=== PATIENT | female | born 1980 | race Caucasian/White ===

== ENCOUNTER → 2016-10-20 | Outpatient (CLI) | payer MEDICARE, OTHER ==
--- NOTE | 2016-10-20 16:16 | XCELERA REPORT ---
[address] [address] Lower Extremity Venous Evaluation Name: GUS PELLETIER Age: 36 yrs Gender: Female : 1980 Patient Status: Outpatient Patient Location: Study Date: 10/20/2016 02:31 PM Procedure: A bilateral duplex scan of the lower extremity veins was performed. The evaluation included responses to compression and other maneuvers with patient in the supine and standing positions to assess venous insufficiency. Reason For Study: LEFT FOOT ABSCESS Ordering Physician: SINDHU LIU Performed By: Aaron Velazquez Right Sided Venous Evaluation Deep venous system evaluation shows patent veins with significant reflux identified. 4.6 second reflux in the CFV, no reflux in the Femoral vein. Sapheno Femoral junction: 1.6 second reflux. Greater Saphenous vein, Proximal thigh: reflux: no reflux Greater Saphenous vein, mid thigh: reflux:no reflux Greater Saphenous vein, Distal thigh: reflux: no reflux Greater Saphenous vein, Proximal below knee: reflux: none Greater Saphenous vein, Mid below knee: reflux: none. Greater Saphenous vein, Distal below knee: reflux: no reflux No significant Perforators identified. Left Sided Venous Evaluation Deep venous system evaluatiion shows patent veins with no obstruction or significant reflux identified. Sapheno Femoral junction: no reflux. Femoral vein reflux: no reflux. Greater Saphenous vein, Proximal thigh: reflux: no reflux. Greater Saphenous vein, Distal thigh: reflux: no reflux. Greater Saphenous vein, Proximal below knee: reflux: no reflux. No significant Perforators identified. Interpretation Summary No duplex evidence of DVT or obstruction in the bilateral lower extremities. Limited, reflux on the right. : SINDHU LIU > Jac Mclean
--- NOTE | 2016-10-20 16:18 | XCELERA REPORT ---
[address] [address] Lower Extremity Arterial Evaluation Name: GUS PELLETIER Age: 36 yrs Gender: Female : 1980 Patient Status: Outpatient Patient Location: Study Date: 10/20/2016 02:18 PM Procedure: A color flow and duplex scan of the lower extremity arteries was performed bilaterally with velocity and waveform anaylsis. Reason For Study: LEFT FOOT ABSCESS Ordering Physician: SINDHU LIU Performed By: Aaron Velazquez Measurements and Calculations Right Left CULINARY SPECIALIST PSV 129.6 135.3 cm/sec Prox PFA PSV -81.1 -74.2 cm/sec Dist SFA PSV -99.9 -99.3 cm/sec Dist Pop A PSV 91.1 86.1 cm/sec Dist GIULIANA PSV 99.3 92.4 cm/sec Dist FURNACE COMBINATION ANALYST PSV 92.4 -61.6 cm/sec Ravindra Pedis PSV 91.8 93.0 cm/sec Right Side Arterial Evaluation Normal velocity and triphasic waveforms noted from the Common Femoral artery to the infregeniculate vessels. 0 % stenosis noted. Ankle Brachial index is 1.18. Left Side Arterial Evaluation Normal velocity and triphasic waveforms noted from the Common Femoral artery to the infregeniculate vessels. 0 % stenosis noted. Ankle Brachial index is 1.19. Interpretation Summary No hemodynamically significant lesions in the bilateral lower extremities, on duplex imaging, at rest. : SINDHU LIU > Jac Mclean
== END ==
LOC: SP 13:58
PROVIDERS: ATTEND Surgery
DX: L02.612 Cutaneous abscess of left foot (principal); M08.00 Unspecified juvenile rheumatoid arthritis of unspecified site
CPT/HCPCS: 93925; 93970

== ENCOUNTER 2017-01-07 14:48 | Emergency (ER) | payer OTHER, MEDICAID ==
--- NOTE | 2017-01-07 16:58 | ER Document Report ---
ED General - General Chief Complaint: Rash Stated Complaint: RASH ON ABDOMINAL Time Seen by Provider: 01/07/17 16:53 Mode of Arrival: Ambulatory Information source: Patient Notes: Patient states that she has 2 days of painful rash. She states that it seemed to start primarily in the right flank and now radiates across the lower abdomen to the left side. She denies any new vesicles or lesions with this. There is been no drainage. It has been red and tender. She has had no fevers no vomiting no diarrhea. She states that she did previously take Humira for arthritis but is not longer taking this medication. Symptoms of been constant and moderate. The pain is a burning sensation. It does radiate across the abdomen as above. It is worse when touched and better if left alone. TRAVEL OUTSIDE OF THE [place] IN LAST 30 DAYS: No - Related Data Allergies/Adverse Reactions: amoxicillin trihydrate [From Augmentin] Allergy (Verified 01/07/17 14:51) ITCHING cephalexin monohydrate [From Keflex] Allergy (Verified 01/07/17 14:51) ibuprofen [From Motrin] Allergy (Verified 01/07/17 14:51) Potassium Clavulanate * [From Augmentin] Allergy (Verified 01/07/17 14:51) Home Medications: Current Home Medications Metoprolol Tartrate [Metoprolol Tartrate] 100 mg PO DAILY 01/07/17 [History] Paroxetine HCl [Paroxetine HCl] 20 mg PO DAILY 01/07/17 [History] Prednisone [Prednisone] 8 mg PO DAILY 01/07/17 [History] Past Medical History - General Information source: Patient - Social History Smoking Status: Never Smoker Chew tobacco use (# tins/day): No Frequency of alcohol use: None Drug Abuse: None Family History: Reviewed & Not Pertinent Patient has suicidal ideation: No Patient has homicidal ideation: No Pulmonary Medical History: Reports: Hx Pneumonia - intubated Denies: Hx Tuberculosis Neurological Medical History: Denies: Hx Seizures Renal/ Medical History: Denies: Hx Peritoneal Dialysis Musculoskeltal Medical History: Reports Hx Arthritis - Juvenile rheumatoid arthritis Psychiatric Medical History: Denies: Hx Depression Past Surgical History: Reports: Hx Section - 2, Hx Orthopedic Surgery - joint replacements. Denies: Hx Hysterectomy - Immunizations Hx Diphtheria, Pertussis, Tetanus Vaccination: No Review of Systems - Review of Systems Constitutional: denies: Chills, Fever Cardiovascular: denies: Chest pain, Palpitations Respiratory: denies: Cough, Short of breath Physical Exam - Vital signs Vitals: Temp Pulse Resp BP Pulse Ox 98.5 F 93 18 128/89 H 96 01/07/17 14:51 01/07/17 14:51 01/07/17 14:51 01/07/17 14:51 01/07/17 14:51 Interpretation: Hypertensive - General General appearance: Appears well, Alert In distress: None - HEENT Head: Normocephalic, Atraumatic Eyes: Normal Pupils: PERRL - Respiratory Respiratory status: No respiratory distress Chest status: Nontender Breath sounds: Normal Chest palpation: Normal - Cardiovascular Rhythm: Regular Heart sounds: Normal auscultation Murmur: No - Abdominal Inspection: Normal Distension: No distension Bowel sounds: Normal Tenderness: Nontender Organomegaly: No organomegaly - Back Back: Normal, Nontender - Extremities General upper extremity: Normal inspection, Nontender, Normal color, Normal ROM , Normal temperature General lower extremity: Normal inspection, Nontender, Normal color, Normal ROM , Normal temperature, Normal weight bearing. No: Corinne's sign - Neurological Neuro grossly intact: Yes Cognition: Normal Orientation: AAOx4 [place] Coma Scale Eye Opening: Spontaneous [place] Coma Scale Verbal: Oriented Mei Coma Scale Motor: Obeys Commands [place] Coma Scale Total: 15 Speech: Normal Motor strength normal: LUE, RUE, LLE, RLE Sensory: Normal - Psychological Associated symptoms: Normal affect, Normal mood - Skin Skin Temperature: Warm Skin Moisture: Dry Skin Color: Other - Patient's right flank is erythematous and mildly tender. The erythema does alex. There is no significant induration or fluctuance. This area of erythema and warmth does seem to spread across the pannus to the left side of the abdomen. No vesicles. Course - Re-evaluation Re-evalutation: 01/07/17 16:58 Rash seems consistent with cellulitis or possibly panniculitis. Rash does not seem consistent with zoster has patient has no vesicles and the rash seems to widespread. It also seems to be localized to just the pannus. It also does not seem consistent with allergic reaction. - Vital Signs Vital signs: Temp Pulse Resp BP Pulse Ox 98.5 F 93 18 128/89 H 96 01/07/17 14:51 01/07/17 14:51 01/07/17 14:51 01/07/17 14:51 01/07/17 14:51 Discharge - Discharge Clinical Impression: Cellulitis Qualifiers: Site of cellulitis: trunk Site of cellulitis of trunk: abdominal wall Qualified Code(s): L03.311 - Cellulitis of abdominal wall Condition: Stable Disposition: HOME, SELF-CARE Instructions: Cellulitis ([facility]) Additional Instructions: Please call your primary care physician as soon as possible to arrange follow- up. If you are unable to see your primary care physician please return to the emergency department for follow-up. Your blood pressure is mildly elevated today. Please have this rechecked within 1 week by your doctor. Prescriptions: Doxycycline Hyclate 100 mg PO BID 10 Days #20 capsule Forms: Elevated Blood Pressure
[2017-01-07 17:04] VITALS: BP 127/89
== END 2017-01-07 17:03 | disposition home or self-care (01) ==
LOC: ER 14:48
DX: L03.311 Cellulitis of abdominal wall (principal); Z88.0 Allergy status to penicillin; Z88.1 Allergy status to other antibiotic agents; Z88.6 Allergy status to analgesic agent
CPT/HCPCS: 99282

== ENCOUNTER 2017-01-13 23:14 | Inpatient (IN) | payer MEDICARE, OTHER, MEDICAID ==
[2017-01-14] MEDS ORDERED: METOCLOPRAMIDE HCL ORAL SOLN 10 MG/10 ML UDCUP PO ONE (00:59)
[2017-01-14] MEDS ORDERED: LIDOCAINE 2% VISCOUS SOLN 20 ML UDCUP PO ONE (00:59)
[2017-01-14] MEDS ORDERED: NORMAL SALINE 1000 ML 1,000 ML IV ONE (00:59)
[2017-01-14] MEDS ORDERED: MAG HYDROX/AL HYDROX/SIMETH SUSP 30 ML UDCUP PO ONE (00:59)
[2017-01-14] MEDS ORDERED: ONDANSETRON HCL INJ/PF 4 MG/2 ML SDV IV ONE (00:59)
--- NOTE | 2017-01-14 01:02 | ER Document Report ---
ED General - General TRAVEL OUTSIDE OF THE [place] IN LAST 30 DAYS: No <LEAH ZENDEJAS - Last Filed: 01/14/17 03:45> <LEAH CHRISTOPHER - Last Filed: 01/14/17 06:23> - General Chief Complaint: ryan pain Stated Complaint: CHEST PAIN Time Seen by Provider: 01/14/17 00:30 Notes: Patient is a 36-year-old female with a past medical history of juvenile arthritis, recurrent cellulitis, who presents with epigastric abdominal pain that has been progressively worsening over the last 12-24 hours. She describes it as a severe, constant, stabbing pain in her epigastrium that radiates to her mid back. She notes associated nausea and vomiting. Nothing improves or worsens the pain. She denies any history of similar symptoms in the past. She has no prior abdominal surgeries. She has not seen a primary care doctor regarding today's concerns. She has denies any fever or constitutional symptoms. (LEAH ZENDEJAS) - Related Data Allergies/Adverse Reactions: amoxicillin trihydrate [From Augmentin] Allergy (Verified 01/07/17 14:51) ITCHING cephalexin monohydrate [From Keflex] Allergy (Verified 01/07/17 14:51) ibuprofen [From Motrin] Allergy (Verified 01/07/17 14:51) Potassium Clavulanate * [From Augmentin] Allergy (Verified 01/07/17 14:51) Past Medical History - General Information source: Patient - Social History Smoking Status: Never Smoker Frequency of alcohol use: None Drug Abuse: None Family History: Reviewed & Not Pertinent Pulmonary Medical History: Reports: Hx Pneumonia - intubated Denies: Hx Tuberculosis Neurological Medical History: Denies: Hx Seizures Renal/ Medical History: Denies: Hx Peritoneal Dialysis Musculoskeltal Medical History: Reports Hx Arthritis - Juvenile rheumatoid arthritis Psychiatric Medical History: Denies: Hx Depression Past Surgical History: Reports: Hx Section - 2, Hx Orthopedic Surgery - joint replacements. Denies: Hx Hysterectomy - Immunizations Hx Diphtheria, Pertussis, Tetanus Vaccination: No <LEAH ZENDEJAS - Last Filed: 01/14/17 03:45> Review of Systems <LEAH ZENDEJAS - Last Filed: 01/14/17 03:45> <LEAH CHRISTOPHER - Last Filed: 01/14/17 06:23> - Review of Systems Notes: Constitutional: Negative for fever. HENT: Negative for sore throat. Eyes: Negative for visual changes. Cardiovascular: Negative for chest pain. Respiratory: Negative for shortness of breath. Gastrointestinal: Positive for abdominal pain and vomiting Genitourinary: Negative for dysuria. Musculoskeletal: Negative for back pain. Skin: Negative for rash. Neurological: Negative for headaches, weakness or numbness. 10 point ROS negative except as marked above and in HPI. (LEAH ZENDEJAS) Physical Exam - Vital signs Interpretation: Hypertensive <LEAH ZENDEJAS - Last Filed: 01/14/17 03:45> <LEAH CHRISTOPHER - Last Filed: 01/14/17 06:23> - Vital signs Vitals: Temp Pulse Resp BP Pulse Ox 97.8 F 74 16 156/102 H 100 01/13/17 23:50 01/13/17 23:50 01/13/17 23:50 01/13/17 23:50 01/13/17 23:50 Notes: PHYSICAL EXAMINATION: GENERAL: Appears uncomfortable but in no acute distress HEAD: Atraumatic, normocephalic. EYES: Pupils equal round and reactive to light, extraocular movements intact, sclera anicteric, conjunctiva are normal. ENT: nares patent, oropharynx clear without exudates. Moderately dry mucous membranes. NECK: Normal range of motion, supple without lymphadenopathy LUNGS: Breath sounds clear to auscultation bilaterally and equal. No wheezes rales or rhonchi. HEART: Regular rate and rhythm without murmurs ABDOMEN: Soft, focal tenderness to the epigastrium without rebound or guarding. There is no otherwise localized tenderness. No organomegaly. EXTREMITIES: Normal range of motion, No cyanosis. NEUROLOGICAL: No focal neurological deficits. Moves all extremities spontaneously and on command. PSYCH: Normal mood, normal affect. SKIN: Warm, Dry, normal turgor, crusting lesion around the mouth consistent with impetigo (LEAH ZENDEJAS) Course - Laboratory Result Diagrams: 01/14/17 01:35 01/14/17 01:35 - Diagnostic Test Radiology reviewed: Reports reviewed <LEAH ZENDEJAS - Last Filed: 01/14/17 03:45> - Laboratory Result Diagrams: 01/14/17 01:35 01/14/17 01:35 <LEAH CHRISTOPHER - Last Filed: 01/14/17 06:23> - Re-evaluation Re-evalutation: 01/14/17 00:59 Patient presents with epigastric abdominal pain with associated vomiting. Lipase is found to be markedly elevated suggesting an acute pancreatitis. She has no known history of this. Right upper quadrant ultrasound does show gallstones but no evidence of acute cholecystitis. Laboratories do not suggest an acute choledocholithiasis. I have low clinical suspicion for necrotizing pancreatitis as patient does not have a leukocytosis, no fever or tachycardia. I discussed this case with the hospitalist was requested a CT to further evaluate for any evidence of pancreatic necrosis or a large pancreatic pseudocyst. (LEAH ZENDEJAS) 01/14/17 06:22 CT scan results have returned and there is no evidence of pancreatic necrosis or pseudocyst. I did discuss this with Dr. Veloz who will admit the patient. Dictation of this chart was performed using voice recognition software; therefore, there may be some unintended grammatical errors. (LEAH CHRISTOPHER) - Vital Signs Vital signs: Temp Pulse Resp BP Pulse Ox 97.8 F 74 22 H 155/106 H 100 01/13/17 23:50 01/13/17 23:50 01/14/17 05:15 01/14/17 05:15 01/14/17 03:01 - Laboratory Laboratory results interpreted by me: 01/14/17 01/14/17 01:35 01:35 RBC 3.48 L Hgb 10.6 L Hct 32.1 L RDW 16.1 H Plt Count 99 L Lymphocytes % 11.5 L Monocytes % 13.5 H Chloride 116 H Carbon Dioxide 16 L BUN 37 H Calcium 7.9 L Direct Bilirubin 0.6 H AST 52 H Alkaline Phosphatase 200 H Total Protein 4.7 L Albumin 1.9 L Lipase 11869.0 H - EKG Interpretation by Me Additional EKG results interpreted by me: 01/14/17 01:00 Normal sinus rhythm. Rate 65. No ST elevations or depressions. QTC is 450. ( LEAH ZENDEJAS) Discharge <LEAH ZENDEJAS - Last Filed: 01/14/17 03:45> - Discharge Admitting Provider: Hospitalist Unit Admitted: Telemetry <LEAH CHRISTOPHER - Last Filed: 11/22/17 06:23> - Discharge Clinical Impression: Pancreatitis Qualifiers: Chronicity: acute Pancreatitis type: biliary Acute pancreatitis complication: no infection or necrosis Qualified Code(s): K85.10 - Biliary acute pancreatitis without necrosis or infection Gallstone Qualifiers: Cholecystitis presence: without cholecystitis Biliary obstruction: without biliary obstruction Qualified Code(s): K80.20 - Calculus of gallbladder without cholecystitis without obstruction Condition: Stable Disposition: ADMITTED INPATIENT
[2017-01-14] MEDS: MORPHINE SULFATE 10 MG/ML INJ IV PRN ×4 (01:34→07:43)
--- NOTE | 2017-01-14 01:36 | RADIOLOGY REPORT (SQ) ---
EXAM DESCRIPTION: CHEST SINGLE VIEW COMPLETED DATE/TIME: 01/14/2017 1:10 am REASON FOR STUDY: chest pain COMPARISON: 07/05/2013. EXAM PARAMETERS: NUMBER OF VIEWS: One view. TECHNIQUE: Single frontal radiographic view of the chest acquired. RADIATION DOSE: NA LIMITATIONS: None. FINDINGS: LUNGS AND PLEURA: Small bibasilar opacity-effusion. Moderate lung volume. MEDIASTINUM AND HILAR STRUCTURES: No masses. Contour normal. HEART AND VASCULAR STRUCTURES: Mild enlargement of the cardiac silhouette. BONES: No acute findings. HARDWARE: Hardware replacement of bilateral proximal humeri. OTHER: No other significant finding. IMPRESSION: No significant interval change. TECHNICAL DOCUMENTATION: JOB ID: [id number] [employer]- All Rights Reserved
[2017-01-14 01:51] LABS: ABSOLUTE LYMPHOCYTES (AUTO) 0.5 10^3/uL (0.5-4.7); ABSOLUTE MONOCYTES (AUTO) 0.6 10^3/uL (0.1-1.4); ABSOLUTE NEUT (AUTO) 3.1 10^3/uL (1.7-8.2); BASOPHILS % (AUTO) 0.4 % (0-2); EOSINOPHILS % (AUTO) 0.2 % (0-6); HEMATOCRIT 32.1 % (36.0-47.0); HEMOGLOBIN 10.6 g/dL (12.0-15.5); HGB HCT DIFFERENCE -0.3; LYMPHOCYTES % (AUTO) 11.5 % (13-45); MEAN CORPUSCULAR HEMOGLOBIN 30.3 pg (27.0-33.4); MEAN CORPUSCULAR HGB CONC 32.9 g/dL (32.0-36.0); MEAN CORPUSCULAR VOLUME 92 fl (80-97); MONOCYTES % (AUTO) 13.5 % (3-13); RED BLOOD COUNT 3.48 10^6/uL (3.72-5.28); RED CELL DISTRIBUTION WIDTH 16.1 % (11.5-14.0); SEGMENTED NEUTROPHILS % (AUTO) 74.4 % (42-78); WHITE BLOOD COUNT 4.2 10^3/uL (4.0-10.5)
[2017-01-14 02:02] LABS: ALANINE AMINOTRANSFERASE 31 U/L (9-52); ALBUMIN 1.9 g/dL (3.5-5.0); ALKALINE PHOSPHATASE 200 U/L (38-126); ANION GAP 11 (5-19); ASPARTATE AMINO TRANSFERASE 52 U/L (14-36); BILIRUBIN,DIRECT 0.6 mg/dL (0.0-0.4); BILIRUBIN,TOTAL 0.6 mg/dL (0.2-1.3); BLOOD UREA NITROGEN 37 mg/dL (7-20); CALCIUM 7.9 mg/dL (8.4-10.2); CARBON DIOXIDE 16 mmol/L (22-30); CHLORIDE 116 mmol/L (98-107); CREATININE RESULT 0.92 mg/dL (0.52-1.25); GLUCOSE 95 mg/dL (75-110); POTASSIUM 4.5 mmol/L (3.6-5.0); TOTAL PROTEIN 4.7 g/dL (6.3-8.2)
--- NOTE | 2017-01-14 02:44 | RADIOLOGY REPORT (SQ) ---
EXAM DESCRIPTION: U/S ABDOMEN LIMITED W/O DOP COMPLETED DATE/TIME: 01/14/2017 2:24 am REASON FOR STUDY: ruq pain COMPARISON: 07/06/2013, 06/16/2013. CT, 07/02/2013. CT, chest, 07/02/2013. TECHNIQUE: Dynamic and static grayscale images acquired of the abdomen and recorded on PACS. Additio nal selected color Doppler and spectral images recorded. LIMITATIONS: As below. FINDINGS: PANCREAS: Partially obscured. LIVER: No masses. 1.5 x 1.4 x 0.9 cm echogenic well defined nodular lesion of the left hepatic lobe may indicate a hepatic hemangioma ; cannot exclude other neoplasm. LIVER VASCULATURE: Normal directional flow of the main portal vein and hepatic veins. GALLBLADDER: Gallstone(s). Minimal pericholecystic fluid. No wall thickening. ULTRASOUND-DETECTED SEPULVEDA'S SIGN: Negative. INTRAHEPATIC DUCTS AND COMMON DUCT: CBD and intrahepatic ducts normal caliber. No filling defects. INFERIOR VENA CAVA: Normal flow. AORTA: Partially obscured. RIGHT KIDNEY: Normal size. Normal echogenicity. No solid or suspicious masses. No hydronephrosis. No calcifications. Partially obscured. PERITONEAL AND RIGHT PLEURAL SPACE: Small-moderate ascites. OTHER: No other significant findings. IMPRESSION: 1. Indeterminate 1.5 cm left hepatic lesion may indicate a hepatic hemangioma; cannot e xclude other neoplasm. Recommend contrast CT or MRI of the liver. 2. Cholelithiasis. 3. Small -m oderate ascites decreased compared with prior exams. 4. Limitations. TECHNICAL DOCUMENTATION: JOB ID: [id number] [employer]- All Rights Reserved
--- NOTE | 2017-01-14 05:11 | RADIOLOGY REPORT (SQ) ---
EXAM DESCRIPTION: CT ABD/PELVIS WITH IV ONLY COMPLETED DATE/TIME: 01/14/2017 4:28 am REASON FOR STUDY: eval degree of pancreatic inflammation COMPARISON: Ultrasound, same day. TECHNIQUE: CT scan of the abdomen and pelvis performed using helical scanning technique with dynamic intravenous contrast injection. No oral contrast. Images reviewed with lung, soft tissue, and bone windows. Reconstructed coronal and sagittal MPR images reviewed. Delayed images for evaluation of the urinary system also acquired. All images stored on PACS. All CT scanners at this facility use dose modulation, iterative reconstruction, and/or weight based d osing when appropriate to reduce radiation dose to as low as reasonably achievable (ALARA). [facility]: Dose Right [facility]: CareDose [facility]: Dose Right [facility]: Teradose 4D [facility]: [employer] CONTRAST TYPE AND DOSE: contrast/concentration: Isovue 370.00 mg/ml; Total Contrast Delivered: 100.0 ml; Total Saline Delivered: 43.4 ml RENAL FUNCTION: None required. The patient is less than 50 years old. RADIATION DOSE: CT Rad equipment meets quality standard of care and radiation dose reduction techniq ues were employed. CTDIvol: 21.4 - 21.6 mGy. DLP: 2349 mGy-cm.. LIMITATIONS: None. FINDINGS: LOWER CHEST: Moderate smooth right pleural-based thickening measures 1.7 cm in thickness a nd CT density of 68 Hounsfield units. Small left pleural thickening and/or small effusion. LIVER: Normal size. No dilated ducts. Low-attenuation likely benign 1.5 cm right posterior hepatic l esion may indicate a hemangioma. Additional 1.5 cm low-attenuation left hepatic lesion not definitiv dre characterized. SPLEEN: Normal size. No focal lesions. PANCREAS: No masses. No significant calcifications. No focal adjacent inflammation or peripancreatic fluid collections. There is diffuse moderate streakiness of intra-abdominal and intrapelvic fat thro ughout. Pancreatic duct not dilated. Extensive moderate ascites involves the lesser sac as well. GALLBLADDER: Gallstones, as correlated with sonogram. No inflammatory changes to suggest cholecystiti s. ADRENAL GLANDS: No significant masses or asymmetry. RIGHT KIDNEY AND URETER: No solid masses. No significant calcifications. No hydronephrosis or hyd roureter. Low-attenuation likely benign lesions not definitively characterized. LEFT KIDNEY AND URETER: No solid masses. No significant calcifications. No hydronephrosis or hydr oureter. AORTA AND VESSELS: No aneurysm. No dissection. Renal arteries, SMA, celiac without stenosis. RETROPERITONEUM: No retroperitoneal adenopathy, hemorrhage or masses. BOWEL AND PERITONEAL CAVITY: No masses or inflammatory changes. Moderate ascites. Moderate streakin ess of intraperitoneal fat. Small 3 cm herniation of fluid at the umbilicus. APPENDIX: Normal. PELVIS: No mass. No free fluid. Normal bladder. IUD. ABDOMINAL WALL: No masses. No hernias. BONES: Chronic bilateral L5 spondylolysis, grade 1 0.7 cm L5 anterior spondylolisthesis, [id number] rate posterior L5 vertebral height loss and mild T12 anterior vertebral height loss. Mild dextro con vexity. These findings are stable compared with prior exam from July 2013. OTHER: Bilateral total hip arthroplasty with mild left protrusion acetabula measuring 0.3 cm of media l displacement, stable since June 2013 CT. Partially imaged intramedullary maia of the right humeral s haft. Moderate soft tissue anasarca pattern. IMPRESSION: Moderate ascites. Cholelithiasis. Otherwise, no acute findings. TECHNICAL DOCUMENTATION: JOB ID: [id number] Quality ID # [id number]: Final reports with documentation of one or more dose reduction techniques (e.g., Au tomated exposure control, adjustment of the mA and/or kV according to patient size, use of iterative reconstruction technique) 2010 [employer]- All Rights Reserved
[2017-01-14] MEDS ORDERED: ASCORBIC ACID 500 MG TABLET PO ONE (06:25)
[2017-01-14] MEDS ORDERED: ZINC SULFATE 220 MG CAPSULE PO ONE (06:25)
[2017-01-14] MEDS ORDERED: PANTOPRAZOLE SODIUM 40 MG VIAL IV ONE (06:25)
[2017-01-14] MEDS ORDERED: IPRATROPIUM/ALBUTEROL 0.5-2.5 MG/3 ML AMPUL NEB PRN (06:34)
[2017-01-14 06:56] LABS: PROTHROMBIN TIME 12.6 SEC (11.4-15.4)
[2017-01-14] MEDS ORDERED: CEFTRIAXONE 1 GM/D5W RTU 1 GM/50 ML RTUPB IV SCH (07:00)
[2017-01-14 07:13] LABS: C-REACTIVE PROTEIN 83.9 mg/L (<10.0); MAGNESIUM 2.1 mg/dL (1.6-2.3); PHOSPHORUS 4.9 mg/dL (2.5-4.5)
[2017-01-14 07:17] LABS: PREALBUMIN 5.9 mg/dL (17.6-36.0)
[2017-01-14] MEDS ORDERED: METHYLPREDNISOLONE INJ 125 MG/2 ML SDV IV ONE (07:30)
--- NOTE | 2017-01-14 07:33 | PDOC H&P ---
History of Present Illness Admission Date/PCP: 01/14/17 06:30 Patient complains of: Abdominal pain and distention History of Present Illness: GUS PELLETIER is a 36 year old female with a complex past medical history juvenile rheumatoid arthritis, steroid dependence, gastric ulcer, opiate dependency, metabolic acidosis, profound malnutrition, lower extremity venous stasis and spontaneous bacterial peritonitis. She presents with 24 hours of epigastric pain that radiates to the back and is worsened by p.o. intake and somewhat alleviated by leaning forward associated with nausea and vomiting 1 gastric content. Denies fever or chest pain. In the emergency room she is found to have abdominal distention with a constellation suggestive of chronic hepatic failure with anasarca, ascites, thrombocytopenia, severe protein malnutrition and intravascular depletion. She receives morphine for pain and is referred to the hospitalist for admission. Patient admits one prior episode was in [address] [facility] to tertiary care though is unaware of the diagnosis. She was seen 1 week ago with complaint of cellulitis and received a prescription of doxycycline. Past Medical History Pulmonary Medical History: Reports: Pneumonia - intubated Denies: Tuberculosis Neurological Medical History: Denies: Seizures Musculoskeltal Medical History: Reports: Arthritis - Juvenile rheumatoid arthritis, Other - Avascular necrosis joint replacement of bilateral knee, hip and shoulder. Psychiatric Medical History: Denies: Depression Past Surgical History Past Surgical History: Reports: Section - 2, Orthopedic Surgery - joint replacements Denies: Hysterectomy Social History Information Source: Patient Smoking Status: Never Smoker Frequency of Alcohol Use: None Hx Recreational Drug Use: No Hx Prescription Drug Abuse: No - Advance Directive Resuscitation Status: Full Code Family History Family History: Hypertension Parental Family History Reviewed: Yes Children Family History Reviewed: Yes Sibling(s) Family History Reviewed.: Yes Medication/Allergy Allergies/Adverse Reactions: amoxicillin trihydrate [From Augmentin] Allergy (Verified 01/07/17 14:51) ITCHING cephalexin monohydrate [From Keflex] Allergy (Verified 01/07/17 14:51) ibuprofen [From Motrin] Allergy (Verified 01/07/17 14:51) Potassium Clavulanate * [From Augmentin] Allergy (Verified 01/07/17 14:51) Review of Systems Constitutional: PRESENT: as per HPI, anorexia, fatigue, weakness, weight gain. ABSENT: chills Eyes: ABSENT: visual disturbances Ears: ABSENT: hearing changes Cardiovascular: ABSENT: chest pain, dyspnea on exertion, edema, orthropnea, palpitations Respiratory: ABSENT: cough, hemoptysis Gastrointestinal: PRESENT: abdominal pain, bloating, nausea, vomiting. ABSENT: coffee ground emesis, constipation, diarrhea, dysphagia, heartburn Genitourinary: ABSENT: dysuria, hematuria Musculoskeletal: PRESENT: as per HPI Integumentary: PRESENT: as per HPI. ABSENT: rash, wounds Neurological: ABSENT: abnormal gait, abnormal speech, confusion, dizziness, focal weakness, syncope Psychiatric: ABSENT: anxiety, depression, homidical ideation, suicidal ideation Endocrine: ABSENT: cold intolerance, heat intolerance, polydipsia, polyuria Hematologic/Lymphatic: ABSENT: easy bleeding, easy bruising Physical Exam Vital Signs: Temp Pulse Resp BP Pulse Ox 97.8 F 74 22 H 155/106 H 100 01/13/17 23:50 01/13/17 23:50 01/14/17 05:15 01/14/17 05:15 01/14/17 03:01 General appearance: PRESENT: cooperative, mild distress Head exam: PRESENT: atraumatic, normocephalic Eye exam: PRESENT: conjunctiva pink, EOMI, PERRLA. ABSENT: scleral icterus Ear exam: PRESENT: normal external ear exam Mouth exam: PRESENT: dry mucosa Neck exam: ABSENT: carotid bruit, JVD, lymphadenopathy, thyromegaly Respiratory exam: PRESENT: clear to auscultation jose j. ABSENT: rales, rhonchi, wheezes Cardiovascular exam: PRESENT: RRR. ABSENT: diastolic murmur, rubs, systolic murmur Pulses: PRESENT: normal dorsalis pedis pul Vascular exam: PRESENT: normal capillary refill GI/Abdominal exam: PRESENT: ascites, diminished bowel sounds, distended, firm, hypoactive bowel sounds, tenderness. ABSENT: guarding, Yates's sign Rectal exam: PRESENT: deferred Extremities exam: PRESENT: +2 edema Neurological exam: PRESENT: alert, awake, oriented to person, oriented to place , oriented to time, oriented to situation, CN II-XII grossly intact. ABSENT: motor sensory deficit Psychiatric exam: PRESENT: appropriate affect, normal mood. ABSENT: homicidal ideation, suicidal ideation Skin exam: PRESENT: dry, intact, warm. ABSENT: cyanosis, rash Results Impressions: Chest X-Ray 01/14/17 00:32 IMPRESSION: No significant interval change. Abdomen Ultrasound 01/14/17 00:58 IMPRESSION: 1. Indeterminate 1.5 cm left hepatic lesion may indicate a hepatic hemangioma; cannot exclude other neoplasm. Recommend contrast CT or MRI of the liver. 2. Cholelithiasis. 3. Small -moderate ascites decreased compared with prior exams. 4. Limitations. Abdomen/Pelvis CT 01/14/17 03:02 IMPRESSION: Moderate ascites. Cholelithiasis. Otherwise, no acute findings. Assessment & Plan - Diagnosis (1) SBP (spontaneous bacterial peritonitis) Is this a current diagnosis for this admission?: Yes Plan: IMCU admission, ultrasound-guided paracentesis, empiric Levaquin given cephalosporin and penicillin allergy. Follow-up INR, CBC, paracentesis fluid analysis. (2) Autoimmune hepatitis Is this a current diagnosis for this admission?: Yes Plan: Likely given history of chronic poorly controlled autoimmune disease and stigmata of chronic hepatic insufficiency. Follow-up TING serology, GI and rheumatology consult. (3) Malnutrition Is this a current diagnosis for this admission?: Yes Plan: Likely secondary to hepatic insufficiency though urinalysis pending. Albumin infusion with follow-up of prealbumin (4) Anasarca Is this a current diagnosis for this admission?: Yes Plan: Secondary to chronic hepatitis patient currently volume depleted. Albumin ordered (5) Thrombocytopenia Is this a current diagnosis for this admission?: Yes Plan: Likely secondary to #1 follow-up CBC (6) Steroid dependence Is this a current diagnosis for this admission?: Yes Plan: Prednisone 8 mg per day will dose with IV Solu-Medrol (7) Pancreatitis Qualifiers: Chronicity: acute Pancreatitis type: biliary Acute pancreatitis complication: no infection or necrosis Qualified Code(s): K85.10 - Biliary acute pancreatitis without necrosis or infection Is this a current diagnosis for this admission?: Yes Plan: No evidence for obstruction or necrosis. Bowel rest, IV fluids, electrolyte repletion, symptomatic management and consider early enteral feeding. - Time Time Spent: Greater than 70 Minutes - Inpatient Certification Medical Necessity: Need Close Monitoring Due to Risk of Patient Decompensation
[2017-01-14] MEDS: LEVOFLOXACIN 750 MG/D5W RTU 750 MG/150 ML RTUPB IV SCH (07:43)
[2017-01-14] MEDS: NORMAL SALINE 1000 ML 1,000 ML IV SCH ×2 (07:45→14:42)
[2017-01-14] MEDS: ALBUMIN HUMAN 50 ML IV SCH ×4 (09:10→14:35)
[2017-01-14] MEDS ORDERED: DOCUSATE SODIUM 100 MG CAPSULE PO SCH (10:00)
[2017-01-14] MEDS: PAROXETINE HCL 20 MG TABLET PO SCH (10:12)
[2017-01-14] MEDS ORDERED: DOCUSATE SODIUM 100 MG CAPSULE PO PRN (10:59)
[2017-01-14 11:19] LABS: APPEARANCE,URINE CLEAR; BILIRUBIN,URINE NEGATIVE (NEGATIVE); GLUCOSE, URINE NEGATIVE (NEGATIVE); KETONES,URINE NEGATIVE (NEGATIVE); LEUKOCYTE ESTERASE,URINE NEGATIVE (NEGATIVE); NITRITE,URINE NEGATIVE (NEGATIVE); PROTEIN,URINE >=500 mg/dL (NEGATIVE); URINE SPECIFIC GRAVITY 1.035; UROBILINOGEN,URINE NEGATIVE mg/dL (<2.0)
--- NOTE | 2017-01-14 11:42 | PDOC PROGRESS REPORT ---
Subjective Progress Note for:: 01/14/17 Subjective:: Patient was seen on morning rounds while still in the emergency department. Upon entering the room she was sleeping and woke easily. She reports that she had recently received some IV pain medication and is feeling much better. She reports continued diffuse abdominal discomfort and swelling. She states that her nausea and vomiting have resolved and asks to be allowed to drink water. She has several questions about the planned paracentesis today. She reports that she has previously had a liver biopsy done at a hospital in [place] approximately 2 years ago. She states that the results of the biopsy were normal. Otherwise, she denies a history of liver disease. She has no other questions or concerns today. Physical Exam Vital Signs: Temp Pulse Resp BP Pulse Ox 97.8 F 100 13 122/86 H 92 01/13/17 23:50 01/14/17 08:46 01/14/17 10:01 01/14/17 10:01 01/14/17 10:01 General appearance: PRESENT: no acute distress, mild distress, well-developed. ABSENT: well-nourished Head exam: PRESENT: atraumatic, normocephalic Eye exam: PRESENT: conjunctiva pink, EOMI, PERRLA. ABSENT: scleral icterus Ear exam: PRESENT: normal external ear exam Mouth exam: PRESENT: dry mucosa, tongue midline, other - Dry, cracked lips Neck exam: ABSENT: carotid bruit, JVD, lymphadenopathy, thyromegaly Respiratory exam: PRESENT: clear to auscultation jose j, symmetrical, unlabored. ABSENT: rales, rhonchi, wheezes Cardiovascular exam: PRESENT: RRR, +S1, +S2, tachycardia - 100-105. ABSENT: diastolic murmur, rubs, systolic murmur Pulses: PRESENT: normal dorsalis pedis pul Vascular exam: PRESENT: normal capillary refill GI/Abdominal exam: PRESENT: ascites, distended, normal bowel sounds, soft, tenderness - Generalized. ABSENT: guarding, mass, organolmegaly, rebound Rectal exam: PRESENT: deferred Extremities exam: PRESENT: full ROM, +2 edema, other - Anasarca. ABSENT: calf tenderness, clubbing Musculoskeletal exam: ABSENT: normal inspection - Sawyer-neck fingers to both hands Neurological exam: PRESENT: alert, awake, oriented to person, oriented to place , oriented to time, oriented to situation, CN II-XII grossly intact. ABSENT: motor sensory deficit Psychiatric exam: PRESENT: appropriate affect, normal mood. ABSENT: homicidal ideation, suicidal ideation Skin exam: PRESENT: dry, intact, warm. ABSENT: cyanosis, jaundice, rash Results Impressions: Chest X-Ray 01/14/17 00:32 IMPRESSION: No significant interval change. Abdomen Ultrasound 01/14/17 00:58 IMPRESSION: 1. Indeterminate 1.5 cm left hepatic lesion may indicate a hepatic hemangioma; cannot exclude other neoplasm. Recommend contrast CT or MRI of the liver. 2. Cholelithiasis. 3. Small -moderate ascites decreased compared with prior exams. 4. Limitations. Abdomen/Pelvis CT 01/14/17 03:02 IMPRESSION: Moderate ascites. Cholelithiasis. Otherwise, no acute findings. Assessment & Plan - Diagnosis (1) Pancreatitis Qualifiers: Chronicity: acute Pancreatitis type: biliary Acute pancreatitis complication: no infection or necrosis Qualified Code(s): K85.10 - Biliary acute pancreatitis without necrosis or infection Is this a current diagnosis for this admission?: Yes Plan: This patient has pancreatitis because of history of abdominal pain with nausea and vomiting worsened by p.o. intake and an elevated lipase. The possibility of SBP will be addressed with a paracentesis scheduled for later today. Pancreatitis will be managed with n.p.o., ice chips, IV fluids, and pain management with as needed narcotics. (2) SBP (spontaneous bacterial peritonitis) Is this a current diagnosis for this admission?: Yes Plan: Patient has ascites with abdominal pain to the possibility of SBP will be evaluated with paracentesis. She has been empirically started on antibiotics for coverage. (3) Malnutrition Is this a current diagnosis for this admission?: Yes Plan: Patient with low albumin and evidence of third spacing. We will ask registered dietitian to evaluate patient and make recommendations. She will be n.p.o. for now secondary to pancreatitis. (4) Rheumatoid arthritis Is this a current diagnosis for this admission?: Yes Plan: Patient is on chronic prednisone, she will receive stress dosing while inpatient. She is not on any other disease modifying agents. (5) Hypotension Is this a current diagnosis for this admission?: Yes Plan: Patient is hypotensive likely secondary to third spacing. Sepsis has been considered, however is unlikely as she is afebrile and has a normal white count. He has been started on Levaquin empirically for possible SBP. She has received 3 L IV fluid bolus with improvement in blood pressures. She will receive continuous maintenance fluids and monitor closely. (6) Anasarca Is this a current diagnosis for this admission?: Yes Plan: Secondary to low albumin; will be addressed with nutrition. (7) Autoimmune hepatitis Is this a current diagnosis for this admission?: No Plan: She has a history of autoimmune hepatitis, however her liver enzymes are normal and so it is unlikely she has active disease. (8) Gallstone Qualifiers: Cholecystitis presence: without cholecystitis Biliary obstruction: without biliary obstruction Qualified Code(s): K80.20 - Calculus of gallbladder without cholecystitis without obstruction Plan: Gallstones present on CT. Unlikely to be gallstone related pancreatitis as her LFTs are normal. Will ask GI to evaluate patient for recommendations. (9) Steroid dependence Is this a current diagnosis for this admission?: Yes Plan: Patient is receiving stress dose steroids. (10) Ascites Is this a current diagnosis for this admission?: Yes Plan: Patient has ascites with history of the same. Will be evaluated with paracentesis today and will ask GI to consult. - Time Time Spent with patient: 35 or more minutes Medications reviewed and adjusted accordingly: Yes - Inpatient Certification Based on my medical assessment, after consideration of the patient's comorbidities, presenting symptoms, or acuity I expect that the services needed warrant INPATIENT care.: Yes I certify that my determination is in accordance with my understanding of Medicare's requirements for reasonable and necessary INPATIENT services [42 CFR 412.3e].: Yes Medical Necessity: Failure to Improve With Outpatient Therapy, Significant Comorbidiites Make Outpatient Treatment Too Risky, Need Close Monitoring Due to Risk of Patient Decompensation, Need For IV Fluids, Need For Continuous Telemetry Monitoring
[2017-01-14 12:47] LABS: FLUID APPEARANCE CLEAR; FLUID RBC AVERAGE 0.5; FLUID RBC DILUENT USED NONE USED; FLUID RBC DILUTION FACTOR 1; FLUID RBC SIDE 1 0; FLUID RBC SIDE 2 1; FLUID TYPE PERITONEAL; STAIN REACTIVITY CHECK ACCEPTABLE; TOTAL RBC SQUARES COUNTED FLD 225
--- NOTE | 2017-01-14 12:58 | RADIOLOGY REPORT (SQ) ---
EXAM DESCRIPTION: U/S ABD PARACENTESIS COMPLETED DATE/TIME: 01/14/2017 12:36 pm REASON FOR STUDY: sbp COMPARISON Abdominal ultrasound 01/14/2017 Prior paracentesis 07/06/2013 LIMITATIONS: None. PROCEDURE: After obtaining informed consent, the patient was brought to the ultrasound suite. The p rocedure was performed with the patient on a gurney. Ultrasound was used to identify a prominent poc ket of ascites in the left lower quadrant. An appropriate access site was selected. The patient was prepped and draped in usual sterile fashion. The access site was anesthetized with 7 mL 1% lidocai ne. A [id number] needle was advanced into the fluid. After aspiration of fluid the needle, the catheter was advanced off the needle into the fluid. A total of 2,250 mL of clear yellow fluid was removed. The patient tolerated the procedure well left the department in satisfactory condition. Specimens were sent for testing. IMPRESSION: Successful ultrasound-guided diagnostic and therapeutic paracentesis COMMENT: Patient medication list reviewed: Yes- Quality ID# [id number]:Eligible professional attests to doc umenting in the medical record they obtained, updated, or reviewed the patient's current medications. Quality ID #[id number]: The patient was prepped and draped using maximum sterile barrier technique including cap, mask, sterile gown, sterile gloves, a large sterile sheet, hand hygiene, and 2% Chlorhexidine fo r cutaneous antisepsis. When ultrasound is used, sterile ultrasound techniques are followed requiring sterile gel and sterile probes. Quality ID #[id number]: Final reports for procedures using fluoroscopy that document radiation exposure radha devika, or exposure time and number of fluorographic images (if radiation exposure indices are not avail able) TECHNICAL DOCUMENTATION: JOB ID: [id number] [employer]- All Rights Reserved
[2017-01-14] MEDS ORDERED: INFLUENZA ADLT QUAD (36MOS+) 2017-18 VAC 0.5 ML SYR IM PRN (13:00)
[2017-01-14] MEDS ORDERED: ALBUMIN HUMAN 50 ML IV ONE (14:00)
[2017-01-14] MEDS ORDERED: HEPARIN SOD (PORCINE) 5,000 UNIT/ML 1 ML SYRINGE SUBCUT SCH (14:00)
[2017-01-14] MEDS: METHYLPREDNISOLONE INJ 125 MG/2 ML SDV IV SCH ×2 (14:36→21:19)
[2017-01-14] MEDS: NORMAL SALINE 1000 ML 1,000 ML IV PRN (19:22)
--- NOTE | 2017-01-14 19:43 | EKG REPORT ---
SEVERITY:- NORMAL ECG - SINUS RHYTHM : Confirmed by: Lorene Mccormack MD 14-Jan-2017 19:42:30
[2017-01-15] MEDS: NORMAL SALINE 1000 ML 1,000 ML IV PRN ×4 (00:24→23:36)
[2017-01-15] MEDS: METHYLPREDNISOLONE INJ 125 MG/2 ML SDV IV SCH (05:32)
[2017-01-15 06:18] LABS: HEMATOCRIT 24.6 % (36.0-47.0); MEAN CORPUSCULAR HEMOGLOBIN 31.1 pg (27.0-33.4); MEAN CORPUSCULAR HGB CONC 33.4 g/dL (32.0-36.0); MEAN CORPUSCULAR VOLUME 93 fl (80-97); RED BLOOD COUNT 2.64 10^6/uL (3.72-5.28); RED CELL DISTRIBUTION WIDTH 16.5 % (11.5-14.0); WHITE BLOOD COUNT 6.6 10^3/uL (4.0-10.5)
[2017-01-15 06:29] LABS: HEMOGLOBIN 8.2 g/dL (12.0-15.5)
[2017-01-15 06:38] LABS: ALBUMIN 1.8 g/dL (3.5-5.0); ANION GAP 10 (5-19); CARBON DIOXIDE 17 mmol/L (22-30); CHLORIDE 118 mmol/L (98-107); GLUCOSE 103 mg/dL (75-110); POTASSIUM 4.7 mmol/L (3.6-5.0); TOTAL PROTEIN 4.2 g/dL (6.3-8.2)
[2017-01-15 06:40] LABS: ALANINE AMINOTRANSFERASE 29 U/L (9-52); ALKALINE PHOSPHATASE 131 U/L (38-126); ASPARTATE AMINO TRANSFERASE 37 U/L (14-36); BILIRUBIN,DIRECT 0.4 mg/dL (0.0-0.4); BILIRUBIN,TOTAL 0.4 mg/dL (0.2-1.3); BLOOD UREA NITROGEN 30 mg/dL (7-20); CALCIUM 7.4 mg/dL (8.4-10.2); CREATININE RESULT 0.94 mg/dL (0.52-1.25)
[2017-01-15 06:45] LABS: BAND NEUTROPHILS % (MANUAL) 2 % (3-5); BASOPHILS % (MANUAL) 0 % (0-2); EOSINOPHILS % (MANUAL) 0 % (0-6); LYMPHOCYTES % (MANUAL) 0 % (13-45); TOTAL CELLS COUNTED 100
[2017-01-15 06:48] LABS: LIPASE 3235.9 U/L (23-300)
[2017-01-15 06:50] LABS: ACANTHOCYTES SLIGHT; ANISOCYTOSIS 1+; OVALOCYTES 1+; POIKILOCYTOSIS 2+; TOXIC GRANULATION 1+; TOXIC VACUOLATION PRESENT
[2017-01-15 06:51] LABS: TARGET CELLS SLIGHT; TEAR DROP CELLS 1+
[2017-01-15] MEDS: LEVOFLOXACIN 750 MG/D5W RTU 750 MG/150 ML RTUPB IV SCH (08:01)
[2017-01-15] MEDS: PAROXETINE HCL 20 MG TABLET PO SCH (10:32)
[2017-01-15] MEDS: MORPHINE SULFATE 10 MG/ML INJ IV PRN ×3 (10:33→23:03)
[2017-01-15] MEDS: PANTOPRAZOLE SODIUM 40 MG VIAL IV SCH (10:33)
[2017-01-15] MEDS ORDERED: LIDOCAINE 2% VISCOUS SOLN 20 ML UDCUP PO PRN (11:05)
--- NOTE | 2017-01-15 11:27 | PDOC PROGRESS REPORT ---
Subjective Subjective:: Patient was seen on morning rounds while sitting upright in bed with family present. She reports feeling hungry this morning and asks to have her diet advanced. She does complain of chapped lips and mouth sores that began 2-3 days prior to her abdominal pain following 1 day of low-grade fever. She reports that her abdominal pain has resolved; she denies fever, chills, chest pain, dyspnea, cough, nausea, vomiting, diarrhea. Otherwise she has no complaints or concerns. Physical Exam Vital Signs: Temp Pulse Resp BP Pulse Ox 97.8 F 91 19 134/87 H 94 01/15/17 08:01 01/15/17 08:01 01/15/17 08:01 01/15/17 08:01 01/15/17 08:01 Intake & Output 01/14/17 01/15/17 01/16/17 06:59 06:59 06:59 Intake Total 2829 Output Total 1000 Balance 1829 Weight 94.3 kg General appearance: PRESENT: no acute distress, well-developed. ABSENT: well- nourished Head exam: PRESENT: atraumatic, normocephalic Eye exam: PRESENT: conjunctiva pink, EOMI, PERRLA. ABSENT: scleral icterus Ear exam: PRESENT: normal external ear exam Mouth exam: PRESENT: moist, tongue midline, other - chapped lips Neck exam: ABSENT: carotid bruit, JVD, lymphadenopathy, thyromegaly Respiratory exam: PRESENT: clear to auscultation jose j, symmetrical, unlabored. ABSENT: rales, rhonchi, tachypnea, wheezes Cardiovascular exam: PRESENT: RRR, +S1, +S2. ABSENT: diastolic murmur, rubs, systolic murmur Pulses: PRESENT: normal dorsalis pedis pul Vascular exam: PRESENT: normal capillary refill GI/Abdominal exam: PRESENT: ascites, distended, hypoactive bowel sounds, soft. ABSENT: guarding, mass, organolmegaly, rebound, tenderness Rectal exam: PRESENT: deferred Extremities exam: PRESENT: full ROM, +2 edema - anasarca, other - Adrian-neck fingers bilaterally. ABSENT: calf tenderness, clubbing, pedal edema Neurological exam: PRESENT: alert, awake, oriented to person, oriented to place , oriented to time, oriented to situation, CN II-XII grossly intact. ABSENT: motor sensory deficit Psychiatric exam: PRESENT: appropriate affect, normal mood. ABSENT: homicidal ideation, suicidal ideation Skin exam: PRESENT: dry, intact, warm. ABSENT: cyanosis, rash Results Laboratory Results: 01/15/17 05:36 01/15/17 05:36 01/14/17 01/14/17 01/15/17 10:50 12:03 05:36 WBC 6.6 RBC 2.64 L Hgb 8.2 L D Hct 24.6 L MCV 93 MCH 31.1 MCHC 33.4 RDW 16.5 H Plt Count 56 L Seg Neutrophils % Not Reportable Lymphocytes % Not Reportable Monocytes % Not Reportable Eosinophils % Not Reportable Basophils % Not Reportable Absolute Neutrophils Not Reportable Absolute Lymphocytes Not Reportable Absolute Monocytes Not Reportable Absolute Eosinophils Not Reportable Absolute Basophils Not Reportable Sodium Potassium Chloride Carbon Dioxide Anion Gap BUN Creatinine Est GFR ( Amer) Est GFR (Non-Af Amer) Glucose Calcium Total Bilirubin AST ALT Alkaline Phosphatase Total Protein Albumin Lipase Urine Color YELLOW Urine Appearance CLEAR Urine pH 6.0 Ur Specific [place] 1.035 Urine Protein >=500 H Urine Glucose (UA) NEGATIVE Urine Ketones NEGATIVE Urine Blood SMALL H Urine Nitrite NEGATIVE Ur Leukocyte Esterase NEGATIVE Urine WBC (Auto) 7 Urine RBC (Auto) 6 Fluid Type PERITONEAL Fluid Source ASCITES Fluid Color LIGHT YELLOW Fluid Appearance CLEAR Fluid Viscosity LIQUID Fluid WBC 7 Fluid RBC 0 01/15/17 05:36 WBC RBC Hgb Hct MCV MCH MCHC RDW Plt Count Seg Neutrophils % Lymphocytes % Monocytes % Eosinophils % Basophils % Absolute Neutrophils Absolute Lymphocytes Absolute Monocytes Absolute Eosinophils Absolute Basophils Sodium 145.0 Potassium 4.7 Chloride 118 H Carbon Dioxide 17 L Anion Gap 10 BUN 30 H Creatinine 0.94 Est GFR ( Amer) > 60 Est GFR (Non-Af Amer) > 60 Glucose 103 Calcium 7.4 L Total Bilirubin 0.4 AST 37 H ALT 29 Alkaline Phosphatase 131 H Total Protein 4.2 L Albumin 1.8 L Lipase 3235.9 H Urine Color Urine Appearance Urine pH Ur Specific [place] Urine Protein Urine Glucose (UA) Urine Ketones Urine Blood Urine Nitrite Ur Leukocyte Esterase Urine WBC (Auto) Urine RBC (Auto) Fluid Type Fluid Source Fluid Color Fluid Appearance Fluid Viscosity Fluid WBC Fluid RBC 01/14/17 08:40 NT-Pro-B Natriuret Pep 1890 H Impressions: Paracentesis Ultrasound 01/14/17 00:00 IMPRESSION: Successful ultrasound-guided diagnostic and therapeutic paracentesis Chest X-Ray 01/14/17 00:32 IMPRESSION: No significant interval change. Abdomen Ultrasound 01/14/17 00:58 IMPRESSION: 1. Indeterminate 1.5 cm left hepatic lesion may indicate a hepatic hemangioma; cannot exclude other neoplasm. Recommend contrast CT or MRI of the liver. 2. Cholelithiasis. 3. Small -moderate ascites decreased compared with prior exams. 4. Limitations. Abdomen/Pelvis CT 01/14/17 03:02 IMPRESSION: Moderate ascites. Cholelithiasis. Otherwise, no acute findings. Assessment & Plan - Diagnosis (1) Pancreatitis Qualifiers: Chronicity: acute Pancreatitis type: biliary Acute pancreatitis complication: no infection or necrosis Qualified Code(s): K85.10 - Biliary acute pancreatitis without necrosis or infection Is this a current diagnosis for this admission?: Yes Plan: Improving. Lipase is trending down from 10,000 to 3000. Patient reports resolution of abdominal pain and return of appetite. We will advance her diet to clears today, continue IV fluids and pain management with as needed narcotics. Appreciate gastroenterology consultation and recommendations. (2) SBP (spontaneous bacterial peritonitis) Is this a current diagnosis for this admission?: Yes Plan: Patient has ascites with abdominal pain concerning for the possibility of SBP. Paracentesis was completed yesterday; initial laboratory results not indicative of a bacterial peritonitis. She will remain on antibiotics pending Gram staining and cultures. (3) Malnutrition Is this a current diagnosis for this admission?: Yes Plan: Patient with low albumin and evidence of third spacing. She did receive albumin 4 yesterday, however, continues to have hypoalbuminemia. We will ask registered dietitian to evaluate patient and make recommendations. (4) Rheumatoid arthritis Is this a current diagnosis for this admission?: Yes Plan: Patient is on chronic prednisone, she will receive stress dosing while inpatient. She is not on any other disease modifying agents. (5) Hypotension Is this a current diagnosis for this admission?: Yes Plan: Resolved. Patient was likely hypotensive secondary to third spacing. Sepsis has been considered, however is unlikely as she is afebrile and has a normal white count. She has been started on Levaquin empirically for possible SBP. She has received 3 L IV fluid bolus with obtained improvements in blood pressure. She will receive continuous maintenance fluids and close monitoring. (6) Anasarca Is this a current diagnosis for this admission?: Yes Plan: Secondary to low albumin; will be addressed with nutrition. (7) Autoimmune hepatitis Is this a current diagnosis for this admission?: No Plan: She has a history of autoimmune hepatitis, however her liver enzymes are normal and so it is unlikely she has active disease. (8) Gallstone Qualifiers: Cholecystitis presence: without cholecystitis Biliary obstruction: without biliary obstruction Qualified Code(s): K80.20 - Calculus of gallbladder without cholecystitis without obstruction Plan: Gallstones present on CT. Unlikely to be gallstone related pancreatitis as her LFTs are normal. Will ask GI to evaluate patient for recommendations. (9) Steroid dependence Is this a current diagnosis for this admission?: Yes Plan: Patient is receiving stress dose steroids. (10) Ascites Is this a current diagnosis for this admission?: Yes Plan: Patient has ascites with history of the same. No status post paracentesis with removal of 2250 mL of clear fluid. Gram staining and cultures are pending; initial laboratory evaluation is not suggestive of bacterial source of fluid. - Time Time Spent with patient: 35 or more minutes Medications reviewed and adjusted accordingly: Yes - Inpatient Certification Based on my medical assessment, after consideration of the patient's comorbidities, presenting symptoms, or acuity I expect that the services needed warrant INPATIENT care.: Yes I certify that my determination is in accordance with my understanding of Medicare's requirements for reasonable and necessary INPATIENT services [42 CFR 412.3e].: Yes Medical Necessity: Failure to Improve With Outpatient Therapy, Significant Comorbidiites Make Outpatient Treatment Too Risky, Need For IV Fluids
[2017-01-15 11:38] LABS: JO-1 ANTIBODY (ANACOMP) <0.2 AI (0.0-0.9)
[2017-01-15] MEDS: METHYLPREDNISOLONE INJ 40 MG/1 ML SDV IV SCH ×2 (14:51→21:18)
[2017-01-16] MEDS ORDERED: METOPROLOL TARTRATE 100 MG TABLET PO ONE (01:15)
[2017-01-16] MEDS: METHYLPREDNISOLONE INJ 40 MG/1 ML SDV IV SCH ×3 (05:10→22:55)
[2017-01-16 05:59] LABS: HEMATOCRIT 25.7 % (36.0-47.0); HEMOGLOBIN 8.5 g/dL (12.0-15.5); HGB HCT DIFFERENCE -0.2; MEAN CORPUSCULAR HEMOGLOBIN 30.5 pg (27.0-33.4); MEAN CORPUSCULAR HGB CONC 32.9 g/dL (32.0-36.0); MEAN CORPUSCULAR VOLUME 93 fl (80-97); RED BLOOD COUNT 2.78 10^6/uL (3.72-5.28); RED CELL DISTRIBUTION WIDTH 16.7 % (11.5-14.0); WHITE BLOOD COUNT 10.1 10^3/uL (4.0-10.5)
[2017-01-16 06:11] LABS: ANION GAP 10 (5-19); BLOOD UREA NITROGEN 30 mg/dL (7-20); CALCIUM 7.3 mg/dL (8.4-10.2); CARBON DIOXIDE 16 mmol/L (22-30); CHLORIDE 118 mmol/L (98-107); CREATININE RESULT 0.91 mg/dL (0.52-1.25); GLUCOSE 131 mg/dL (75-110)
[2017-01-16 06:15] LABS: POTASSIUM 4.6 mmol/L (3.6-5.0)
[2017-01-16 06:26] LABS: BAND NEUTROPHILS % (MANUAL) 4 % (3-5); BASOPHILS % (MANUAL) 0 % (0-2); EOSINOPHILS % (MANUAL) 0 % (0-6); LYMPHOCYTES % (MANUAL) 0 % (13-45); TOTAL CELLS COUNTED 100
[2017-01-16 06:27] LABS: ANISOCYTOSIS 1+; BURR CELLS SLIGHT; OVALOCYTES 1+; POIKILOCYTOSIS 2+; TEAR DROP CELLS 1+
[2017-01-16] MEDS: NORMAL SALINE 1000 ML 1,000 ML IV PRN ×2 (07:10→19:02)
[2017-01-16] MEDS: LEVOFLOXACIN 750 MG/D5W RTU 750 MG/150 ML RTUPB IV SCH (07:12)
[2017-01-16] MEDS ORDERED: OXYCODONE HCL IR 5 MG TABLET PO PRN (07:44)
[2017-01-16] MEDS ORDERED: MORPHINE SULFATE 10 MG/ML INJ IV PRN (07:45)
[2017-01-16] MEDS: METOPROLOL TARTRATE 100 MG TABLET PO SCH (09:20)
[2017-01-16] MEDS: PANTOPRAZOLE SODIUM 40 MG VIAL IV SCH (09:23)
[2017-01-16] MEDS: PAROXETINE HCL 20 MG TABLET PO SCH (09:23)
--- NOTE | 2017-01-16 13:06 | PDOC PROGRESS REPORT ---
Subjective Progress Note for:: 01/16/17 Subjective:: Patient was seen on morning rounds resting in bed comfortably. She reports that she continues to have generalized abdominal pain, most severe in the epigastric region, that is worsened with p.o. intake. She reports that her pain is significantly improved as compared to day of admission and is only required pain medications 3 times since yesterday. She denies fever, chills, chest pain, dyspnea, cough, nausea, vomiting, diarrhea. Otherwise she has no complaints or concerns. Physical Exam Vital Signs: Temp Pulse Resp BP Pulse Ox 97.9 F 70 16 144/94 H 98 01/16/17 07:45 01/16/17 12:44 01/16/17 12:44 01/16/17 07:45 01/16/17 12:44 Intake & Output 01/15/17 01/16/17 01/17/17 06:59 06:59 06:59 Intake Total 2829 4342 Output Total 1000 1400 Balance 1829 2942 Weight 94.3 kg 100.4 kg General appearance: PRESENT: no acute distress, well-developed, well-nourished, other - anasarca Head exam: PRESENT: atraumatic, normocephalic Eye exam: PRESENT: conjunctiva pink, EOMI, PERRLA. ABSENT: scleral icterus Ear exam: PRESENT: normal external ear exam Mouth exam: PRESENT: moist, tongue midline, other - dry lips Neck exam: ABSENT: carotid bruit, JVD, lymphadenopathy, thyromegaly Respiratory exam: PRESENT: clear to auscultation jose j. ABSENT: rales, rhonchi, wheezes Cardiovascular exam: PRESENT: RRR. ABSENT: diastolic murmur, rubs, systolic murmur Pulses: PRESENT: normal dorsalis pedis pul Vascular exam: PRESENT: normal capillary refill GI/Abdominal exam: PRESENT: ascites, hypoactive bowel sounds, soft, tenderness. ABSENT: distended, guarding, mass, organolmegaly, rebound Rectal exam: PRESENT: deferred Extremities exam: PRESENT: full ROM, +2 edema. ABSENT: calf tenderness, clubbing Neurological exam: PRESENT: alert, awake, oriented to person, oriented to place , oriented to time, oriented to situation, CN II-XII grossly intact. ABSENT: motor sensory deficit Psychiatric exam: PRESENT: appropriate affect, normal mood. ABSENT: homicidal ideation, suicidal ideation Skin exam: PRESENT: dry, intact, warm. ABSENT: cyanosis, rash Results Laboratory Results: 01/16/17 05:28 01/16/17 05:28 01/16/17 01/16/17 01/16/17 05:28 05:28 05:28 WBC 10.1 RBC 2.78 L Hgb 8.5 L Hct 25.7 L MCV 93 MCH 30.5 MCHC 32.9 RDW 16.7 H Plt Count 83 L Seg Neutrophils % Not Reportable Lymphocytes % Not Reportable Monocytes % Not Reportable Eosinophils % Not Reportable Basophils % Not Reportable Absolute Neutrophils Not Reportable Absolute Lymphocytes Not Reportable Absolute Monocytes Not Reportable Absolute Eosinophils Not Reportable Absolute Basophils Not Reportable Sodium 144.0 Potassium 4.6 Chloride 118 H Carbon Dioxide 16 L Anion Gap 10 BUN 30 H Creatinine 0.91 Est GFR ( Amer) > 60 Est GFR (Non-Af Amer) > 60 Glucose 131 H Calcium 7.3 L Lipase 1876.4 H 01/14/17 12:03 Ascities Fluid AFB Smear Concentration - Final 01/14/17 12:03 Ascities Fluid Acid Fast Bacilli Smear - Final 01/14/17 08:40 NT-Pro-B Natriuret Pep 1890 H Impressions: Paracentesis Ultrasound 01/14/17 00:00 IMPRESSION: Successful ultrasound-guided diagnostic and therapeutic paracentesis Chest X-Ray 01/14/17 00:32 IMPRESSION: No significant interval change. Abdomen Ultrasound 01/14/17 00:58 IMPRESSION: 1. Indeterminate 1.5 cm left hepatic lesion may indicate a hepatic hemangioma; cannot exclude other neoplasm. Recommend contrast CT or MRI of the liver. 2. Cholelithiasis. 3. Small -moderate ascites decreased compared with prior exams. 4. Limitations. Abdomen/Pelvis CT 01/14/17 03:02 IMPRESSION: Moderate ascites. Cholelithiasis. Otherwise, no acute findings. Assessment & Plan - Diagnosis (1) Pancreatitis Qualifiers: Chronicity: acute Pancreatitis type: biliary Acute pancreatitis complication: no infection or necrosis Qualified Code(s): K85.10 - Biliary acute pancreatitis without necrosis or infection Is this a current diagnosis for this admission?: Yes Plan: Improving. Lipase is continues to trend down. Patient reports improvement of abdominal pain and return of appetite. Continue on clear diet today as she continues to have worsening pain with eating. Continue IV fluids and pain management with as needed narcotics. Appreciate gastroenterology consultation and recommendations. (2) SBP (spontaneous bacterial peritonitis) Is this a current diagnosis for this admission?: Yes Plan: Patient has ascites with abdominal pain concerning for the possibility of SBP. This is unlikely the source of her pain as she has remained afebrile and has had a normal white count. Paracentesis completed with removal of 2250 mL of clear, yellow, fluid. Initial laboratory results not indicative of a bacterial peritonitis. She will remain on antibiotics pending Gram staining and cultures. (3) Malnutrition Is this a current diagnosis for this admission?: Yes Plan: Patient with low albumin and evidence of third spacing. She did receive albumin 4 on admission. We will ask registered dietitian to evaluate patient and make recommendations. (4) Rheumatoid arthritis Is this a current diagnosis for this admission?: Yes Plan: Patient is on chronic prednisone, she will receive stress dosing while inpatient. She is not on any other disease modifying agents. (5) Hypotension Is this a current diagnosis for this admission?: Yes Plan: Resolved. Patient was likely hypotensive secondary to third spacing. Sepsis has been considered, however is unlikely as she is afebrile and has a normal white count. She has been started on Levaquin empirically for possible SBP. She did receive 3 L IV fluid bolus with obtained improvements in blood pressure. She will receive continuous maintenance fluids while npo with close monitoring. (6) Anasarca Is this a current diagnosis for this admission?: Yes Plan: Secondary to low albumin; will be addressed with nutrition. (7) Autoimmune hepatitis Is this a current diagnosis for this admission?: No Plan: She has a history of autoimmune hepatitis, however her liver enzymes are normal and so it is unlikely she has active disease. (8) Gallstone Qualifiers: Cholecystitis presence: without cholecystitis Biliary obstruction: without biliary obstruction Qualified Code(s): K80.20 - Calculus of gallbladder without cholecystitis without obstruction Plan: Gallstones present on CT. Unlikely to be gallstone related pancreatitis as her LFTs are normal. Appreciate GI's recommendations. (9) Steroid dependence Is this a current diagnosis for this admission?: Yes Plan: Patient is receiving stress dose steroids. (10) Ascites Is this a current diagnosis for this admission?: Yes Plan: Patient has ascites with history of the same. Now status post paracentesis with removal of 2250 mL of clear fluid. Gram staining and cultures are pending; initial laboratory evaluation is not suggestive of bacterial source of fluid. Cytology is negative for malignancy. - Time Time Spent with patient: 25-34 minutes Medications reviewed and adjusted accordingly: Yes Anticipated discharge: Home - Inpatient Certification Based on my medical assessment, after consideration of the patient's comorbidities, presenting symptoms, or acuity I expect that the services needed warrant INPATIENT care.: Yes I certify that my determination is in accordance with my understanding of Medicare's requirements for reasonable and necessary INPATIENT services [42 CFR 412.3e].: Yes Medical Necessity: Need Close Monitoring Due to Risk of Patient Decompensation, Need For IV Fluids
[2017-01-17 05:25] LABS: HEMATOCRIT 25.3 % (36.0-47.0); HEMOGLOBIN 8.3 g/dL (12.0-15.5); HGB HCT DIFFERENCE -0.4; MEAN CORPUSCULAR HEMOGLOBIN 30.5 pg (27.0-33.4); MEAN CORPUSCULAR HGB CONC 32.7 g/dL (32.0-36.0); MEAN CORPUSCULAR VOLUME 93 fl (80-97); RED BLOOD COUNT 2.71 10^6/uL (3.72-5.28); RED CELL DISTRIBUTION WIDTH 16.6 % (11.5-14.0); WHITE BLOOD COUNT 9.8 10^3/uL (4.0-10.5)
[2017-01-17 05:46] LABS: ANION GAP 9 (5-19); BLOOD UREA NITROGEN 29 mg/dL (7-20); CALCIUM 7.3 mg/dL (8.4-10.2); CARBON DIOXIDE 16 mmol/L (22-30); CHLORIDE 119 mmol/L (98-107); CREATININE RESULT 0.91 mg/dL (0.52-1.25); GLUCOSE 109 mg/dL (75-110); POTASSIUM 4.5 mmol/L (3.6-5.0); SODIUM 144.3 mmol/L (137-145)
[2017-01-17 05:47] LABS: BAND NEUTROPHILS % (MANUAL) 1 % (3-5); BASOPHILS % (MANUAL) 0 % (0-2); EOSINOPHILS % (MANUAL) 0 % (0-6); LYMPHOCYTES % (MANUAL) 2 % (13-45); TOTAL CELLS COUNTED 100
[2017-01-17 05:51] LABS: ACANTHOCYTES 1+; ANISOCYTOSIS 1+; OVALOCYTES 1+; POIKILOCYTOSIS 2+; SCHISTOCYTES SLIGHT; TEAR DROP CELLS 1+
[2017-01-17] MEDS: METHYLPREDNISOLONE INJ 40 MG/1 ML SDV IV SCH ×2 (06:03→22:57)
[2017-01-17] MEDS: NORMAL SALINE 1000 ML 1,000 ML IV PRN (06:07)
[2017-01-17] MEDS: LEVOFLOXACIN 750 MG/D5W RTU 750 MG/150 ML RTUPB IV SCH (06:24)
[2017-01-17] MEDS ORDERED: HYDRALAZINE HCL INJ/PF 20 MG/1 ML SDV IV PRN (09:33)
[2017-01-17] MEDS: PAROXETINE HCL 20 MG TABLET PO SCH (09:39)
[2017-01-17] MEDS: METOPROLOL TARTRATE 100 MG TABLET PO SCH (09:39)
[2017-01-17] MEDS: PANTOPRAZOLE SODIUM 40 MG VIAL IV SCH (09:40)
--- NOTE | 2017-01-17 14:27 | PDOC PROGRESS REPORT ---
Subjective Progress Note for:: 01/17/17 Subjective:: Patient was seen on morning rounds resting in bed comfortably. She reports that she continues to have generalized abdominal pain, most severe in the epigastric region, that is worsened with p.o. intake. She reports that her pain is significantly improved as compared to day of admission and is only required pain medications 3 times since yesterday. She denies fever, chills, chest pain, dyspnea, cough, nausea, vomiting, diarrhea. Otherwise she has no complaints or concerns. Physical Exam Vital Signs: Temp Pulse Resp BP Pulse Ox 97.9 F 64 16 180/100 H 94 01/17/17 07:45 01/17/17 07:45 01/17/17 07:45 01/17/17 08:00 01/17/17 07:45 Intake & Output 01/16/17 01/17/17 01/18/17 06:59 06:59 06:59 Intake Total 4342 4227 Output Total 1400 600 Balance 2942 3627 Weight 100.4 kg 101.1 kg General appearance: PRESENT: no acute distress, well-developed, other - Overweight. ABSENT: well-nourished - anasarca Head exam: PRESENT: atraumatic, normocephalic Eye exam: PRESENT: conjunctiva pink, EOMI, PERRLA. ABSENT: scleral icterus Ear exam: PRESENT: normal external ear exam Mouth exam: PRESENT: moist, tongue midline Neck exam: ABSENT: carotid bruit, JVD, lymphadenopathy, thyromegaly Respiratory exam: PRESENT: clear to auscultation jose j, symmetrical, unlabored. ABSENT: rales, rhonchi, wheezes Cardiovascular exam: PRESENT: RRR. ABSENT: diastolic murmur, rubs, systolic murmur Pulses: PRESENT: normal dorsalis pedis pul Vascular exam: PRESENT: normal capillary refill GI/Abdominal exam: PRESENT: normal bowel sounds, soft. ABSENT: distended, guarding, mass, organolmegaly, rebound, tenderness Rectal exam: PRESENT: deferred Extremities exam: PRESENT: full ROM. ABSENT: calf tenderness, clubbing, pedal edema Neurological exam: PRESENT: alert, awake, oriented to person, oriented to place , oriented to time, oriented to situation, CN II-XII grossly intact. ABSENT: motor sensory deficit Psychiatric exam: PRESENT: appropriate affect, normal mood. ABSENT: homicidal ideation, suicidal ideation Skin exam: PRESENT: dry, intact, warm. ABSENT: cyanosis, rash Results Laboratory Results: 01/17/17 04:48 01/17/17 04:48 01/17/17 01/17/17 04:48 04:48 WBC 9.8 RBC 2.71 L Hgb 8.3 L Hct 25.3 L MCV 93 MCH 30.5 MCHC 32.7 RDW 16.6 H Plt Count 59 L Seg Neutrophils % Not Reportable Lymphocytes % Not Reportable Monocytes % Not Reportable Eosinophils % Not Reportable Basophils % Not Reportable Absolute Neutrophils Not Reportable Absolute Lymphocytes Not Reportable Absolute Monocytes Not Reportable Absolute Eosinophils Not Reportable Absolute Basophils Not Reportable Sodium 144.3 Potassium 4.5 Chloride 119 H Carbon Dioxide 16 L Anion Gap 9 BUN 29 H Creatinine 0.91 Est GFR ( Amer) > 60 Est GFR (Non-Af Amer) > 60 Glucose 109 Calcium 7.3 L 01/14/17 12:03 Ascities Fluid Gram Stain - Final 01/14/17 12:03 Ascities Fluid AFB Smear Concentration - Final 01/14/17 12:03 Ascities Fluid Acid Fast Bacilli Smear - Final 01/14/17 08:40 NT-Pro-B Natriuret Pep 1890 H Impressions: Paracentesis Ultrasound 01/14/17 00:00 IMPRESSION: Successful ultrasound-guided diagnostic and therapeutic paracentesis Chest X-Ray 01/14/17 00:32 IMPRESSION: No significant interval change. Abdomen Ultrasound 01/14/17 00:58 IMPRESSION: 1. Indeterminate 1.5 cm left hepatic lesion may indicate a hepatic hemangioma; cannot exclude other neoplasm. Recommend contrast CT or MRI of the liver. 2. Cholelithiasis. 3. Small -moderate ascites decreased compared with prior exams. 4. Limitations. Abdomen/Pelvis CT 01/14/17 03:02 IMPRESSION: Moderate ascites. Cholelithiasis. Otherwise, no acute findings. Assessment & Plan - Diagnosis (1) Pancreatitis Qualifiers: Chronicity: acute Pancreatitis type: biliary Acute pancreatitis complication: no infection or necrosis Qualified Code(s): K85.10 - Biliary acute pancreatitis without necrosis or infection Is this a current diagnosis for this admission?: Yes Plan: Improving. Patient reports improvement of abdominal pain and return of appetite; now tolerating full liquids. Will advance diet as tolerated and provide p.o. narcotic pain medication as needed. (2) SBP (spontaneous bacterial peritonitis) Is this a current diagnosis for this admission?: Yes Plan: Unlikely that patient had SBP as source of ascities and abdominal pain. She has remained afebrile and has had a normal white count. Paracentesis completed with removal of 2250 mL of clear, yellow, fluid. Initial laboratory results not indicative of a bacterial peritonitis. Blood cultures: No growth at 72 hours Ascities fluid culture: No growth at 3 days AFB Culture & Smear: Pending Will d/c Levaquin. (3) Malnutrition Is this a current diagnosis for this admission?: Yes Plan: Patient with low albumin and evidence of third spacing. She did receive albumin 4 on admission. We will ask registered dietitian to evaluate patient and make recommendations. (4) Rheumatoid arthritis Is this a current diagnosis for this admission?: Yes Plan: Patient is on chronic prednisone, she will receive stress dosing while inpatient ; have begun weaning toward her maintenance dose. She is not on any other disease modifying agents. (5) Hypotension Is this a current diagnosis for this admission?: Yes Plan: Resolved. Patient was likely hypotensive secondary to third spacing. (6) Anasarca Is this a current diagnosis for this admission?: Yes Plan: Secondary to low albumin; will be addressed with nutrition. (7) Autoimmune hepatitis Is this a current diagnosis for this admission?: No Plan: She has a history of autoimmune hepatitis, however her liver enzymes are normal and so it is unlikely she has active disease. (8) Gallstone Qualifiers: Cholecystitis presence: without cholecystitis Biliary obstruction: without biliary obstruction Qualified Code(s): K80.20 - Calculus of gallbladder without cholecystitis without obstruction Plan: Gallstones present on CT. Unlikely to be gallstone related pancreatitis as her LFTs are normal. We will need to follow-up with gastroenterology as an outpatient. (9) Steroid dependence Is this a current diagnosis for this admission?: Yes Plan: Patient is receiving stress dose steroids; have begin weaning towards maintenance dose. (10) Ascites Is this a current diagnosis for this admission?: Yes Plan: Patient has ascites with history of the same. Now status post paracentesis with removal of 2250 mL of clear fluid. Gram staining and cultures are negative, AFB smear is pending pending; initial laboratory evaluation is not suggestive of bacterial source of fluid. Cytology is negative for malignancy. - Time Time Spent with patient: 25-34 minutes Medications reviewed and adjusted accordingly: Yes Anticipated discharge: Home Within: within 48 hours - Inpatient Certification Based on my medical assessment, after consideration of the patient's comorbidities, presenting symptoms, or acuity I expect that the services needed warrant INPATIENT care.: Yes I certify that my determination is in accordance with my understanding of Medicare's requirements for reasonable and necessary INPATIENT services [42 CFR 412.3e].: Yes Medical Necessity: Need Close Monitoring Due to Risk of Patient Decompensation
[2017-01-18 06:24] LABS: HEMATOCRIT 26.3 % (36.0-47.0); HEMOGLOBIN 8.8 g/dL (12.0-15.5); HGB HCT DIFFERENCE 0.1; MEAN CORPUSCULAR HEMOGLOBIN 30.5 pg (27.0-33.4); MEAN CORPUSCULAR HGB CONC 33.3 g/dL (32.0-36.0); MEAN CORPUSCULAR VOLUME 92 fl (80-97); RED BLOOD COUNT 2.87 10^6/uL (3.72-5.28); RED CELL DISTRIBUTION WIDTH 16.4 % (11.5-14.0); WHITE BLOOD COUNT 8.9 10^3/uL (4.0-10.5)
[2017-01-18 06:51] LABS: ALANINE AMINOTRANSFERASE 26 U/L (9-52); ALBUMIN 1.7 g/dL (3.5-5.0); ALKALINE PHOSPHATASE 135 U/L (38-126); ANION GAP 7 (5-19); ASPARTATE AMINO TRANSFERASE 26 U/L (14-36); BILIRUBIN,DIRECT 0.6 mg/dL (0.0-0.4); BILIRUBIN,TOTAL 0.7 mg/dL (0.2-1.3); BLOOD UREA NITROGEN 27 mg/dL (7-20); CALCIUM 7.5 mg/dL (8.4-10.2); CARBON DIOXIDE 16 mmol/L (22-30); CHLORIDE 121 mmol/L (98-107); CREATININE RESULT 0.95 mg/dL (0.52-1.25); GLUCOSE 117 mg/dL (75-110); LIPASE 640.6 U/L (23-300); POTASSIUM 4.1 mmol/L (3.6-5.0); SODIUM 144.4 mmol/L (137-145); TOTAL PROTEIN 4.2 g/dL (6.3-8.2)
[2017-01-18] MEDS ORDERED: NORMAL SALINE 1000 ML 1,000 ML IV PRN ×2 (07:42→10:24)
[2017-01-18] MEDS ORDERED: LISINOPRIL 10 MG TABLET PO SCH (10:00)
[2017-01-18] MEDS: METOPROLOL TARTRATE 100 MG TABLET PO SCH (10:04)
[2017-01-18] MEDS: PAROXETINE HCL 20 MG TABLET PO SCH (10:04)
[2017-01-18] MEDS: METHYLPREDNISOLONE INJ 40 MG/1 ML SDV IV SCH (10:04)
[2017-01-18 11:47] VITALS: BP 157/85
--- NOTE | 2017-01-18 15:10 | PDOC DISCHARGE SUMMARY ---
General - Admit/Disc Date/PCP Admission Date/Primary Care Provider: 01/14/17 06:34 Discharge Date: 01/18/17 - Discharge Diagnosis (1) Pancreatitis Is this a current diagnosis for this admission?: Yes Summary: Patient was admitted with acute pancreatitis. She was supported with IV fluids and narcotic pain medications. Her lipase has trended down from 10,769 to 640. She was started on a clear liquid diet and slowly advanced. At this time her pain, nausea and vomiting have resolved and she is tolerating a regular diet. She is advised to avoid alcohol. We discussed need to establish with a primary care provider. Additionally, she is provided a referral to gastroenterology. She will be discharged with prescriptions for oxycodone and zofran. (2) SBP (spontaneous bacterial peritonitis) Is this a current diagnosis for this admission?: No Summary: Patient was evaluated for SBP as the source of her fever, abdominal pain. She was emprically placed on Levaquin. She underwent a paracentesis with removal of 2250 mL of clear, yellow, fluid. Initial laboratory results and cultures are not indicative of peritonitis. AFB smear and culture are pending. She does not require continued antibiotics at this time. (3) Rheumatoid arthritis Is this a current diagnosis for this admission?: Yes Summary: Patient is on chronic prednisone. She did receive stress dosing while inpatient and have begin weaning her towards her maintenance dose. She does not take any other disease modifying agents. Patient reports that she has recently moved the area and has not established with a primary care provider or manager front office. Importance of establishing care given her complex medical history was emphasized. She will be discharged on continued steroid taper to return her to her maintenance dose gradually over the next 9 days. (4) Anasarca Is this a current diagnosis for this admission?: Yes Summary: Secondary to low albumin. Pt is encouraged to establish with primary care provider. She would benefit from outpatient curriculum and instruction specialist follow up. (5) Autoimmune hepatitis Is this a current diagnosis for this admission?: No Summary: Patient has a history of autoimmune hepatitis, however, her liver enzymes are normal and so it is unlikely that she has active disease. A low-attenuation lesion 1.5 cm right posterior hepatic lesion and 1.5 left hepatic lesion were identified by abdominal CT. Patient reports history of liver biopsy in [place] (results unavailable). She does not know the reason for the biopsy but reports that she was told that it was normal. Plan given her complex medical conditions of rheumatoid arthritis, cholelithiasis, pancreatitis, ascites and anasarca she will benefit from following up with outpatient gastroenterology as well as rheumatology. Establishing with a primary care provider was emphasized. (6) Gallstone Is this a current diagnosis for this admission?: Yes Summary: Gallstones present on abdominal ultrasound and abdominal CT. It is unlikely that pancreatitis is related to constant as her LFTs are normal. Again, recommend gastroenterology follow-up as an outpatient. (7) Steroid dependence Is this a current diagnosis for this admission?: Yes Summary: Patient received stress dose steroids while inpatient, will be discharged with prescription for prednisone taper to her maintenance dose. (8) Ascites Is this a current diagnosis for this admission?: Yes Summary: Patient with profound ascites and history of the same. She underwent a paracentesis with removal of 2250 mL of clear fluid. Gram stain and cultures are negative, AFB smear is pending. Cytology from malignancy negative. There is no indication that she has SBP at this time and so will not require further antibiotic coverage. Recommend follow-up with primary care, gastroenterology, rheumatology. (9) Hypotension Is this a current diagnosis for this admission?: Yes Summary: Resolved; was likely secondary to dehydration and third spacing. Corrected with IVF. (10) Malnutrition Is this a current diagnosis for this admission?: Yes Summary: Patient is noted to have a low albumin and anasarca. As above. - Additional Information Resuscitation Status: Full Code Discharge Diet: As Tolerated, Other (Comments) Discharge Activity: Activity As Tolerated, Balance Activity w/Rest Home Medications: Metoprolol Tartrate [Lopressor 100 mg Tablet] 100 mg PO DAILY 01/14/17 Paroxetine HCl [Paxil 20 mg Tablet] 20 mg PO DAILY 01/14/17 Lidocaine HCl [Xylocaine 2% Viscous Soln 20 ml Udcup] 15 ml PO Q3HP PRN 4 Days ml 01/18/17 Lisinopril [Prinivil 10 mg Tablet] 10 mg PO DAILY #30 tablet 01/18/17 Ondansetron HCl [Zofran 8 mg Tablet] 8 mg PO Q8HP PRN #30 tablet 01/18/17 Oxycodone HCl [Oxy-Ir 5 mg Tablet] 5 mg PO Q4HP PRN #20 tablet 01/18/17 Prednisone 20 mg PO ASDIR PRN #18 tablet 01/18/17 Prednisone [Deltasone 5 mg Tablet] 8 mg PO DAILY #0 01/18/17 History of Present Illness History of Present Illness: Per H&P by Dr. Veloz: GUS PELLETIER is a 36 year old female with a complex medical history of juvenile rheumatoid arthritis, steroid dependence, gastric ulcer, opiate dependency, metabolic acidosis, profound malnutrition, lower extremity venous stasis and spontaneous bacterial peritonitis. She presents with 24 hours of epigastric pain that radiates to the back and is worsened by p.o. intake and somewhat relieved by leaning forward associated with nausea and vomiting 1 gastric content. Denies fever or chest pain. In the emergency room she is found to have abdominal distention with a constellation suggestive of chronic hepatic failure with anasarca, ascites, thrombocytopenia, severe protein malnutrition and intravascular depletion. She receives morphine for pain and is referred to the hospitalist for admission. Patient admits one prior episode was in 2013 requiring transfer from [facility] to tertiary care though is unaware of the diagnosis. She was seen 1 week ago with complaint of cellulitis and received a prescription for doxycycline. Physical Exam Vital Signs: Temp Pulse Resp BP Pulse Ox 98.5 F 61 18 157/85 H 100 01/18/17 11:50 01/18/17 11:50 01/18/17 11:50 01/18/17 11:50 01/18/17 11:50 Intake & Output 01/17/17 01/18/17 01/19/17 06:59 06:59 06:59 Intake Total 4227 1964 350 Output Total 600 1050 300 Balance 3627 914 50 Weight 101.1 kg 103.5 kg General appearance: PRESENT: no acute distress, obese, well-developed. ABSENT: well-nourished Head exam: PRESENT: atraumatic, normocephalic Eye exam: PRESENT: conjunctiva pink, EOMI, PERRLA. ABSENT: scleral icterus Ear exam: PRESENT: normal external ear exam Mouth exam: PRESENT: moist, tongue midline, other - Cracked, dry, lips. Aphthous stomatitis Teeth exam: PRESENT: poor dentation Neck exam: ABSENT: carotid bruit, JVD, lymphadenopathy, thyromegaly Respiratory exam: PRESENT: clear to auscultation jose j, symmetrical, unlabored. ABSENT: rales, rhonchi, wheezes Cardiovascular exam: PRESENT: RRR, +S1, +S2. ABSENT: diastolic murmur, rubs, systolic murmur Pulses: PRESENT: normal dorsalis pedis pul Vascular exam: PRESENT: normal capillary refill GI/Abdominal exam: PRESENT: ascites, normal bowel sounds, soft. ABSENT: distended, guarding, mass, organolmegaly, rebound, tenderness Rectal exam: PRESENT: deferred Extremities exam: PRESENT: full ROM. ABSENT: calf tenderness, clubbing, pedal edema Neurological exam: PRESENT: alert, awake, oriented to person, oriented to place , oriented to time, oriented to situation, CN II-XII grossly intact. ABSENT: motor sensory deficit Psychiatric exam: PRESENT: appropriate affect, normal mood. ABSENT: homicidal ideation, suicidal ideation Skin exam: PRESENT: dry, intact, warm. ABSENT: cyanosis, rash Results Laboratory Results: 01/18/17 05:41 01/18/17 05:41 01/18/17 01/18/17 05:41 05:41 WBC 8.9 RBC 2.87 L Hgb 8.8 L Hct 26.3 L MCV 92 MCH 30.5 MCHC 33.3 RDW 16.4 H Plt Count 54 L Sodium 144.4 Potassium 4.1 Chloride 121 H Carbon Dioxide 16 L Anion Gap 7 BUN 27 H Creatinine 0.95 Est GFR ( Amer) > 60 Est GFR (Non-Af Amer) > 60 Glucose 117 H Calcium 7.5 L Total Bilirubin 0.7 AST 26 ALT 26 Alkaline Phosphatase 135 H Total Protein 4.2 L Albumin 1.7 L Lipase 640.6 H 01/14/17 12:03 Ascities Fluid Gram Stain - Final 01/14/17 12:03 Ascities Fluid Body Fluid Culture - Final NO AEROBIC OR ANAEROBIC ORGANISMS RECOVERED 01/14/17 08:40 NT-Pro-B Natriuret Pep 1890 H Impressions: Paracentesis Ultrasound 01/14/17 00:00 IMPRESSION: Successful ultrasound-guided diagnostic and therapeutic paracentesis Chest X-Ray 01/14/17 00:32 IMPRESSION: No significant interval change. Abdomen Ultrasound 01/14/17 00:58 IMPRESSION: 1. Indeterminate 1.5 cm left hepatic lesion may indicate a hepatic hemangioma; cannot exclude other neoplasm. Recommend contrast CT or MRI of the liver. 2. Cholelithiasis. 3. Small -moderate ascites decreased compared with prior exams. 4. Limitations. Abdomen/Pelvis CT 01/14/17 03:02 IMPRESSION: Moderate ascites. Cholelithiasis. Otherwise, no acute findings. Qualifiers PATEINT BEING DISCHARGED WITH ANY OF THE FOLLOWING DIAGNOSIS?: No
== END 2017-01-18 14:22 | disposition home or self-care (01) | DRG 438 ==
LOC: ER 23:14 → UNDOADMIN 01-14 06:30 → EH 01-14 06:30 → 3S 01-14 12:50
PROVIDERS: ADMIT Internal Medicine; ATTEND Internal Medicine
PROC: 0W9G3ZX Drainage of Peritoneal Cavity, Percutaneous Approach, Diagnostic (ICD-10-PCS; principal; 2017-01-14)
PROC: 3E0F73Z Introduction of Anti-inflammatory into Respiratory Tract, Via Natural or Artificial Opening (ICD-10-PCS; 2017-01-14)
PROC: BW40ZZZ Ultrasonography of Abdomen (ICD-10-PCS; 2017-01-14)
PROC: 3E0234Z Introduction of Serum, Toxoid and Vaccine into Muscle, Percutaneous Approach (ICD-10-PCS; 2017-01-18)
DX: K85.90 Acute pancreatitis without necrosis or infection, unspecified (principal); K65.2 Spontaneous bacterial peritonitis; E43 Unspecified severe protein-calorie malnutrition; R18.8 Other ascites; E87.2 Acidosis; K75.4 Autoimmune hepatitis; R60.1 Generalized edema; K80.80 Other cholelithiasis without obstruction; I95.9 Hypotension, unspecified; E86.0 Dehydration; Z68.38 Body mass index [BMI] 38.0-38.9, adult; M08.00 Unspecified juvenile rheumatoid arthritis of unspecified site; K25.9 Gastric ulcer, unspecified as acute or chronic, without hemorrhage or perforation; I87.8 Other specified disorders of veins; D69.6 Thrombocytopenia, unspecified; E66.9 Obesity, unspecified; K12.0 Recurrent oral aphthae; Z23 Encounter for immunization; Z79.52 Long term (current) use of systemic steroids; Z79.899 Other long term (current) drug therapy; Z79.891 Long term (current) use of opiate analgesic; Z96.653 Presence of artificial knee joint, bilateral; Z96.643 Presence of artificial hip joint, bilateral; Z96.612 Presence of left artificial shoulder joint; Z96.611 Presence of right artificial shoulder joint; Z88.6 Allergy status to analgesic agent; Z88.1 Allergy status to other antibiotic agents; Z88.8 Allergy status to other drugs, medicaments and biological substances; Z82.49 Family history of ischemic heart disease and other diseases of the circulatory system
CPT/HCPCS: 36415; 49083; 71010; 74177; 76705; 80048; 80053; 81001; 82533; 83690; 83735; 83880; 84100; 84134; 84484; 85025; 85027; 85610; 85652; 86140; 86225; 86235; 87015; 87040; 87070; 87075; 87116; 87205; 87206; 88305; 89050; 90686; 93005; 93010; 96361; 96374; 96375; 96376; 99285; J0360; J1956; J2270; J2405; J2920; J2930; J3490; J7030; P9047; S0164

== ENCOUNTER 2017-03-29 13:15 | Inpatient (IN) | payer MEDICARE, OTHER ==
[2017-03-29] MEDS ORDERED: NORMAL SALINE 1000 ML 1,000 ML IV ONE (13:56)
[2017-03-29] MEDS ORDERED: ONDANSETRON 4 MG TAB.RAPDIS PO ONE (13:57)
--- NOTE | 2017-03-29 14:02 | ER Document Report ---
ED Medical Screen (RME) - General Chief Complaint: Nausea/Vomiting Stated Complaint: BILATERAL FOOT PAIN Time Seen by Provider: 03/29/17 13:52 Mode of Arrival: Medic Information source: Patient TRAVEL OUTSIDE OF THE [place] IN LAST 30 DAYS: No - HPI Onset: Other - 2 DAYS Onset/Duration: Gradual Quality of pain: Achy, Burning Severity: Moderate Associated Symptoms: Nausea, Sweating, Vomiting Exacerbated by: Denies Relieved by: Denies Similar symptoms previously: Yes - W/ PANCREATITIS Recently seen / treated by doctor: No - Related Data Allergies/Adverse Reactions: amoxicillin trihydrate [From Augmentin] Allergy (Verified 03/29/17 13:51) ITCHING cephalexin monohydrate [From Keflex] Allergy (Verified 03/29/17 13:51) ibuprofen [From Motrin] Allergy (Verified 03/29/17 13:51) Potassium Clavulanate * [From Augmentin] Allergy (Verified 03/29/17 13:51) Past Medical History - General Information source: Patient - Social History Lives with: Spouse/Significant other Family history: None - Past Medical History Cardiac Medical History: Reports: None Pulmonary Medical History: Reports: Hx Pneumonia - intubated Denies: Hx Tuberculosis Neurological Medical History: Reports: None. Denies: Hx Seizures Endocrine Medical History: Reports: None Renal/ Medical History: Reports: None. Denies: Hx Peritoneal Dialysis Malignancy Medical History: Reports: None GI Medical History: Reports: Hx Pancreatitis Musculoskeltal Medical History: Reports Hx Arthritis - Juvenile rheumatoid arthritis Skin Medical History: Reports None Psychiatric Medical History: Reports: None Denies: Hx Depression Past Surgical History: Reports: Hx Section - 2, Hx Orthopedic Surgery - joint replacements. Denies: Hx Hysterectomy - Immunizations Hx Diphtheria, Pertussis, Tetanus Vaccination: No History of Influenza Vaccine for 11/2016 - 04/2017 Season: No Review of Systems - Review of Systems Constitutional: See HPI EENT: No symptoms reported Cardiovascular: No symptoms reported Respiratory: No symptoms reported Gastrointestinal: See HPI Genitourinary: No symptoms reported Female Genitourinary: No symptoms reported Musculoskeletal: See HPI Skin: See HPI Neurological/Psychological: No symptoms reported Physical Exam - Vital signs Vitals: Temp Pulse Resp BP Pulse Ox 97.7 F 90 14 123/90 H 100 03/29/17 13:23 03/29/17 13:23 03/29/17 13:23 03/29/17 13:23 03/29/17 13:23 Interpretation: Hypertensive. No: Tachycardic, Tachypneic, Febrile - General General appearance: Appears well, Alert In distress: None - HEENT Head: Normocephalic Eyes: Normal Conjunctiva: Normal. No: Icteric Ears: Normal Nasal: Normal Mouth/Lips: Normal Mucous membranes: Dry - Respiratory Respiratory status: No respiratory distress - Cardiovascular Rhythm: Regular - Abdominal Distension: Distended - MILDLY Bowel sounds: Hypoactive Notes: PATIENT ACTIVELY VOMITING, FREQUENTLY. - Extremities General upper extremity: Normal inspection General lower extremity: Other - L.E.'s RED, WARM, SWOLLEN, TENDER BELOW KNEES, WORSE ON LEFT. No: Normal inspection - Skin Skin Temperature: Warm Skin Moisture: Dry Skin Color: Erythema - LOWER EXTREMITIES Skin Turgor: Elastic Course - Vital Signs Vital signs: Temp Pulse Resp BP Pulse Ox 97.7 F 90 14 123/90 H 100 03/29/17 13:23 03/29/17 13:23 03/29/17 13:23 03/29/17 13:23 03/29/17 13:23
[2017-03-29 14:31] LABS: ABSOLUTE BASOPHILS # (AUTO) 0.1 10^3/uL (0.0-0.2); ABSOLUTE LYMPHOCYTES (AUTO) 0.6 10^3/uL (0.5-4.7); ABSOLUTE MONOCYTES (AUTO) 0.5 10^3/uL (0.1-1.4); ABSOLUTE NEUT (AUTO) 9.4 10^3/uL (1.7-8.2); BASOPHILS % (AUTO) 1.3 % (0-2); EOSINOPHILS % (AUTO) 0.2 % (0-6); HEMOGLOBIN 12.8 g/dL (12.0-15.5); LYMPHOCYTES % (AUTO) 5.7 % (13-45); MEAN CORPUSCULAR HEMOGLOBIN 32.8 pg (27.0-33.4); MEAN CORPUSCULAR HGB CONC 32.1 g/dL (32.0-36.0); MEAN CORPUSCULAR VOLUME 102 fl (80-97); MONOCYTES % (AUTO) 4.7 % (3-13); RED BLOOD COUNT 3.92 10^6/uL (3.72-5.28); RED CELL DISTRIBUTION WIDTH 21.5 % (11.5-14.0); SEGMENTED NEUTROPHILS % (AUTO) 88.1 % (42-78); TOTAL CELLS COUNTED % (AUTO) 100 %; WHITE BLOOD COUNT 10.6 10^3/uL (4.0-10.5)
--- NOTE | 2017-03-29 14:39 | ER Document Report ---
ED General - General Chief Complaint: Nausea/Vomiting Stated Complaint: BILATERAL FOOT PAIN Time Seen by Provider: 03/29/17 13:52 Mode of Arrival: Medic Information source: Patient Notes: This is a 36-year-old female with a complicated medical history including juvenile rheumatoid arthritis (chronic steroid dependent), pancreatitis, anasarca, SBP, peptic ulcer disease. Patient presents to the emergency room with complaints of bilateral foot pain, nausea and vomiting for 1 days. She does report increased swelling of the lower extremities. Patient has been admitted here in the past and the patient's mother states that she did well for a while after that time. She states that she is to slowly accumulated fluid over the last several weeks and now is very distended (similar to how she was in December when she was admitted). The mother states that she started having vomiting today. Patient does state she always has some amount of abdominal discomfort. TRAVEL OUTSIDE OF THE [place] IN LAST 30 DAYS: No - HPI Onset: Last week Onset/Duration: Gradual Quality of pain: Dull Severity: Moderate Pain Level: 2 Associated symptoms: Nausea, Vomiting, Other - Extremity pain, total body swelling,. denies: Chills, Fever, Shortness of breath Exacerbated by: Movement Relieved by: Denies Similar symptoms previously: Yes Recently seen / treated by doctor: No - Related Data Allergies/Adverse Reactions: amoxicillin trihydrate [From Augmentin] Allergy (Verified 03/29/17 20:41) ITCHING cephalexin monohydrate [From Keflex] Allergy (Verified 03/29/17 20:41) ibuprofen [From Motrin] Allergy (Verified 03/29/17 20:41) Potassium Clavulanate * [From Augmentin] Allergy (Verified 03/29/17 20:41) Past Medical History - General Information source: Patient - Social History Smoking Status: Never Smoker Cigarette use (# per day): No Chew tobacco use (# tins/day): No Frequency of alcohol use: None Drug Abuse: None Lives with: Spouse/Significant other Family History: Hypertension Patient has suicidal ideation: No Patient has homicidal ideation: No - Past Medical History Cardiac Medical History: Reports: None Pulmonary Medical History: Reports: Hx Pneumonia - intubated Denies: Hx Tuberculosis Neurological Medical History: Reports: None. Denies: Hx Seizures Endocrine Medical History: Reports: None Renal/ Medical History: Reports: None. Denies: Hx Peritoneal Dialysis Malignancy Medical History: Reports: None GI Medical History: Reports: Hx Pancreatitis Musculoskeltal Medical History: Reports Hx Arthritis - Juvenile rheumatoid arthritis Skin Medical History: Reports None Psychiatric Medical History: Reports: None Denies: Hx Depression Past Surgical History: Reports: Hx Section - 2, Hx Orthopedic Surgery - joint replacements. Denies: Hx Hysterectomy - Immunizations Hx Diphtheria, Pertussis, Tetanus Vaccination: No Hx Pneumococcal Vaccination: 02/23/13 Review of Systems - Review of Systems Constitutional: denies: Chills, Fever EENT: No symptoms reported Cardiovascular: No symptoms reported Respiratory: No symptoms reported Gastrointestinal: See HPI Genitourinary: No symptoms reported Female Genitourinary: No symptoms reported Musculoskeletal: See HPI Skin: No symptoms reported Hematologic/Lymphatic: No symptoms reported Neurological/Psychological: No symptoms reported Physical Exam - Vital signs Vitals: Temp Pulse Resp BP Pulse Ox 97.7 F 90 14 123/90 H 100 03/29/17 13:23 03/29/17 13:23 03/29/17 13:23 03/29/17 13:23 03/29/17 13:23 Notes: Physical exam: GENERAL: 36-year-old female, alert, oriented, appears ill HEAD: Atraumatic, normocephalic. EYES: Pupils equal round and reactive to light, extraocular movements intact, sclera anicteric, conjunctiva are normal. ENT: TMs normal, nares patent, oropharynx clear without exudates. Moist mucous membranes. NECK: Normal range of motion, supple without obvious mass or JVD. LUNGS: Breath sounds clear to auscultation bilaterally and equal. No wheezes rales or rhonchi. HEART: Regular rate and rhythm without murmurs, rubs or gallops. ABDOMEN: Soft, distended abdomen with ascites wave. There is no fabiano tenderness. EXTREMITIES: Chronic venous stasis changes to the lower extremity with 2-3+ edema. Patient does have tenderness to palpation. There is mild erythema to the right lower extremity that the patient states is often like that. She has chronic changes in the foot along with her rheumatoid arthritis. She has significant metacarpophalangeal joint deviation of the hands consistent with rheumatoid arthritis. NEUROLOGICAL: Cranial nerves II through XII grossly intact. Normal speech, moving all extremities. SKIN: Warm, Dry, normal turgor, no rashes or lesions noted. Course - Re-evaluation Re-evalutation: 03/29/17 22:20 Note: This is a complicated 36-year-old female who is been ill for a while. She has had a labile blood pressure. She has not had any fever but has had vomiting and not tolerating fluid and SBP is a concern. A diagnostic paracentesis in the right lower quadrant was performed with ultrasound assistance. The fluid was straw-colored and sent for study. The patient was given levofloxacin. She will be admitted. She does complain of diffuse extremity pain which her states she has had for a while. She does have chronic venous stasis changes distally and she has significant chronic edema. 03/29/17 23:24 I did speak to the patient's mother who seems very in tune with the patient's chronic disease ([phone]). I let her know that the patient is being admitted. I discussed case with Dr. Veloz who is seen the patient. - Vital Signs Vital signs: Temp Pulse Resp BP Pulse Ox 100.2 F 103 H 17 101/71 96 03/29/17 23:00 03/29/17 20:49 03/29/17 22:46 03/29/17 22:46 03/29/17 23:00 - Laboratory Result Diagrams: 03/29/17 14:15 03/29/17 14:15 Laboratory results interpreted by me: 03/29/17 03/29/17 03/29/17 14:15 14:15 14:54 WBC 10.6 H MCV 102 H RDW 21.5 H Plt Count 99 L Seg Neutrophils % 88.1 H Lymphocytes % 5.7 L Absolute Neutrophils 9.4 H Chloride 110 H Glucose 129 H AST 50 H ALT 64 H Alkaline Phosphatase 250 H Total Protein 4.6 L Albumin 2.3 L Urine Protein >=500 H Urine Urobilinogen 2.0 H Ur Leukocyte Esterase TRACE H Procedures - Additional Procedures Paracentesis Time performed: 22:15 Notes: 03/29/17 22:15 Procedure: Paracentesis Ultrasound-guided: Yes Location: Right lower quadrant Indication: Diagnostic, rule out SBP. This was not a therapeutic large volume tap given the patient's labile blood pressure. 10 cc of straw-colored fluid was obtained and sent for cell count and culture. Patient has received IV levofloxacin in the ER Critical Care Note - Critical Care Note Total time excluding time spent on procedures (mins): 60 Discharge - Discharge Clinical Impression: Extremity pain, UTI, Anasarca, Suspected SBP Condition: Stable Disposition: ADMITTED INPATIENT Admitting Provider: Hospitalist Unit Admitted: [facility]
[2017-03-29 14:46] LABS: ALANINE AMINOTRANSFERASE 64 U/L (9-52); ALBUMIN 2.3 g/dL (3.5-5.0); ALKALINE PHOSPHATASE 250 U/L (38-126); ANION GAP 5 (5-19); ASPARTATE AMINO TRANSFERASE 50 U/L (14-36); BILIRUBIN,DIRECT 0.4 mg/dL (0.0-0.4); BILIRUBIN,TOTAL 1.2 mg/dL (0.2-1.3); BLOOD UREA NITROGEN 20 mg/dL (7-20); CALCIUM 9.4 mg/dL (8.4-10.2); CARBON DIOXIDE 24 mmol/L (22-30); CHLORIDE 110 mmol/L (98-107); GLUCOSE 129 mg/dL (75-110); LIPASE 123.3 U/L (23-300); POTASSIUM 3.8 mmol/L (3.6-5.0); SODIUM 138.6 mmol/L (137-145); TOTAL PROTEIN 4.6 g/dL (6.3-8.2)
[2017-03-29 14:50] LABS: INTERNATIONAL RATION (INR) 0.85; PLATELET COUNT 99 10^3/uL (150-450); PROTHROMBIN TIME 12.3 SEC (11.4-15.4)
[2017-03-29 14:51] LABS: PARTIAL THROMBOPLASTIN TIME 27.2 SEC (23.5-35.8)
[2017-03-29 15:13] LABS: APPEARANCE,URINE CLOUDY; BILIRUBIN,URINE NEGATIVE (NEGATIVE); COLOR,URINE AMBER; GLUCOSE, URINE NEGATIVE (NEGATIVE); KETONES,URINE NEGATIVE (NEGATIVE); LEUKOCYTE ESTERASE,URINE TRACE (NEGATIVE); NITRITE,URINE NEGATIVE (NEGATIVE); PROTEIN,URINE >=500 mg/dL (NEGATIVE); URINE SPECIFIC GRAVITY 1.017
[2017-03-29] MEDS ORDERED: MORPHINE SULFATE 10 MG/ML INJ IV ONE ×3 (15:13→17:13)
[2017-03-29] MEDS ORDERED: LEVOFLOXACIN 500 MG/D5W RTU 500 MG/100 ML RTUPB IV ONE (18:27)
[2017-03-29] MEDS: NORMAL SALINE 1000 ML 1,000 ML IV PRN ×2 (21:14→23:10)
[2017-03-29] MEDS ORDERED: MAG HYDROX/AL HYDROX/SIMETH SUSP 30 ML UDCUP PO PRN (21:41)
[2017-03-29] MEDS ORDERED: IPRATROPIUM/ALBUTEROL 0.5-2.5 MG/3 ML AMPUL NEB PRN (21:41)
[2017-03-29] MEDS ORDERED: LIDOCAINE 1%/EPINEPHRINE INJ 20 ML VIAL INJ ONE (22:52)
[2017-03-29 22:58] LABS: FLUID TYPE PERITONEAL
[2017-03-29] MEDS ORDERED: CEFTRIAXONE INJ 1000 MG VIAL ONE (22:58)
[2017-03-29 22:59] LABS: FLUID APPEARANCE CLOUDY; FLUID COLOR LIGHT YELLOW; FLUID SOURCE LUNG; FLUID VISCOSITY HIGHLY VISCOUS
[2017-03-29] MEDS: ALBUMIN HUMAN 50 ML IV SCH (23:11)
[2017-03-29] MEDS: NORMAL SALINE 1000 ML 1,000 ML IV SCH (23:20)
--- NOTE | 2017-03-30 00:17 | RADIOLOGY REPORT (SQ) ---
EXAM DESCRIPTION: CHEST SINGLE VIEW COMPLETED DATE/TIME: 03/30/2017 12:05 am REASON FOR STUDY: cough COMPARISON: Chest x-ray 01/14/2017. EXAM PARAMETERS: NUMBER OF VIEWS: One view. TECHNIQUE: frontal radiographic view of the chest acquired. RADIATION DOSE: NA LIMITATIONS: None. FINDINGS: LUNGS AND PLEURA: No consolidation, pleural effusion or pneumothorax. MEDIASTINUM AND HILAR STRUCTURES: No masses. Contour normal. HEART AND VASCULAR STRUCTURES: Heart normal in size. Normal vasculature. BONES: No acute findings. HARDWARE: None in the chest. Orthopedic hardware at the bilateral shoulders. IMPRESSION: No acute radiographic finding in the chest. TECHNICAL DOCUMENTATION: JOB ID: [id number] 2010 [employer]- All Rights Reserved
[2017-03-30] MEDS ORDERED: ACETAMINOPHEN 325 MG TABLET PO PRN ×2 (00:42→08:30)
[2017-03-30] MEDS ORDERED: ONDANSETRON HCL INJ/PF 4 MG/2 ML SDV IV ONE (01:15)
[2017-03-30] MEDS ORDERED: DEXTROSE 50%-WATER 25 GM/50 ML DISP.SYRIN IV PRN ×2 (01:16)
[2017-03-30] MEDS ORDERED: GLUCAGON,HUMAN RECOMB 1 MG INJ SUBCUT PRN (01:16)
[2017-03-30] MEDS ORDERED: DEXTROSE 40% GEL 15 GM TUBE PO PRN ×2 (01:16)
[2017-03-30] MEDS: ALBUMIN HUMAN 50 ML IV SCH ×2 (01:28→03:22)
[2017-03-30] MEDS ORDERED: VANCOMYCIN HCL 0 MG in DEXTROSE 5%-WATER 250 ML IV NR (01:45)
[2017-03-30] MEDS ORDERED: NOREPINEPHRINE BITARTRATE INJ/PF 4 MG/4 ML SDV IV ONE ×2 (01:46→09:12)
[2017-03-30 02:17] LABS: VENOUS BLOOD BASE EXCESS -4.2 mmol/L; VENOUS BLOOD HCO3 21.1 mmol/L (20-32); VENOUS BLOOD PCO2 39.6 mmHg (35-63); VENOUS BLOOD PH 7.34 (7.30-7.42)
[2017-03-30] MEDS ORDERED: VANCOMYCIN HCL 1,000 MG in DEXTROSE 5%-WATER 250 ML IV ONE (02:45)
[2017-03-30] MEDS: HYDROCORTISONE SOD SUCCINATE INJ/PF 100 MG/2 ML SDV IV SCH ×2 (02:45→13:06)
[2017-03-30] MEDS ORDERED: VANCOMYCIN HCL INJ 1000 MG VIAL ONE (02:50)
--- NOTE | 2017-03-30 03:09 | RADIOLOGY REPORT (SQ) ---
EXAM DESCRIPTION: CT ABD/PELVIS NO ORAL OR IV COMPLETED DATE/TIME: 03/30/2017 2:49 am REASON FOR STUDY: sepsis c abd pain . Diffuse abdominal pain. COMPARISON: CT abdomen and pelvis 01/14/2017. TECHNIQUE: CT scan of the abdomen and pelvis performed without intravenous or oral contrast. Images reviewed with lung, soft tissue, and bone windows. Reconstructed coronal and sagittal MPR images revi ewed. All images stored on PACS. All CT scanners at this facility use dose modulation, iterative reconstruction, and/or weight based d osing when appropriate to reduce radiation dose to as low as reasonably achievable (ALARA). [facility]: Dose Right [facility]: CareDose [facility]: Dose Right [facility]: Teradose 4D [facility]: [employer] RADIATION DOSE: CT Rad equipment meets quality standard of care and radiation dose reduction techniq ues were employed. CTDIvol: 17.8 mGy. DLP: 1032 mGy-cm.mGy. LIMITATIONS: Artifact from the patient's arms along the body. Artifact from the bilateral hip prost hesis. FINDINGS: LOWER CHEST: Mild bibasilar atelectasis. Trace left pleural effusion. Cardiomegaly. Sma ll pericardial effusion. NON-CONTRASTED LIVER, SPLEEN, ADRENALS: Evaluation limited by lack of IV contrast. No identified sign ificant masses. PANCREAS: No peripancreatic inflammatory changes. GALLBLADDER: There is cholelithiasis. There is pericholecystic fluid. RIGHT KIDNEY AND URETER: Assessment for masses limited by lack of IV contrast. No significant calci fications. No hydronephrosis or hydroureter. LEFT KIDNEY AND URETER: Assessment for masses limited by lack of IV contrast. Nonobstructing 4 mm c alculus at the left kidney. No hydronephrosis or hydroureter. AORTA AND RETROPERITONEUM: No abdominal aortic aneurysm. No retroperitoneal hemorrhage. BOWEL AND PERITONEAL CAVITY: No dilated bowel loops. There is large ascites. No free air. APPENDIX: Not visualized. PELVIS, BLADDER, AND ABDOMINAL WALL:There is streak artifact from the bilateral hip prosthesis. Fole y catheter is decompressing the urinary bladder. An intrauterine device is seen at the uterus, unabl e to evaluate for proper positioning. There is a small fluid containing umbilical hernia. There is d iffuse subcutaneous edema. BONES: The patient is status post total bilateral hip arthroplasties. Mild multilevel degenerative c hanges are seen within the spine. There is pars defect at L5. There is mild anterolisthesis of L5 o n S1 with mild posterior wedging of L5 vertebral body. IMPRESSION: 1. Large ascites. Anasarca. 2. Cholelithiasis. Pericholecystic fluid, may be secondary to the ascites. Please correlate with cl inical concern for acute cholecystitis. 3. Nonobstructing left nephrolithiasis. 4. Mild bibasilar atelectasis. Trace left pleural effusion. 5. Cardiomegaly. Small pericardial effusion. COMMENT: Quality ID # [id number]: Final reports with documentation of one or more dose reduction techniques (e.g., Automated exposure control, adjustment of the mA and/or kV according to patient size, use of iterative reconstruction technique) TECHNICAL DOCUMENTATION: JOB ID: [id number] 2010 [employer]- All Rights Reserved
[2017-03-30] MEDS ORDERED: INFLUENZA ADLT QUAD (36MOS+) 2017-18 VAC 0.5 ML SYR IM PRN (05:32)
[2017-03-30 06:07] LABS: ALANINE AMINOTRANSFERASE 47 U/L (9-52); ALKALINE PHOSPHATASE 162 U/L (38-126); ANION GAP 9 (5-19); ASPARTATE AMINO TRANSFERASE 30 U/L (14-36); BILIRUBIN,DIRECT 0.7 mg/dL (0.0-0.4); BILIRUBIN,TOTAL 1.3 mg/dL (0.2-1.3); BLOOD UREA NITROGEN 23 mg/dL (7-20); CALCIUM 8.7 mg/dL (8.4-10.2); CARBON DIOXIDE 18 mmol/L (22-30); CHLORIDE 113 mmol/L (98-107); GLUCOSE 81 mg/dL (75-110); MAGNESIUM 1.5 mg/dL (1.6-2.3); PHOSPHORUS 4.4 mg/dL (2.5-4.5); POTASSIUM 4.1 mmol/L (3.6-5.0); SODIUM 139.8 mmol/L (137-145)
[2017-03-30 06:13] LABS: HEMATOCRIT 40.7 % (36.0-47.0); MEAN CORPUSCULAR HGB CONC 31.9 g/dL (32.0-36.0); MEAN CORPUSCULAR VOLUME 103 fl (80-97); RED BLOOD COUNT 3.94 10^6/uL (3.72-5.28); RED CELL DISTRIBUTION WIDTH 21.3 % (11.5-14.0); WHITE BLOOD COUNT 15.4 10^3/uL (4.0-10.5)
[2017-03-30 06:18] LABS: PLATELET COUNT 72 10^3/uL (150-450)
[2017-03-30 07:03] LABS: ABSOLUTE LYMPHOCYTES# (MANUAL) 0.2 10^3/uL (0.5-4.7); ABSOLUTE MONOCYTES # (MANUAL) 0.9 10^3/uL (0.1-1.4); ABSOLUTE NEUTROPHILS# (MANUAL) 14.3 10^3/uL (1.7-8.2); BASOPHILS % (MANUAL) 0 % (0-2); EOSINOPHILS % (MANUAL) 0 % (0-6); LYMPHOCYTES % (MANUAL) 1 % (13-45); MONOCYTES % (MANUAL) 6 % (3-13); OVALOCYTES 2+; PLATELET COMMENT DECREASED; POIKILOCYTOSIS 2+; POLYCHROMASIA SLIGHT; SEGMENTED NEUTROPHILS % (MAN) 43 % (42-78); TOTAL CELLS COUNTED 100; TOXIC GRANULATION 1+
[2017-03-30 07:04] LABS: ANISOCYTOSIS 2+; BAND NEUTROPHILS % (MANUAL) 44 % (3-5); HYPOCHROMASIA SLIGHT; METAMYELOCYTES % (MANUAL) 6 % (0); TEAR DROP CELLS SLIGHT
--- NOTE | 2017-03-30 07:16 | PDOC H&P ---
History of Present Illness Admission Date/PCP: 03/29/17 22:28 RUSSELL DORAN MD Patient complains of: Bilateral leg edema, abdominal pain and distention History of Present Illness: GUS PELLETIER is a 36 year old female with a complex past medical history of juvenile rheumatoid arthritis, former steroid dependence currently on unknown biologic agent. Gastric ulcer, chronic metabolic acidosis, anasarca, malnutrition, chronic autoimmune hepatitis, lower extremity venous stasis and recurrent spontaneous bacterial peritonitis. Patient presents with 1 week of increasing edema with leg pain, abdominal pain with nausea. In the emergency room she is found to have hypotension, tachycardia, straw-colored abdominal fluid. She is diagnosed with spontaneous bacterial peritonitis, started on empiric antibiotics and referred to the hospitalist for admission. Patient is toxic appearing with delirium and unable to provide history. Past Medical History Cardiac Medical History: Reports: None Pulmonary Medical History: Reports: Pneumonia - intubated Denies: Tuberculosis Neurological Medical History: Reports: None Denies: Seizures Endocrine Medical History: Reports: None Renal/ Medical History: Reports: None Malignancy Medical History: Reports: None GI Medical History: Reports: Hepatitis - Autoimmune Musculoskeltal Medical History: Reports: Arthritis - Juvenile rheumatoid arthritis Skin Medical History: Reports: None Psychiatric Medical History: Reports: None Denies: Depression Infectious Medical History: Reports: Other Past Surgical History Past Surgical History: Reports: Section - 2, Orthopedic Surgery - joint replacements Denies: Hysterectomy Social History Information Source: [facility] Records Lives with: Spouse/Significant other Smoking Status: Never Smoker Frequency of Alcohol Use: None Hx Recreational Drug Use: No Drugs: None Hx Prescription Drug Abuse: No - Advance Directive Resuscitation Status: Full Code Family History Family History: Hypertension Parental Family History Reviewed: Yes Children Family History Reviewed: Yes Sibling(s) Family History Reviewed.: Yes Medication/Allergy Home Medications: Metoprolol Tartrate [Lopressor 100 mg Tablet] 100 mg PO DAILY 01/14/17 Paroxetine HCl [Paxil 20 mg Tablet] 20 mg PO DAILY 01/14/17 Lidocaine HCl [Xylocaine 2% Viscous Soln 20 ml Udcup] 15 ml PO Q3HP PRN 4 Days ml 01/18/17 Lisinopril [Prinivil 10 mg Tablet] 10 mg PO DAILY #30 tablet 01/18/17 Ondansetron HCl [Zofran 8 mg Tablet] 8 mg PO Q8HP PRN #30 tablet 01/18/17 Oxycodone HCl [Oxy-Ir 5 mg Tablet] 5 mg PO Q4HP PRN #20 tablet 01/18/17 Prednisone 20 mg PO ASDIR PRN #18 tablet 01/18/17 Prednisone [Deltasone 5 mg Tablet] 8 mg PO DAILY #0 01/18/17 Allergies/Adverse Reactions: amoxicillin trihydrate [From Augmentin] Allergy (Verified 03/29/17 20:41) ITCHING cephalexin monohydrate [From Keflex] Allergy (Verified 03/29/17 20:41) ibuprofen [From Motrin] Allergy (Verified 03/29/17 20:41) Potassium Clavulanate * [From Augmentin] Allergy (Verified 03/29/17 20:41) Review of Systems ROS unobtainable: Due to mental status Physical Exam Vital Signs: Temp Pulse Resp BP Pulse Ox 101.7 F H 126 H 24 H 96/69 L 94 03/30/17 05:01 03/30/17 05:01 03/30/17 05:45 03/30/17 05:37 03/30/17 05:45 Intake & Output 03/28/17 03/29/17 03/30/17 11:59 11:59 11:59 Weight 88.3 kg General appearance: PRESENT: disheveled, severe distress, other - Chronically ill and toxic appearing Head exam: PRESENT: atraumatic, normocephalic Eye exam: PRESENT: conjunctiva pink, EOMI, PERRLA. ABSENT: scleral icterus Ear exam: PRESENT: normal external ear exam Mouth exam: PRESENT: moist, tongue midline Neck exam: ABSENT: carotid bruit, JVD, lymphadenopathy, thyromegaly Respiratory exam: PRESENT: clear to auscultation jose j, crackles, decreased breath sounds. ABSENT: rales, rhonchi, wheezes Cardiovascular exam: PRESENT: RRR, tachycardia. ABSENT: diastolic murmur, rubs , systolic murmur Pulses: PRESENT: normal dorsalis pedis pul Vascular exam: PRESENT: normal capillary refill GI/Abdominal exam: PRESENT: ascites, diminished bowel sounds, distended, hypoactive bowel sounds, tenderness. ABSENT: firm, guarding, Yates's sign, normal bowel sounds, organolmegaly Rectal exam: PRESENT: deferred Extremities exam: PRESENT: +2 edema Neurological exam: PRESENT: alert, awake, oriented to person, oriented to place , oriented to time, oriented to situation, CN II-XII grossly intact. ABSENT: motor sensory deficit Psychiatric exam: PRESENT: appropriate affect, normal mood. ABSENT: homicidal ideation, suicidal ideation Skin exam: PRESENT: dry, intact, warm. ABSENT: cyanosis, rash Results Laboratory Results: 03/30/17 05:40 03/30/17 03/30/17 03/30/17 01:47 01:47 05:40 Seg Neutrophils % Not Reportable Lymphocytes % Not Reportable Monocytes % Not Reportable Eosinophils % Not Reportable Basophils % Not Reportable Absolute Neutrophils Not Reportable Absolute Lymphocytes Not Reportable Absolute Monocytes Not Reportable Absolute Eosinophils Not Reportable Absolute Basophils Not Reportable VBG pH 7.34 VBG pCO2 39.6 VBG HCO3 21.1 VBG Base Excess -4.2 Sodium Potassium Chloride Carbon Dioxide Anion Gap BUN Creatinine Est GFR ( Amer) Est GFR (Non-Af Amer) Glucose Lactic Acid 2.4 H Calcium Phosphorus Magnesium Total Bilirubin AST ALT Alkaline Phosphatase Total Protein Albumin 03/30/17 05:40 Seg Neutrophils % Lymphocytes % Monocytes % Eosinophils % Basophils % Absolute Neutrophils Absolute Lymphocytes Absolute Monocytes Absolute Eosinophils Absolute Basophils VBG pH VBG pCO2 VBG HCO3 VBG Base Excess Sodium 139.8 Potassium 4.1 Chloride 113 H Carbon Dioxide 18 L Anion Gap 9 BUN 23 H Creatinine 1.32 H Est GFR ( Amer) 56 L Est GFR (Non-Af Amer) 46 L Glucose 81 Lactic Acid Calcium 8.7 Phosphorus 4.4 Magnesium 1.5 L Total Bilirubin 1.3 AST 30 ALT 47 Alkaline Phosphatase 162 H Total Protein 4.0 L Albumin 2.0 L Impressions: Chest X-Ray 03/29/17 23:46 IMPRESSION: No acute radiographic finding in the chest. Abdomen/Pelvis CT 03/30/17 00:00 IMPRESSION: 1. Large ascites. Anasarca. 2. Cholelithiasis. Pericholecystic fluid, may be secondary to the ascites. Please correlate with clinical concern for acute cholecystitis. 3. Nonobstructing left nephrolithiasis. 4. Mild bibasilar atelectasis. Trace left pleural effusion. 5. Cardiomegaly. Small pericardial effusion. Assessment & Plan - Diagnosis (1) Sepsis Is this a current diagnosis for this admission?: Yes Plan: Likely secondary to spontaneous bacterial peritonitis versus urinary tract infection, vancomycin and Rocephin IV fluid challenge and levophed initiated, follow-up blood, peritoneal fluid and urine culture. (2) Autoimmune hepatitis Is this a current diagnosis for this admission?: Yes Plan: Supportive care, IV albumin, evaluate INR, consider GI consult (3) Malnutrition Is this a current diagnosis for this admission?: Yes Plan: Secondary to autoimmune hepatitis, albumin ordered (4) SBP (spontaneous bacterial peritonitis) Is this a current diagnosis for this admission?: Yes Plan: Diagnostic fluid results pending, empiric antibiotics initiated, follow-up CBC and culture (5) Thrombocytopenia Is this a current diagnosis for this admission?: Yes Plan: Secondary to chronic liver disease. Follow-up CBC.
--- NOTE | 2017-03-30 07:22 | RADIOLOGY REPORT (SQ) ---
EXAM DESCRIPTION: CHEST SINGLE VIEW COMPLETED DATE/TIME: 03/30/2017 7:11 am REASON FOR STUDY: central line placement COMPARISON: Chest x-ray 03/30/2017 at 00:00 hours EXAM PARAMETERS: NUMBER OF VIEWS: One view. TECHNIQUE: Single frontal radiographic view of the chest acquired on 03/30/2017 at 06:58 hours. RADIATION DOSE: NA LIMITATIONS: None. FINDINGS: LUNGS AND PLEURA: Mild bibasilar atelectasis. No pneumothorax or pleural effusion. MEDIASTINUM AND HILAR STRUCTURES: No masses. Contour normal. HEART AND VASCULAR STRUCTURES: Heart normal in size. Normal vasculature. BONES: Orthopedic hardware at the bilateral shoulders. HARDWARE: Interval placement of a right IJ central line with the tip at the cavoatrial junction. IMPRESSION: Right IJ central line with the tip at the cavoatrial junction. Mild bibasilar atelectasis. TECHNICAL DOCUMENTATION: JOB ID: [id number] 2010 [employer]- All Rights Reserved
[2017-03-30] MEDS ORDERED: MEROPENEM 1 GM VIAL IV SCH (08:00)
[2017-03-30] MEDS ORDERED: DIPHENHYDRAMINE HCL 50 MG/ML VIAL IV PRN (08:16)
[2017-03-30] MEDS ORDERED: OXYCODONE-ACETAMINOPHEN 5-325 MG TABLET PO PRN (08:17)
[2017-03-30] MEDS ORDERED: MORPHINE SULFATE SR 30 MG TABLET PO ONE (08:45)
[2017-03-30] MEDS: HEPARIN SOD (PORCINE) 5,000 UNIT/ML 1 ML SYRINGE SUBCUT SCH ×3 (08:48→23:15)
[2017-03-30] MEDS: NORMAL SALINE 1000 ML 1,000 ML IV SCH (08:48)
[2017-03-30] MEDS: MAGNESIUM SULFATE/D5W 1 GM/100 ML RTUPB IV SCH ×2 (08:56→10:50)
[2017-03-30] MEDS: DOCUSATE SODIUM 100 MG CAPSULE PO SCH ×2 (08:56→18:00)
--- NOTE | 2017-03-30 08:58 | PDOC CONSULTATION ---
Consultation Consult Date: 03/30/17 Attending physician:: Keesha Ko Consult reason:: central line insertion History of Present Illness Admission Date/PCP: 03/29/17 22:28 RUSSELL DORAN MD History of Present Illness: GUS PELLETIER is a 36 year old female with a complex past medical history of juvenile rheumatoid arthritis, former steroid dependence currently on unknown biologic agent. Gastric ulcer, chronic metabolic acidosis, anasarca, malnutrition, chronic autoimmune hepatitis, lower extremity venous stasis and recurrent spontaneous bacterial peritonitis. Patient presents with 1 week of increasing edema with leg pain, abdominal pain with nausea. In the emergency room she is found to have hypotension, tachycardia, straw-colored abdominal fluid. She is diagnosed with spontaneous bacterial peritonitis, started on empiric antibiotics and referred to the hospitalist for admission. Patient is toxic appearing with delirium and unable to provide history. A consult is placed for central line insertion as she is septic and needs invasive monitoring and fluids. Past Medical History Cardiac Medical History: Reports: None Pulmonary Medical History: Reports: Pneumonia - intubated Denies: Tuberculosis Neurological Medical History: Reports: None Denies: Seizures Endocrine Medical History: Reports: None Renal/ Medical History: Reports: None Malignancy Medical History: Reports: None GI Medical History: Reports: Hepatitis - Autoimmune Musculoskeltal Medical History: Reports: Arthritis - Juvenile rheumatoid arthritis Skin Medical History: Reports: None Psychiatric Medical History: Reports: None Denies: Depression Infectious Medical History: Reports: Other Past Surgical History Past Surgical History: Reports: Section - 2, Orthopedic Surgery - joint replacements Denies: Hysterectomy Social History Lives with: Spouse/Significant other Smoking Status: Never Smoker Frequency of Alcohol Use: None Hx Recreational Drug Use: No Drugs: None Hx Prescription Drug Abuse: No - Advance Directive Resuscitation Status: Full Code Family History Family History: Hypertension Parental Family History Reviewed: No Children Family History Reviewed: Unknown Sibling(s) Family History Reviewed.: Unknown Medication/Allergy Allergies/Adverse Reactions: amoxicillin trihydrate [From Augmentin] Allergy (Verified 03/29/17 20:41) ITCHING cephalexin monohydrate [From Keflex] Allergy (Verified 03/29/17 20:41) ibuprofen [From Motrin] Allergy (Verified 03/29/17 20:41) Potassium Clavulanate * [From Augmentin] Allergy (Verified 03/29/17 20:41) Review of Systems Constitutional: PRESENT: chills, fever(s) Eyes: ABSENT: visual disturbances Ears: ABSENT: hearing changes Cardiovascular: ABSENT: chest pain, dyspnea on exertion, edema, orthropnea, palpitations Respiratory: PRESENT: other - no hemoptysis Gastrointestinal: PRESENT: other - o abdominal pain, nausea or vomiting Musculoskeletal: PRESENT: other - bilateral humeral arthroplasty Neurological: ABSENT: abnormal gait, abnormal speech, confusion, dizziness, focal weakness, syncope Psychiatric: ABSENT: anxiety, depression, homidical ideation, suicidal ideation Endocrine: ABSENT: cold intolerance, heat intolerance, polydipsia, polyuria Physical Exam Vital Signs: Temp Pulse Resp BP Pulse Ox 100.0 F 112 H 24 H 88/62 L 92 03/30/17 08:00 03/30/17 08:00 03/30/17 08:00 03/30/17 08:00 03/30/17 08:00 Intake & Output 03/29/17 03/30/17 03/31/17 06:59 06:59 06:59 Output Total 20 Balance -20 Weight 88.3 kg General appearance: PRESENT: mild distress, well-nourished Head exam: PRESENT: atraumatic, normocephalic Eye exam: PRESENT: EOMI, PERRLA Ear exam: PRESENT: normal external ear exam Neck exam: ABSENT: carotid bruit, JVD, lymphadenopathy, thyromegaly Respiratory exam: PRESENT: clear to auscultation jose j. ABSENT: rales, rhonchi, wheezes Cardiovascular exam: PRESENT: RRR, +S1, +S2 GI/Abdominal exam: PRESENT: normal bowel sounds, soft Neurological exam: PRESENT: alert, awake, oriented to person, oriented to place , oriented to time, oriented to situation, CN II-XII grossly intact. ABSENT: motor sensory deficit Results Laboratory Results: 03/30/17 05:40 03/30/17 05:40 03/30/17 03/30/17 03/30/17 01:47 01:47 05:40 WBC 15.4 H RBC 3.94 Hgb 13.0 Hct 40.7 MCV 103 H MCH 33.0 MCHC 31.9 L RDW 21.3 H Plt Count 72 L Seg Neutrophils % Not Reportable Lymphocytes % Not Reportable Monocytes % Not Reportable Eosinophils % Not Reportable Basophils % Not Reportable Absolute Neutrophils Not Reportable Absolute Lymphocytes Not Reportable Absolute Monocytes Not Reportable Absolute Eosinophils Not Reportable Absolute Basophils Not Reportable VBG pH 7.34 VBG pCO2 39.6 VBG HCO3 21.1 VBG Base Excess -4.2 Sodium Potassium Chloride Carbon Dioxide Anion Gap BUN Creatinine Est GFR ( Amer) Est GFR (Non-Af Amer) Glucose Lactic Acid 2.4 H Calcium Phosphorus Magnesium Total Bilirubin AST ALT Alkaline Phosphatase Total Protein Albumin 03/30/17 05:40 WBC RBC Hgb Hct MCV MCH MCHC RDW Plt Count Seg Neutrophils % Lymphocytes % Monocytes % Eosinophils % Basophils % Absolute Neutrophils Absolute Lymphocytes Absolute Monocytes Absolute Eosinophils Absolute Basophils VBG pH VBG pCO2 VBG HCO3 VBG Base Excess Sodium 139.8 Potassium 4.1 Chloride 113 H Carbon Dioxide 18 L Anion Gap 9 BUN 23 H Creatinine 1.32 H Est GFR ( Amer) 56 L Est GFR (Non-Af Amer) 46 L Glucose 81 Lactic Acid Calcium 8.7 Phosphorus 4.4 Magnesium 1.5 L Total Bilirubin 1.3 AST 30 ALT 47 Alkaline Phosphatase 162 H Total Protein 4.0 L Albumin 2.0 L Impressions: Abdomen/Pelvis CT 03/30/17 00:00 IMPRESSION: 1. Large ascites. Anasarca. 2. Cholelithiasis. Pericholecystic fluid, may be secondary to the ascites. Please correlate with clinical concern for acute cholecystitis. 3. Nonobstructing left nephrolithiasis. 4. Mild bibasilar atelectasis. Trace left pleural effusion. 5. Cardiomegaly. Small pericardial effusion. Chest X-Ray 03/30/17 00:00 IMPRESSION: Right IJ central line with the tip at the cavoatrial junction. Mild bibasilar atelectasis. Assessment & Plan - Diagnosis (1) Sepsis Is this a current diagnosis for this admission?: Yes - Time Time Spent: 30 to 50 Minutes Total Critical Time (Minutes): 30 - Plan Summary Plan Summary: I obtained an informed consent for a central line insertion from the patient.
--- NOTE | 2017-03-30 09:00 | PDOC PROGRESS REPORT ---
Bedside Procedure - History of Present Illness Indication for Procedure: sepsis - Central Line Right Internal jugular Time completed: 06:55 Consent obtained: Yes Central line pre-insertion: Sterile PPE donned, Chloraprep applied, Sterile drapes applied Central line size (Fr.): 7 Central line lumen type: Triple Anesthetic type: 1% Lidocaine mL's of anesthesia: 5 Ultrasound guided: Yes - real-time ultrasound guidance CM at insertion site: 17 Line secured with sutures: Yes Central line post-insertion: Blood return from lumens, Biopatch applied, Sutured , Sterile dressing applied, Position confirmed w/ CXR Number of attempts: 1 Complications: No
[2017-03-30] MEDS: DEXTROSE 5%-WATER 250 ML with NOREPINEPHRINE BITARTRATE 4 MG IV PRN ×4 (09:15→13:59)
[2017-03-30] MEDS: NORMAL SALINE 1000 ML 1,000 ML IV PRN ×2 (10:51→23:17)
--- NOTE | 2017-03-30 11:24 | PDOC PROGRESS REPORT ---
Subjective Progress Note for:: 03/30/17 Subjective:: Patient complains of pains all over. Accordingly she cannot take amoxicillin, ibuprofen and Keflex because had gotten some swelling in her mouth. She denies any rashes or any shortness of breath. Review of systems All organ systems evaluated and negative except as seen subjective All significant laboratories and diagnostics have been reviewed Reason For Visit: SEPSIS,SBP,JRA Physical Exam Vital Signs: Temp Pulse Resp BP Pulse Ox 101.7 F H 126 H 25 H 88/72 L 92 03/30/17 05:01 03/30/17 05:01 03/30/17 07:40 03/30/17 07:37 03/30/17 07:40 Intake & Output 03/29/17 03/30/17 03/31/17 06:59 06:59 06:59 Weight 88.3 kg General appearance: PRESENT: cooperative, obese Head exam: PRESENT: atraumatic, normocephalic Eye exam: PRESENT: conjunctiva pink, EOMI, PERRLA Ear exam: PRESENT: normal external ear exam Mouth exam: PRESENT: moist Neck exam: PRESENT: full ROM. ABSENT: JVD, lymphadenopathy, tenderness Respiratory exam: PRESENT: clear to auscultation jose j Cardiovascular exam: PRESENT: tachycardia. ABSENT: diastolic murmur, systolic murmur Vascular exam: PRESENT: pallor GI/Abdominal exam: PRESENT: distended, guarding, hypoactive bowel sounds, tenderness Extremities exam: PRESENT: +2 edema Musculoskeletal exam: ABSENT: ambulatory Neurological exam: PRESENT: alert, awake, oriented to person, oriented to place , oriented to time, oriented to situation, CN II-XII grossly intact Psychiatric exam: PRESENT: depressed Skin exam: PRESENT: intact, pallor Results Laboratory Results: 03/30/17 05:40 03/30/17 05:40 03/30/17 03/30/17 03/30/17 01:47 01:47 05:40 WBC 15.4 H RBC 3.94 Hgb 13.0 Hct 40.7 MCV 103 H MCH 33.0 MCHC 31.9 L RDW 21.3 H Plt Count 72 L Seg Neutrophils % Not Reportable Lymphocytes % Not Reportable Monocytes % Not Reportable Eosinophils % Not Reportable Basophils % Not Reportable Absolute Neutrophils Not Reportable Absolute Lymphocytes Not Reportable Absolute Monocytes Not Reportable Absolute Eosinophils Not Reportable Absolute Basophils Not Reportable VBG pH 7.34 VBG pCO2 39.6 VBG HCO3 21.1 VBG Base Excess -4.2 Sodium Potassium Chloride Carbon Dioxide Anion Gap BUN Creatinine Est GFR ( Amer) Est GFR (Non-Af Amer) Glucose Lactic Acid 2.4 H Calcium Phosphorus Magnesium Total Bilirubin AST ALT Alkaline Phosphatase Total Protein Albumin 03/30/17 05:40 WBC RBC Hgb Hct MCV MCH MCHC RDW Plt Count Seg Neutrophils % Lymphocytes % Monocytes % Eosinophils % Basophils % Absolute Neutrophils Absolute Lymphocytes Absolute Monocytes Absolute Eosinophils Absolute Basophils VBG pH VBG pCO2 VBG HCO3 VBG Base Excess Sodium 139.8 Potassium 4.1 Chloride 113 H Carbon Dioxide 18 L Anion Gap 9 BUN 23 H Creatinine 1.32 H Est GFR ( Amer) 56 L Est GFR (Non-Af Amer) 46 L Glucose 81 Lactic Acid Calcium 8.7 Phosphorus 4.4 Magnesium 1.5 L Total Bilirubin 1.3 AST 30 ALT 47 Alkaline Phosphatase 162 H Total Protein 4.0 L Albumin 2.0 L Impressions: Abdomen/Pelvis CT 03/30/17 00:00 IMPRESSION: 1. Large ascites. Anasarca. 2. Cholelithiasis. Pericholecystic fluid, may be secondary to the ascites. Please correlate with clinical concern for acute cholecystitis. 3. Nonobstructing left nephrolithiasis. 4. Mild bibasilar atelectasis. Trace left pleural effusion. 5. Cardiomegaly. Small pericardial effusion. Chest X-Ray 03/30/17 00:00 IMPRESSION: Right IJ central line with the tip at the cavoatrial junction. Mild bibasilar atelectasis. Assessment & Plan - Diagnosis (1) Septic shock Is this a current diagnosis for this admission?: Yes Plan: Add Nilson-Synephrine to Levophed. Continue fluids. Source likely due to urinary tract infection with translocation to the peritoneal fluid (2) UTI (urinary tract infection) Qualifiers: Indwelling urinary catheter type: unspecified Encounter type: initial encounter Is this a current diagnosis for this admission?: Yes Plan: Continue current management (3) Bacteremia Is this a current diagnosis for this admission?: Yes Plan: Continue Zosyn and vancomycin (4) SBP (spontaneous bacterial peritonitis) Is this a current diagnosis for this admission?: Yes Plan: Continue current management. (5) Autoimmune hepatitis Is this a current diagnosis for this admission?: Yes Plan: Continue steroids (6) Rheumatoid arthritis Qualifiers: Rheumatoid arthritis location: multiple sites Rheumatoid factor presence: unspecified presence Qualified Code(s): M06.9 - Rheumatoid arthritis, unspecified Is this a current diagnosis for this admission?: Yes Plan: Continue steroids and pain management (7) JOHN (acute kidney injury) Is this a current diagnosis for this admission?: Yes Plan: Likely due to acute tubular necrosis - Time Time Spent with patient: 15-24 minutes Medications reviewed and adjusted accordingly: Yes Anticipated discharge: Acute Rehab Within: within 72 hours - Inpatient Certification Based on my medical assessment, after consideration of the patient's comorbidities, presenting symptoms, or acuity I expect that the services needed warrant INPATIENT care.: Yes I certify that my determination is in accordance with my understanding of Medicare's requirements for reasonable and necessary INPATIENT services [42 CFR 412.3e].: Yes Medical Necessity: Need Close Monitoring Due to Risk of Patient Decompensation, Need For Continuous Telemetry Monitoring, Need for Pain Control, Need for IV Antibiotics
[2017-03-30] MEDS: MEROPENEM 1 GM in NORMAL SALINE 50 ML IV SCH ×2 (11:33→17:59)
[2017-03-30] MEDS ORDERED: ALBUMIN HUMAN 50 ML IV ONE (12:15)
[2017-03-30] MEDS: DEXTROSE 5%-WATER 250 ML with PHENYLEPHRINE HCL 40 MG IV PRN ×2 (13:59)
[2017-03-30] MEDS ORDERED: FUROSEMIDE INJ/PF 20 MG/2 ML SDV IV ONE (15:00)
[2017-03-30] MEDS ORDERED: MAGNESIUM SULFATE/D5W 1 GM/100 ML RTUPB IV SCH (17:00)
[2017-03-30] MEDS ORDERED: RINGERS SOLUTION,LACTATED 1,000 ML IV PRN (17:03)
[2017-03-30] MEDS: VANCOMYCIN HCL 750 MG in DEXTROSE 5%-WATER 250 ML IV SCH (17:59)
[2017-03-30 18:59] LABS: ALANINE AMINOTRANSFERASE 41 U/L (9-52); ALKALINE PHOSPHATASE 138 U/L (38-126); ANION GAP 9 (5-19); ASPARTATE AMINO TRANSFERASE 25 U/L (14-36); BILIRUBIN,DIRECT 0.6 mg/dL (0.0-0.4); BLOOD UREA NITROGEN 27 mg/dL (7-20); CARBON DIOXIDE 17 mmol/L (22-30); CHLORIDE 111 mmol/L (98-107); GLUCOSE 134 mg/dL (75-110); POTASSIUM 4.4 mmol/L (3.6-5.0); SODIUM 136.8 mmol/L (137-145); TOTAL PROTEIN 3.9 g/dL (6.3-8.2)
[2017-03-30] MEDS ORDERED: CEFTRIAXONE 1 GM/D5W RTU 1 GM/50 ML RTUPB IV SCH (22:00)
[2017-03-30] MEDS: GABAPENTIN 400 MG CAPSULE PO SCH (23:13)
[2017-03-30] MEDS: MORPHINE SULFATE SR 30 MG TABLET PO SCH (23:14)
[2017-03-30] MEDS: METHYLPREDNISOLONE INJ 40 MG/1 ML SDV IV SCH (23:14)
[2017-03-31] MEDS: MEROPENEM 1 GM in NORMAL SALINE 50 ML IV SCH ×2 (02:08→09:08)
[2017-03-31] MEDS: DEXTROSE 5%-WATER 250 ML with PHENYLEPHRINE HCL 40 MG IV PRN ×2 (02:08)
[2017-03-31] MEDS: METHYLPREDNISOLONE INJ 40 MG/1 ML SDV IV SCH ×3 (05:55→21:31)
[2017-03-31] MEDS: GABAPENTIN 400 MG CAPSULE PO SCH ×3 (05:55→21:34)
[2017-03-31] MEDS: HEPARIN SOD (PORCINE) 5,000 UNIT/ML 1 ML SYRINGE SUBCUT SCH ×3 (05:56→21:31)
[2017-03-31] MEDS: VANCOMYCIN HCL 750 MG in DEXTROSE 5%-WATER 250 ML IV SCH (05:56)
[2017-03-31 06:33] LABS: HEMATOCRIT 35.5 % (36.0-47.0); MEAN CORPUSCULAR HEMOGLOBIN 32.4 pg (27.0-33.4); MEAN CORPUSCULAR VOLUME 105 fl (80-97); RED BLOOD COUNT 3.39 10^6/uL (3.72-5.28); RED CELL DISTRIBUTION WIDTH 22.1 % (11.5-14.0); WHITE BLOOD COUNT 19.7 10^3/uL (4.0-10.5)
[2017-03-31 07:03] LABS: PLATELET COUNT 61 10^3/uL (150-450)
[2017-03-31 07:06] LABS: ABSOLUTE MONOCYTES # (MANUAL) 0.8 10^3/uL (0.1-1.4); ABSOLUTE NEUTROPHILS# (MANUAL) 18.9 10^3/uL (1.7-8.2); BAND NEUTROPHILS % (MANUAL) 42 % (3-5); BASOPHILS % (MANUAL) 0 % (0-2); EOSINOPHILS % (MANUAL) 0 % (0-6); LYMPHOCYTES % (MANUAL) 0 % (13-45); METAMYELOCYTES % (MANUAL) 7 % (0); MONOCYTES % (MANUAL) 4 % (3-13); PLATELET COMMENT DECREASED; PLATELET LARGE PRESENT; SEGMENTED NEUTROPHILS % (MAN) 47 % (42-78); TOTAL CELLS COUNTED 100; TOXIC GRANULATION 3+; TOXIC VACUOLATION PRESENT
[2017-03-31 07:07] LABS: ANISOCYTOSIS 2+; OVALOCYTES 2+; POIKILOCYTOSIS 2+; POLYCHROMASIA 1+; SCHISTOCYTES SLIGHT; TEAR DROP CELLS SLIGHT
[2017-03-31 07:15] LABS: ERYTHROCYTE SEDIMENTATION RATE 18 mm/hr (0-20)
[2017-03-31 07:26] LABS: ALANINE AMINOTRANSFERASE 37 U/L (9-52); ALBUMIN 1.9 g/dL (3.5-5.0); ALKALINE PHOSPHATASE 125 U/L (38-126); ANION GAP 10 (5-19); ASPARTATE AMINO TRANSFERASE 25 U/L (14-36); BILIRUBIN,DIRECT 0.7 mg/dL (0.0-0.4); BLOOD UREA NITROGEN 31 mg/dL (7-20); CALCIUM 7.8 mg/dL (8.4-10.2); CARBON DIOXIDE 16 mmol/L (22-30); CHLORIDE 111 mmol/L (98-107); CHOLESTEROL 117.15 mg/dL (0-200); GLUCOSE 141 mg/dL (75-110); LDH 427 U/L (313-618); MAGNESIUM 1.8 mg/dL (1.6-2.3); POTASSIUM 4.9 mmol/L (3.6-5.0); SODIUM 137.4 mmol/L (137-145); TOTAL PROTEIN 3.5 g/dL (6.3-8.2); TRIGLYCERIDES 138 mg/dL (<150)
[2017-03-31 07:52] LABS: DIRECT LDL 35 mg/dL (<100)
[2017-03-31] MEDS ORDERED: ZOLPIDEM TARTRATE 5 MG TABLET PO PRN (07:59)
[2017-03-31] MEDS: MORPHINE SULFATE SR 30 MG TABLET PO SCH (09:09)
[2017-03-31] MEDS: DOCUSATE SODIUM 100 MG CAPSULE PO SCH ×2 (09:09→17:25)
[2017-03-31] MEDS: FUROSEMIDE INJ/PF 20 MG/2 ML SDV IV SCH ×2 (09:09→17:25)
[2017-03-31] MEDS ORDERED: GABAPENTIN 400 MG CAPSULE PO SCH (11:58)
--- NOTE | 2017-03-31 12:24 | XCELERA REPORT ---
[address] [address] Transthoracic Echocardiogram Report Name: GUS PELLETIER Age: 36 yrs Gender: Female : 1980 Patient Status: Inpatient Patient Location: ICU^602^A Study Date: 03/31/2017 09:48 AM Height: 65 in Weight: 194 lb BSA: 2.0 m2 Procedure: A complete two-dimensional transthoracic echocardiogram was performed (2D, M-mode, spectral and color flow Doppler). The study was technically difficult with many images being suboptimal in quality. Reason For Study: evaluate for pulmonary hypertesnion Ordering Physician: YAZMIN GOLDEN Performed By: Rhoda Posadas Interpretation Summary The left ventricular ejection fraction is normal. There is borderline concentric left ventricular hypertrophy. Doppler measurements suggest normal left ventricular diastolic function The left ventricle is grossly normal size. Wall motion cannot be accurately commented on, but no definite regional wall motion abnormalities noted. The right ventricular systolic function is normal. The right atrium is normal in size The left atrium is mildly dilated. There is a trace amount of mitral regurgitation There is no mitral valve stenosis. No aortic regurgitation is present. There is no aortic valve stenosis There is a trace to mild amount of tricuspid regurgitation There is mild pulmonary hypertension by echo Right ventricular systolic pressure is estimated to be elevated at 30- 40mmHg. The aortic root is not well visualized but is probably normal size. The inferior vena cava was not well visualized There is no pericardial effusion. MMode/2D Measurements & Calculations IVSd: 0.99 cm LVIDd: 4.0 cm FS: 30.8 % Ao root diam: 2.8 cm LVIDs: 2.7 cm EDV(Teich): 68.9 ml LVPWd: 1.0 cm ESV(Teich): 28.2 ml Ao root area: 6.2 cm2 EF(Teich): 59.0 % LA dimension: 3.9 cm Doppler Measurements & Calculations MV E max aniyah: MV P1/2t max aniyah: Ao V2 max: LV V1 max P.9 cm/sec 119.9 cm/sec 133.6 cm/sec 4.1 mmHg MV A max aniyah: MV P1/2t: 62.4 msec Ao max PG: LV V1 max: 75.0 cm/sec 7.1 mmHg 101.2 cm/sec MV E/A: 1.6 MVA(P1/2t): 3.5 cm2 MV dec slope: 563.1 cm/sec2 MV dec time: 0.19 sec PA V2 max: TR max aniyah: 76.0 cm/sec 304.1 cm/sec PA max PG: TR max P.0 mmHg 2.3 mmHg Left Ventricle The left ventricle is grossly normal size. There is borderline concentric left ventricular hypertrophy. The left ventricular ejection fraction is normal. Doppler measurements suggest normal left ventricular diastolic function. Wall motion cannot be accurately commented on, but no definite regional wall motion abnormalities noted. Right Ventricle The right ventricle is grossly normal size. There is normal right ventricular wall thickness. The right ventricular systolic function is normal. Atria The right atrium is normal in size. The left atrium is mildly dilated. Interarterial septum not well visualized and not well dopplered. Cannot comment on ASD/PFO presence. Mitral Valve The mitral valve is grossly normal. There is no mitral valve stenosis. There is a trace amount of mitral regurgitation. Aortic Valve The aortic valve is grossly normal. There is no aortic valve stenosis. No aortic regurgitation is present. Tricuspid Valve The tricuspid valve is not well visualized secondary to technical limitations. There is no tricuspid stenosis. There is a trace to mild amount of tricuspid regurgitation. There is mild pulmonary hypertension by echo. Right ventricular systolic pressure is estimated to be elevated at 30-40mmHg. Pulmonic Valve The pulmonic valve is not well visualized. Great Vessels The aortic root is not well visualized but is probably normal size. The inferior vena cava was not well visualized. Effusions There is no pericardial effusion. : YAZMIN GOLDEN > Julio Melton
--- NOTE | 2017-03-31 12:50 | PDOC PROGRESS REPORT ---
Subjective Progress Note for:: 03/31/17 Subjective:: Patient relates that pain is some better when compare to previous assessment. Was able to sleep some last night. She denies any chest pain or shortness of breath. She feels swollen all over. 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 Review of systems All organ systems evaluated and negative except as seen subjective All significant laboratories and diagnostics have been reviewed Reason For Visit: SEPSIS,SBP,JRA Physical Exam Vital Signs: Temp Pulse Resp BP Pulse Ox 97.5 F 107 H 18 100/67 98 03/31/17 04:47 03/30/17 18:00 03/30/17 20:06 03/30/17 20:06 03/31/17 02:02 Intake & Output 03/30/17 03/31/17 04/01/17 06:59 06:59 06:59 Intake Total 4087 Output Total 102 Balance 3985 Weight 88.3 kg 96.2 kg General appearance: PRESENT: cooperative, obese Head exam: PRESENT: atraumatic, normocephalic Eye exam: PRESENT: conjunctiva pink, EOMI, PERRLA Ear exam: PRESENT: normal external ear exam Mouth exam: PRESENT: moist Neck exam: PRESENT: full ROM. ABSENT: JVD, lymphadenopathy, tenderness Respiratory exam: PRESENT: clear to auscultation jose j Cardiovascular exam: PRESENT: RRR. ABSENT: diastolic murmur, systolic murmur Vascular exam: PRESENT: normal capillary refill GI/Abdominal exam: PRESENT: ascites, hernia - 4+ bilateral pitting edema, normal bowel sounds, soft. ABSENT: tenderness Extremities exam: PRESENT: full ROM. ABSENT: clubbing Musculoskeletal exam: PRESENT: ambulatory Neurological exam: PRESENT: alert, awake, oriented to person, oriented to place , oriented to time, oriented to situation, CN II-XII grossly intact Psychiatric exam: PRESENT: appropriate affect, normal mood Skin exam: PRESENT: normal color Results Laboratory Results: 03/30/17 03/30/17 03/30/17 05:40 15:20 18:00 WBC 15.4 H RBC 3.94 Hgb 13.0 Hct 40.7 MCV 103 H MCH 33.0 MCHC 31.9 L RDW 21.3 H Plt Count 72 L Sodium 136.8 L Potassium 4.4 Chloride 111 H Carbon Dioxide 17 L Anion Gap 9 BUN 27 H Creatinine 1.69 H Est GFR ( Amer) 42 L Est GFR (Non-Af Amer) 35 L Glucose 134 H Lactic Acid 2.9 H Calcium 8.0 L Total Bilirubin 1.0 AST 25 ALT 41 Alkaline Phosphatase 138 H Total Protein 3.9 L Albumin 2.0 L Impressions: Abdomen/Pelvis CT 03/30/17 00:00 IMPRESSION: 1. Large ascites. Anasarca. 2. Cholelithiasis. Pericholecystic fluid, may be secondary to the ascites. Please correlate with clinical concern for acute cholecystitis. 3. Nonobstructing left nephrolithiasis. 4. Mild bibasilar atelectasis. Trace left pleural effusion. 5. Cardiomegaly. Small pericardial effusion. Chest X-Ray 03/30/17 00:00 IMPRESSION: Right IJ central line with the tip at the cavoatrial junction. Mild bibasilar atelectasis. Assessment & Plan - Diagnosis (1) Septic shock Is this a current diagnosis for this admission?: Yes Plan: After carefully evaluating patient's recurrent highly suspicious that patient does suffer from low blood pressure. However she does have sources of infection that is a urinary tract infection and peritonitis. Will keep vasopressors for the purpose of trying to diurese patient (2) UTI (urinary tract infection) Qualifiers: Indwelling urinary catheter type: unspecified Encounter type: initial encounter Is this a current diagnosis for this admission?: Yes Plan: Urine culture growing Klebsiella pneumonia. Discontinue meropenem and placed on Levaquin (3) Bacteremia Is this a current diagnosis for this admission?: Yes Plan: Cultures so far negative (4) SBP (spontaneous bacterial peritonitis) Is this a current diagnosis for this admission?: Yes Plan: Discontinue meropenem and vancomycin and change to Levaquin since fluid growing Klebsiella pneumonia (5) Autoimmune hepatitis Is this a current diagnosis for this admission?: Yes Plan: Patient unaware about having autoimmune hepatitis. Will decrease IV steroids (6) Rheumatoid arthritis Qualifiers: Rheumatoid arthritis location: multiple sites Rheumatoid factor presence: unspecified presence Qualified Code(s): M06.9 - Rheumatoid arthritis, unspecified Is this a current diagnosis for this admission?: Yes Plan: Decrease IV steroids and continue pain management. I am concerned about the possibility of amyloidosis on this patient (7) JOHN (acute kidney injury) Is this a current diagnosis for this admission?: Yes Plan: Likely due to acute tubular necrosis. Will consult renal. Concern that change may relate to vancomycin. Will continue trending (8) Hypotension Qualifiers: Hypotension type: other hypotension type Qualified Code(s): I95.89 - Other hypotension Is this a current diagnosis for this admission?: Yes Plan: Concern is longstanding. Add low dose midodrine and continue pressors (9) Anasarca Is this a current diagnosis for this admission?: Yes Plan: Trial of lasix IV - Time Time Spent with patient: 15-24 minutes Medications reviewed and adjusted accordingly: Yes Anticipated discharge: Home with Homehealth Within: within 72 hours - Inpatient Certification Based on my medical assessment, after consideration of the patient's comorbidities, presenting symptoms, or acuity I expect that the services needed warrant INPATIENT care.: Yes I certify that my determination is in accordance with my understanding of Medicare's requirements for reasonable and necessary INPATIENT services [42 CFR 412.3e].: Yes Medical Necessity: Need For Continuous Telemetry Monitoring, Need for IV Antibiotics
[2017-03-31] MEDS: MIDODRINE HCL 5 MG TABLET PO SCH ×2 (13:42→17:24)
[2017-03-31] MEDS: LEVOFLOXACIN 500 MG/D5W RTU 500 MG/100 ML RTUPB IV SCH (13:43)
[2017-03-31] MEDS ORDERED: OXYCODONE-ACETAMINOPHEN 5-325 MG TABLET PO PRN (15:18)
[2017-03-31] MEDS ORDERED: NALOXONE HCL INJ/PF 0.4 MG/1 ML SDV ONE ×2 (15:20→18:13)
[2017-03-31] MEDS ORDERED: NORMAL SALINE 1000 ML 1,000 ML IV PRN (16:00)
--- NOTE | 2017-03-31 17:02 | PDOC CONSULTATION ---
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 Biological in the last month, Gastric ulcer, chronic metabolic acidosis, anasarca, malnutrition, lower extremity venous stasis . She has also had bilateral shoulder /Hips/Knees replaced. 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 Patient presents with 1 week of increasing abdominal girth with some pain that happened in the last couple of days, increasing edema with leg pain, and nausea. No definitive h/o fever with chills or rigors, skin rash. She also gives a history of a left leg ulcer x 5 months and was seeing the wound clinic and has apparently healed. In the emergency room she is found to have hypotension, tachycardia, delirious and toxic with a firm ascites. She had a diagnostic tap done and was diagnosed with spontaneous bacterial peritonitis, started on empiric antibiotics. She has been diagnosed with septic shock and begun on double pressor agents and conversion of po steroids to intravenous with improvement. Currently she is sitting up and trying to eat some lunch. There is a mention that she has been diagnosed to have auto immune hepatitis but she says he just realized that only when told by a MD/RN at the ER this thursday. She sees Dr Wilks a local GI for general GI issues and apparently had a colonoscopy recently but never was told of abnormal LFT or a liver diagnosis made. She was taking 35 mg of prednisone at the time of admission after starting at 40 mg.She does not take any nsaids. Denies any infectious hepatitis, Thyroid diseases, Inflammatory colitis, DM . She has not been making much urine. Labs and meds were reviewed. Past Medical History Cardiac Medical History: Reports: None Pulmonary Medical History: Reports: Pneumonia - intubated Denies: Tuberculosis Neurological Medical History: Reports: None Denies: Seizures Endocrine Medical History: Reports: None Complications of Diabetes: Reports: Other Renal/ Medical History: Reports: None Malignancy Medical History: Reports: None GI Medical History: Reports: Hepatitis - Autoimmune ? Musculoskeltal Medical History: Reports: Arthritis - Juvenile rheumatoid arthritis, Rheumatoid Arthritis - Juvenile. Steroid dependent. Skin Medical History: Reports: None Psychiatric Medical History: Reports: None Denies: Depression Infectious Medical History: Reports: Other Past Surgical History Past Surgical History: Reports: Section - 2, Orthopedic Surgery - joint replacements Denies: Hysterectomy Social History Lives with: Spouse/Significant other Smoking Status: Never Smoker Frequency of Alcohol Use: None Hx Recreational Drug Use: No Drugs: None Hx Prescription Drug Abuse: No - Advance Directive Resuscitation Status: Full Code Family History Parental Family History Reviewed: Yes - negative for CKD Children Family History Reviewed: Yes Sibling(s) Family History Reviewed.: Yes Medication/Allergy Home Medications: Folic Acid [Folvite 1 mg Tablet] 1 mg PO DAILY 03/30/17 Furosemide [Lasix 40 mg Tablet] 40 mg PO DAILY 03/30/17 Gabapentin [Neurontin 400 mg Capsule] 400 mg PO Q8 03/30/17 Lisinopril [Prinivil 10 mg Tablet] 10 mg PO DAILY 03/30/17 Prednisone [Deltasone 10 mg Tablet] 40 mg PO DAILY 03/30/17 Allergies/Adverse Reactions: amoxicillin trihydrate [From Augmentin] Allergy (Verified 03/29/17 20:41) ITCHING cephalexin monohydrate [From Keflex] Allergy (Verified 03/29/17 20:41) ibuprofen [From Motrin] Allergy (Verified 03/29/17 20:41) Potassium Clavulanate * [From Augmentin] Allergy (Verified 03/29/17 20:41) Review of Systems Constitutional: PRESENT: anorexia, fatigue, weakness. ABSENT: chills, fever(s) Cardiovascular: PRESENT: dyspnea on exertion, edema. ABSENT: chest pain, orthropnea, palpitations Gastrointestinal: PRESENT: abdominal pain, bloating, nausea. ABSENT: constipation, diarrhea, heartburn, melena, vomiting Genitourinary: ABSENT: dysuria, hematuria Musculoskeletal: PRESENT: deformity, joint swelling, muscle weakness Integumentary: ABSENT: erythema, lesions, pruritus, rash Neurological: ABSENT: abnormal speech, convulsions, focal weakness Endocrine: ABSENT: cold intolerance, heat intolerance Hematologic/Lymphatic: ABSENT: easy bruising, lymphadenopathy Physical Exam Vital Signs: Temp Pulse Resp BP Pulse Ox 98.2 F 112 H 0 L 107/82 97 03/31/17 13:22 03/31/17 13:22 03/31/17 14:50 03/31/17 14:37 03/31/17 14:50 Intake & Output 03/30/17 03/31/17 04/01/17 06:59 06:59 06:59 Intake Total 7363 Output Total 102 150 Balance 7261 -150 Weight 88.3 kg 96.2 kg General appearance: PRESENT: mild distress Eye exam: PRESENT: conjunctival injection, conjunctiva pale, EOMI, PERRLA. ABSENT: scleral icterus Ear exam: PRESENT: normal external ear exam Mouth exam: PRESENT: neck supple. ABSENT: moist Neck exam: ABSENT: lymphadenopathy, meningismus, tenderness, thyromegaly, tracheal deviation Respiratory exam: PRESENT: clear to auscultation jose j. ABSENT: crackles, rhonchi Cardiovascular exam: PRESENT: +S1, +S2, systolic murmur GI/Abdominal exam: PRESENT: ascites, distended, firm, normal bowel sounds, tenderness - mild and generalised.. ABSENT: organomegaly, rebound Extremities exam: PRESENT: joint swelling, +1 edema. ABSENT: calf tenderness Neurological exam: PRESENT: oriented to person, oriented to place, oriented to time Psychiatric exam: PRESENT: appropriate affect Focused psych exam: ABSENT: delusional, euphoric, flight of ideas Skin exam: PRESENT: cyanosis, dry, mottled - and cold and cyanotic bilateral fingers.. ABSENT: erythema, rash Results Laboratory Results: 03/31/17 06:02 03/31/17 06:02 03/30/17 03/31/17 03/31/17 18:00 06:02 06:02 WBC 19.7 H RBC 3.39 L Hgb 11.0 L Hct 35.5 L MCV 105 H MCH 32.4 MCHC 31.0 L RDW 22.1 H Plt Count 61 L Seg Neutrophils % Not Reportable Lymphocytes % Not Reportable Monocytes % Not Reportable Eosinophils % Not Reportable Basophils % Not Reportable Absolute Neutrophils Not Reportable Absolute Lymphocytes Not Reportable Absolute Monocytes Not Reportable Absolute Eosinophils Not Reportable Absolute Basophils Not Reportable Sodium 136.8 L 137.4 Potassium 4.4 4.9 Chloride 111 H 111 H Carbon Dioxide 17 L 16 L Anion Gap 9 10 BUN 27 H 31 H Creatinine 1.69 H 1.82 H Est GFR ( Amer) 42 L 38 L Est GFR (Non-Af Amer) 35 L 32 L Glucose 134 H 141 H Lactic Acid Calcium 8.0 L 7.8 L Magnesium 1.8 Total Bilirubin 1.0 1.0 AST 25 25 ALT 41 37 Alkaline Phosphatase 138 H 125 Total Protein 3.9 L 3.5 L Albumin 2.0 L 1.9 L Triglycerides 138 Cholesterol 117.15 LDL Cholesterol Direct 35 VLDL Cholesterol 28.0 HDL Cholesterol 29 L 03/31/17 13:30 WBC RBC Hgb Hct MCV MCH MCHC RDW Plt Count Seg Neutrophils % Lymphocytes % Monocytes % Eosinophils % Basophils % Absolute Neutrophils Absolute Lymphocytes Absolute Monocytes Absolute Eosinophils Absolute Basophils Sodium Potassium Chloride Carbon Dioxide Anion Gap BUN Creatinine Est GFR ( Amer) Est GFR (Non-Af Amer) Glucose Lactic Acid 1.9 Calcium Magnesium Total Bilirubin AST ALT Alkaline Phosphatase Total Protein Albumin Triglycerides Cholesterol LDL Cholesterol Direct VLDL Cholesterol HDL Cholesterol 03/31/17 06:02 NT-Pro-B Natriuret Pep 2110 H Impressions: Abdomen/Pelvis CT 03/30/17 00:00 IMPRESSION: 1. Large ascites. Anasarca. 2. Cholelithiasis. Pericholecystic fluid, may be secondary to the ascites. Please correlate with clinical concern for acute cholecystitis. 3. Nonobstructing left nephrolithiasis. 4. Mild bibasilar atelectasis. Trace left pleural effusion. 5. Cardiomegaly. Small pericardial effusion. Chest X-Ray 03/30/17 00:00 IMPRESSION: Right IJ central line with the tip at the cavoatrial junction. Mild bibasilar atelectasis. Assessment & Plan - Diagnosis (1) JOHN (acute kidney injury) Is this a current diagnosis for this admission?: Yes Plan: Oligo - anuric in the face of septic shock. Likely etiology is SBP. Cause of ascites ?AIH and cirrhosis. CT abdomen is negative. GI consult on. 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 (2) Septic shock Is this a current diagnosis for this admission?: Yes Plan: Likely SBP. Now growing Klebsiella and antibiotics have been revised from Imipenem / Vanc to levoflox.Currently on double pressors but being weaned from Syneo. (4) Ascites Plan: ? Portal HTN from Liver disease versus part of anasarca from from major illness and likely Nephrotic syndrome. Evaluation needed and will leave to GI to order the serologies. The CT abdomen did not shown any major abnormalities of liver or splenomegaly but was limited by lack of contrast. Meanwhile normal PT. (5) Rheumatoid arthritis Qualifiers: Rheumatoid arthritis location: multiple sites Rheumatoid factor presence: unspecified presence Qualified Code(s): M06.9 - Rheumatoid arthritis, unspecified Is this a current diagnosis for this admission?: Yes Plan: Stills disease ? Crippling disease now steroid dependent. Just began on ? biological plus the steroids which could be the cause of immunosupression and current infection. (6) SBP (spontaneous bacterial peritonitis) Is this a current diagnosis for this admission?: Yes Plan: Now on antibiotics. (7) Proteinuria Plan: Likely nephrotic.Quantify and evaluate. (8) Metabolic acidosis Plan: Monitor.
[2017-03-31] MEDS ORDERED: NORMAL SALINE 500 ML with NALOXONE HCL 2 MG IV PRN ×2 (18:12)
[2017-03-31] MEDS ORDERED: NALOXONE HCL INJ/PF 0.4 MG/1 ML SDV IV PRN (18:16)
[2017-03-31 18:21] LABS: UR PRO/CREAT RATIO RESULT 0.6 mg/mg (0.0-0.2); URINE CREATININE 194.9 mg/dL (16-327); URINE PROTEIN 114.9 mg/dL (<12)
[2017-04-01] MEDS: FUROSEMIDE INJ/PF 20 MG/2 ML SDV IV SCH (01:34)
[2017-04-01] MEDS: GABAPENTIN 400 MG CAPSULE PO SCH ×3 (05:41→21:39)
[2017-04-01] MEDS: HEPARIN SOD (PORCINE) 5,000 UNIT/ML 1 ML SYRINGE SUBCUT SCH ×3 (05:42→21:40)
[2017-04-01] MEDS: METHYLPREDNISOLONE INJ 40 MG/1 ML SDV IV SCH ×2 (05:42→18:16)
[2017-04-01 06:18] LABS: HEMATOCRIT 33.8 % (36.0-47.0); HEMOGLOBIN 10.6 g/dL (12.0-15.5); MEAN CORPUSCULAR HEMOGLOBIN 32.8 pg (27.0-33.4); MEAN CORPUSCULAR HGB CONC 31.5 g/dL (32.0-36.0); MEAN CORPUSCULAR VOLUME 104 fl (80-97); RED BLOOD COUNT 3.24 10^6/uL (3.72-5.28); RED CELL DISTRIBUTION WIDTH 21.9 % (11.5-14.0); WHITE BLOOD COUNT 12.2 10^3/uL (4.0-10.5)
[2017-04-01 06:33] LABS: VANCOMYCIN,TROUGH 17.7 ug/mL (5.0-20.0)
[2017-04-01 06:34] LABS: ALANINE AMINOTRANSFERASE 37 U/L (9-52); ALKALINE PHOSPHATASE 124 U/L (38-126); ANION GAP 8 (5-19); ASPARTATE AMINO TRANSFERASE 26 U/L (14-36); BILIRUBIN,TOTAL 1.1 mg/dL (0.2-1.3); BLOOD UREA NITROGEN 43 mg/dL (7-20); CALCIUM 8.1 mg/dL (8.4-10.2); CARBON DIOXIDE 16 mmol/L (22-30); CHLORIDE 111 mmol/L (98-107); GLUCOSE 133 mg/dL (75-110); POTASSIUM 5.6 mmol/L (3.6-5.0); SODIUM 135.4 mmol/L (137-145)
[2017-04-01 07:17] LABS: PLATELET COUNT 32 10^3/uL (150-450)
[2017-04-01 07:19] LABS: ABSOLUTE LYMPHOCYTES# (MANUAL) 0.1 10^3/uL (0.5-4.7); ABSOLUTE MONOCYTES # (MANUAL) 0.6 10^3/uL (0.1-1.4); ABSOLUTE NEUTROPHILS# (MANUAL) 11.5 10^3/uL (1.7-8.2); BAND NEUTROPHILS % (MANUAL) 15 % (3-5); BASOPHILS % (MANUAL) 0 % (0-2); EOSINOPHILS % (MANUAL) 0 % (0-6); LYMPHOCYTES % (MANUAL) 1 % (13-45); MONOCYTES % (MANUAL) 5 % (3-13); SEGMENTED NEUTROPHILS % (MAN) 79 % (42-78); TOTAL CELLS COUNTED 100
[2017-04-01 07:20] LABS: ANISOCYTOSIS 3+; BURR CELLS 1+; OVALOCYTES 2+; PLATELET COMMENT DECREASED; POIKILOCYTOSIS 2+; SCHISTOCYTES SLIGHT; TEAR DROP CELLS SLIGHT; TOXIC GRANULATION 1+
[2017-04-01] MEDS ORDERED: SODIUM POLYSTYRENE SULFONATE 15 GM/60 ML PO ONE (08:05)
[2017-04-01] MEDS: DOCUSATE SODIUM 100 MG CAPSULE PO SCH ×2 (09:07→18:17)
[2017-04-01] MEDS: METOCLOPRAMIDE HCL 10 MG TABLET PO SCH ×3 (11:11→21:39)
--- NOTE | 2017-04-01 14:42 | PDOC PROGRESS REPORT ---
Subjective Progress Note for:: 04/01/17 Subjective:: Patient denies chest pain, abdominal pain or shortness of breath. She does admit to having pains in her joints. Nurse reported that patient has not experienced any other apneic episodes since was placed on Narcan Review of systems All organ systems evaluated and negative except as seen subjective All significant laboratories and diagnostics have been reviewed Reason For Visit: SEPSIS,SBP,JRA Physical Exam Vital Signs: Temp Pulse Resp BP Pulse Ox 97.9 F 119 H 6 L 122/97 H 98 04/01/17 12:00 04/01/17 12:00 04/01/17 14:05 04/01/17 12:38 04/01/17 14:05 Intake & Output 03/31/17 04/01/17 04/02/17 06:59 06:59 06:59 Intake Total 7363 2609 Output Total 102 210 495 Balance 7290 0859 -495 Weight 96.2 kg 98.6 kg General appearance: PRESENT: no acute distress, cooperative Head exam: PRESENT: atraumatic, normocephalic Eye exam: PRESENT: conjunctiva pink, EOMI, PERRLA Mouth exam: PRESENT: moist Neck exam: PRESENT: full ROM. ABSENT: JVD, lymphadenopathy, tenderness Respiratory exam: PRESENT: clear to auscultation jose j Cardiovascular exam: PRESENT: RRR. ABSENT: diastolic murmur, systolic murmur Vascular exam: PRESENT: normal capillary refill GI/Abdominal exam: PRESENT: distended, normal bowel sounds, soft. ABSENT: tenderness Extremities exam: PRESENT: other - 4+ pitting edema bilaterally Musculoskeletal exam: PRESENT: ambulatory, deformity Neurological exam: PRESENT: alert, awake, oriented to person, oriented to place , oriented to time, oriented to situation, CN II-XII grossly intact Psychiatric exam: PRESENT: depressed Skin exam: PRESENT: intact, normal color Results Laboratory Results: 04/01/17 05:45 04/01/17 05:45 04/01/17 04/01/17 04/01/17 05:45 05:45 13:10 WBC 12.2 H RBC 3.24 L Hgb 10.6 L Hct 33.8 L MCV 104 H MCH 32.8 MCHC 31.5 L RDW 21.9 H Plt Count 32 L Seg Neutrophils % Not Reportable Lymphocytes % Not Reportable Monocytes % Not Reportable Eosinophils % Not Reportable Basophils % Not Reportable Absolute Neutrophils Not Reportable Absolute Lymphocytes Not Reportable Absolute Monocytes Not Reportable Absolute Eosinophils Not Reportable Absolute Basophils Not Reportable Sodium 135.4 L Potassium 5.6 H Chloride 111 H Carbon Dioxide 16 L Anion Gap 8 BUN 43 H Creatinine 2.33 H Est GFR ( Amer) 29 L Est GFR (Non-Af Amer) 24 L Glucose 133 H Calcium 8.1 L Magnesium 2.0 Total Bilirubin 1.1 AST 26 ALT 37 Alkaline Phosphatase 124 Ammonia 81.3 H Total Protein 4.0 L Albumin 2.0 L 03/31/17 06:02 NT-Pro-B Natriuret Pep 2110 H Impressions: Abdomen/Pelvis CT 03/30/17 00:00 IMPRESSION: 1. Large ascites. Anasarca. 2. Cholelithiasis. Pericholecystic fluid, may be secondary to the ascites. Please correlate with clinical concern for acute cholecystitis. 3. Nonobstructing left nephrolithiasis. 4. Mild bibasilar atelectasis. Trace left pleural effusion. 5. Cardiomegaly. Small pericardial effusion. Chest X-Ray 03/30/17 00:00 IMPRESSION: Right IJ central line with the tip at the cavoatrial junction. Mild bibasilar atelectasis. Assessment & Plan - Diagnosis (1) Septic shock Is this a current diagnosis for this admission?: Yes Plan: Will discontinue vasopressors since blood pressure normalized. (2) UTI (urinary tract infection) Qualifiers: Indwelling urinary catheter type: unspecified Encounter type: subsequent encounter Is this a current diagnosis for this admission?: Yes Plan: Urine culture growing Klebsiella pneumonia. Continue Levaquin p.o. (3) Bacteremia Is this a current diagnosis for this admission?: Yes Plan: Cultures so far negative (4) SBP (spontaneous bacterial peritonitis) Is this a current diagnosis for this admission?: Yes Plan: Due to Klebsiella pneumonia secondary to translocation for urinary tract. Continue Levaquin p.o. (5) Autoimmune hepatitis Is this a current diagnosis for this admission?: Yes Plan: Patient unaware about having autoimmune hepatitis. Continue IV steroids. Ammonia level was elevated and will place on rifaximin (6) Rheumatoid arthritis Qualifiers: Rheumatoid arthritis location: multiple sites Rheumatoid factor presence: unspecified presence Qualified Code(s): M06.9 - Rheumatoid arthritis, unspecified Is this a current diagnosis for this admission?: Yes Plan: Continue IV steroids and continue pain management. I am concerned about the possibility of amyloidosis on this patient (7) JOHN (acute kidney injury) Is this a current diagnosis for this admission?: Yes Plan: Likely due to acute tubular necrosis, paracenteses and possibly vancomycin use. Appreciate Dr. Humphries input. We will continue trending. Management renal (8) Hypotension Qualifiers: Hypotension type: other hypotension type Qualified Code(s): I95.89 - Other hypotension Is this a current diagnosis for this admission?: Yes Plan: Resolved. Discontinue pressors and midordrine. To downgrade patient to telemetry (9) Anasarca Is this a current diagnosis for this admission?: Yes Plan: Multifactorial. Management per renal (10) Hepatic encephalopathy Is this a current diagnosis for this admission?: Yes Plan: To start rifaximin (11) Hyperkalemia Is this a current diagnosis for this admission?: Yes Plan: Order Kayexalate 1 dose and will trend (12) Dysphagia Qualifiers: Dysphagia type: unspecified Qualified Code(s): R13.10 - Dysphagia, unspecified Is this a current diagnosis for this admission?: Yes Plan: Long-standing problem. To add Reglan and follow up response - Time Time Spent with patient: 15-24 minutes Medications reviewed and adjusted accordingly: Yes Anticipated discharge: Home Within: within 72 hours - Inpatient Certification Based on my medical assessment, after consideration of the patient's comorbidities, presenting symptoms, or acuity I expect that the services needed warrant INPATIENT care.: Yes I certify that my determination is in accordance with my understanding of Medicare's requirements for reasonable and necessary INPATIENT services [42 CFR 412.3e].: Yes Medical Necessity: Need Close Monitoring Due to Risk of Patient Decompensation, Need for Pain Control
[2017-04-01] MEDS ORDERED: FUROSEMIDE INJ/PF 20 MG/2 ML SDV IV ONE (15:00)
[2017-04-01] MEDS: LEVOFLOXACIN 500 MG/D5W RTU 500 MG/100 ML RTUPB IV SCH (15:01)
[2017-04-01] MEDS ORDERED: NORMAL SALINE 1000 ML 1,000 ML IV PRN (15:23)
--- NOTE | 2017-04-01 16:00 | PDOC PROGRESS REPORT ---
Subjective Progress Note for:: 04/01/17 Reason For Visit: Patient seen today. She is lethargic and unable to make and keep up with a meaningful conversation as she easily drifts back to sleep. She looks comfortable and has no laboured or kussumals breathing. She denies any chest pains, dyspnea. I did talk with her treating RN. She has not been eating much.No real bowel movement and unsure of her last bm. Poor urine output. I note that her IV lasix and ivf was stopped yesterday by the hospitalist. My PA Yury has seen her earlier today and he had ordered a Ammonia which came back at 81. Her current labs and mkedications were reviewed . Physical Exam Vital Signs: Temp Pulse Resp BP Pulse Ox 97.7 F 116 H 8 L 122/97 H 99 04/01/17 14:50 04/01/17 14:50 04/01/17 14:50 04/01/17 14:50 04/01/17 14:50 Intake & Output 03/31/17 04/01/17 04/02/17 06:59 06:59 06:59 Intake Total 7363 2609 Output Total 102 210 555 Balance 7261 2739 -555 Weight 96.2 kg 98.6 kg General appearance: PRESENT: disheveled, other - lethargic and unable to keep awake for sustained periods. Eye exam: PRESENT: EOMI, PERRLA. ABSENT: nystagmus, scleral icterus Ear exam: PRESENT: normal external ear exam Neck exam: ABSENT: meningismus, tenderness, thyromegaly, tracheal deviation Respiratory exam: PRESENT: clear to auscultation jose j, decreased breath sounds, symmetrical, unlabored. ABSENT: crackles, tachypnea Cardiovascular exam: PRESENT: +S1, +S2, systolic murmur GI/Abdominal exam: PRESENT: ascites, distended, firm, normal bowel sounds. ABSENT: organomegaly, rebound Extremities exam: PRESENT: +2 edema Neurological exam: PRESENT: altered Skin exam: ABSENT: cyanosis, dry, mottled Results Laboratory Results: 04/01/17 05:45 04/01/17 05:45 04/01/17 04/01/17 04/01/17 05:45 05:45 13:10 WBC 12.2 H RBC 3.24 L Hgb 10.6 L Hct 33.8 L MCV 104 H MCH 32.8 MCHC 31.5 L RDW 21.9 H Plt Count 32 L Seg Neutrophils % Not Reportable Lymphocytes % Not Reportable Monocytes % Not Reportable Eosinophils % Not Reportable Basophils % Not Reportable Absolute Neutrophils Not Reportable Absolute Lymphocytes Not Reportable Absolute Monocytes Not Reportable Absolute Eosinophils Not Reportable Absolute Basophils Not Reportable Sodium 135.4 L Potassium 5.6 H Chloride 111 H Carbon Dioxide 16 L Anion Gap 8 BUN 43 H Creatinine 2.33 H Est GFR ( Amer) 29 L Est GFR (Non-Af Amer) 24 L Glucose 133 H Calcium 8.1 L Magnesium 2.0 Total Bilirubin 1.1 AST 26 ALT 37 Alkaline Phosphatase 124 Ammonia 81.3 H Total Protein 4.0 L Albumin 2.0 L 03/31/17 06:02 NT-Pro-B Natriuret Pep 2110 H Impressions: Abdomen/Pelvis CT 03/30/17 00:00 IMPRESSION: 1. Large ascites. Anasarca. 2. Cholelithiasis. Pericholecystic fluid, may be secondary to the ascites. Please correlate with clinical concern for acute cholecystitis. 3. Nonobstructing left nephrolithiasis. 4. Mild bibasilar atelectasis. Trace left pleural effusion. 5. Cardiomegaly. Small pericardial effusion. Chest X-Ray 03/30/17 00:00 IMPRESSION: Right IJ central line with the tip at the cavoatrial junction. Mild bibasilar atelectasis. Assessment & Plan - Diagnosis (1) JOHN (acute kidney injury) Is this a current diagnosis for this admission?: Yes Plan: Oligo - anuric in the face of septic shock. Currently normotensive and off pressors. Now fluid overloaded without evidence of central fluid overload. She has generalised anasarca. She needs Iv Duretics and I will order iv Lasix infusion. Her proteinuria came back at very low levels. 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 (2) Septic shock Is this a current diagnosis for this admission?: Yes Plan: Likely SBP.Of the pressors and hemodynamically stable. On Steroids. Currently on levoflox. (3) Anasarca Plan: As mentioned earlier. Likely etiology is Generalised malnutrition, Septic shock and possible Liver disease which needs working up. (4) Ascites Plan: Staus quo.No clinical evidence of active peritonitis now. Continue Levoflox. (5) Rheumatoid arthritis Qualifiers: Rheumatoid arthritis location: multiple sites Rheumatoid factor presence: unspecified presence Qualified Code(s): M06.9 - Rheumatoid arthritis, unspecified Is this a current diagnosis for this admission?: Yes Plan: Stills disease ? Crippling disease now steroid dependent. Just began on ? biological plus the steroids which could be the cause of immunosupression and current infection. (6) SBP (spontaneous bacterial peritonitis) Is this a current diagnosis for this admission?: Yes Plan: Now on antibiotics. (7) Proteinuria Plan: Non gap.Stable.Monitor. (9) Hyperammonemia Plan: Start Lactulose and rifaximin. (10) Hyperkalemia Is this a current diagnosis for this admission?: Yes Plan: rx with sps.
[2017-04-01 17:24] LABS: ARTERIAL BLOOD BASE EXCESS -11.4 mmol/L; ARTERIAL BLOOD H2CO3 1.18 mmol/L (1.05-1.35); ARTERIAL BLOOD HCO3 15.7 mmol/L (20-26); ARTERIAL BLOOD PCO2 39.3 mmHg (35-45); ARTERIAL BLOOD PH 7.22 (7.35-7.45); ARTERIAL BLOOD TOTAL CO2 16.9 mmol/L (21-25)
[2017-04-01] MEDS: ALBUMIN HUMAN 50 ML IV SCH (18:16)
[2017-04-01] MEDS: RIFAXIMIN 550 MG TABLET PO SCH (18:17)
[2017-04-01] MEDS: NORMAL SALINE 250 ML with FUROSEMIDE 250 MG IV PRN ×2 (18:19)
[2017-04-01 18:27] LABS: ARTERIAL BLOOD FIO2 2L
[2017-04-01] MEDS: LACTULOSE SYRUP 20 GM/30 ML UDCUP PO SCH (21:38)
[2017-04-01] MEDS ORDERED: ALBUMIN HUMAN 50 ML IV SCH (22:00)
[2017-04-01] MEDS ORDERED: FUROSEMIDE INJ/PF 20 MG/2 ML SDV IV SCH (22:00)
[2017-04-01] MEDS ORDERED: SODIUM BICARBONATE 650 MG TABLET PO ONE (22:45)
[2017-04-02] MEDS: ALBUMIN HUMAN 50 ML IV SCH ×3 (01:08→18:12)
[2017-04-02] MEDS: LACTULOSE SYRUP 20 GM/30 ML UDCUP PO SCH ×3 (05:25→23:01)
[2017-04-02] MEDS: GABAPENTIN 400 MG CAPSULE PO SCH ×3 (05:26→23:02)
[2017-04-02] MEDS: HEPARIN SOD (PORCINE) 5,000 UNIT/ML 1 ML SYRINGE SUBCUT SCH (05:26)
[2017-04-02] MEDS: METHYLPREDNISOLONE INJ 40 MG/1 ML SDV IV SCH ×2 (05:26→18:16)
[2017-04-02 05:27] LABS: ARTERIAL BLOOD BASE EXCESS -10.3 mmol/L; ARTERIAL BLOOD H2CO3 1.08 mmol/L (1.05-1.35); ARTERIAL BLOOD HCO3 15.8 mmol/L (20-26); ARTERIAL BLOOD O2 SATURATION 96.4 % (94-98); ARTERIAL BLOOD PCO2 35.9 mmHg (35-45); ARTERIAL BLOOD PH 7.26 (7.35-7.45); ARTERIAL BLOOD PO2 95.3 mmHg (80-100); ARTERIAL BLOOD TOTAL CO2 16.9 mmol/L (21-25)
[2017-04-02 05:28] LABS: ARTERIAL BLOOD FIO2 2L
[2017-04-02 05:35] LABS: HEMATOCRIT 28.6 % (36.0-47.0); HEMOGLOBIN 9.3 g/dL (12.0-15.5); MEAN CORPUSCULAR HEMOGLOBIN 33.2 pg (27.0-33.4); MEAN CORPUSCULAR HGB CONC 32.5 g/dL (32.0-36.0); MEAN CORPUSCULAR VOLUME 102 fl (80-97); WHITE BLOOD COUNT 6.5 10^3/uL (4.0-10.5)
[2017-04-02 05:45] LABS: ANION GAP 9 (5-19); BLOOD UREA NITROGEN 52 mg/dL (7-20); CALCIUM 8.2 mg/dL (8.4-10.2); CARBON DIOXIDE 18 mmol/L (22-30); CHLORIDE 111 mmol/L (98-107); GLUCOSE 149 mg/dL (75-110); SODIUM 137.9 mmol/L (137-145)
[2017-04-02 06:23] LABS: ABSOLUTE LYMPHOCYTES# (MANUAL) 0.1 10^3/uL (0.5-4.7); BAND NEUTROPHILS % (MANUAL) 1 % (3-5); BASOPHILS % (MANUAL) 0 % (0-2); EOSINOPHILS % (MANUAL) 0 % (0-6); LYMPHOCYTES % (MANUAL) 2 % (13-45); SEGMENTED NEUTROPHILS % (MAN) 93 % (42-78); TOTAL CELLS COUNTED 100
[2017-04-02 06:26] LABS: ABSOLUTE MONOCYTES # (MANUAL) 0.3 10^3/uL (0.1-1.4); ABSOLUTE NEUTROPHILS# (MANUAL) 6.1 10^3/uL (1.7-8.2); MONOCYTES % (MANUAL) 4 % (3-13)
[2017-04-02 06:30] LABS: PLATELET COMMENT DECREASED
[2017-04-02 06:31] LABS: ANISOCYTOSIS 3+; BURR CELLS 1+; HYPOCHROMASIA 2+; OVALOCYTES SLIGHT; POIKILOCYTOSIS 2+; TEAR DROP CELLS SLIGHT
[2017-04-02 06:35] LABS: PLATELET COUNT 17 10^3/uL (150-450)
[2017-04-02 07:39] LABS: FIBRINOGEN 314 mg/dL (209-497); INTERNATIONAL RATION (INR) 0.98; PROTHROMBIN TIME 13.7 SEC (11.4-15.4)
[2017-04-02] MEDS ORDERED: NORMAL SALINE 250 ML IV PRN ×2 (07:50)
--- NOTE | 2017-04-02 10:00 | PDOC CONSULTATION ---
Consultation Consult Date: 04/02/17 Attending physician:: YAZMIN GOLDEN Consult reason:: Thrombocytopenia History of Present Illness Admission Date/PCP: 03/29/17 22:28 RUSSELL DORAN MD Patient complains of: Thrombocytopenia History of Present Illness: 36-year-old female with multiple medical problems, history of long-standing juvenile rheumatoid arthritis, followed by Dr. Rivera in [place], recently started on a new rheumatologic medication where they get injection several times a week, also history of autoimmune hepatitis, cirrhosis, she comes in with hypertension, tachycardia, confusion, ascites, she was found to have spontaneous bacterial peritonitis, Klebsiella, also Klebsiella UTI, she was started on antibiotics and then transition based upon sensitivities. She was on steroids on admission. Of note and review of labs she has had platelet counts that have been low, usually 50-80,000, but on this admission they have been dropping and today they are 17,000. She is not oozing from any sites. She had labs drawn which indicated normal fibrinogen, normal fibrin split products, d-dimer was elevated. INR was in the 1 range. Today she seems less confused, per family at bedside she seems at baseline with her mental status today. Past Medical History Cardiac Medical History: Reports: None Pulmonary Medical History: Reports: Pneumonia - intubated Denies: Tuberculosis Neurological Medical History: Reports: None Denies: Seizures Endocrine Medical History: Reports: None Renal/ Medical History: Reports: None Malignancy Medical History: Reports: None GI Medical History: Reports: Cirrhosis, Hepatitis - Autoimmune ? Musculoskeltal Medical History: Reports: Arthritis - Juvenile rheumatoid arthritis Skin Medical History: Reports: None Psychiatric Medical History: Reports: None Denies: Depression Infectious Medical History: Reports: Other Past Surgical History Past Surgical History: Reports: Section - 2, Orthopedic Surgery - joint replacements Denies: Hysterectomy Social History Information Source: Patient Lives with: Spouse/Significant other Smoking Status: Never Smoker Frequency of Alcohol Use: None Hx Recreational Drug Use: No Drugs: None Hx Prescription Drug Abuse: No - Advance Directive Resuscitation Status: Full Code Family History Family History: Hypertension Parental Family History Reviewed: Yes Children Family History Reviewed: Yes Sibling(s) Family History Reviewed.: Yes Medication/Allergy Home Medications: Folic Acid [Folvite 1 mg Tablet] 1 mg PO DAILY 03/30/17 Furosemide [Lasix 40 mg Tablet] 40 mg PO DAILY 03/30/17 Gabapentin [Neurontin 400 mg Capsule] 400 mg PO Q8 03/30/17 Lisinopril [Prinivil 10 mg Tablet] 10 mg PO DAILY 03/30/17 Prednisone [Deltasone 10 mg Tablet] 40 mg PO DAILY 03/30/17 Allergies/Adverse Reactions: amoxicillin trihydrate [From Augmentin] Allergy (Verified 03/29/17 20:41) ITCHING cephalexin monohydrate [From Keflex] Allergy (Verified 03/29/17 20:41) ibuprofen [From Motrin] Allergy (Verified 03/29/17 20:41) Potassium Clavulanate * [From Augmentin] Allergy (Verified 03/29/17 20:41) Review of Systems Constitutional: PRESENT: fatigue Cardiovascular: ABSENT: chest pain, dyspnea on exertion, edema, orthropnea, palpitations Gastrointestinal: ABSENT: abdominal pain, constipation, diarrhea, hematemesis, hematochezia, nausea, vomiting Neurological: ABSENT: abnormal gait, abnormal speech, confusion, dizziness, focal weakness, syncope Physical Exam Vital Signs: Temp Pulse Resp BP Pulse Ox 97.3 F 126 H 17 150/107 H 97 04/02/17 09:42 04/02/17 09:42 04/02/17 09:42 04/02/17 09:42 04/02/17 09:42 Intake & Output 04/01/17 04/02/17 04/03/17 06:59 06:59 06:59 Intake Total 2609 1591 0 Output Total 210 1075 85 Balance 2399 516 -85 Weight 98.6 kg 102.3 kg General appearance: PRESENT: cooperative Head exam: PRESENT: atraumatic Mouth exam: PRESENT: dry mucosa Respiratory exam: PRESENT: clear to auscultation jose j. ABSENT: rales, rhonchi, wheezes Cardiovascular exam: PRESENT: RRR. ABSENT: diastolic murmur, rubs, systolic murmur GI/Abdominal exam: PRESENT: ascites Rectal exam: PRESENT: deferred Extremities exam: PRESENT: pedal edema, +2 edema Results Laboratory Results: 04/02/17 05:15 04/02/17 05:15 04/01/17 04/01/17 04/02/17 13:10 16:55 05:15 WBC RBC Hgb Hct MCV MCH MCHC RDW Plt Count Seg Neutrophils % Lymphocytes % Monocytes % Eosinophils % Basophils % Absolute Neutrophils Absolute Lymphocytes Absolute Monocytes Absolute Eosinophils Absolute Basophils Carbonic Acid 1.18 1.08 HCO3/H2CO3 Ratio 13:1 14:1 ABG pH 7.22 L 7.26 L ABG pCO2 39.3 35.9 ABG pO2 Not Reportable 95.3 ABG HCO3 15.7 L 15.8 L ABG O2 Saturation Not Reportable 96.4 ABG Base Excess -11.4 -10.3 FiO2 2L 2L Sodium Potassium Chloride Carbon Dioxide Anion Gap BUN Creatinine Est GFR ( Amer) Est GFR (Non-Af Amer) Glucose Calcium Magnesium Ammonia 81.3 H Blood Type 04/02/17 04/02/17 04/02/17 05:15 05:15 08:16 WBC 6.5 RBC 2.80 L Hgb 9.3 L Hct 28.6 L MCV 102 H MCH 33.2 MCHC 32.5 RDW 21.0 H Plt Count 17 L* Seg Neutrophils % Not Reportable Lymphocytes % Not Reportable Monocytes % Not Reportable Eosinophils % Not Reportable Basophils % Not Reportable Absolute Neutrophils Not Reportable Absolute Lymphocytes Not Reportable Absolute Monocytes Not Reportable Absolute Eosinophils Not Reportable Absolute Basophils Not Reportable Carbonic Acid HCO3/H2CO3 Ratio ABG pH ABG pCO2 ABG pO2 ABG HCO3 ABG O2 Saturation ABG Base Excess FiO2 Sodium 137.9 Potassium 5.0 Chloride 111 H Carbon Dioxide 18 L Anion Gap 9 BUN 52 H Creatinine 2.24 H Est GFR ( Amer) 30 L Est GFR (Non-Af Amer) 25 L Glucose 149 H Calcium 8.2 L Magnesium 2.0 Ammonia Blood Type A NEGATIVE 03/31/17 06:02 NT-Pro-B Natriuret Pep 2110 H Impressions: Abdomen/Pelvis CT 03/30/17 00:00 IMPRESSION: 1. Large ascites. Anasarca. 2. Cholelithiasis. Pericholecystic fluid, may be secondary to the ascites. Please correlate with clinical concern for acute cholecystitis. 3. Nonobstructing left nephrolithiasis. 4. Mild bibasilar atelectasis. Trace left pleural effusion. 5. Cardiomegaly. Small pericardial effusion. Chest X-Ray 03/30/17 00:00 IMPRESSION: Right IJ central line with the tip at the cavoatrial junction. Mild bibasilar atelectasis. Assessment & Plan - Diagnosis (1) Thrombocytopenia Is this a current diagnosis for this admission?: Yes Plan: Reviewed all labs, she does have a baseline thrombocytopenia. 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 I believe her baseline platelet count is more like 50-60,000. But sepsis certainly can try that countdown, just from a pure myelosuppression standpoint from that. There probably is also DIC ongoing. Her mental status seems to have improved now, but her platelet count still may remain low for the next few days. We will monitor her alongside medical teams, agree with platelet transfusion at this point. No other intervention needed as of now. I think TTP is less likely as a cause. At this point I do not believe we need to do any intervention based upon that possibility. - Time Time Spent: Greater than 70 Minutes - Inpatient Certification Based on my medical assessment, after consideration of the patient's comorbidities, presenting symptoms, or acuity I expect that the services needed warrant INPATIENT care.: Yes I certify that my determination is in accordance with my understanding of Medicare's requirements for reasonable and necessary INPATIENT services [42 CFR 412.3e].: Yes Medical Necessity: Need For Continuous Telemetry Monitoring, Need for Neurological Checks, Risk of Complication if Not Cared For in Hospital
[2017-04-02] MEDS: METOCLOPRAMIDE HCL 10 MG TABLET PO SCH ×4 (10:55→23:02)
[2017-04-02] MEDS: DOCUSATE SODIUM 100 MG CAPSULE PO SCH ×2 (11:00→18:16)
[2017-04-02] MEDS: RIFAXIMIN 550 MG TABLET PO SCH ×2 (11:01→18:16)
[2017-04-02] MEDS: SODIUM BICARBONATE 650 MG TABLET PO SCH ×2 (11:04→23:02)
[2017-04-02 11:38] LABS: PATH REVIEW PATHOLOGIST REVIEWED
[2017-04-02] MEDS ORDERED: AMLODIPINE BESYLATE 5 MG TABLET PO ONE (13:30)
[2017-04-02] MEDS: LEVOFLOXACIN 500 MG/D5W RTU 500 MG/100 ML RTUPB IV SCH (14:39)
--- NOTE | 2017-04-02 14:51 | PDOC PROGRESS REPORT ---
Subjective Progress Note for:: 04/02/17 Subjective:: Patient at the time of examination was laying in her bed. She appears to be just as lethargic as yesterday. According to the nurse she has been having a hard time staying awake. When the nurse is in there asking her questions she will fall asleep. At other times when she wakes her she will say random answers to questions that were asked over 15 minutes ago. At the time of examination a consult was placed for hematology due to the fact that her platlets dropped significantly today to 17. She has produced a little over a liter yesterday. Reason For Visit: SEPSIS,SBP,JRA Physical Exam Vital Signs: Temp Pulse Resp BP Pulse Ox 97.7 F 121 H 13 151/112 H 97 04/02/17 12:00 04/02/17 12:00 04/02/17 12:25 04/02/17 12:24 04/02/17 12:25 Intake & Output 04/01/17 04/02/17 04/03/17 06:59 06:59 06:59 Intake Total 2609 1591 430 Output Total 210 1075 370 Balance 2399 516 60 Weight 98.6 kg 102.3 kg General appearance: PRESENT: no acute distress, well-developed, well-nourished Eye exam: PRESENT: PERRLA. ABSENT: scleral icterus Mouth exam: PRESENT: moist, neck supple Neck exam: ABSENT: JVD, tracheal deviation Respiratory exam: PRESENT: rhonchi - left lower lobe. ABSENT: accessory muscle use, clear to auscultation jose j, crackles, rales, wheezes Cardiovascular exam: PRESENT: +S1, +S2, systolic murmur GI/Abdominal exam: PRESENT: ascites, distended, firm, normal bowel sounds. ABSENT: organomegaly, rebound Extremities exam: PRESENT: pedal edema, +2 edema. ABSENT: tenderness Musculoskeletal exam: ABSENT: normal inspection, tenderness Neurological exam: PRESENT: altered, oriented to person, oriented to place. ABSENT: alert, awake, oriented to time, oriented to situation, motor sensory deficit, aphasic Skin exam: PRESENT: dry, intact, warm Results Laboratory Results: 04/02/17 05:15 04/02/17 05:15 04/01/17 04/02/17 04/02/17 16:55 05:15 05:15 WBC RBC Hgb Hct MCV MCH MCHC RDW Plt Count Seg Neutrophils % Lymphocytes % Monocytes % Eosinophils % Basophils % Absolute Neutrophils Absolute Lymphocytes Absolute Monocytes Absolute Eosinophils Absolute Basophils Carbonic Acid 1.18 1.08 HCO3/H2CO3 Ratio 13:1 14:1 ABG pH 7.22 L 7.26 L ABG pCO2 39.3 35.9 ABG pO2 Not Reportable 95.3 ABG HCO3 15.7 L 15.8 L ABG O2 Saturation Not Reportable 96.4 ABG Base Excess -11.4 -10.3 FiO2 2L 2L Sodium 137.9 Potassium 5.0 Chloride 111 H Carbon Dioxide 18 L Anion Gap 9 BUN 52 H Creatinine 2.24 H Est GFR ( Amer) 30 L Est GFR (Non-Af Amer) 25 L Glucose 149 H Calcium 8.2 L Magnesium 2.0 Blood Type 04/02/17 04/02/17 05:15 08:16 WBC 6.5 RBC 2.80 L Hgb 9.3 L Hct 28.6 L MCV 102 H MCH 33.2 MCHC 32.5 RDW 21.0 H Plt Count 17 L* Seg Neutrophils % Not Reportable Lymphocytes % Not Reportable Monocytes % Not Reportable Eosinophils % Not Reportable Basophils % Not Reportable Absolute Neutrophils Not Reportable Absolute Lymphocytes Not Reportable Absolute Monocytes Not Reportable Absolute Eosinophils Not Reportable Absolute Basophils Not Reportable Carbonic Acid HCO3/H2CO3 Ratio ABG pH ABG pCO2 ABG pO2 ABG HCO3 ABG O2 Saturation ABG Base Excess FiO2 Sodium Potassium Chloride Carbon Dioxide Anion Gap BUN Creatinine Est GFR ( Amer) Est GFR (Non-Af Amer) Glucose Calcium Magnesium Blood Type A NEGATIVE 03/31/17 06:02 NT-Pro-B Natriuret Pep 2110 H Impressions: Abdomen/Pelvis CT 03/30/17 00:00 IMPRESSION: 1. Large ascites. Anasarca. 2. Cholelithiasis. Pericholecystic fluid, may be secondary to the ascites. Please correlate with clinical concern for acute cholecystitis. 3. Nonobstructing left nephrolithiasis. 4. Mild bibasilar atelectasis. Trace left pleural effusion. 5. Cardiomegaly. Small pericardial effusion. Chest X-Ray 03/30/17 00:00 IMPRESSION: Right IJ central line with the tip at the cavoatrial junction. Mild bibasilar atelectasis. Assessment & Plan - Diagnosis (1) JOHN (acute kidney injury) Is this a current diagnosis for this admission?: Yes Plan: currently stable, urine production increased yesterday to a little over a liter. Fluids will remain at 50mL an hour and keep the IV infusion of lasix to 2mg an hour. If urine production does not increase more than 1 liter. Will increase IV lasix (2) Anasarca Is this a current diagnosis for this admission?: Yes Plan: slightly improved, continue on current lasix dosage (3) Bacteremia Is this a current diagnosis for this admission?: Yes Plan: on levofloxacin (4) Hepatic encephalopathy Is this a current diagnosis for this admission?: Yes Plan: not showing improvement, currently no bowel movements. Will give the lactulose a full 24 hours before dosage is increased. Ammonia level is ordered for tomorrow morning. aiming for 3 bowel movements a day (5) Hyperkalemia Is this a current diagnosis for this admission?: Yes Plan: stable (6) Metabolic acidosis Plan: currently on sodium bicarb 1,300mg bid, showing mild improvement after one dosage (7) Sepsis Is this a current diagnosis for this admission?: Yes Plan: on levofloxacin (8) UTI (urinary tract infection) Qualifiers: Indwelling urinary catheter type: unspecified Encounter type: subsequent encounter Qualified Code(s): T83.511D - Infection and inflammatory reaction due to indwelling urethral catheter, subsequent encounter; N39.0 - Urinary tract infection, site not specified; N39.0 - Urinary tract infection, site not specified Is this a current diagnosis for this admission?: Yes Plan: on levofloxacin (9) Ascites Plan: stable (10) Autoimmune hepatitis Is this a current diagnosis for this admission?: Yes Plan: awaiting GI consult (11) SBP (spontaneous bacterial peritonitis) Is this a current diagnosis for this admission?: Yes Plan: on levofloxacin - Notes Notes: Case was discussed with Dr. Humphries. Kidneys are stable but due to other deteriorating disease patient may require transfer so that she can be seen by a manager furniture
--- NOTE | 2017-04-02 16:12 | PDOC PROGRESS REPORT ---
Subjective Progress Note for:: 04/02/17 Subjective:: No complaints but patient appears to be somnolent Review of systems Unable to obtain due to patient's mental status All significant laboratories and diagnostics have been reviewed Reason For Visit: SEPSIS,SBP,JRA Physical Exam Vital Signs: Temp Pulse Resp BP Pulse Ox 97.5 F 122 H 14 130/100 H 96 04/02/17 09:57 04/02/17 09:57 04/02/17 10:15 04/02/17 10:04 04/02/17 10:15 Intake & Output 04/01/17 04/02/17 04/03/17 06:59 06:59 06:59 Intake Total 2609 1591 100 Output Total 210 1075 85 Balance 2399 516 15 Weight 98.6 kg 102.3 kg General appearance: PRESENT: cooperative, other - Generalized swelling Head exam: PRESENT: atraumatic, normocephalic Eye exam: PRESENT: conjunctiva pink, EOMI, PERRLA Ear exam: PRESENT: normal external ear exam Mouth exam: PRESENT: moist, neck supple Neck exam: PRESENT: full ROM. ABSENT: JVD, lymphadenopathy, tenderness Respiratory exam: PRESENT: clear to auscultation jose j Cardiovascular exam: PRESENT: RRR. ABSENT: diastolic murmur, systolic murmur Pulses: PRESENT: normal femoral pulses GI/Abdominal exam: PRESENT: ascites, distended, normal bowel sounds, soft. ABSENT: tenderness Extremities exam: PRESENT: full ROM, other - 4+ pitting edema Musculoskeletal exam: ABSENT: ambulatory Neurological exam: PRESENT: alert, awake, oriented to person. ABSENT: oriented to place, oriented to time Psychiatric exam: PRESENT: depressed Results Laboratory Results: 04/02/17 05:15 04/02/17 05:15 04/01/17 04/01/17 04/02/17 13:10 16:55 05:15 WBC RBC Hgb Hct MCV MCH MCHC RDW Plt Count Seg Neutrophils % Lymphocytes % Monocytes % Eosinophils % Basophils % Absolute Neutrophils Absolute Lymphocytes Absolute Monocytes Absolute Eosinophils Absolute Basophils Carbonic Acid 1.18 1.08 HCO3/H2CO3 Ratio 13:1 14:1 ABG pH 7.22 L 7.26 L ABG pCO2 39.3 35.9 ABG pO2 Not Reportable 95.3 ABG HCO3 15.7 L 15.8 L ABG O2 Saturation Not Reportable 96.4 ABG Base Excess -11.4 -10.3 FiO2 2L 2L Sodium Potassium Chloride Carbon Dioxide Anion Gap BUN Creatinine Est GFR ( Amer) Est GFR (Non-Af Amer) Glucose Calcium Magnesium Ammonia 81.3 H Blood Type 04/02/17 04/02/17 04/02/17 05:15 05:15 08:16 WBC 6.5 RBC 2.80 L Hgb 9.3 L Hct 28.6 L MCV 102 H MCH 33.2 MCHC 32.5 RDW 21.0 H Plt Count 17 L* Seg Neutrophils % Not Reportable Lymphocytes % Not Reportable Monocytes % Not Reportable Eosinophils % Not Reportable Basophils % Not Reportable Absolute Neutrophils Not Reportable Absolute Lymphocytes Not Reportable Absolute Monocytes Not Reportable Absolute Eosinophils Not Reportable Absolute Basophils Not Reportable Carbonic Acid HCO3/H2CO3 Ratio ABG pH ABG pCO2 ABG pO2 ABG HCO3 ABG O2 Saturation ABG Base Excess FiO2 Sodium 137.9 Potassium 5.0 Chloride 111 H Carbon Dioxide 18 L Anion Gap 9 BUN 52 H Creatinine 2.24 H Est GFR ( Amer) 30 L Est GFR (Non-Af Amer) 25 L Glucose 149 H Calcium 8.2 L Magnesium 2.0 Ammonia Blood Type A NEGATIVE 03/31/17 06:02 NT-Pro-B Natriuret Pep 2110 H Impressions: Abdomen/Pelvis CT 03/30/17 00:00 IMPRESSION: 1. Large ascites. Anasarca. 2. Cholelithiasis. Pericholecystic fluid, may be secondary to the ascites. Please correlate with clinical concern for acute cholecystitis. 3. Nonobstructing left nephrolithiasis. 4. Mild bibasilar atelectasis. Trace left pleural effusion. 5. Cardiomegaly. Small pericardial effusion. Chest X-Ray 03/30/17 00:00 IMPRESSION: Right IJ central line with the tip at the cavoatrial junction. Mild bibasilar atelectasis. Assessment & Plan - Diagnosis (1) Septic shock Is this a current diagnosis for this admission?: Yes Plan: Resolved (2) UTI (urinary tract infection) Qualifiers: Indwelling urinary catheter type: unspecified Encounter type: subsequent encounter Is this a current diagnosis for this admission?: Yes Plan: Urine culture growing Klebsiella pneumonia. Continue Levaquin p.o. (3) Bacteremia Is this a current diagnosis for this admission?: Yes Plan: Cultures so far negative (4) SBP (spontaneous bacterial peritonitis) Is this a current diagnosis for this admission?: Yes Plan: Due to Klebsiella pneumonia secondary to translocation for urinary tract. Continue Levaquin p.o. (5) Autoimmune hepatitis Is this a current diagnosis for this admission?: Yes Plan: Patient unaware about having autoimmune hepatitis. Continue IV steroids. Hematology consulted because of thrombocytopenia and concern of TTP. 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 I am concerned about the possibility of amyloidosis on this patient (7) JOHN (acute kidney injury) Is this a current diagnosis for this admission?: Yes Plan: Likely due to acute tubular necrosis, paracenteses and possibly vancomycin use. Appreciate Dr. Humphries input. Continues worsening and being managed by renal (8) Hypotension Qualifiers: Hypotension type: other hypotension type Qualified Code(s): I95.89 - Other hypotension Is this a current diagnosis for this admission?: Yes Plan: Resolved. (9) Anasarca Is this a current diagnosis for this admission?: Yes Plan: Multifactorial. Management per renal (10) Hepatic encephalopathy Is this a current diagnosis for this admission?: Yes Plan: Continue rifaximin (11) Hyperkalemia Is this a current diagnosis for this admission?: Yes Plan: Resolved and trend (12) Dysphagia Qualifiers: Dysphagia type: unspecified Qualified Code(s): R13.10 - Dysphagia, unspecified Is this a current diagnosis for this admission?: Yes Plan: Long-standing problem. Continue reglan (13) Metabolic acidosis Is this a current diagnosis for this admission?: Yes Plan: Been placed on sodium bicarb for renal (14) Thrombocytopenia Is this a current diagnosis for this admission?: Yes Plan: Still concerned about TTP. Patient will be transfused and will trend. If hemoglobin and platelets continue the downward trend will consider transfer (15) Anemia Qualifiers: Anemia type: unspecified type Qualified Code(s): D64.9 - Anemia, unspecified Is this a current diagnosis for this admission?: Yes Plan: There has been a downward trend since admission. Will consider transfusion and transferring if worsening. Will place on Protonix IV and not available - Time Time Spent with patient: 15-24 minutes Medications reviewed and adjusted accordingly: Yes Anticipated discharge: Home Within: within 48 hours - Inpatient Certification Based on my medical assessment, after consideration of the patient's comorbidities, presenting symptoms, or acuity I expect that the services needed warrant INPATIENT care.: Yes I certify that my determination is in accordance with my understanding of Medicare's requirements for reasonable and necessary INPATIENT services [42 CFR 412.3e].: Yes Medical Necessity: Need Close Monitoring Due to Risk of Patient Decompensation, Need For Continuous Telemetry Monitoring
[2017-04-02] MEDS ORDERED: NADOLOL 40 MG TABLET PO ONE (17:00)
[2017-04-02] MEDS ORDERED: POTASSI CL 20 MEQ/50 ML RIDER 0 MEQ/0 ML RTUPB IV ONE (17:30)
[2017-04-02] MEDS: PANTOPRAZOLE SODIUM 40 MG VIAL IV SCH (18:15)
[2017-04-02] MEDS: NORMAL SALINE 250 ML with FUROSEMIDE 250 MG IV PRN ×2 (18:22)
[2017-04-02] MEDS: PHARMACY COMMUNICATION ORDER MC SCH (18:24)
[2017-04-02 20:04] LABS: HEMATOCRIT 27.4 % (36.0-47.0); HEMOGLOBIN 8.8 g/dL (12.0-15.5); MEAN CORPUSCULAR HEMOGLOBIN 32.6 pg (27.0-33.4); MEAN CORPUSCULAR VOLUME 102 fl (80-97); RED BLOOD COUNT 2.69 10^6/uL (3.72-5.28); RED CELL DISTRIBUTION WIDTH 20.5 % (11.5-14.0); WHITE BLOOD COUNT 6.2 10^3/uL (4.0-10.5)
[2017-04-02 20:57] LABS: PLATELET COUNT 25 10^3/uL (150-450)
[2017-04-03] MEDS: ALBUMIN HUMAN 50 ML IV SCH ×3 (01:42→17:55)
[2017-04-03] MEDS: GABAPENTIN 400 MG CAPSULE PO SCH (06:09)
[2017-04-03] MEDS: LACTULOSE SYRUP 20 GM/30 ML UDCUP PO SCH ×3 (06:09→22:42)
[2017-04-03] MEDS: PANTOPRAZOLE SODIUM 40 MG VIAL IV SCH ×2 (06:09→17:54)
[2017-04-03] MEDS: METHYLPREDNISOLONE INJ 40 MG/1 ML SDV IV SCH ×2 (06:09→17:53)
[2017-04-03 06:15] LABS: HEMATOCRIT 28.5 % (36.0-47.0); HEMOGLOBIN 9.3 g/dL (12.0-15.5); MEAN CORPUSCULAR HEMOGLOBIN 33.1 pg (27.0-33.4); MEAN CORPUSCULAR HGB CONC 32.5 g/dL (32.0-36.0); MEAN CORPUSCULAR VOLUME 102 fl (80-97); RED CELL DISTRIBUTION WIDTH 20.7 % (11.5-14.0); WHITE BLOOD COUNT 8.2 10^3/uL (4.0-10.5)
[2017-04-03 06:20] LABS: ALANINE AMINOTRANSFERASE 27 U/L (9-52); ALBUMIN 2.4 g/dL (3.5-5.0); ALKALINE PHOSPHATASE 103 U/L (38-126); ANION GAP 11 (5-19); ASPARTATE AMINO TRANSFERASE 23 U/L (14-36); BILIRUBIN,DIRECT 0.9 mg/dL (0.0-0.4); BILIRUBIN,TOTAL 1.5 mg/dL (0.2-1.3); BLOOD UREA NITROGEN 53 mg/dL (7-20); CALCIUM 8.6 mg/dL (8.4-10.2); CARBON DIOXIDE 18 mmol/L (22-30); CHLORIDE 112 mmol/L (98-107); GLUCOSE 144 mg/dL (75-110); LDH 942 U/L (313-618); POTASSIUM 4.3 mmol/L (3.6-5.0); SODIUM 140.8 mmol/L (137-145); TOTAL PROTEIN 4.1 g/dL (6.3-8.2)
[2017-04-03 07:21] LABS: PLATELET COUNT 23 10^3/uL (150-450)
[2017-04-03 07:26] LABS: ABSOLUTE LYMPHOCYTES# (MANUAL) 0.3 10^3/uL (0.5-4.7); ABSOLUTE MONOCYTES # (MANUAL) 0.7 10^3/uL (0.1-1.4); ABSOLUTE NEUTROPHILS# (MANUAL) 7.2 10^3/uL (1.7-8.2); ANISOCYTOSIS 2+; BAND NEUTROPHILS % (MANUAL) 1 % (3-5); BASOPHILS % (MANUAL) 0 % (0-2); EOSINOPHILS % (MANUAL) 0 % (0-6); HYPOCHROMASIA SLIGHT; LYMPHOCYTES % (MANUAL) 4 % (13-45); MONOCYTES % (MANUAL) 8 % (3-13); OVALOCYTES 2+; PLATELET COMMENT DECREASED; POIKILOCYTOSIS 2+; POLYCHROMASIA SLIGHT; SEGMENTED NEUTROPHILS % (MAN) 87 % (42-78); TEAR DROP CELLS SLIGHT; TOTAL CELLS COUNTED 100; TOXIC GRANULATION SLIGHT; TOXIC VACUOLATION PRESENT
[2017-04-03] MEDS ORDERED: NORMAL SALINE 250 ML IV PRN ×2 (07:43)
[2017-04-03] MEDS ORDERED: OXYCODONE-ACETAMINOPHEN 5-325 MG TABLET PO PRN (07:47)
--- NOTE | 2017-04-03 08:39 | PDOC PROGRESS REPORT ---
Subjective Progress Note for:: 04/03/17 Subjective:: Patient still confused this morning, I reviewed all of her labs. Her LDH actually went from 600-900 this morning, she did receive 1 unit of platelets which brought her platelet count from 17-23. I had a long discussion with her manager athletics Dr. Rivera. 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 So this does not go along fully with the DIC type picture. I am concerned now that she may have more of a TTP type picture. The confusion and renal failure would go along with that. Although there are some other possible causes for those issues as well. Regardless, after discussion with rheumatology, we felt that plasma exchange would be beneficial for her. Unfortunately [facility], [facility], and our facility [facility] cannot do this procedure. I have called [facility] which does do plasma exchange but they are too full to accept any transfers as of now. To that extent, I gave [facility] call, and begin the transfer process. Reason For Visit: SEPSIS,SBP,JRA Physical Exam Vital Signs: Temp Pulse Resp BP Pulse Ox 97.3 F 117 H 18 139/109 H 95 04/03/17 07:54 04/03/17 07:54 04/03/17 07:54 04/03/17 07:54 04/03/17 07:54 Intake & Output 04/02/17 04/03/17 04/04/17 06:59 06:59 06:59 Intake Total 1591 1882 Output Total 1075 1710 225 Balance 516 172 -225 Weight 102.3 kg 99.9 kg General appearance: PRESENT: no acute distress Head exam: PRESENT: atraumatic Mouth exam: PRESENT: dry mucosa Neck exam: ABSENT: carotid bruit, JVD, lymphadenopathy, thyromegaly Respiratory exam: PRESENT: clear to auscultation jose j. ABSENT: rales, rhonchi, wheezes Cardiovascular exam: PRESENT: RRR. ABSENT: diastolic murmur, rubs, systolic murmur GI/Abdominal exam: PRESENT: ascites Rectal exam: PRESENT: deferred Neurological exam: PRESENT: altered Results Laboratory Results: 04/03/17 05:55 04/03/17 05:55 02/10/1004/02/17 04/02/17 05:15 08:16 19:40 WBC 6.2 RBC 2.69 L Hgb 8.8 L Hct 27.4 L MCV 102 H MCH 32.6 MCHC 32.0 RDW 20.5 H Plt Count 17 L* 25 L* Seg Neutrophils % Lymphocytes % Monocytes % Eosinophils % Basophils % Absolute Neutrophils Absolute Lymphocytes Absolute Monocytes Absolute Eosinophils Absolute Basophils Sodium Potassium Chloride Carbon Dioxide Anion Gap BUN Creatinine Est GFR ( Amer) Est GFR (Non-Af Amer) Glucose Calcium Magnesium Total Bilirubin AST ALT Alkaline Phosphatase Ammonia Total Protein Albumin Blood Type A NEGATIVE 04/03/17 04/03/17 04/03/17 05:55 05:55 05:55 WBC 8.2 RBC 2.80 L Hgb 9.3 L Hct 28.5 L MCV 102 H MCH 33.1 MCHC 32.5 RDW 20.7 H Plt Count 23 L* Seg Neutrophils % Not Reportable Lymphocytes % Not Reportable Monocytes % Not Reportable Eosinophils % Not Reportable Basophils % Not Reportable Absolute Neutrophils Not Reportable Absolute Lymphocytes Not Reportable Absolute Monocytes Not Reportable Absolute Eosinophils Not Reportable Absolute Basophils Not Reportable Sodium 140.8 Potassium 4.3 Chloride 112 H Carbon Dioxide 18 L Anion Gap 11 BUN 53 H Creatinine 1.77 H Est GFR ( Amer) 40 L Est GFR (Non-Af Amer) 33 L Glucose 144 H Calcium 8.6 Magnesium 2.0 Total Bilirubin 1.5 H AST 23 ALT 27 Alkaline Phosphatase 103 Ammonia 43.0 H Total Protein 4.1 L Albumin 2.4 L Blood Type 03/31/17 06:02 NT-Pro-B Natriuret Pep 2110 H Impressions: Abdomen/Pelvis CT 03/30/17 00:00 IMPRESSION: 1. Large ascites. Anasarca. 2. Cholelithiasis. Pericholecystic fluid, may be secondary to the ascites. Please correlate with clinical concern for acute cholecystitis. 3. Nonobstructing left nephrolithiasis. 4. Mild bibasilar atelectasis. Trace left pleural effusion. 5. Cardiomegaly. Small pericardial effusion. Chest X-Ray 03/30/17 00:00 IMPRESSION: Right IJ central line with the tip at the cavoatrial junction. Mild bibasilar atelectasis. Assessment & Plan - Diagnosis (1) Thrombocytopenia Is this a current diagnosis for this admission?: Yes Plan: I am concerned the thrombocytopenia may be related to a TTP type picture, it also could be related to hemophagocytic syndrome, regardless plasma exchange can help that issue. Therefore, I believe transferred to [facility] would be the next step. Today she is not actively bleeding so I would not transfuse her another unit of platelets. DIC seems less likely, the septic picture has improved because patient is not febrile any longer, not requiring any pressors. Liver dysfunction seems less likely because the INR and fibrinogen seems normal. Today spent greater than 45 minutes in discussion and coordination of care. - Time Time Spent with patient: 35 or more minutes - Inpatient Certification Based on my medical assessment, after consideration of the patient's comorbidities, presenting symptoms, or acuity I expect that the services needed warrant INPATIENT care.: Yes I certify that my determination is in accordance with my understanding of Medicare's requirements for reasonable and necessary INPATIENT services [42 CFR 412.3e].: Yes Medical Necessity: Need For Continuous Telemetry Monitoring, Need for Neurological Checks, Risk of Complication if Not Cared For in Hospital
[2017-04-03] MEDS ORDERED: NADOLOL 40 MG TABLET PO SCH ×2 (10:00)
[2017-04-03] MEDS ORDERED: AMLODIPINE BESYLATE 5 MG TABLET PO SCH ×2 (10:00)
[2017-04-03] MEDS: METOCLOPRAMIDE HCL 10 MG TABLET PO SCH ×4 (10:46→22:42)
[2017-04-03] MEDS: LEVOFLOXACIN 500 MG TABLET PO SCH (10:52)
[2017-04-03] MEDS: DOCUSATE SODIUM 100 MG CAPSULE PO SCH ×2 (10:52→17:54)
[2017-04-03] MEDS: RIFAXIMIN 550 MG TABLET PO SCH ×2 (10:54→17:54)
[2017-04-03] MEDS: SODIUM BICARBONATE 650 MG TABLET PO SCH ×2 (10:54→22:43)
[2017-04-03] MEDS: AMLODIPINE BESYLATE 10 MG TABLET PO SCH (10:55)
--- NOTE | 2017-04-03 12:45 | PDOC PROGRESS REPORT ---
Subjective Progress Note for:: 04/03/17 Reason For Visit: Patient seen today in the ICU. Her mother is at her bedside. She had lots of questions. Patient though lethargic is better as to what she was yesterday and is able to wake up and answer questions more meaningfully though not not fully sustained. She has some dyspnea and feels more bloated.Her appetite id very poor and she has some nauseous feelings. She denies any abdominal pains, fever or chills. No chest pains, headaches or bleeding issues. I also did speak with her treating RN. Labs and medications were reviewed. Physical Exam Vital Signs: Temp Pulse Resp BP Pulse Ox 97.7 F 122 H 23 H 152/107 H 92 04/03/17 10:00 04/03/17 10:00 04/03/17 10:00 04/03/17 10:00 04/03/17 10:00 Intake & Output 04/02/17 04/03/17 04/04/17 06:59 06:59 06:59 Intake Total 1591 1882 Output Total 1075 1710 390 Balance 516 172 -390 Weight 102.3 kg 99.9 kg General appearance: PRESENT: no acute distress Eye exam: PRESENT: EOMI, PERRLA. ABSENT: nystagmus Mouth exam: PRESENT: moist Neck exam: ABSENT: meningismus, tenderness, thyromegaly, tracheal deviation Respiratory exam: PRESENT: clear to auscultation jose j, crackles - left lungs - coarse. Also has a pleural rub in the naterior mediastinal area.No pericardial rubs heard., decreased breath sounds Cardiovascular exam: PRESENT: +S1, +S2, systolic murmur. ABSENT: rubs GI/Abdominal exam: PRESENT: ascites, distended, firm, normal bowel sounds. ABSENT: organomegaly, rebound, tenderness Extremities exam: ABSENT: +2 edema Neurological exam: PRESENT: altered Skin exam: PRESENT: mottled. ABSENT: cyanosis, erythema Results Laboratory Results: 04/03/17 05:55 04/03/17 05:55 04/02/17 04/03/17 04/03/17 19:40 05:55 05:55 WBC 6.2 8.2 RBC 2.69 L 2.80 L Hgb 8.8 L 9.3 L Hct 27.4 L 28.5 L MCV 102 H 102 H MCH 32.6 33.1 MCHC 32.0 32.5 RDW 20.5 H 20.7 H Plt Count 25 L* 23 L* Seg Neutrophils % Not Reportable Lymphocytes % Not Reportable Monocytes % Not Reportable Eosinophils % Not Reportable Basophils % Not Reportable Absolute Neutrophils Not Reportable Absolute Lymphocytes Not Reportable Absolute Monocytes Not Reportable Absolute Eosinophils Not Reportable Absolute Basophils Not Reportable Sodium Potassium Chloride Carbon Dioxide Anion Gap BUN Creatinine Est GFR ( Amer) Est GFR (Non-Af Amer) Glucose Calcium Magnesium Total Bilirubin AST ALT Alkaline Phosphatase Ammonia 43.0 H Total Protein Albumin 04/03/17 05:55 WBC RBC Hgb Hct MCV MCH MCHC RDW Plt Count Seg Neutrophils % Lymphocytes % Monocytes % Eosinophils % Basophils % Absolute Neutrophils Absolute Lymphocytes Absolute Monocytes Absolute Eosinophils Absolute Basophils Sodium 140.8 Potassium 4.3 Chloride 112 H Carbon Dioxide 18 L Anion Gap 11 BUN 53 H Creatinine 1.77 H Est GFR ( Amer) 40 L Est GFR (Non-Af Amer) 33 L Glucose 144 H Calcium 8.6 Magnesium 2.0 Total Bilirubin 1.5 H AST 23 ALT 27 Alkaline Phosphatase 103 Ammonia Total Protein 4.1 L Albumin 2.4 L 03/31/17 06:02 NT-Pro-B Natriuret Pep 2110 H Impressions: Abdomen/Pelvis CT 03/30/17 00:00 IMPRESSION: 1. Large ascites. Anasarca. 2. Cholelithiasis. Pericholecystic fluid, may be secondary to the ascites. Please correlate with clinical concern for acute cholecystitis. 3. Nonobstructing left nephrolithiasis. 4. Mild bibasilar atelectasis. Trace left pleural effusion. 5. Cardiomegaly. Small pericardial effusion. Chest X-Ray 03/30/17 00:00 IMPRESSION: Right IJ central line with the tip at the cavoatrial junction. Mild bibasilar atelectasis. Assessment & Plan - Diagnosis (1) JOHN (acute kidney injury) Is this a current diagnosis for this admission?: Yes Plan: Now Non Oligo - anuric in the face of resolved septic shock. Currently normotensive and off pressors. Now fluid overloaded without evidence of central fluid overload. She has generalised anasarca. Her renal numbers are improving. Continue current meds. However her ascites is worse and tense and starting to compromise her breathing. She needs to have a paracentesis but her low platlets is going to be an issue. I discussed with the treating hospitalist. She has been accepted in transfer to [facility] and waiting for bed. (2) Septic shock Is this a current diagnosis for this admission?: Yes Plan: Resolved. (3) Anasarca Plan: As mentioned earlier. Likely etiology is Generalised malnutrition, Septic shock and possible Liver disease which needs working up. (4) Ascites Plan: Worsening to the point of starting to compromise her breathing. Differential to include Budd - Chiari Syndrome in view of the abnormal lfts , rapid ascites and hepatic encephalopathy. Needs Paracentesis but her low platlets is an issues. No clinical evidence of active peritonitis now. Continue Levoflox. I discussed with treating hospitalist. The patient has been accepted at [facility] and is waiting bed. (5) Rheumatoid arthritis Qualifiers: Rheumatoid arthritis location: multiple sites Rheumatoid factor presence: unspecified presence Qualified Code(s): M06.9 - Rheumatoid arthritis, unspecified Is this a current diagnosis for this admission?: Yes (6) SBP (spontaneous bacterial peritonitis) Is this a current diagnosis for this admission?: Yes Plan: Now on antibiotics. (7) Proteinuria Plan: repeat UA (8) Metabolic acidosis Plan: Monitor.On sodabicarb. (9) Hyperammonemia Plan: Improving. (10) Hyperkalemia Is this a current diagnosis for this admission?: Yes
[2017-04-03] MEDS: GABAPENTIN 100 MG CAPSULE PO SCH ×2 (14:54→22:42)
--- NOTE | 2017-04-03 16:10 | PDOC PROGRESS REPORT ---
Subjective Progress Note for:: 04/03/17 Subjective:: No complaints but somnolent. Review of systems Unable to obtain due to patient's mental status All significant laboratories and diagnostics have been reviewed Reason For Visit: SEPSIS,SBP,JRA Physical Exam Vital Signs: Temp Pulse Resp BP Pulse Ox 97.2 F 117 H 17 144/109 H 97 04/03/17 05:09 04/02/17 20:00 04/03/17 06:00 04/03/17 05:35 04/03/17 06:00 Intake & Output 04/02/17 04/03/17 04/04/17 06:59 06:59 06:59 Intake Total 1591 1882 Output Total 1075 1710 Balance 516 172 Weight 102.3 kg 99.9 kg General appearance: PRESENT: cooperative Head exam: PRESENT: atraumatic, normocephalic Eye exam: PRESENT: conjunctiva pink, EOMI, PERRLA Ear exam: PRESENT: normal external ear exam Mouth exam: PRESENT: moist Neck exam: PRESENT: full ROM. ABSENT: JVD, lymphadenopathy, tenderness Respiratory exam: PRESENT: crackles, decreased breath sounds Cardiovascular exam: PRESENT: tachycardia. ABSENT: diastolic murmur, systolic murmur Vascular exam: PRESENT: normal capillary refill GI/Abdominal exam: PRESENT: ascites, normal bowel sounds, soft. ABSENT: tenderness Extremities exam: PRESENT: tenderness, other - $+ edema Musculoskeletal exam: PRESENT: deformity. ABSENT: ambulatory Neurological exam: PRESENT: alert, oriented to person Psychiatric exam: PRESENT: depressed Skin exam: PRESENT: intact, normal color Results Laboratory Results: 04/03/17 05:55 04/03/17 05:55 04/02/17 04/02/17 04/02/17 05:15 08:16 19:40 WBC 6.2 RBC 2.69 L Hgb 8.8 L Hct 27.4 L MCV 102 H MCH 32.6 MCHC 32.0 RDW 20.5 H Plt Count 17 L* 25 L* Seg Neutrophils % Lymphocytes % Monocytes % Eosinophils % Basophils % Absolute Neutrophils Absolute Lymphocytes Absolute Monocytes Absolute Eosinophils Absolute Basophils Sodium Potassium Chloride Carbon Dioxide Anion Gap BUN Creatinine Est GFR ( Amer) Est GFR (Non-Af Amer) Glucose Calcium Magnesium Total Bilirubin AST ALT Alkaline Phosphatase Ammonia Total Protein Albumin Blood Type A NEGATIVE 04/03/17 04/03/17 04/03/17 05:55 05:55 05:55 WBC 8.2 RBC 2.80 L Hgb 9.3 L Hct 28.5 L MCV 102 H MCH 33.1 MCHC 32.5 RDW 20.7 H Plt Count 23 L* Seg Neutrophils % Not Reportable Lymphocytes % Not Reportable Monocytes % Not Reportable Eosinophils % Not Reportable Basophils % Not Reportable Absolute Neutrophils Not Reportable Absolute Lymphocytes Not Reportable Absolute Monocytes Not Reportable Absolute Eosinophils Not Reportable Absolute Basophils Not Reportable Sodium 140.8 Potassium 4.3 Chloride 112 H Carbon Dioxide 18 L Anion Gap 11 BUN 53 H Creatinine 1.77 H Est GFR ( Amer) 40 L Est GFR (Non-Af Amer) 33 L Glucose 144 H Calcium 8.6 Magnesium 2.0 Total Bilirubin 1.5 H AST 23 ALT 27 Alkaline Phosphatase 103 Ammonia 43.0 H Total Protein 4.1 L Albumin 2.4 L Blood Type 03/31/17 06:02 NT-Pro-B Natriuret Pep 2110 H Impressions: Abdomen/Pelvis CT 03/30/17 00:00 IMPRESSION: 1. Large ascites. Anasarca. 2. Cholelithiasis. Pericholecystic fluid, may be secondary to the ascites. Please correlate with clinical concern for acute cholecystitis. 3. Nonobstructing left nephrolithiasis. 4. Mild bibasilar atelectasis. Trace left pleural effusion. 5. Cardiomegaly. Small pericardial effusion. Chest X-Ray 03/30/17 00:00 IMPRESSION: Right IJ central line with the tip at the cavoatrial junction. Mild bibasilar atelectasis. Assessment & Plan - Diagnosis (1) Septic shock Is this a current diagnosis for this admission?: Yes Plan: Resolved (2) UTI (urinary tract infection) Qualifiers: Indwelling urinary catheter type: unspecified Encounter type: subsequent encounter Is this a current diagnosis for this admission?: Yes Plan: Urine culture growing Klebsiella pneumonia. Continue Levaquin p.o. (3) Bacteremia Is this a current diagnosis for this admission?: Yes Plan: Ruled out (4) SBP (spontaneous bacterial peritonitis) Is this a current diagnosis for this admission?: Yes Plan: Due to Klebsiella pneumonia secondary to translocation for urinary tract. Continue Levaquin p.o. (5) Autoimmune hepatitis Is this a current diagnosis for this admission?: Yes Plan: Patient unaware about having autoimmune hepatitis. Continue IV steroids. (6) Rheumatoid arthritis Qualifiers: Rheumatoid arthritis location: multiple sites Rheumatoid factor presence: unspecified presence Qualified Code(s): M06.9 - Rheumatoid arthritis, unspecified Is this a current diagnosis for this admission?: Yes Plan: Continue IV steroids and continue pain management. I am concerned about the possibility of amyloidosis on this patient (7) JOHN (acute kidney injury) Is this a current diagnosis for this admission?: Yes Plan: Likely due to acute tubular necrosis, paracenteses and possibly vancomycin use. Appreciate Dr. Humphries input. (8) Hypotension Qualifiers: Hypotension type: other hypotension type Qualified Code(s): I95.89 - Other hypotension Is this a current diagnosis for this admission?: Yes Plan: Resolved. (9) Anasarca Is this a current diagnosis for this admission?: Yes Plan: Multifactorial. Dr Humphries recommending paracentesis but thrombocytopenic (10) Hepatic encephalopathy Is this a current diagnosis for this admission?: Yes Plan: Continue rifaximin and lactulose (11) Hyperkalemia Is this a current diagnosis for this admission?: Yes Plan: Resolved and trend (12) Dysphagia Qualifiers: Dysphagia type: unspecified Qualified Code(s): R13.10 - Dysphagia, unspecified Is this a current diagnosis for this admission?: Yes Plan: Long-standing problem. Continue reglan (13) Metabolic acidosis Is this a current diagnosis for this admission?: Yes Plan: Been placed on sodium bicarb for renal (14) Thrombocytopenia Is this a current diagnosis for this admission?: Yes Plan: [facility] had accepted patient on transfer once bed available. Still concerned about TTP. To transfuse platelets today. (15) Anemia Qualifiers: Anemia type: unspecified type Qualified Code(s): D64.9 - Anemia, unspecified Is this a current diagnosis for this admission?: Yes Plan: There has been a downward trend since admission. Will consider transfusion if worsening. - Time Time Spent with patient: 15-24 minutes Medications reviewed and adjusted accordingly: Yes [facility]ticipated [facility] Certification Based on my medical assessment, after consideration of the patient's comorbidities, presenting symptoms, or acuity I expect that the services needed warrant INPATIENT care.: Yes I certify that my determination is in accordance with my understanding of Medicare's requirements for reasonable and necessary INPATIENT services [42 CFR 412.3e].: Yes Medical Necessity: Need Close Monitoring Due to Risk of Patient Decompensation, Need For Continuous Telemetry Monitoring
[2017-04-03] MEDS: NORMAL SALINE 250 ML with FUROSEMIDE 250 MG IV PRN ×2 (17:53)
[2017-04-03] MEDS: PHARMACY COMMUNICATION ORDER MC SCH (17:55)
--- NOTE | 2017-04-03 19:31 | PDOC TRANSFER SUMMARY ---
General Admission Date/PCP: 03/29/17 22:28 RUSSELL DORAN MD Transfer Date: 04/03/17 Accepting Facility: [facility] Resuscitation Status: Full Code - Transfer Diagnosis (1) Septic shock Is this a current diagnosis for this admission?: Yes (2) UTI (urinary tract infection) Is this a current diagnosis for this admission?: Yes (3) Bacteremia Is this a current diagnosis for this admission?: Yes (4) SBP (spontaneous bacterial peritonitis) Is this a current diagnosis for this admission?: Yes (5) Autoimmune hepatitis Is this a current diagnosis for this admission?: Yes (6) Rheumatoid arthritis Is this a current diagnosis for this admission?: Yes (7) JOHN (acute kidney injury) Is this a current diagnosis for this admission?: Yes (8) Hypotension Is this a current diagnosis for this admission?: Yes (9) Anasarca Is this a current diagnosis for this admission?: Yes (10) Hepatic encephalopathy Is this a current diagnosis for this admission?: Yes (11) Hyperkalemia Is this a current diagnosis for this admission?: Yes (12) Dysphagia Is this a current diagnosis for this admission?: Yes (13) Metabolic acidosis Is this a current diagnosis for this admission?: Yes (14) Thrombocytopenia Is this a current diagnosis for this admission?: Yes (15) Anemia Is this a current diagnosis for this admission?: Yes - Transfer Medications Home Medications: Folic Acid [Folvite 1 mg Tablet] 1 mg PO DAILY 03/30/17 Furosemide [Lasix 40 mg Tablet] 40 mg PO DAILY 03/30/17 Gabapentin [Neurontin 400 mg Capsule] 400 mg PO Q8 03/30/17 Lisinopril [Prinivil 10 mg Tablet] 10 mg PO DAILY 03/30/17 Prednisone [Deltasone 10 mg Tablet] 40 mg PO DAILY 03/30/17 Transfer Medications: Current Medications Acetaminophen (Tylenol 325 Mg Tablet) 325 mg PO Q6HP PRN PRN Reason: MILD PAIN OR TEMP > 101 Stop: 04/29/17 00:41 Al Hydrox/Mg Hydrox/Simethicone (Maalox Plus Susp 30 Udcup) 30 ml PO Q6HP PRN PRN Reason: HEARTBURN Stop: 04/28/17 21:40 Albuterol/Ipratropium (Duoneb 3 Ml Ampul) 3 ml NEB RTQ6HP PRN PRN Reason: SHORTNESS OF BREATH Stop: 04/28/17 21:40 Amlodipine Besylate (Norvasc 10 Mg Tablet) 10 mg PO DAILY [facility] Stop: 05/03/17 09:59 Last Admin: 04/03/17 10:55 Dose: Not Given Dextrose (Dextrose Inj 50% Syringe (25 Gm/50 Ml)) 12.5 gm IV PRN PRN; Protocol PRN Reason: FOR BG 50-69 IN ALERT PATIENT Stop: 04/29/17 01:15 Dextrose (Dextrose Inj 50% Syringe (25 Gm/50 Ml)) 25 gm IV PRN PRN; Protocol PRN Reason: See Label Comments Stop: 04/29/17 01:15 Diphenhydramine HCl (Benadryl Inj 50 Mg/1 Ml Vial) 25 mg IV Q6HP PRN PRN Reason: ITCHING Stop: 04/29/17 08:15 Last Admin: 03/30/17 10:51 Dose: 25 mg Docusate Sodium (Colace 100 Mg Capsule) 100 mg PO BID KENNEDI Stop: 04/29/17 09:59 Last Admin: 04/03/17 17:54 Dose: 100 mg Gabapentin (Neurontin 100 Mg Capsule) 100 mg PO Q8 [facility] Stop: 05/03/17 13:59 Last Admin: 04/03/17 14:54 Dose: 100 mg Glucagon (Glucagen Inj 1 Mg Vial) 1 mg SUBCUT PRN PRN; Protocol PRN Reason: Evaluate for BG < 70 Stop: 04/29/17 01:15 Glucose (Glutose 40% Gel 15 Gm Tube) 15 gm PO PRN PRN; Protocol PRN Reason: For BG 50-69 in Alert Patient Stop: 04/29/17 01:15 Glucose (Glutose 40% Gel 15 Gm Tube) 30 gm PO PRN PRN; Protocol PRN Reason: FOR BG < 50 IN ALERT PATIENT Stop: 04/29/17 01:15 Furosemide 250 mg/ Sodium (Chloride) 275 mls @ 2.2 mls/hr IV CONTINUOUS PRN; 2 MG/HR PRN Reason: THIS MED IS NOT "PRN" Stop: 05/01/17 15:59 Last Admin: 04/03/17 17:53 Dose: 250 mg Sodium Chloride (Nacl 0.9% 1000 Ml Iv Soln) 1,000 mls @ 50 mls/hr IV CONTINUOUS PRN PRN Reason: THIS MED IS NOT "PRN" Stop: 04/30/17 15:59 Last Admin: 04/03/17 06:19 Dose: 1,000 ml Albumin Human (Albuminar-25 Rtu Inj 12.5 Gm/50 Ml Premix) 50 mls @ 50 mls/hr IV Q8A [facility] Stop: 04/04/17 17:59 Last Admin: 04/03/17 17:55 Dose: 50 ml Sodium Chloride (Nacl 0.9% 250 Ml Iv Soln) 250 mls @ 30 mls/hr IV .DURING TRANSFUSION PRN PRN Reason: THIS MED IS NOT "PRN" Stop: 04/04/17 07:42 Sodium Chloride (Nacl 0.9% 250 Ml Iv Soln) 250 mls @ 0 mls/hr IV CONTINUOUS PRN ; As Directed PRN Reason: AFTER EACH UNIT Stop: 04/04/17 07:42 Influenza Virus Vaccine Quadrival (Fluzone Adlt Quad [id number] Vac 0.5 Ml Syr) 0.5 ml IM .DISCHARGE PRN PRN Reason: THIS MED IS NOT "PRN" Stop: 04/29/17 05:31 Lactulose (Cephulac Syrup 20 Gm/30 Ml Udcup) 20 gm PO Q8 [facility] Stop: 05/01/17 21:59 Last Admin: 04/03/17 14:54 Dose: 20 gm Levofloxacin (Levaquin 500 Mg Tablet) 500 mg PO DAILY [facility] Stop: 04/10/17 09:59 Last Admin: 04/03/17 10:52 Dose: 500 mg Methylprednisolone Sodium Succinate (Solu-Medrol Inj/Pf 40 Mg/1 Ml Sdv) 20 mg IV Q12A [facility] Stop: 05/01/17 17:59 Last Admin: 04/03/17 17:53 Dose: 20 mg Metoclopramide HCl (Reglan 10 Mg Tablet) 5 mg PO ACHS [facility] Stop: 05/01/17 10:59 Last Admin: 04/03/17 17:55 Dose: Not Given Nadolol (Corgard 40 Mg Tablet) 80 mg PO DAILY [facility] Stop: 05/03/17 09:59 Last Admin: 04/03/17 10:53 Dose: 80 mg Oxycodone/Acetaminophen (Percocet 5-325 Mg Tablet) 1 tab PO Q6HP PRN PRN Reason: BREAKTHRU PAIN Stop: 04/07/17 15:16 Pantoprazole Sodium (Protonix Iv Inj 40 Mg Vial) 40 mg IV Q12A [facility] Stop: 04/05/17 17:59 Last Admin: 04/03/17 17:54 Dose: 40 mg Pharmacy Profile Note (Medication Communication Order) 1 each MC QPM [facility] Stop: 05/02/17 17:59 Last Admin: 04/03/17 17:55 Dose: Not Given Rifaximin (Xifaxan 550 Mg Tablet) 550 mg PO BID [facility] Stop: 04/08/17 17:59 Last Admin: 04/03/17 17:54 Dose: 550 mg Sodium Bicarbonate (Sodium Bicarbonate 650 Mg Tablet) 1,300 mg PO Q12 [facility] Stop: 05/02/17 09:59 Last Admin: 04/03/17 10:54 Dose: 1,300 mg Zolpidem Tartrate (Ambien 5 Mg Tablet) 5 mg PO HSP PRN PRN Reason: SLEEP OR INSOMNIA Stop: 04/07/17 07:58 - Allergies Allergies/Adverse Reactions: amoxicillin trihydrate [From Augmentin] Allergy (Verified 03/29/17 20:41) ITCHING cephalexin monohydrate [From Keflex] Allergy (Verified 03/29/17 20:41) ibuprofen [From Motrin] Allergy (Verified 03/29/17 20:41) Potassium Clavulanate * [From Augmentin] Allergy (Verified 03/29/17 20:41) - Diet/Activity Discharge Activity: Activity As Tolerated Hospital Course Hospital Course: SERGO PELLETIER is a 36 year old female with a 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 She sees Dr Rivera (bellows filler) who recently begun on a new biological medication which is not available. Also she has a history of gastric ulcer, chronic metabolic acidosis, anasarca, malnutrition, autoimmune hepatitis and lower extremity venous stasis . She had bilateral shoulder /Hips/Knees replaced. 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 She presented with 1 week of increasing abdominal girth with increasing pain, edema with leg pain, and nausea. No fever or chills In the emergency room she is found to have hypotension, tachycardia, delirious and with a firm ascites. She had a diagnostic tap done and was diagnosed with spontaneous bacterial peritonitis, started on empiric antibiotics. She has been diagnosed with septic shock and begun on double pressor agents and conversion of oral steroids to intravenous with improvement. Urine culture grew Klebsiella pneumonia. Peritoneal fluid also grew Klebsiella pneumonia. Patient was placed on Levaquin which at the time of discharge she had been getting orally since improved. An upward trend of renal functions were noted. Renal service was consulted who had been assisting in further monitoring. He was also noted that increase confusion and an ammonia level was obtained which was elevated. Patient was then placed on rifaximin and lactulose with further improvement of mental status it is noteworthy to mention that opioid medication was also adjusted which also contributed to improvement of overall mentation. Began to stabilize. The thought was that initial deterioration was multifactorial secondary to vancomycin use, paracenteses and hypoperfusion on presentation. However of concern had been that platelet count had been steadily going down. LDH was elevated in the 900s raising the concern about the possibility of TTP in this complex patient. Hematology service was involved and recommended for patient to be transferred to a tertiary care facility. While in-house patient had been transfused with 2 units of plateletpheresis with some improvement. Another area of concern is that current imaging studies has shown cardiomegaly which had not been present back in 2013. We discussed patient's overall presentation and concerns with Dr. Vines at [facility] and he accepted patient on transfer. Patient had been reasonably stabilized prior to discharge. T Physical Exam Vital Signs: Temp Pulse Resp BP Pulse Ox 98.1 F 116 H 20 137/108 H 95 04/03/17 18:56 04/03/17 18:56 04/03/17 18:56 04/03/17 18:56 04/03/17 18:56 Intake & Output 04/02/17 04/03/17 04/04/17 06:59 06:59 06:59 Intake Total 1591 1882 880 Output Total 1075 1710 1020 Balance 516 172 -140 Weight 102.3 kg 99.9 kg General appearance: PRESENT: cooperative Head exam: PRESENT: atraumatic, normocephalic Eye exam: PRESENT: conjunctiva pink, EOMI, PERRLA. ABSENT: nystagmus, periorbital swelling Ear exam: PRESENT: normal external ear exam, TM's normal bilaterally. ABSENT: bleeding Mouth exam: PRESENT: moist Neck exam: PRESENT: full ROM. ABSENT: JVD, lymphadenopathy, tenderness, thyromegaly Respiratory exam: PRESENT: decreased breath sounds. ABSENT: tachypnea, unlabored Cardiovascular exam: PRESENT: RRR. ABSENT: diastolic murmur, systolic murmur Vascular exam: PRESENT: normal capillary refill GI/Abdominal exam: PRESENT: ascites, normal bowel sounds, soft. ABSENT: tenderness Extremities exam: PRESENT: tenderness, other - 4+ pitting edema Musculoskeletal exam: PRESENT: deformity. ABSENT: ambulatory Neurological exam: PRESENT: alert, awake, oriented to person, oriented to place , oriented to time, CN II-XII grossly intact Psychiatric exam: PRESENT: depressed Skin exam: PRESENT: other - Mild jaundice Results Laboratory Results: 04/03/17 05:55 04/03/17 05:55 04/02/17 04/02/17 04/03/17 08:16 19:40 05:55 WBC 6.2 RBC 2.69 L Hgb 8.8 L Hct 27.4 L MCV 102 H MCH 32.6 MCHC 32.0 RDW 20.5 H Plt Count 25 L* Seg Neutrophils % Lymphocytes % Monocytes % Eosinophils % Basophils % Absolute Neutrophils Absolute Lymphocytes Absolute Monocytes Absolute Eosinophils Absolute Basophils Sodium Potassium Chloride Carbon Dioxide Anion Gap BUN Creatinine Est GFR ( Amer) Est GFR (Non-Af Amer) Glucose Calcium Magnesium Total Bilirubin AST ALT Alkaline Phosphatase Ammonia 43.0 H Total Protein Albumin Blood Type A NEGATIVE 04/03/17 04/03/17 05:55 05:55 WBC 8.2 RBC 2.80 L Hgb 9.3 L Hct 28.5 L MCV 102 H MCH 33.1 MCHC 32.5 RDW 20.7 H Plt Count 23 L* Seg Neutrophils % Not Reportable Lymphocytes % Not Reportable Monocytes % Not Reportable Eosinophils % Not Reportable Basophils % Not Reportable Absolute Neutrophils Not Reportable Absolute Lymphocytes Not Reportable Absolute Monocytes Not Reportable Absolute Eosinophils Not Reportable Absolute Basophils Not Reportable Sodium 140.8 Potassium 4.3 Chloride 112 H Carbon Dioxide 18 L Anion Gap 11 BUN 53 H Creatinine 1.77 H Est GFR ( Amer) 40 L Est GFR (Non-Af Amer) 33 L Glucose 144 H Calcium 8.6 Magnesium 2.0 Total Bilirubin 1.5 H AST 23 ALT 27 Alkaline Phosphatase 103 Ammonia Total Protein 4.1 L Albumin 2.4 L Blood Type 03/31/17 06:02 NT-Pro-B Natriuret Pep 2110 H Impressions: Abdomen/Pelvis CT 03/30/17 00:00 IMPRESSION: 1. Large ascites. Anasarca. 2. Cholelithiasis. Pericholecystic fluid, may be secondary to the ascites. Please correlate with clinical concern for acute cholecystitis. 3. Nonobstructing left nephrolithiasis. 4. Mild bibasilar atelectasis. Trace left pleural effusion. 5. Cardiomegaly. Small pericardial effusion. Chest X-Ray 03/30/17 00:00 IMPRESSION: Right IJ central line with the tip at the cavoatrial junction. Mild bibasilar atelectasis. Plan Discharge Plan: Transfer to [facility] when bed available Time Spent: Greater than 30 Minutes
[2017-04-03 23:53] LABS: HEMATOCRIT 29.3 % (36.0-47.0); HEMOGLOBIN 9.4 g/dL (12.0-15.5); MEAN CORPUSCULAR HEMOGLOBIN 32.5 pg (27.0-33.4); MEAN CORPUSCULAR HGB CONC 31.9 g/dL (32.0-36.0); MEAN CORPUSCULAR VOLUME 102 fl (80-97); RED BLOOD COUNT 2.88 10^6/uL (3.72-5.28); RED CELL DISTRIBUTION WIDTH 20.3 % (11.5-14.0); WHITE BLOOD COUNT 14.4 10^3/uL (4.0-10.5)
[2017-04-03 23:56] LABS: PLATELET COUNT 37 10^3/uL (150-450)
[2017-04-04 00:40] LABS: ABSOLUTE LYMPHOCYTES# (MANUAL) 0.4 10^3/uL (0.5-4.7); ABSOLUTE MONOCYTES # (MANUAL) 0.1 10^3/uL (0.1-1.4); ABSOLUTE NEUTROPHILS# (MANUAL) 13.8 10^3/uL (1.7-8.2); BAND NEUTROPHILS % (MANUAL) 8 % (3-5); BASOPHILS % (MANUAL) 0 % (0-2); EOSINOPHILS % (MANUAL) 0 % (0-6); LYMPHOCYTES % (MANUAL) 2 % (13-45); MONOCYTES % (MANUAL) 1 % (3-13); SEGMENTED NEUTROPHILS % (MAN) 88 % (42-78); TOTAL CELLS COUNTED 100
[2017-04-04 00:45] LABS: ACANTHOCYTES 1+; ANISOCYTOSIS 2+; BURR CELLS 1+; OVALOCYTES 1+; POIKILOCYTOSIS 2+; POLYCHROMASIA SLIGHT; TOXIC GRANULATION 2+
[2017-04-04 00:46] LABS: PLATELET COMMENT DECREASED; SCHISTOCYTES 1+; TEAR DROP CELLS 1+
[2017-04-04] MEDS: ALBUMIN HUMAN 50 ML IV SCH ×2 (04:05→09:20)
[2017-04-04 06:00] LABS: ALANINE AMINOTRANSFERASE 25 U/L (9-52); ALBUMIN 2.6 g/dL (3.5-5.0); ALKALINE PHOSPHATASE 100 U/L (38-126); ANION GAP 11 (5-19); ASPARTATE AMINO TRANSFERASE 25 U/L (14-36); BILIRUBIN,DIRECT 1.5 mg/dL (0.0-0.4); BILIRUBIN,TOTAL 2.1 mg/dL (0.2-1.3); BLOOD UREA NITROGEN 51 mg/dL (7-20); CALCIUM 9.1 mg/dL (8.4-10.2); CARBON DIOXIDE 19 mmol/L (22-30); CHLORIDE 115 mmol/L (98-107); GLUCOSE 115 mg/dL (75-110); HEMATOCRIT 28.5 % (36.0-47.0); HEMOGLOBIN 9.2 g/dL (12.0-15.5); LDH 1401 U/L (313-618); MAGNESIUM 1.9 mg/dL (1.6-2.3); MEAN CORPUSCULAR HEMOGLOBIN 32.5 pg (27.0-33.4); MEAN CORPUSCULAR HGB CONC 32.2 g/dL (32.0-36.0); MEAN CORPUSCULAR VOLUME 101 fl (80-97); POTASSIUM 3.8 mmol/L (3.6-5.0); RED BLOOD COUNT 2.82 10^6/uL (3.72-5.28); RED CELL DISTRIBUTION WIDTH 20.2 % (11.5-14.0); TOTAL PROTEIN 4.4 g/dL (6.3-8.2); WHITE BLOOD COUNT 12.6 10^3/uL (4.0-10.5)
[2017-04-04 06:37] LABS: PLATELET COUNT 34 10^3/uL (150-450)
[2017-04-04 06:40] LABS: ABSOLUTE LYMPHOCYTES# (MANUAL) 0.1 10^3/uL (0.5-4.7); ABSOLUTE MONOCYTES # (MANUAL) 0.1 10^3/uL (0.1-1.4); ABSOLUTE NEUTROPHILS# (MANUAL) 12.3 10^3/uL (1.7-8.2); BAND NEUTROPHILS % (MANUAL) 7 % (3-5); BASOPHILS % (MANUAL) 0 % (0-2); EOSINOPHILS % (MANUAL) 0 % (0-6); LYMPHOCYTES % (MANUAL) 1 % (13-45); MONOCYTES % (MANUAL) 1 % (3-13); SEGMENTED NEUTROPHILS % (MAN) 91 % (42-78); TOTAL CELLS COUNTED 100
[2017-04-04 06:43] LABS: TOXIC GRANULATION 1+
[2017-04-04 06:44] LABS: ACANTHOCYTES SLIGHT; ANISOCYTOSIS 2+; OVALOCYTES 1+; PLATELET COMMENT DECREASED; POIKILOCYTOSIS 2+; SCHISTOCYTES SLIGHT; TEAR DROP CELLS 1+
[2017-04-04] MEDS: LACTULOSE SYRUP 20 GM/30 ML UDCUP PO SCH ×3 (07:29→22:45)
[2017-04-04] MEDS: PANTOPRAZOLE SODIUM 40 MG VIAL IV SCH ×2 (07:30→17:56)
[2017-04-04] MEDS: METHYLPREDNISOLONE INJ 40 MG/1 ML SDV IV SCH ×2 (07:30→17:56)
[2017-04-04] MEDS: GABAPENTIN 100 MG CAPSULE PO SCH ×3 (07:30→22:44)
[2017-04-04] MEDS ORDERED: NORMAL SALINE 250 ML IV PRN ×2 (07:47)
[2017-04-04 07:58] LABS: INTERNATIONAL RATION (INR) 1.12; PROTHROMBIN TIME 15.1 SEC (11.4-15.4)
--- NOTE | 2017-04-04 08:41 | RADIOLOGY REPORT (SQ) ---
EXAM DESCRIPTION: CHEST SINGLE VIEW COMPLETED DATE/TIME: 04/04/2017 8:11 am REASON FOR STUDY: dyspnea COMPARISON: 03/30/2017. EXAM PARAMETERS: NUMBER OF VIEWS: One view. TECHNIQUE: Single frontal radiographic view of the chest acquired. RADIATION DOSE: NA LIMITATIONS: None. FINDINGS: LUNGS AND PLEURA: Interval development of diffuse airspace disease, right greater than lef t. Probable right pleural effusion. MEDIASTINUM AND HILAR STRUCTURES: No masses. Contour normal. HEART AND VASCULAR STRUCTURES: Cardiomegaly. BONES: No acute findings. HARDWARE: Central line. Shoulder prostheses. OTHER: No other significant finding. IMPRESSION: CARDIOMEGALY WITH INTERVAL DEVELOPMENT OF DIFFUSE AIRSPACE DISEASE. DIFFERENTIAL IS PUL MONARY EDEMA AND/OR PNEUMONIA. TECHNICAL DOCUMENTATION: JOB ID: [id number] [employer]- All Rights Reserved
[2017-04-04] MEDS: METOCLOPRAMIDE HCL 10 MG TABLET PO SCH ×4 (08:55→22:44)
[2017-04-04] MEDS: DOCUSATE SODIUM 100 MG CAPSULE PO SCH ×2 (09:20→17:53)
[2017-04-04] MEDS: AMLODIPINE BESYLATE 10 MG TABLET PO SCH (09:20)
[2017-04-04] MEDS: LEVOFLOXACIN 500 MG TABLET PO SCH (09:21)
[2017-04-04] MEDS: SODIUM BICARBONATE 650 MG TABLET PO SCH ×2 (09:21→22:44)
[2017-04-04] MEDS: RIFAXIMIN 550 MG TABLET PO SCH ×2 (09:23→17:53)
[2017-04-04 09:39] LABS: ARTERIAL BLOOD H2CO3 1.27 mmol/L (1.05-1.35); ARTERIAL BLOOD HCO3 19.3 mmol/L (20-26); ARTERIAL BLOOD O2 SATURATION 89.8 % (94-98); ARTERIAL BLOOD PCO2 42.1 mmHg (35-45); ARTERIAL BLOOD PH 7.28 (7.35-7.45); ARTERIAL BLOOD TOTAL CO2 20.6 mmol/L (21-25)
[2017-04-04 09:40] LABS: ARTERIAL BLOOD FIO2 3L
[2017-04-04] MEDS ORDERED: NADOLOL 40 MG TABLET PO SCH (10:00)
--- NOTE | 2017-04-04 11:29 | PDOC PROGRESS REPORT ---
Subjective Progress Note for:: 04/04/17 Subjective:: No complaints but somnolent. Patient denies shortness of breath, chest pain, abdominal pain. Patient states that pain is better Review of systems Unable to obtain due to patient's mental status All significant laboratories and diagnostics have been reviewed Reason For Visit: SEPSIS,SBP,JRA Physical Exam Vital Signs: Temp Pulse Resp BP Pulse Ox 98.2 F 116 H 25 H 132/99 H 91 L 04/04/17 05:32 04/03/17 21:10 04/04/17 06:06 04/04/17 06:05 04/04/17 06:06 Intake & Output 04/03/17 04/04/17 04/05/17 06:59 06:59 06:59 Intake Total 1882 1797 Output Total 1710 2070 Balance 172 -273 Weight 99.9 kg 101.6 kg General appearance: PRESENT: cooperative, mild distress Head exam: PRESENT: atraumatic, normocephalic Eye exam: PRESENT: conjunctiva pink, EOMI, PERRLA. ABSENT: nystagmus Ear exam: PRESENT: normal external ear exam Mouth exam: PRESENT: moist Neck exam: PRESENT: full ROM. ABSENT: JVD, lymphadenopathy, tenderness Respiratory exam: PRESENT: clear to auscultation jose j, decreased breath sounds Cardiovascular exam: PRESENT: tachycardia. ABSENT: diastolic murmur, systolic murmur Vascular exam: PRESENT: normal capillary refill GI/Abdominal exam: PRESENT: ascites, hernia - $+ pitting edema, normal bowel sounds, soft. ABSENT: tenderness Extremities exam: PRESENT: tenderness Neurological exam: PRESENT: alert, oriented to person, oriented to place, other - somnolent Psychiatric exam: PRESENT: depressed Skin exam: PRESENT: intact, pallor Results Laboratory Results: 04/04/17 05:25 04/04/17 05:25 04/02/17 04/03/17 04/03/17 08:16 05:55 23:35 WBC 8.2 14.4 H RBC 2.80 L 2.88 L Hgb 9.3 L 9.4 L Hct 28.5 L 29.3 L MCV 102 H 102 H MCH 33.1 32.5 MCHC 32.5 31.9 L RDW 20.7 H 20.3 H Plt Count 23 L* 37 L Seg Neutrophils % Not Reportable Not Reportable Lymphocytes % Not Reportable Not Reportable Monocytes % Not Reportable Not Reportable Eosinophils % Not Reportable Not Reportable Basophils % Not Reportable Not Reportable Absolute Neutrophils Not Reportable Not Reportable Absolute Lymphocytes Not Reportable Not Reportable Absolute Monocytes Not Reportable Not Reportable Absolute Eosinophils Not Reportable Not Reportable Absolute Basophils Not Reportable Not Reportable Sodium Potassium Chloride Carbon Dioxide Anion Gap BUN Creatinine Est GFR ( Amer) Est GFR (Non-Af Amer) Glucose Calcium Magnesium Total Bilirubin AST ALT Alkaline Phosphatase Ammonia Total Protein Albumin Blood Type A NEGATIVE 04/04/17 04/04/17 04/04/17 05:25 05:25 05:25 WBC 12.6 H RBC 2.82 L Hgb 9.2 L Hct 28.5 L MCV 101 H MCH 32.5 MCHC 32.2 RDW 20.2 H Plt Count 34 L Seg Neutrophils % Not Reportable Lymphocytes % Not Reportable Monocytes % Not Reportable Eosinophils % Not Reportable Basophils % Not Reportable Absolute Neutrophils Not Reportable Absolute Lymphocytes Not Reportable Absolute Monocytes Not Reportable Absolute Eosinophils Not Reportable Absolute Basophils Not Reportable Sodium 145.0 Potassium 3.8 Chloride 115 H Carbon Dioxide 19 L Anion Gap 11 BUN 51 H Creatinine 1.35 H Est GFR ( Amer) 54 L Est GFR (Non-Af Amer) 45 L Glucose 115 H Calcium 9.1 Magnesium 1.9 Total Bilirubin 2.1 H AST 25 ALT 25 Alkaline Phosphatase 100 Ammonia 33.8 H Total Protein 4.4 L Albumin 2.6 L Blood Type 03/30/17 00:06 Blood Blood Culture - Final NO GROWTH IN 5 DAYS 03/31/17 06:02 NT-Pro-B Natriuret Pep 2110 H Impressions: Abdomen/Pelvis CT 03/30/17 00:00 IMPRESSION: 1. Large ascites. Anasarca. 2. Cholelithiasis. Pericholecystic fluid, may be secondary to the ascites. Please correlate with clinical concern for acute cholecystitis. 3. Nonobstructing left nephrolithiasis. 4. Mild bibasilar atelectasis. Trace left pleural effusion. 5. Cardiomegaly. Small pericardial effusion. Chest X-Ray 03/30/17 00:00 IMPRESSION: Right IJ central line with the tip at the cavoatrial junction. Mild bibasilar atelectasis. Assessment & Plan - Diagnosis (1) Septic shock Is this a current diagnosis for this admission?: Yes Plan: Resolved (2) UTI (urinary tract infection) Qualifiers: Indwelling urinary catheter type: unspecified Encounter type: subsequent encounter Is this a current diagnosis for this admission?: Yes Plan: Urine culture growing Klebsiella pneumonia. Continue Levaquin p.o. (3) Bacteremia Is this a current diagnosis for this admission?: No Plan: Ruled out (4) SBP (spontaneous bacterial peritonitis) Is this a current diagnosis for this admission?: Yes Plan: Due to Klebsiella pneumonia secondary to translocation for urinary tract. Continue Levaquin p.o. (5) Autoimmune hepatitis Is this a current diagnosis for this admission?: Yes Plan: Patient unaware about having autoimmune hepatitis. Continue IV steroids. Continue Protonix IV and will lower down nadolol dose (6) Rheumatoid arthritis Qualifiers: Rheumatoid arthritis location: multiple sites Rheumatoid factor presence: unspecified presence Qualified Code(s): M06.9 - Rheumatoid arthritis, unspecified Is this a current diagnosis for this admission?: Yes Plan: Continue IV steroids and continue pain management. I am concerned about the possibility of amyloidosis on this patient (7) JOHN (acute kidney injury) Is this a current diagnosis for this admission?: Yes Plan: Likely due to acute tubular necrosis, paracenteses and possibly vancomycin use. Appreciate Dr. Humphries input. (8) Hypotension Qualifiers: Hypotension type: other hypotension type Qualified Code(s): I95.89 - Other hypotension Is this a current diagnosis for this admission?: Yes Plan: Resolved. (9) Anasarca Is this a current diagnosis for this admission?: Yes Plan: Multifactorial. Dr Humphries recommending paracentesis but thrombocytopenic. Continue Lasix drip. (10) Hepatic encephalopathy Is this a current diagnosis for this admission?: Yes Plan: Continue rifaximin and lactulose (11) Hyperkalemia Is this a current diagnosis for this admission?: Yes Plan: Resolved and trend (12) Dysphagia Qualifiers: Dysphagia type: unspecified Qualified Code(s): R13.10 - Dysphagia, unspecified Is this a current diagnosis for this admission?: Yes Plan: Long-standing problem. Continue reglan (13) Metabolic acidosis Is this a current diagnosis for this admission?: Yes Plan: Been placed on sodium bicarb for renal (14) Thrombocytopenia Is this a current diagnosis for this admission?: Yes Plan: [facility] had accepted patient on transfer once bed available. Still concerned about TTP. To transfuse platelets today. LDH continues increasing (15) Anemia Qualifiers: Anemia type: unspecified type Qualified Code(s): D64.9 - Anemia, unspecified Is this a current diagnosis for this admission?: Yes Plan: So far has been stable (16) Dyspnea Qualifiers: Dyspnea type: acute respiratory distress Qualified Code(s): R06.03 - Acute respiratory distress Is this a current diagnosis for this admission?: Yes Plan: Order chest x-ray and ABG. Will consider BiPAP. Patient is already on Lasix drip (17) Cardiomegaly Is this a current diagnosis for this admission?: Yes Plan: Concern about infiltrative process. Continue Lasix IV and will lower down beta- rosas - Time Time Spent with patient: 15-24 minutes Medications reviewed and adjusted accordingly: Yes Anticipated discharge: [facility] Within: within 48 hours - Inpatient Certification Based on my medical assessment, after consideration of the patient's comorbidities, presenting symptoms, or acuity I expect that the services needed warrant INPATIENT care.: Yes I certify that my determination is in accordance with my understanding of Medicare's requirements for reasonable and necessary INPATIENT services [42 CFR 412.3e].: Yes Medical Necessity: Need Close Monitoring Due to Risk of Patient Decompensation - IV diuresis
--- NOTE | 2017-04-04 13:04 | PDOC PROGRESS REPORT ---
Subjective Progress Note for:: 04/04/17 Subjective:: No acute changes overnight, patient received platelets because they are planning on another paracentesis for her. Nephrology feels this would help her kidney function. Reason For Visit: SEPSIS,SBP,JRA Physical Exam Vital Signs: Temp Pulse Resp BP Pulse Ox 98.1 F 115 H 32 H 146/114 H 93 04/04/17 11:58 04/04/17 11:58 04/04/17 11:58 04/04/17 11:58 04/04/17 11:58 Intake & Output 04/03/17 04/04/17 04/05/17 06:59 06:59 06:59 Intake Total 1882 1797 Output Total 1710 5090 775 Balance 172 -023 -775 Weight 99.9 kg 101.6 kg General appearance: PRESENT: no acute distress, well-developed, well-nourished Head exam: PRESENT: atraumatic, normocephalic Eye exam: PRESENT: conjunctiva pink, EOMI, PERRLA. ABSENT: scleral icterus Ear exam: PRESENT: normal external ear exam Mouth exam: PRESENT: moist, tongue midline Neck exam: ABSENT: carotid bruit, JVD, lymphadenopathy, thyromegaly Respiratory exam: PRESENT: clear to auscultation jose j. ABSENT: rales, rhonchi, wheezes Cardiovascular exam: PRESENT: RRR. ABSENT: diastolic murmur, rubs, systolic murmur Pulses: PRESENT: normal dorsalis pedis pul Vascular exam: PRESENT: normal capillary refill GI/Abdominal exam: PRESENT: normal bowel sounds, soft. ABSENT: distended, guarding, mass, organolmegaly, rebound, tenderness Rectal exam: PRESENT: deferred Extremities exam: PRESENT: full ROM. ABSENT: calf tenderness, clubbing, pedal edema Neurological exam: PRESENT: alert, awake, oriented to person, oriented to place , oriented to time, oriented to situation, CN II-XII grossly intact. ABSENT: motor sensory deficit Psychiatric exam: PRESENT: appropriate affect, normal mood. ABSENT: homicidal ideation, suicidal ideation Skin exam: PRESENT: dry, intact, warm. ABSENT: cyanosis, rash Results Laboratory Results: 04/04/17 05:25 04/04/17 05:25 04/02/17 04/03/17 04/04/17 08:16 23:35 05:25 WBC 14.4 H RBC 2.88 L Hgb 9.4 L Hct 29.3 L MCV 102 H MCH 32.5 MCHC 31.9 L RDW 20.3 H Plt Count 37 L Seg Neutrophils % Not Reportable Lymphocytes % Not Reportable Monocytes % Not Reportable Eosinophils % Not Reportable Basophils % Not Reportable Absolute Neutrophils Not Reportable Absolute Lymphocytes Not Reportable Absolute Monocytes Not Reportable Absolute Eosinophils Not Reportable Absolute Basophils Not Reportable Carbonic Acid HCO3/H2CO3 Ratio ABG pH ABG pCO2 ABG pO2 ABG HCO3 ABG O2 Saturation ABG Base Excess FiO2 Sodium Potassium Chloride Carbon Dioxide Anion Gap BUN Creatinine Est GFR ( Amer) Est GFR (Non-Af Amer) Glucose Calcium Magnesium Total Bilirubin AST ALT Alkaline Phosphatase Ammonia 33.8 H Total Protein Albumin Blood Type A NEGATIVE 04/04/17 04/04/17 04/04/17 05:25 05:25 09:02 WBC 12.6 H RBC 2.82 L Hgb 9.2 L Hct 28.5 L MCV 101 H MCH 32.5 MCHC 32.2 RDW 20.2 H Plt Count 34 L Seg Neutrophils % Not Reportable Lymphocytes % Not Reportable Monocytes % Not Reportable Eosinophils % Not Reportable Basophils % Not Reportable Absolute Neutrophils Not Reportable Absolute Lymphocytes Not Reportable Absolute Monocytes Not Reportable Absolute Eosinophils Not Reportable Absolute Basophils Not Reportable Carbonic Acid 1.27 HCO3/H2CO3 Ratio 15:1 ABG pH 7.28 L ABG pCO2 42.1 ABG pO2 64.0 L ABG HCO3 19.3 L ABG O2 Saturation 89.8 L ABG Base Excess -7.0 FiO2 3L Sodium 145.0 Potassium 3.8 Chloride 115 H Carbon Dioxide 19 L Anion Gap 11 BUN 51 H Creatinine 1.35 H Est GFR ( Amer) 54 L Est GFR (Non-Af Amer) 45 L Glucose 115 H Calcium 9.1 Magnesium 1.9 Total Bilirubin 2.1 H AST 25 ALT 25 Alkaline Phosphatase 100 Ammonia Total Protein 4.4 L Albumin 2.6 L Blood Type 03/30/17 00:06 Blood Blood Culture - Final NO GROWTH IN 5 DAYS 03/31/17 06:02 NT-Pro-B Natriuret Pep 2110 H Impressions: Abdomen/Pelvis CT 03/30/17 00:00 IMPRESSION: 1. Large ascites. Anasarca. 2. Cholelithiasis. Pericholecystic fluid, may be secondary to the ascites. Please correlate with clinical concern for acute cholecystitis. 3. Nonobstructing left nephrolithiasis. 4. Mild bibasilar atelectasis. Trace left pleural effusion. 5. Cardiomegaly. Small pericardial effusion. Chest X-Ray 04/04/17 07:44 IMPRESSION: CARDIOMEGALY WITH INTERVAL DEVELOPMENT OF DIFFUSE AIRSPACE DISEASE. DIFFERENTIAL IS PULMONARY EDEMA AND/OR PNEUMONIA. Assessment & Plan - Diagnosis (1) Thrombocytopenia Is this a current diagnosis for this admission?: Yes Plan: Continue to monitor, from appear TTP standpoint we would not give platelets unless needed for procedure bleeding, in this case as needed for procedure so continue with transfusion. Awaiting transfer to [facility] who has accepted her already
[2017-04-04 15:52] LABS: ARTERIAL BLOOD BASE EXCESS -6.9 mmol/L; ARTERIAL BLOOD H2CO3 1.22 mmol/L (1.05-1.35); ARTERIAL BLOOD HCO3 19.2 mmol/L (20-26); ARTERIAL BLOOD O2 SATURATION 89.8 % (94-98); ARTERIAL BLOOD PCO2 40.6 mmHg (35-45); ARTERIAL BLOOD PH 7.29 (7.35-7.45); ARTERIAL BLOOD PO2 63.1 mmHg (80-100); ARTERIAL BLOOD TOTAL CO2 20.4 mmol/L (21-25)
[2017-04-04 15:53] LABS: ARTERIAL BLOOD FIO2 4L
[2017-04-04] MEDS: NORMAL SALINE 250 ML with FUROSEMIDE 250 MG IV PRN ×2 (17:55)
[2017-04-04] MEDS: PHARMACY COMMUNICATION ORDER MC SCH (17:57)
--- NOTE | 2017-04-04 18:49 | Progress Note ---
Provider Note Provider Note: Went to check on the patient before exiting. Nurse reported that had been having problems trying to get the patient to wear BiPAP. It appears to that the mother despite claiming being a nurse lacking understanding of the importance of keeping the BiPAP.Mother was updated about patient's medical condition including patient accumulating fluids all over her body and her lungs. Expressed concern about patient having heart condition that is aggravating overall medical status. She was made aware that we are awaiting a bed to transfer patient. She was also made aware that BiPAP will help with oxygenation and hopefully may prevent for patient to be intubated.Mother was also encouraged that in a future occasion if times allows to better go to a tertiary place such as [facility] as patient has multiple medical problems that require subspecialty support that we are lacking. Mother appear to have a difficult time grasping what I was explained to her. Lisa (nurse script supervisor was in the nursing) charge and try to assist in explaining things all over to the mother. Will sign off to Dr. 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
[2017-04-04 22:30] VITALS: BP 144/110
[2017-04-05] MEDS ORDERED: MIDAZOLAM 2 MG/2 ML INJ IV ONE (01:17)
== END 2017-04-05 01:38 | disposition short-term general hospital (02) | DRG 871 ==
LOC: ER 13:15 → EH 22:28 → ICU 03-30 04:17
PROVIDERS: ADMIT Internal Medicine; ATTEND Internal Medicine
PROC: 0W9G3ZX Drainage of Peritoneal Cavity, Percutaneous Approach, Diagnostic (ICD-10-PCS; principal; 2017-03-29)
PROC: B548ZZA Ultrasonography of Superior Vena Cava, Guidance (ICD-10-PCS; 2017-03-29)
PROC: 02HV33Z Insertion of Infusion Device into Superior Vena Cava, Percutaneous Approach (ICD-10-PCS; 2017-03-30)
PROC: 30233R1 Transfusion of Nonautologous Platelets into Peripheral Vein, Percutaneous Approach (ICD-10-PCS; 2017-04-02)
DX: A41.9 Sepsis, unspecified organism (principal); K65.2 Spontaneous bacterial peritonitis; R65.21 Severe sepsis with septic shock; N39.0 Urinary tract infection, site not specified; E87.2 Acidosis; E46 Unspecified protein-calorie malnutrition; N17.9 Acute kidney failure, unspecified; R18.8 Other ascites; T83.511A Infection and inflammatory reaction due to indwelling urethral catheter, initial encounter; M08.09 Unspecified juvenile rheumatoid arthritis, multiple sites; Z87.11 Personal history of peptic ulcer disease; K72.90 Hepatic failure, unspecified without coma; Y84.6 Urinary catheterization as the cause of abnormal reaction of the patient, or of later complication, without mention of misadventure at the time of the procedure; D69.59 Other secondary thrombocytopenia; I87.8 Other specified disorders of veins; K75.4 Autoimmune hepatitis; E87.5 Hyperkalemia; R13.10 Dysphagia, unspecified; R80.9 Proteinuria, unspecified; K74.69 Other cirrhosis of liver; I51.7 Cardiomegaly; R06.03 Acute respiratory distress; B96.1 Klebsiella pneumoniae [K. pneumoniae] as the cause of diseases classified elsewhere; Z79.52 Long term (current) use of systemic steroids; Z79.891 Long term (current) use of opiate analgesic; Z88.6 Allergy status to analgesic agent; Z88.1 Allergy status to other antibiotic agents; Z88.8 Allergy status to other drugs, medicaments and biological substances; Z82.49 Family history of ischemic heart disease and other diseases of the circulatory system; Z96.653 Presence of artificial knee joint, bilateral; Z96.643 Presence of artificial hip joint, bilateral; Z96.612 Presence of left artificial shoulder joint; Z96.611 Presence of right artificial shoulder joint
CPT/HCPCS: 36415; 36430; 51702; 71045; 74176; 80048; 80053; 80061; 80202; 81001; 82140; 82533; 82570; 82803; 82962; 83605; 83615; 83690; 83735; 83880; 84100; 84156; 85025; 85027; 85362; 85379; 85384; 85610; 85652; 85730; 86022; 86900; 86901; 87040; 87070; 87075; 87077; 87086; 87088; 87186; 87205; 89050; 93306; 94660; 96361; 96365; 96375; 96376; 99291; A9270-GY; J0696; J1200; J1644; J1720; J1940; J1956; J2185; J2270; J2310; J2370; J2405; J2920; J3370; J3475; J3490; J7030; J7040; J7050; J7060; J7120; P9035; P9047; S0119; S0164

== ENCOUNTER 2017-04-10 15:46 | Observation (INO) | payer MEDICAID, MEDICARE ==
--- NOTE | 2017-04-10 19:20 | PDOC H&P ---
History of Present Illness Admission Date/PCP: 04/10/17 15:46 RUSSELL DORAN MD History of Present Illness: SERGO PELLETIER is a 36 year old female who was previously admitted and cared for here at [facility] from 03/29/17 to 04/03/17, and transferred to [facility] for concern for TTP. She has been evaluated the and thought not to have TTP and is being transferred back here for further management and hip to find a rehab facility as patient with significant debility. They do not believe patient has TTP, believe that her thrombocytopenia is chronic and secondary to her chronic medical problems. Patient was careful by Dr. Lei SERRANO at that time and below is her transfer summary for details of patient's hospitalization here from from 03/29/17 to 04/03/17 before going to [place]. 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 She sees Dr Rivera (sap pi architect) who recently begun on a new biological medication which is not available. Also she has a history of gastric ulcer, chronic metabolic acidosis, anasarca, malnutrition, autoimmune hepatitis and lower extremity venous stasis . She had bilateral shoulder /Hips/Knees replaced. 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 She presented with 1 week of increasing abdominal girth with increasing pain, edema with leg pain, and nausea. No fever or chills In the emergency room she is found to have hypotension, tachycardia, delirious and with a firm ascites. She had a diagnostic tap done and was diagnosed with spontaneous bacterial peritonitis, started on empiric antibiotics. She has been diagnosed with septic shock and begun on double pressor agents and conversion of oral steroids to intravenous with improvement. Urine culture grew Klebsiella pneumonia. Peritoneal fluid also grew Klebsiella pneumonia. Patient was placed on Levaquin which at the time of discharge she had been getting orally since improved. An upward trend of renal functions were noted. Renal service was consulted who had been assisting in further monitoring. He was also noted that increase confusion and an ammonia level was obtained which was elevated. Patient was then placed on rifaximin and lactulose with further improvement of mental status it is noteworthy to mention that opioid medication was also adjusted which also contributed to improvement of overall mentation. Began to stabilize. The thought was that initial deterioration was multifactorial secondary to vancomycin use, paracenteses and hypoperfusion on presentation. However of concern had been that platelet count had been steadily going down. LDH was elevated in the 900s raising the concern about the possibility of TTP in this complex patient. Hematology service was involved and recommended for patient to be transferred to a tertiary care facility. While in-house patient had been transfused with 2 units of plateletpheresis with some improvement. Another area of concern is that current imaging studies has shown cardiomegaly which had not been present back in 2014. We discussed patient's overall presentation and concerns with Dr. Vines at [facility] and he accepted patient on transfer. Patient had been reasonably stabilized prior to discharge. " When I evaluated the patient today, she feels weak, complains of slight abdominal distention, but no pain. No significant nausea, no vomiting. Denies chest pain, fever or chills. Past Medical History Pulmonary Medical History: Reports: Pneumonia - intubated Denies: Tuberculosis Neurological Medical History: Denies: Seizures GI Medical History: Reports: Cirrhosis, Hepatitis - Autoimmune ? Musculoskeltal Medical History: Reports: Arthritis - Juvenile rheumatoid arthritis Psychiatric Medical History: Denies: Depression Past Surgical History Past Surgical History: Reports: Section - 2, Orthopedic Surgery - joint replacements Denies: Hysterectomy Social History Smoking Status: Never Smoker Frequency of Alcohol Use: None Hx Recreational Drug Use: No Drugs: None Hx Prescription Drug Abuse: No - Advance Directive Resuscitation Status: Full Code Family History Family History: Hypertension Parental Family History Reviewed: Yes Children Family History Reviewed: Yes Sibling(s) Family History Reviewed.: Yes Medication/Allergy Home Medications: Folic Acid [Folvite 1 mg Tablet] 1 mg PO DAILY 03/30/17 Furosemide [Lasix 40 mg Tablet] 40 mg PO DAILY 03/30/17 Gabapentin [Neurontin 400 mg Capsule] 400 mg PO Q8 03/30/17 Lisinopril [Prinivil 10 mg Tablet] 10 mg PO DAILY 03/30/17 Prednisone [Deltasone 10 mg Tablet] 40 mg PO DAILY 03/30/17 Allergies/Adverse Reactions: amoxicillin trihydrate [From Augmentin] Allergy (Verified 03/29/17 20:41) ITCHING cephalexin monohydrate [From Keflex] Allergy (Verified 03/29/17 20:41) ibuprofen [From Motrin] Allergy (Verified 03/29/17 20:41) Potassium Clavulanate * [From Augmentin] Allergy (Verified 03/29/17 20:41) Review of Systems All systems: reviewed and no additional remarkable complaints except as stated - As in HPI Physical Exam Vital Signs: Temp Pulse Resp BP Pulse Ox 98.0 F 98 16 119/79 99 04/10/17 16:09 04/10/17 16:11 04/10/17 16:09 04/10/17 16:09 04/10/17 16:09 Intake & Output 04/09/17 04/10/17 04/11/17 06:59 06:59 06:59 Intake Total 240 Balance 240 Weight 87.5 kg General appearance: PRESENT: disheveled, severe distress, other - Chronically ill and toxic appearing Head exam: PRESENT: atraumatic, normocephalic Eye exam: PRESENT: conjunctiva pink, EOMI, PERRLA. ABSENT: scleral icterus Ear exam: PRESENT: normal external ear exam Mouth exam: PRESENT: moist, tongue midline Neck exam: ABSENT: carotid bruit, JVD, lymphadenopathy, thyromegaly Respiratory exam: PRESENT: clear to auscultation jose j, crackles, decreased breath sounds. ABSENT: rales, rhonchi, wheezes Cardiovascular exam: PRESENT: RRR, tachycardia. ABSENT: diastolic murmur, rubs , systolic murmur Pulses: PRESENT: normal dorsalis pedis pul Vascular exam: PRESENT: normal capillary refill GI/Abdominal exam: PRESENT: ascites, diminished bowel sounds, distended, hypoactive bowel sounds, tenderness. ABSENT: firm, guarding, Yates's sign Rectal exam: PRESENT: deferred Extremities exam: PRESENT: +1 edema Neurological exam: PRESENT: alert, awake, oriented to person, oriented to place , oriented to time, oriented to situation, she has generalized decreased strength due to debility. ABSENT: Focal motor sensory deficit Psychiatric exam: PRESENT: appropriate affect, normal mood. ABSENT: homicidal ideation, suicidal ideation Skin exam: PRESENT: dry, intact, warm. ABSENT: cyanosis, rash Assessment & Plan - Diagnosis (5) Anemia Qualifiers: Anemia type: unspecified type Qualified Code(s): D64.9 - Anemia, unspecified (8) UTI (urinary tract infection) Qualifiers: Indwelling urinary catheter type: unspecified Encounter type: subsequent encounter - Plan Summary Plan Summary: Patient has been transferred back from [facility]. Will continue her medication regimen and treatment. Will obtain follow-up labs. PT/OT consult. Care management consult for placement.
[2017-04-10] MEDS ORDERED: IPRATROPIUM/ALBUTEROL 0.5-2.5 MG/3 ML AMPUL NEB PRN (23:22)
[2017-04-11] MEDS ORDERED: OXYCODONE HCL IR 5 MG TABLET PO ONE (02:15)
[2017-04-11] MEDS: GABAPENTIN 100 MG CAPSULE PO SCH ×3 (05:28→21:37)
[2017-04-11] MEDS ORDERED: HEPARIN SOD (PORCINE) 5,000 UNIT/ML 1 ML SYRINGE SUBCUT SCH (06:00)
[2017-04-11 06:23] LABS: INTERNATIONAL RATION (INR) 1.05; PROTHROMBIN TIME 14.4 SEC (11.4-15.4)
[2017-04-11 06:24] LABS: PARTIAL THROMBOPLASTIN TIME 30.8 SEC (23.5-35.8)
[2017-04-11 06:43] LABS: HEMATOCRIT 28.6 % (36.0-47.0); HEMOGLOBIN 9.2 g/dL (12.0-15.5); MEAN CORPUSCULAR HGB CONC 32.1 g/dL (32.0-36.0); MEAN CORPUSCULAR VOLUME 103 fl (80-97); RED BLOOD COUNT 2.78 10^6/uL (3.72-5.28); RED CELL DISTRIBUTION WIDTH 21.9 % (11.5-14.0); WHITE BLOOD COUNT 14.4 10^3/uL (4.0-10.5)
[2017-04-11 07:52] LABS: PLATELET COUNT 29 10^3/uL (150-450)
[2017-04-11] MEDS ORDERED: DEXTROSE 40% GEL 15 GM TUBE PO PRN ×2 (07:56→08:08)
[2017-04-11] MEDS ORDERED: DEXTROSE 50%-WATER SYRINGE 25 GM/50 ML DOSE IV PRN ×2 (07:56→08:08)
[2017-04-11] MEDS ORDERED: DEXTROSE 40% GEL 15 GM TUBE X 2 PO PRN ×2 (07:56→08:08)
[2017-04-11] MEDS ORDERED: GLUCAGON,HUMAN RECOMB 1 MG INJ IM PRN ×2 (07:56→08:08)
[2017-04-11] MEDS ORDERED: DEXTROSE 50%-WATER SYRINGE 12.5 GM/25 ML DOSE IV PRN ×2 (07:56→08:08)
[2017-04-11] MEDS: INSULIN LISPRO 100 UNIT/ML 3 ML VIAL SUBCUT PRN ×4 (08:41→22:54)
[2017-04-11] MEDS: INSULIN NPH (ISOPHANE), HUMAN 100 UNIT/ML 3 ML SUBCUT SCH ×2 (08:42→12:01)
[2017-04-11] MEDS: PREDNISONE 20 MG TABLET PO SCH (10:39)
[2017-04-11] MEDS: LANSOPRAZOLE 30 MG TAB.RAP.DR PO SCH (10:39)
[2017-04-11] MEDS: FOLIC ACID 1 MG TABLET PO SCH (10:39)
[2017-04-11] MEDS: FUROSEMIDE 80 MG TABLET PO SCH ×2 (10:39→17:59)
[2017-04-11] MEDS: ASCORBIC ACID 500 MG TABLET PO SCH (10:40)
[2017-04-11] MEDS: SPIRONOLACTONE 25 MG TABLET PO SCH (10:40)
[2017-04-11] MEDS: AMLODIPINE BESYLATE 10 MG TABLET PO SCH (10:41)
[2017-04-11] MEDS: LEVOFLOXACIN 250 MG TABLET PO SCH (10:42)
[2017-04-11] MEDS: LIDOCAINE 5% (700 MG) TRANSDERMAL ADH..PATCH TP SCH (10:47)
[2017-04-11] MEDS: LACTULOSE SYRUP 20 GM/30 ML UDCUP PO SCH (10:54)
[2017-04-11] MEDS ORDERED: HYDROCODONE/ACETAMINOPHEN 5-325 MG TABLET PO PRN (13:21)
--- NOTE | 2017-04-11 18:00 | PDOC PROGRESS REPORT ---
Subjective Progress Note for:: 04/11/17 Subjective:: C/o chronic pain--uses oxycodone as outpatient. No f/c, no n/w, no cp or sob or palpitations. Reason For Visit: ANEMIA,UTI,FLUID OVERLOAD Physical Exam Vital Signs: Temp Pulse Resp BP Pulse Ox 97.9 F 103 H 18 121/87 H 94 04/11/17 16:20 04/11/17 16:20 04/11/17 16:20 04/11/17 16:20 04/11/17 16:20 Intake & Output 04/10/17 04/11/17 04/12/17 06:59 06:59 06:59 Intake Total 502 236 Output Total 0 Balance 502 236 Weight 92.1 kg 92.1 kg GEN: NAD, well-developed CV: RRR, NL S1S2 LUNGS: CTA bilaterally ABDOMEN Soft, NT, +BS EXTERMITIES: 1+ ankle edema NEURO: Alert, oriented Results Laboratory Results: 04/11/17 05:15 04/11/17 05:15 WBC 14.4 H RBC 2.78 L Hgb 9.2 L Hct 28.6 L MCV 103 H MCH 33.0 MCHC 32.1 RDW 21.9 H Plt Count 29 L* Assessment & Plan - Diagnosis (5) Anemia Qualifiers: Anemia type: unspecified type Qualified Code(s): D64.9 - Anemia, unspecified (8) UTI (urinary tract infection) Qualifiers: Indwelling urinary catheter type: unspecified Encounter type: subsequent encounter - Plan Summary Plan Summary: Oxycodone 5 mg every 8 hours as needed for pain. It was changed to observation as patient currently with no acute inpatient need following transfer from [facility]. We will continue to monitor, continue supportive care. -PT/OT evaluation -Case management for [facility] facility with rehab
[2017-04-11] MEDS: MELATONIN 3 MG TABLET PO SCH (22:48)
[2017-04-12] MEDS: GABAPENTIN 100 MG CAPSULE PO SCH ×3 (05:09→22:19)
[2017-04-12] MEDS ORDERED: NYSTATIN/DEXAMETH/DIPHEN SUSP 120 ML PO ONE (05:11)
[2017-04-12] MEDS: NYSTATIN/DEXAMETH/DIPHEN SUSP 120 ML PO PRN ×2 (06:18→10:47)
[2017-04-12 06:47] LABS: HEMATOCRIT 29.7 % (36.0-47.0); HEMOGLOBIN 9.6 g/dL (12.0-15.5); MEAN CORPUSCULAR HEMOGLOBIN 33.1 pg (27.0-33.4); MEAN CORPUSCULAR HGB CONC 32.4 g/dL (32.0-36.0); MEAN CORPUSCULAR VOLUME 102 fl (80-97); RED CELL DISTRIBUTION WIDTH 22.7 % (11.5-14.0); WHITE BLOOD COUNT 17.4 10^3/uL (4.0-10.5)
[2017-04-12 06:52] LABS: ABSOLUTE LYMPHOCYTES# (MANUAL) 0.2 10^3/uL (0.5-4.7); ABSOLUTE MONOCYTES # (MANUAL) 0.5 10^3/uL (0.1-1.4); ABSOLUTE NEUTROPHILS# (MANUAL) 16.7 10^3/uL (1.7-8.2); BAND NEUTROPHILS % (MANUAL) 2 % (3-5); BASOPHILS % (MANUAL) 0 % (0-2); EOSINOPHILS % (MANUAL) 0 % (0-6); LYMPHOCYTES % (MANUAL) 1 % (13-45); MONOCYTES % (MANUAL) 3 % (3-13); SEGMENTED NEUTROPHILS % (MAN) 94 % (42-78); TOTAL CELLS COUNTED 100
[2017-04-12 06:55] LABS: ANISOCYTOSIS 2+; PLATELET COMMENT DECREASED; POIKILOCYTOSIS SLIGHT; TEAR DROP CELLS SLIGHT
[2017-04-12 06:56] LABS: ALANINE AMINOTRANSFERASE 31 U/L (9-52); ALBUMIN 2.2 g/dL (3.5-5.0); ALKALINE PHOSPHATASE 275 U/L (38-126); ANION GAP 10 (5-19); ASPARTATE AMINO TRANSFERASE 37 U/L (14-36); BILIRUBIN,DIRECT 1.6 mg/dL (0.0-0.4); BILIRUBIN,TOTAL 2.5 mg/dL (0.2-1.3); BLOOD UREA NITROGEN 35 mg/dL (7-20); CALCIUM 8.9 mg/dL (8.4-10.2); CARBON DIOXIDE 28 mmol/L (22-30); CHLORIDE 99 mmol/L (98-107); GLUCOSE 203 mg/dL (75-110); HYPOCHROMASIA SLIGHT; POTASSIUM 3.9 mmol/L (3.6-5.0); SODIUM 136.5 mmol/L (137-145); TOTAL PROTEIN 4.1 g/dL (6.3-8.2)
[2017-04-12 06:57] LABS: PLATELET COUNT 32 10^3/uL (150-450)
[2017-04-12] MEDS: INSULIN LISPRO 100 UNIT/ML 3 ML VIAL SUBCUT PRN ×4 (08:00→22:19)
[2017-04-12] MEDS: INSULIN NPH (ISOPHANE), HUMAN 100 UNIT/ML 3 ML SUBCUT SCH ×2 (08:00→12:48)
[2017-04-12] MEDS: PREDNISONE 20 MG TABLET PO SCH (10:47)
[2017-04-12] MEDS: AMLODIPINE BESYLATE 10 MG TABLET PO SCH (10:47)
[2017-04-12] MEDS: ASCORBIC ACID 500 MG TABLET PO SCH (10:47)
[2017-04-12] MEDS: LANSOPRAZOLE 30 MG TAB.RAP.DR PO SCH (10:47)
[2017-04-12] MEDS: FOLIC ACID 1 MG TABLET PO SCH (10:47)
[2017-04-12] MEDS: LEVOFLOXACIN 250 MG TABLET PO SCH (10:48)
[2017-04-12] MEDS: SPIRONOLACTONE 25 MG TABLET PO SCH (10:48)
[2017-04-12] MEDS: FUROSEMIDE 80 MG TABLET PO SCH ×2 (10:48→17:51)
[2017-04-12] MEDS: LIDOCAINE 5% (700 MG) TRANSDERMAL ADH..PATCH TP SCH (10:51)
[2017-04-12] MEDS: LACTULOSE SYRUP 20 GM/30 ML UDCUP PO SCH (10:52)
--- NOTE | 2017-04-12 17:13 | PDOC PROGRESS REPORT ---
Subjective Progress Note for:: 04/12/17 Subjective:: C/o oral thrush. No dysphagia or odynophagia. No f/c, no n/w, no cp or sob or palpitations. Reason For Visit: ANEMIA,UTI,FLUID OVERLOAD Physical Exam Vital Signs: Temp Pulse Resp BP Pulse Ox 98.0 F 118 H 14 123/79 95 04/12/17 15:29 04/12/17 15:29 04/12/17 15:29 04/12/17 15:29 04/12/17 15:29 Intake & Output 04/11/17 04/12/17 04/13/17 06:59 06:59 06:59 Intake Total 502 866 222 Output Total 0 Balance 502 866 222 Weight 92.1 kg 88 kg GEN: NAD, well-developed HEENT: Oral mucosa with thrush CV: RRR, NL S1S2 LUNGS: CTA bilaterally ABDOMEN Soft, NT, +BS EXTERMITIES: 1+ ankle edema NEURO: Alert, oriented 3 Results Laboratory Results: 04/12/17 05:15 04/12/17 05:15 04/12/17 04/12/17 05:15 05:15 WBC 17.4 H RBC 2.90 L Hgb 9.6 L Hct 29.7 L MCV 102 H MCH 33.1 MCHC 32.4 RDW 22.7 H Plt Count 32 L Seg Neutrophils % Not Reportable Lymphocytes % Not Reportable Monocytes % Not Reportable Eosinophils % Not Reportable Basophils % Not Reportable Absolute Neutrophils Not Reportable Absolute Lymphocytes Not Reportable Absolute Monocytes Not Reportable Absolute Eosinophils Not Reportable Absolute Basophils Not Reportable Sodium 136.5 L Potassium 3.9 Chloride 99 Carbon Dioxide 28 Anion Gap 10 BUN 35 H Creatinine 0.95 Est GFR ( Amer) > 60 Est GFR (Non-Af Amer) > 60 Glucose 203 H Calcium 8.9 Total Bilirubin 2.5 H AST 37 H ALT 31 Alkaline Phosphatase 275 H Total Protein 4.1 L Albumin 2.2 L Assessment & Plan - Diagnosis (5) Anemia Qualifiers: Anemia type: unspecified type Qualified Code(s): D64.9 - Anemia, unspecified (8) UTI (urinary tract infection) Qualifiers: Indwelling urinary catheter type: unspecified Encounter type: subsequent encounter - Plan Summary Plan Summary: Oral thrush secondary to to steroids and abx. Will treat with Nystatin swish and swallow. Continue current medical management. PT OT Care management evaluation for placement residential facility with rehab.
[2017-04-12] MEDS: MELATONIN 3 MG TABLET PO SCH (22:14)
[2017-04-12] MEDS: NYSTATIN 500000 UNIT/5 ML UDCUP PO SCH (22:19)
[2017-04-13] MEDS: GABAPENTIN 100 MG CAPSULE PO SCH ×3 (05:17→21:12)
[2017-04-13 06:32] LABS: HEMATOCRIT 29.4 % (36.0-47.0); HEMOGLOBIN 9.7 g/dL (12.0-15.5); MEAN CORPUSCULAR HEMOGLOBIN 33.3 pg (27.0-33.4); MEAN CORPUSCULAR HGB CONC 32.9 g/dL (32.0-36.0); MEAN CORPUSCULAR VOLUME 101 fl (80-97); RED BLOOD COUNT 2.91 10^6/uL (3.72-5.28); RED CELL DISTRIBUTION WIDTH 21.8 % (11.5-14.0); WHITE BLOOD COUNT 14.9 10^3/uL (4.0-10.5)
[2017-04-13 07:59] LABS: ABSOLUTE LYMPHOCYTES# (MANUAL) 0.4 10^3/uL (0.5-4.7); ABSOLUTE MONOCYTES # (MANUAL) 2.1 10^3/uL (0.1-1.4); ABSOLUTE NEUTROPHILS# (MANUAL) 12.4 10^3/uL (1.7-8.2); BASOPHILS % (MANUAL) 0 % (0-2); EOSINOPHILS % (MANUAL) 0 % (0-6); LYMPHOCYTES % (MANUAL) 3 % (13-45); MONOCYTES % (MANUAL) 14 % (3-13); SEGMENTED NEUTROPHILS % (MAN) 83 % (42-78); TOTAL CELLS COUNTED 100
[2017-04-13 08:02] LABS: ANISOCYTOSIS 3+; OVALOCYTES 1+; PLATELET COMMENT DECREASED; POIKILOCYTOSIS 1+; TEAR DROP CELLS 1+
[2017-04-13 08:03] LABS: PLATELET COUNT 40 10^3/uL (150-450); POLYCHROMASIA SLIGHT
[2017-04-13] MEDS: LEVOFLOXACIN 250 MG TABLET PO SCH (08:45)
[2017-04-13] MEDS: INSULIN NPH (ISOPHANE), HUMAN 100 UNIT/ML 3 ML SUBCUT SCH ×2 (08:45→11:24)
[2017-04-13] MEDS: INSULIN LISPRO 100 UNIT/ML 3 ML VIAL SUBCUT PRN ×4 (08:45→22:40)
[2017-04-13] MEDS: FOLIC ACID 1 MG TABLET PO SCH (09:08)
[2017-04-13] MEDS: SPIRONOLACTONE 25 MG TABLET PO SCH (09:08)
[2017-04-13] MEDS: LANSOPRAZOLE 30 MG TAB.RAP.DR PO SCH (09:08)
[2017-04-13] MEDS: FUROSEMIDE 80 MG TABLET PO SCH ×2 (09:09→18:07)
[2017-04-13] MEDS: ASCORBIC ACID 500 MG TABLET PO SCH (09:09)
[2017-04-13] MEDS: AMLODIPINE BESYLATE 10 MG TABLET PO SCH (09:09)
[2017-04-13] MEDS: PREDNISONE 20 MG TABLET PO SCH (09:09)
[2017-04-13] MEDS: LACTULOSE SYRUP 20 GM/30 ML UDCUP PO SCH (09:12)
[2017-04-13] MEDS: NYSTATIN 500000 UNIT/5 ML UDCUP PO SCH ×4 (09:12→21:12)
[2017-04-13] MEDS: LIDOCAINE 5% (700 MG) TRANSDERMAL ADH..PATCH TP SCH (09:12)
--- NOTE | 2017-04-13 11:37 | Physician Advisory Note ---
Physician Advisor ProgressNote .: Pursuant to the plan for Hans Alexis, I have reviewed the medical record for this patient. Physician Advisor Statement: Please continue to document pt's co-morbidities that make her care more complex than just a typical 36yo w/anemia & UTI: 1. 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 "cirrhosis due to , with recent hepatic encephalopathy" & "autoimmune hepatitis" 3. "[mild/mod/sev] malnutrition, evidenced by " 4. "recent SBP w/septic shock & JOHN, resolved" 5. "thrombocytopenia due to " 6. "oral thrush" 7. Medical necessity: is pt simply being babysat this visit until SNF bed is available? If so, outpt status is most appropriate now for THIS stay. - Is pt needing f/u labs to monitor something that concerns attending, or other tx/monitoring that can't be done outside of hospital? If so, please document explicitly & status can be re-assessed. Status: see above. Thanks! CK
--- NOTE | 2017-04-13 20:24 | PDOC PROGRESS REPORT ---
Subjective Progress Note for:: 04/13/17 Subjective:: No new complaint. No f/c, no n/w, no cp or sob or palpitations. Reason For Visit: ANEMIA,UTI,FLUID OVERLOAD Physical Exam Vital Signs: Temp Pulse Resp BP Pulse Ox 98.0 F 125 H 17 130/86 H 94 04/13/17 17:04 04/13/17 17:04 04/13/17 17:04 04/13/17 17:04 04/13/17 17:04 Intake & Output 04/12/17 04/13/17 04/14/17 06:59 06:59 06:59 Intake Total 866 1263 610 Balance 866 1263 610 Weight 88 kg 86.5 kg GEN: NAD, well-developed HEENT: Oral mucosa with thrush CV: RRR, NL S1S2 LUNGS: CTA bilaterally ABDOMEN Soft, NT, +BS EXTERMITIES: 1+ ankle edema NEURO: Alert, oriented 3 Results Laboratory Results: 04/13/17 05:20 04/12/17 05:15 04/13/17 05:20 WBC 14.9 H RBC 2.91 L Hgb 9.7 L Hct 29.4 L MCV 101 H MCH 33.3 MCHC 32.9 RDW 21.8 H Plt Count 40 L Seg Neutrophils % Not Reportable Lymphocytes % Not Reportable Monocytes % Not Reportable Eosinophils % Not Reportable Basophils % Not Reportable Absolute Neutrophils Not Reportable Absolute Lymphocytes Not Reportable Absolute Monocytes Not Reportable Absolute Eosinophils Not Reportable Absolute Basophils Not Reportable Assessment & Plan - Diagnosis (5) Anemia Qualifiers: Anemia type: unspecified type Qualified Code(s): D64.9 - Anemia, unspecified (8) UTI (urinary tract infection) Qualifiers: Indwelling urinary catheter type: unspecified Encounter type: subsequent encounter - Plan Summary Plan Summary: Oral thrush secondary to to steroids and abx. Will continue with Nystatin swish and swallow. Continue current medical management otherwise, including Levaquin for chronic UTI. Continue PT OT Continued care management help for seeking placement to long-term facility for rehab. Suspect steroid contributory to leukocytosis rather than caused by infection. Platelets stable/slightly improving. Continue to monitor periodically.
[2017-04-13] MEDS: MELATONIN 3 MG TABLET PO SCH (21:12)
[2017-04-14] MEDS: GABAPENTIN 100 MG CAPSULE PO SCH ×2 (05:19→13:31)
[2017-04-14] MEDS: LEVOFLOXACIN 250 MG TABLET PO SCH (08:30)
[2017-04-14] MEDS: INSULIN NPH (ISOPHANE), HUMAN 100 UNIT/ML 3 ML SUBCUT SCH ×2 (08:31→13:31)
[2017-04-14] MEDS: INSULIN LISPRO 100 UNIT/ML 3 ML VIAL SUBCUT PRN ×2 (08:31→13:31)
[2017-04-14] MEDS: LANSOPRAZOLE 30 MG TAB.RAP.DR PO SCH (09:35)
[2017-04-14] MEDS: PREDNISONE 20 MG TABLET PO SCH (09:36)
[2017-04-14] MEDS: FUROSEMIDE 80 MG TABLET PO SCH (09:36)
[2017-04-14] MEDS: SPIRONOLACTONE 25 MG TABLET PO SCH (09:36)
[2017-04-14] MEDS: AMLODIPINE BESYLATE 10 MG TABLET PO SCH (09:36)
[2017-04-14] MEDS: FOLIC ACID 1 MG TABLET PO SCH (09:37)
[2017-04-14] MEDS: ASCORBIC ACID 500 MG TABLET PO SCH (09:37)
[2017-04-14] MEDS: NYSTATIN 500000 UNIT/5 ML UDCUP PO SCH ×2 (09:38→13:31)
[2017-04-14] MEDS: LACTULOSE SYRUP 20 GM/30 ML UDCUP PO SCH (09:38)
[2017-04-14] MEDS: LIDOCAINE 5% (700 MG) TRANSDERMAL ADH..PATCH TP SCH (09:41)
[2017-04-14 12:02] VITALS: BP 126/78
--- NOTE | 2017-04-16 15:25 | PDOC DISCHARGE SUMMARY ---
General - Admit/Disc Date/PCP Admission Date/Primary Care Provider: 04/10/17 15:46 RUSSELL DORAN MD Discharge Date: 04/14/17 - Additional Information Resuscitation Status: Full Code Discharge Diet: Regular Discharge Activity: Activity As Tolerated Prescriptions: Hydrocodone/Acetaminophen [[place] 5-325 mg Tablet] 1 tab PO Q8HP PRN #30 tablet PRN Reason: Lisinopril [Prinivil 10 mg Tablet] 10 mg PO DAILY #30 tablet Nystatin [Mycostatin 500,000 Unit/5 ml Susp Udcup] 500,000 unit PO QID 10 Days # 200 ml Home Medications: Folic Acid [Folvite 1 mg Tablet] 1 mg PO DAILY 03/30/17 Prednisone [Deltasone 10 mg Tablet] 40 mg PO DAILY 03/30/17 Ascorbic Acid [Vitamin C] 250 mg PO DAILY 04/10/17 Lactulose [Cephulac Syrup 20 gm/30 ml Udcup] 20 gm PO DAILY 04/10/17 Lidocaine [Lidoderm 5% (700 mg) Transdermal Patch] 1 patch TD DAILY 04/10/17 Melatonin [Melatonin 3 mg Tablet] 3 mg PO QHS 04/10/17 NPH, Human Insulin Isophane [Humulin N (NPH) Insulin 100 unit/mL] 3 units SUBCUT BIDACBL 04/10/17 Pantoprazole Sodium [Protonix] 40 mg PO DAILY 04/10/17 Spironolactone [Aldactone] 50 mg PO DAILY 04/10/17 Gabapentin [Neurontin 100 mg Capsule] 200 mg PO Q8 04/11/17 Hydrocodone/Acetaminophen [[place] 5-325 mg Tablet] 1 tab PO Q8HP PRN #30 tablet 04/14/17 Lisinopril [Prinivil 10 mg Tablet] 10 mg PO DAILY #30 tablet 04/14/17 Nystatin [Mycostatin 500,000 Unit/5 ml Susp Udcup] 500,000 unit PO QID 10 Days # 200 ml 04/14/17 History of Present Illness History of Present Illness: SERGO PELLETIER is a 36 year old female who was previously admitted and cared for here at [facility] from 03/29/17 to 04/03/17. She was transferred to [facility] for concern for TTP. She was been evaluated and thought not to have TTP. She was transferred back here for further management with hope to find a rehab facility as patient as significant debility. They did not believe patient had TTP, but that her thrombocytopenia was chronic and secondary to her chronic medical problems. Hospital Course Hospital Course: While she was here, she was treated for oral thrush with nystatin swish and swallow. Case management was consulted for rehabilitation placement. Unfortunately, she was in observation status would not qualify. Ultimately, she agreed to go home with home health. Her hospital stay was otherwise uneventful. Physical Exam Vital Signs: Temp Pulse Resp BP Pulse Ox 98.3 F 122 H 16 123/88 H 96 04/14/17 07:19 04/14/17 10:26 04/14/17 10:26 04/14/17 07:19 04/14/17 10:26 Intake & Output 04/13/17 04/14/17 04/15/17 06:59 06:59 06:59 Intake Total 1263 610 Balance 1263 610 Weight 86.5 kg 89 kg General appearance: PRESENT: no acute distress, thin Head exam: PRESENT: other - [place] facies Eye exam: PRESENT: EOMI, PERRLA Respiratory exam: PRESENT: clear to auscultation jose j. ABSENT: rales, rhonchi, wheezes Cardiovascular exam: PRESENT: RRR. ABSENT: diastolic murmur, rubs, systolic murmur GI/Abdominal exam: PRESENT: normal bowel sounds, soft. ABSENT: distended, guarding, mass, organolmegaly, rebound, tenderness Skin exam: PRESENT: other - Ecchymoses on arms Results Laboratory Results: 04/13/17 05:20 04/12/17 05:15 Qualifiers - * PATEINT BEING DISCHARGED WITH ANY OF THE FOLLOWING DIAGNOSIS?: No Plan Time Spent: Greater than 30 Minutes - 35 minutes
== END 2017-04-14 15:11 | disposition home health service (06) ==
LOC: INTOOBSV 15:46 → UNDOADMIN 15:46 → 3S 15:46
PROVIDERS: ADMIT Family Medicine; ATTEND Family Medicine
DX: R53.81 Other malaise (principal); D69.6 Thrombocytopenia, unspecified; D64.9 Anemia, unspecified; T83.511D Infection and inflammatory reaction due to indwelling urethral catheter, subsequent encounter; Y84.6 Urinary catheterization as the cause of abnormal reaction of the patient, or of later complication, without mention of misadventure at the time of the procedure; B37.0 Candidal stomatitis; T38.0X5A Adverse effect of glucocorticoids and synthetic analogues, initial encounter; T36.95XA Adverse effect of unspecified systemic antibiotic, initial encounter; M08.00 Unspecified juvenile rheumatoid arthritis of unspecified site; R18.8 Other ascites; F19.20 Other psychoactive substance dependence, uncomplicated; K75.4 Autoimmune hepatitis; D72.829 Elevated white blood cell count, unspecified; Z96.643 Presence of artificial hip joint, bilateral; Z79.899 Other long term (current) drug therapy; Z96.653 Presence of artificial knee joint, bilateral; Z96.612 Presence of left artificial shoulder joint; Z96.611 Presence of right artificial shoulder joint; Z87.11 Personal history of peptic ulcer disease; Z79.891 Long term (current) use of opiate analgesic; Z82.49 Family history of ischemic heart disease and other diseases of the circulatory system
CPT/HCPCS: 36415 ×3; 82962 ×4; 85025 ×2; 85027; 85610; 85730; 80076; 80048; 97163; J3490 ×6; J1815 ×8; J7512 ×4; J1642 ×4

== ENCOUNTER 2017-04-20 15:04 | Inpatient (IN) | payer MEDICARE ==
[2017-04-20] MEDS ORDERED: NORMAL SALINE 1000 ML 1,000 ML IV ONE ×2 (15:31→18:37)
--- NOTE | 2017-04-20 15:34 | ER Document Report ---
ED Medical Screen (RME) - General Chief Complaint: Trouble Voiding Stated Complaint: POSSIBLE KIDNEYISSUES Time Seen by Provider: 04/20/17 15:29 Notes: pt recently seen here and at [facility] for thrombocytopenia and FTT due to multiple comorbidities. TTP ruled out per [facility]. pt spoke with Dr. Humphries today and mentioned no urine output for last two days and pt states Dr. Humphries told her to come to ED TRAVEL OUTSIDE OF THE [place] IN LAST 30 DAYS: No - Related Data Allergies/Adverse Reactions: amoxicillin trihydrate [From Augmentin] Allergy (Verified 04/20/17 15:05) ITCHING cephalexin monohydrate [From Keflex] Allergy (Verified 04/20/17 15:05) ibuprofen [From Motrin] Allergy (Verified 04/20/17 15:05) Potassium Clavulanate * [From Augmentin] Allergy (Verified 04/20/17 15:05) Past Medical History - Social History Family history: None Pulmonary Medical History: Reports: Hx Pneumonia - intubated Denies: Hx Tuberculosis Neurological Medical History: Denies: Hx Seizures Renal/ Medical History: Denies: Hx Peritoneal Dialysis GI Medical History: Reports: Hx Cirrhosis, Hx Hepatitis - Autoimmune ?, Hx Pancreatitis Musculoskeltal Medical History: Reports Hx Arthritis - Juvenile rheumatoid arthritis Psychiatric Medical History: Denies: Hx Depression Infectious Medical History: Reports: Hx Hepatitis - Autoimmune ? Past Surgical History: Reports: Hx Section - 2, Hx Orthopedic Surgery - joint replacements. Denies: Hx Hysterectomy - Immunizations Hx Diphtheria, Pertussis, Tetanus Vaccination: No History of Influenza Vaccine for 11/2016 - 04/2017 Season: Yes Influenza Administration Date for 11/2016 - 04/2017 Season: 11/23/16 Physical Exam - Vital signs Vitals: Temp Pulse BP Pulse Ox 98.7 F 104 H 84/50 L 16 L 04/20/17 15:11 04/20/17 15:11 04/20/17 15:11 04/20/17 15:11 Course - Vital Signs Vital signs: Temp Pulse Resp BP Pulse Ox 98.7 F 104 H 84/50 L 16 L 04/20/17 15:11 04/20/17 15:11 04/20/17 15:11 04/20/17 15:11
[2017-04-20 17:36] LABS: VENOUS BLOOD BASE EXCESS 0.6 mmol/L; VENOUS BLOOD HCO3 27.1 mmol/L (20-32); VENOUS BLOOD PCO2 50.9 mmHg (35-63); VENOUS BLOOD PH 7.34 (7.30-7.42)
[2017-04-20 17:40] LABS: HEMATOCRIT 29.6 % (36.0-47.0); HEMOGLOBIN 9.6 g/dL (12.0-15.5); MEAN CORPUSCULAR HEMOGLOBIN 32.5 pg (27.0-33.4); MEAN CORPUSCULAR HGB CONC 32.4 g/dL (32.0-36.0); MEAN CORPUSCULAR VOLUME 100 fl (80-97); RED BLOOD COUNT 2.95 10^6/uL (3.72-5.28); RED CELL DISTRIBUTION WIDTH 19.9 % (11.5-14.0); WHITE BLOOD COUNT 8.6 10^3/uL (4.0-10.5)
--- NOTE | 2017-04-20 17:40 | ER Document Report ---
ED General - General Chief Complaint: Trouble Voiding Stated Complaint: POSSIBLE KIDNEYISSUES Time Seen by Provider: 04/20/17 15:29 Notes: Patient says she has not had any urine output since about 5 PM yesterday evening , which is almost exactly 24 hours ago. Prior to that, she had no urine during the day yesterday and her last urine output was on the day before, Thursday. The urine is dark in color, but no actual blood noted. She was here for a week and then was sent to [place] and then sent right back here and discharge 1 week ago. She is not aware of any current fevers. She is complaining of swelling of her abdomen from ascites and swelling of both lower extremities. She accidentally cut the back of her left lower leg when she hit it on a wheelchair yesterday and it has been weeping and oozing from that location ever since. The lower left leg has turned red in color, as well. Patient has a history of juvenile rheumatoid arthritis which has caused her to have to have total joint replacements of both shoulders, both hips, and both knees. Also has hypertension. TRAVEL OUTSIDE OF THE [place] IN LAST 30 DAYS: No - Related Data Allergies/Adverse Reactions: amoxicillin trihydrate [From Augmentin] Allergy (Verified 04/20/17 15:05) ITCHING cephalexin monohydrate [From Keflex] Allergy (Verified 04/20/17 15:05) ibuprofen [From Motrin] Allergy (Verified 04/20/17 15:05) Potassium Clavulanate * [From Augmentin] Allergy (Verified 04/20/17 15:05) Past Medical History - Social History Smoking Status: Never Smoker Family History: Reviewed & Not Pertinent, Hypertension Patient has suicidal ideation: No Patient has homicidal ideation: No - Past Medical History Cardiac Medical History: Denies: Hx Coronary Artery Disease Pulmonary Medical History: Reports: Hx Pneumonia - intubated GI Medical History: Reports: Hx Cirrhosis, Hx Hepatitis - Autoimmune ?, Hx Pancreatitis Musculoskeltal Medical History: Reports Hx Arthritis - Juvenile rheumatoid arthritis Infectious Medical History: Reports: Hx Hepatitis - Autoimmune ? Past Surgical History: Reports: Hx Section - 2, Hx Orthopedic Surgery - joint replacements, both shoulders, both hips, and both knees.. Denies: Hx Hysterectomy - Immunizations Hx Diphtheria, Pertussis, Tetanus Vaccination: No Hx Pneumococcal Vaccination: 02/23/13 Review of Systems - Review of Systems Notes: REVIEW OF SYSTEMS: CONSTITUTIONAL : Denies fever. EENT: Denies eye, ear, nose or mouth or throat pain or other symptoms. CARDIOVASCULAR: Denies chest pain. RESPIRATORY: Denies cough, chest congestion, or shortness of breath. GASTROINTESTINAL: Complains of swelling and pain of her abdomen. GENITOURINARY: See HPI. Denies difficulty or painful urinating, urinary frequency, blood in urine. MUSCULOSKELETAL: Patient has joint pain and swelling and deformities of her joints. SKIN: Erythema of the left lower leg. NEUROLOGICAL: Denies LOC or altered mental status. Denies headache. Denies sensory loss or motor deficits. ALL OTHER SYSTEMS REVIEWED AND NEGATIVE. Physical Exam - Vital signs Vitals: Temp Pulse BP Pulse Ox 98.7 F 104 H 84/50 L 16 L 04/20/17 15:11 04/20/17 15:11 04/20/17 15:11 04/20/17 15:11 Interpretation: Normal Notes: PHYSICAL EXAMINATION: Vital signs essentially normal, except for a blood pressure of 84/50. She is not significantly tachycardic and she is not hypoxic. GENERAL: Well-appearing, in no acute distress. HEAD: Atraumatic, normocephalic. EYES: Pupils equal round and reactive to light, extraocular movements intact. ENT: oropharynx clear without exudates. Moist mucous membranes. NECK: Normal range of motion, supple. LUNGS: Breath sounds clear and equal bilaterally. HEART: Regular rate and rhythm without murmurs. ABDOMEN: Soft, tender lower half. Patient has visible ascites, moderate degree. It does not impair her respiratory function.. BACK: No tenderness throughout entire back. EXTREMITIES: Normal range of motion without pain. Both lower extremities show + 2 pitting pretibial edema bilaterally. There is a small 1 cm laceration of the posterior aspect of the left ankle which occurred when she hit it on a wheelchair. It does not require sutures. However, that is the site through which serous fluid seems to be leaking out continuously from the left leg. NEUROLOGICAL: Normal speech. Normal sensory, motor, and reflex exams. Awake, alert, and oriented x3. PSYCH: Normal mood, normal affect. SKIN: Warm, dry, no rashes. Course - Re-evaluation Re-evalutation: 04/20/17 20:23 Consulted with supervisor fur floor worker, Dr. Humphries. IV fluids are being given and antibiotics are being started. Hospitalist will admit the patient. - Vital Signs Vital signs: Temp Pulse Resp BP Pulse Ox 98.7 F 104 H 84/50 L 16 L 04/20/17 15:11 04/20/17 15:11 04/20/17 15:11 04/20/17 15:11 - Laboratory Result Diagrams: 04/20/17 17:15 04/20/17 17:15 Laboratory results interpreted by me: 04/20/17 04/20/17 17:15 17:15 RBC 2.95 L Hgb 9.6 L Hct 29.6 L MCV 100 H RDW 19.9 H Plt Count 38 L Seg Neuts % (Manual) 87 H Band Neutrophils % 8 H Lymphocytes % (Manual) 2 L Monocytes % (Manual) 2 L Abs Lymphs (Manual) 0.2 L Sodium 129.8 L Chloride 95 L BUN 51 H Creatinine 1.93 H Est GFR ( Amer) 36 L Est GFR (Non-Af Amer) 30 L Glucose 132 H Calcium 7.7 L Total Bilirubin 1.5 H Direct Bilirubin 1.2 H AST 44 H Alkaline Phosphatase 349 H Total Protein 4.1 L Albumin 1.9 L Procedures - Paracentesis RLQ Consent obtained: Yes - Verbal Needle size: 18 Paracentesis location: RLQ Anesthetic type: 1% Lidocaine w/epi mL's of anesthetic: 2 Amount/type of drainage: Somewhat cloudy appearing yellow fluid Number of attempts: 1 Ultrasound guided: Yes Complications: No Notes: 04/20/17 20:[address] Cooper Cadena with my observation. Discharge - Discharge Clinical Impression: Renal insufficiency, Dehydration, Cellulitis of left lower leg, Ascites, Hypotension Condition: Fair Disposition: ADMITTED INPATIENT Admitting Provider: Hospitalist Unit Admitted: [facility]
[2017-04-20 17:58] LABS: ALANINE AMINOTRANSFERASE 41 U/L (9-52); ALBUMIN 1.9 g/dL (3.5-5.0); ALKALINE PHOSPHATASE 349 U/L (38-126); ANION GAP 8 (5-19); ASPARTATE AMINO TRANSFERASE 44 U/L (14-36); BILIRUBIN,DIRECT 1.2 mg/dL (0.0-0.4); BILIRUBIN,TOTAL 1.5 mg/dL (0.2-1.3); BLOOD UREA NITROGEN 51 mg/dL (7-20); CALCIUM 7.7 mg/dL (8.4-10.2); CARBON DIOXIDE 27 mmol/L (22-30); CHLORIDE 95 mmol/L (98-107); GLUCOSE 132 mg/dL (75-110); POTASSIUM 4.2 mmol/L (3.6-5.0); SODIUM 129.8 mmol/L (137-145); TOTAL PROTEIN 4.1 g/dL (6.3-8.2)
[2017-04-20 18:05] LABS: ABSOLUTE LYMPHOCYTES# (MANUAL) 0.2 10^3/uL (0.5-4.7); ABSOLUTE MONOCYTES # (MANUAL) 0.2 10^3/uL (0.1-1.4); ABSOLUTE NEUTROPHILS# (MANUAL) 8.2 10^3/uL (1.7-8.2); BAND NEUTROPHILS % (MANUAL) 8 % (3-5); BASOPHILS % (MANUAL) 0 % (0-2); EOSINOPHILS % (MANUAL) 1 % (0-6); LYMPHOCYTES % (MANUAL) 2 % (13-45); MONOCYTES % (MANUAL) 2 % (3-13); SEGMENTED NEUTROPHILS % (MAN) 87 % (42-78); TOTAL CELLS COUNTED 100
[2017-04-20 18:08] LABS: ANISOCYTOSIS 1+; HELMET CELLS SLIGHT; HYPOCHROMASIA SLIGHT; OVALOCYTES SLIGHT; PLATELET COMMENT DECREASED; POIKILOCYTOSIS 1+; TEAR DROP CELLS SLIGHT
[2017-04-20 18:09] LABS: PLATELET COUNT 38 10^3/uL (150-450)
--- NOTE | 2017-04-20 18:30 | RADIOLOGY REPORT (SQ) ---
EXAM DESCRIPTION: CHEST SINGLE VIEW COMPLETED DATE/TIME: 04/20/2017 6:08 pm REASON FOR STUDY: swelling, no urine COMPARISON: 04/04/2017 EXAM PARAMETERS: NUMBER OF VIEWS: One view. TECHNIQUE: Single frontal radiographic view of the chest acquired. RADIATION DOSE: NA LIMITATIONS: None. FINDINGS: LUNGS AND PLEURA: Marked improvement previous noted abnormal air space density in the lung s with differential including pulmonary edema and pneumonia. Mild residual persists in the bases antione isaac on the right. Minimal if any effusion. MEDIASTINUM AND HILAR STRUCTURES: No masses. Contour normal. HEART AND VASCULAR STRUCTURES: Heart normal in size. Normal vasculature. BONES: No acute findings. HARDWARE: None in the chest. OTHER: No other significant finding. IMPRESSION: Marked improvement in the previous noted abnormal air space density in the lungs with di fferential including pulmonary edema and pneumonia. Mild residual persists. TECHNICAL DOCUMENTATION: JOB ID: [id number] [employer]- All Rights Reserved Reading location - IP/workstation name: [email or web address]
[2017-04-20] MEDS ORDERED: VANCOMYCIN HCL INJ 1000 MG VIAL IV ONE (18:54)
[2017-04-20] MEDS ORDERED: METRONIDAZOLE RTU 500 MG/NS 100 ML IV ONE (18:55)
[2017-04-20] MEDS ORDERED: CIPROFLOXACIN 400 MG/D5W RTU 400 MG/200 ML RTUPB IV ONE (18:56)
[2017-04-20] MEDS ORDERED: FAMOTIDINE 20 MG TABLET PO PRN (19:18)
[2017-04-20] MEDS ORDERED: PROMETHAZINE HCL INJ 25 MG/1 ML VIAL IV PRN (19:18)
[2017-04-20] MEDS ORDERED: ACETAMINOPHEN 325 MG TABLET PO PRN (19:18)
[2017-04-20] MEDS ORDERED: VANCOMYCIN HCL 0 MG in DEXTROSE 5%-WATER 250 ML IV NR (19:30)
[2017-04-20 20:11] LABS: FLUID SOURCE ABDOMEN; FLUID TYPE PERITONEAL
[2017-04-20 20:12] LABS: FLUID APPEARANCE CLOUDY; FLUID COLOR RED; FLUID VISCOSITY MODERATELY VISCOUS
[2017-04-20 20:43] LABS: APPEARANCE,URINE CLOUDY; BILIRUBIN,URINE NEGATIVE (NEGATIVE); COLOR,URINE AMBER; GLUCOSE, URINE NEGATIVE (NEGATIVE); KETONES,URINE NEGATIVE (NEGATIVE); LEUKOCYTE ESTERASE,URINE TRACE (NEGATIVE); NITRITE,URINE NEGATIVE (NEGATIVE); PROTEIN,URINE NEGATIVE (NEGATIVE); URINE SPECIFIC GRAVITY 1.014; UROBILINOGEN,URINE NEGATIVE mg/dL (<2.0)
[2017-04-20] MEDS ORDERED: NORMAL SALINE 500 ML IV ONE (20:45)
[2017-04-20] MEDS: NORMAL SALINE 1000 ML 1,000 ML IV PRN (21:03)
--- NOTE | 2017-04-20 22:19 | PDOC H&P ---
History of Present Illness Admission Date/PCP: RUSSELL DORAN MD Patient complains of: Unable to void since yesterday at 5 PM. History of Present Illness: GUS PELLETIER is a 36 year old female with history of juvenile rheumatoid arthritis (at the age of 19, currently off biologic medication per patient, follows with Dr. Rivera) gastric ulcer, chronic metabolic acidosis, anasarca, malnutrition, recurrent spontaneous bacterial peritonitis/ questionable chronic autoimmune hepatitis and lower extremity venous stasis was admitted with above- mentioned complaints. It was very difficult to obtain an accurate history from the patient and her mother at bedside. The patient was last hospitalized here from 03/30/2017 till 04/03/2017 with septic shock/SBP/hepatic encephalopathy and acute renal failure. She was transferred since there was concern for possible TTP. She returns today because she has been anuric for about 24 hours. She denies any fever, chills, nausea, vomiting but complains of diffuse abdominal pain, no diarrhea or constipation. Her last bowel movement was yesterday of soft soft , nonbloody stool. But she has not been able to void and have the urge for the last 24 hours. She feels generally weak and she uses a wheelchair to ambulate. The patient denies any chest pain or worsening shortness of breath. She has chronic bilateral lower leg edema and venous stasis (left more than right) but she noticed increased erythema and pain in her left leg since this morning. In the ED, her temperature was 98.7, heart rate 106, respiratory rate 13, blood pressure 84/50 with oxygen saturation of 99% on room air. Her WBC was 8.6 and her hemoglobin was 9.6 with platelets of 38. Her BUN/creatinine was 51/1.93 ( up from 51/1.35 on 04/04/2017). Her UA was negative. She had a diagnostic paracentesis with a 10-15 cc of fluid drawn by the ED physician. A chest x-ray was done which showed improvement in pulmonary edema/pneumonia. She received 1 dose of vancomycin, 400 mg IV Cipro x1 and 500 mg IV Flagyl 1. Past Medical History Medical History: Other - According to the patient and as per previous records. gastric ulcer, chronic metabolic acidosis, anasarca, malnutrition, questionable chronic autoimmune hepatitis, lower extremity venous stasis. septic shock/SBP/ hepatic encephalopathy and acute renal failure in 03/30/2017. Pulmonary Medical History: Reports: Pneumonia - intubated Denies: Tuberculosis Neurological Medical History: Denies: Seizures Renal/ Medical History: Reports: Chronic Kidney Disease GI Medical History: Reports: Cirrhosis, Hepatitis - Autoimmune ? Musculoskeltal Medical History: Reports: Arthritis - Juvenile rheumatoid arthritis Psychiatric Medical History: Denies: Depression Past Surgical History Past Surgical History: Reports: Section - 2, Orthopedic Surgery - joint replacements (bilateral shoulders, and knees), Tonsillectomy Denies: Hysterectomy Social History Smoking Status: Unknown if Ever Smoked Cigarettes Packs Per Day: 0 Frequency of Alcohol Use: None Hx Recreational Drug Use: No Drugs: None Hx Prescription Drug Abuse: No Family History Family History: Hypertension Parental Family History Reviewed: Yes - Father: CAD post CABG, diabetes. Children Family History Reviewed: No Sibling(s) Family History Reviewed.: Yes Medication/Allergy Home Medications: Folic Acid [Folvite 1 mg Tablet] 1 mg PO DAILY 04/20/17 Hydrocodone/Acetaminophen [Hydrocodone-Acetamin 5-325 mg] 1 tab PO Q6HP PRN Lisinopril [Prinivil 10 mg Tablet] 10 mg PO DAILY 04/20/17 Paroxetine HCl [Paxil 20 mg Tablet] 20 mg PO DAILY 04/20/17 Spironolactone [Aldactone 100 mg Tablet] 100 mg PO DAILY 04/20/17 Allergies/Adverse Reactions: amoxicillin trihydrate [From Augmentin] Allergy (Verified 04/20/17 15:05) ITCHING cephalexin monohydrate [From Keflex] Allergy (Verified 04/20/17 15:05) ibuprofen [From Motrin] Allergy (Verified 04/20/17 15:05) Potassium Clavulanate * [From Augmentin] Allergy (Verified 04/20/17 15:05) Review of Systems ROS unobtainable: Other - Positives and negatives as detailed in the HPI. Constitutional: ABSENT: chills, fever(s), headache(s), weight gain, weight loss Eyes: ABSENT: visual disturbances Ears: ABSENT: hearing changes Cardiovascular: ABSENT: chest pain, dyspnea on exertion, edema, orthropnea, palpitations Respiratory: ABSENT: cough, hemoptysis Gastrointestinal: ABSENT: abdominal pain, constipation, diarrhea, hematemesis, hematochezia, nausea, vomiting Genitourinary: ABSENT: dysuria, hematuria Musculoskeletal: ABSENT: joint swelling Integumentary: ABSENT: rash, wounds Neurological: ABSENT: abnormal gait, abnormal speech, confusion, dizziness, focal weakness, syncope Psychiatric: ABSENT: anxiety, depression, homidical ideation, suicidal ideation Endocrine: ABSENT: cold intolerance, heat intolerance, polydipsia, polyuria Hematologic/Lymphatic: ABSENT: easy bleeding, easy bruising Physical Exam Vital Signs: Temp Pulse Resp BP Pulse Ox 98.7 F 104 H 84/50 L 16 L 04/20/17 15:11 04/20/17 15:11 04/20/17 15:11 04/20/17 15:11 Intake & Output 04/19/17 04/20/17 04/21/17 06:59 06:59 06:59 Weight 88.451 kg General appearance: PRESENT: no acute distress Head exam: PRESENT: atraumatic, normocephalic Eye exam: PRESENT: conjunctiva pink, PERRLA. ABSENT: scleral icterus Mouth exam: PRESENT: moist, tongue midline Neck exam: PRESENT: full ROM. ABSENT: JVD Respiratory exam: PRESENT: decreased breath sounds - bibasilar.. ABSENT: rales , rhonchi, wheezes Cardiovascular exam: PRESENT: +S1, +S2, tachycardia Pulses: PRESENT: normal dorsalis pedis pul GI/Abdominal exam: PRESENT: distended - tense abdomen with diffuse tenderness., normal bowel sounds, tenderness. ABSENT: guarding, rebound Rectal exam: PRESENT: deferred Extremities exam: PRESENT: pedal edema - limited range of motion given rheumatoid arthritis and anasarca., +2 edema Neurological exam: PRESENT: alert, awake, oriented to person, oriented to place , oriented to time Skin exam: PRESENT: erythema - Left lower extremity from a left foot up to mid olson with warmth, tenderness and she has a skin tear that is weeping., warm. ABSENT: cyanosis, rash Results Laboratory Results: 04/20/17 17:15 04/20/17 17:15 04/20/17 04/20/17 04/20/17 17:15 17:15 17:15 WBC 8.6 RBC 2.95 L Hgb 9.6 L Hct 29.6 L MCV 100 H MCH 32.5 MCHC 32.4 RDW 19.9 H Plt Count 38 L Seg Neutrophils % Not Reportable Lymphocytes % Not Reportable Monocytes % Not Reportable Eosinophils % Not Reportable Basophils % Not Reportable Absolute Neutrophils Not Reportable Absolute Lymphocytes Not Reportable Absolute Monocytes Not Reportable Absolute Eosinophils Not Reportable Absolute Basophils Not Reportable VBG pH VBG pCO2 VBG HCO3 VBG Base Excess Sodium 129.8 L Potassium 4.2 Chloride 95 L Carbon Dioxide 27 Anion Gap 8 BUN 51 H Creatinine 1.93 H Est GFR ( Amer) 36 L Est GFR (Non-Af Amer) 30 L Glucose 132 H Lactic Acid 1.8 Calcium 7.7 L Total Bilirubin 1.5 H AST 44 H ALT 41 Alkaline Phosphatase 349 H Total Protein 4.1 L Albumin 1.9 L 04/20/17 17:15 WBC RBC Hgb Hct MCV MCH MCHC RDW Plt Count Seg Neutrophils % Lymphocytes % Monocytes % Eosinophils % Basophils % Absolute Neutrophils Absolute Lymphocytes Absolute Monocytes Absolute Eosinophils Absolute Basophils VBG pH 7.34 VBG pCO2 50.9 VBG HCO3 27.1 VBG Base Excess 0.6 Sodium Potassium Chloride Carbon Dioxide Anion Gap BUN Creatinine Est GFR ( Amer) Est GFR (Non-Af Amer) Glucose Lactic Acid Calcium Total Bilirubin AST ALT Alkaline Phosphatase Total Protein Albumin Impressions: Chest X-Ray 04/20/17 17:41 IMPRESSION: Marked improvement in the previous noted abnormal air space density in the lungs with differential including pulmonary edema and pneumonia. Mild residual persists. Assessment & Plan - Diagnosis (1) Acute renal failure superimposed on stage 3 chronic kidney disease Qualifiers: Acute renal failure type: unspecified Qualified Code(s): N17.9 - Acute kidney failure, unspecified; N18.3 - Chronic kidney disease, stage 3 (moderate) ; N18.3 - Chronic kidney disease, stage 3 (moderate) Is this a current diagnosis for this admission?: Yes Plan: Secondary to prerenal, renal and/or post renal. Will insert a dorsey catheter for accurate I/O's and obtain a abdominal CAT scan. Her UA is negative. We will check urine specific gravity, sodium, creatinine and protein. We will continue IV hydration and monitor kidney function and urine output. The patient could be intravascularly depleted since she mentioned that she was started on Lasix for chronic anasarca. We will try to avoid any nephrotoxic medications (Lisinopril was listed on her home medications). Further management per nephrology consulted by the ED physician. (2) Cellulitis of left lower leg Is this a current diagnosis for this admission?: Yes Plan: We will continue vancomycin for now awaiting blood cultures. (3) Ascites Qualifiers: Ascites type: other type Qualified Code(s): R18.8 - Other ascites Is this a current diagnosis for this admission?: Yes Plan: The patient has history of recurrent SBP and questionable history of autoimmune hepatitis. According to previous note dictated by nephrology, she apparently follows with Dr. Wilks of GI and she was not aware of having autoimmune hepatitis. She had a diagnostic paracentesis in the ED. Will follow up abdominal CAT scan and peritoneal fluid cultures and start the Cipro, Flagyl . Of note, the patient is allergic to PNC and Cephalosporins. (4) Hyponatremia Is this a current diagnosis for this admission?: Yes Plan: Possibly secondary to intravascular depletion and third spacing. The patient mentioned that she was on Lasix. We will continue IV fluids and check hyponatremic workup. Will repeat BMP in a.m. (5) Hypotensive episode Is this a current diagnosis for this admission?: Yes Plan: on admission, secondary to hypovolemia and/or infection/leg cellulitis. Her chest x-ray showed improvement from previous study and her UA is negative. We will continue hydration and antibiotics awaiting cultures. - Time Time Spent: Greater than 70 Minutes Anticipated discharge: Home - Inpatient Certification Based on my medical assessment, after consideration of the patient's comorbidities, presenting symptoms, or acuity I expect that the services needed warrant INPATIENT care.: Yes I certify that my determination is in accordance with my understanding of Medicare's requirements for reasonable and necessary INPATIENT services [42 CFR 412.3e].: Yes
[2017-04-20] MEDS: FENTANYL CITRATE INJ/PF 100 MCG/2 ML AMPUL IV PRN (22:40)
[2017-04-20 23:14] LABS: URINE CREATININE 148.4 mg/dL (16-327); URINE PROTEIN 35.9 mg/dL (<12)
--- NOTE | 2017-04-20 23:45 | RADIOLOGY REPORT (SQ) ---
EXAM DESCRIPTION: CT ABD/PELVIS ORAL ONLY CLINICAL HISTORY: 36 years Female, anuria COMPARISON: 2.5.18 TECHNIQUE: No IV contrast. Oral contrast only. Coronal and sagittal reformat. This exam was performed according to our departmental dose-optimization program, which includes automated exposure control, adjustment of the mA and/or kV according to patient size and/or use of iterative reconstruction technique. FINDINGS: Small-moderate consolidate of the posterior right lower lobe. Large partially loculated/encapsulated ascites pattern of the lower-mid abdomen persists measuring up to 29 x 25 x 11 cm significant changed. Moderate anasarca. Mild diffuse bowel wall thickening of the transverse colon. New moderate dilated right renal collecting system. 0.4 cm left nephrolithiasis. Small pericardial fluid. Cholelithiasis with moderate pericholecystic fluid. IUD. Bilateral total hip arthroplasty. Ritter catheter. Grade one L5 anterolisthesis. Mild-moderate posterior L5 compression deformity with chronic left L5 spondylolysis. Unenhanced intra-abdominal and pelvic structures are otherwise unremarkable. IMPRESSION: 1. Right lower lobar pneumonia. 2. Large partially loculated/encapsulated ascites; differential diagnosis includes early abscess. 3. Moderate right hydronephrosis/hydroureter could be secondary to extrinsic compression from partially loculated ascites. 4. Cholelithiasis with moderate nonspecific pericholecystic fluid. 5. Mild transverse colitis pattern.
[2017-04-21] MEDS ORDERED: NORMAL SALINE 1000 ML 500 ML IV ONE (01:55)
[2017-04-21] MEDS ORDERED: NOREPINEPHRINE BITARTRATE INJ/PF 4 MG/4 ML SDV IV ONE ×2 (04:00→09:58)
[2017-04-21] MEDS: DEXTROSE 5%-WATER 250 ML with NOREPINEPHRINE BITARTRATE 4 MG IV PRN ×6 (04:20→17:37)
[2017-04-21 05:54] LABS: BLOOD UREA NITROGEN 49 mg/dL (7-20); CALCIUM 7.4 mg/dL (8.4-10.2); CARBON DIOXIDE 25 mmol/L (22-30); CHLORIDE 97 mmol/L (98-107); GLUCOSE 92 mg/dL (75-110)
[2017-04-21 05:55] LABS: ANION GAP 7 (5-19); PHOSPHORUS 5.2 mg/dL (2.5-4.5); POTASSIUM 4.2 mmol/L (3.6-5.0); SODIUM 129.4 mmol/L (137-145)
[2017-04-21 05:57] LABS: HEMATOCRIT 26.4 % (36.0-47.0); HEMOGLOBIN 8.7 g/dL (12.0-15.5); MEAN CORPUSCULAR HEMOGLOBIN 32.4 pg (27.0-33.4); MEAN CORPUSCULAR HGB CONC 32.9 g/dL (32.0-36.0); MEAN CORPUSCULAR VOLUME 98 fl (80-97); RED BLOOD COUNT 2.68 10^6/uL (3.72-5.28); RED CELL DISTRIBUTION WIDTH 19.5 % (11.5-14.0); WHITE BLOOD COUNT 10.1 10^3/uL (4.0-10.5)
[2017-04-21 06:33] LABS: PLATELET COUNT 36 10^3/uL (150-450)
[2017-04-21] MEDS ORDERED: NORMAL SALINE 250 ML IV PRN ×2 (07:47)
[2017-04-21] MEDS ORDERED: CIPROFLOXACIN 400 MG/D5W RTU 400 MG/200 ML RTUPB IV SCH (10:00)
[2017-04-21] MEDS: NORMAL SALINE 1000 ML 1,000 ML IV PRN (12:59)
--- NOTE | 2017-04-21 13:13 | OPERATIVE REPORT E ---
Operative Report NAME: GUS PELLETIER : 1980 AGE: 36Y DATE OF SURGERY: 04/21/2017 ROOM: 606 PREOPERATIVE and postoperative DIAGNOSES: 1. Poor veins for IV access. 2. Lupus with hypotension. 3. The patient also has severe low platelet count of about 30,000. Procedure: placement of right femoral vein triple lumen catheter Anesthesia: local SURGEON: BLAKE GILBERT M.D. DESCRIPTION OF PROCEDURE: After adequate placement of the patient in the flat supine position, the right groin was then prepped and draped in the usual sterile fashion. With the use of the ultrasound machine, the right femoral vein was then identified. Local incision infiltrated on the skin just above the femoral vein area. The femoral vein was then punctured and guidewire passed through the needle towards the inferior vena cava site. About 19 cm of the catheter was placed all the way through. The triple lumen ports were then irrigated with saline solution. Aspirated blood easily and injected saline easily. Next, the catheter was then anchored to the skin with 3-0 silk. A sterile Biopatch placed at the puncture site and a sterile transparent dressing was then placed over the Biopatch and catheter. The patient tolerated the procedure well. This catheter can be used for IV access at this time without the need for chest x-ray. DICTATING PHYSICIAN: BLAKE GILBERT M.D. [id number] PHY#: [id number] ID: [id number] JOB#: [id number] ACCT: [id number] cc:BLAKE GILBERT M.D. > MTDD
[2017-04-21] MEDS ORDERED: NORMAL SALINE 1000 ML 1,000 ML IV PRN (14:35)
[2017-04-21] MEDS ORDERED: FUROSEMIDE INJ/PF 20 MG/2 ML SDV IV ONE (15:30)
[2017-04-21] MEDS: ALBUMIN HUMAN 50 ML IV SCH ×2 (16:23→23:37)
[2017-04-21] MEDS ORDERED: VANCOMYCIN HCL 1,250 MG in DEXTROSE 5%-WATER 250 ML IV SCH (18:00)
--- NOTE | 2017-04-21 18:25 | PDOC PROGRESS REPORT ---
Subjective Reason For Visit: ACUTE ON CHRONIC RENAL FAILURE Physical Exam Vital Signs: Temp Pulse Resp BP Pulse Ox 98.1 F 106 H 16 110/71 100 04/21/17 18:00 04/21/17 14:20 04/21/17 18:00 04/21/17 17:57 04/21/17 18:00 Intake & Output 04/20/17 04/21/17 04/22/17 00:59 00:59 00:59 Intake Total 2864 Output Total 1600 Balance 1264 Results Laboratory Results: 04/21/17 05:05 04/21/17 05:05 04/20/17 04/20/17 04/21/17 20:30 20:30 05:05 WBC 10.1 RBC 2.68 L Hgb 8.7 L Hct 26.4 L MCV 98 H MCH 32.4 MCHC 32.9 RDW 19.5 H Plt Count 36 L Sodium Potassium Chloride Carbon Dioxide Anion Gap BUN Creatinine Est GFR ( Amer) Est GFR (Non-Af Amer) Glucose Calcium Phosphorus Magnesium Urine Color JUAN Urine Appearance CLOUDY Urine pH 5.0 Ur Specific [place] 1.014 Cancelled Urine Protein NEGATIVE Urine Glucose (UA) NEGATIVE Urine Ketones NEGATIVE Urine Blood NEGATIVE Urine Nitrite NEGATIVE Ur Leukocyte Esterase TRACE H Urine WBC (Auto) 10 Urine RBC (Auto) 1 Blood Type 04/21/17 04/21/17 05:05 08:45 WBC RBC Hgb Hct MCV MCH MCHC RDW Plt Count Sodium 129.4 L Potassium 4.2 Chloride 97 L Carbon Dioxide 25 Anion Gap 7 BUN 49 H Creatinine 1.74 H Est GFR ( Amer) 41 L Est GFR (Non-Af Amer) 33 L Glucose 92 Calcium 7.4 L Phosphorus 5.2 H Magnesium 1.8 Urine Color Urine Appearance Urine pH Ur Specific [place] Urine Protein Urine Glucose (UA) Urine Ketones Urine Blood Urine Nitrite Ur Leukocyte Esterase Urine WBC (Auto) Urine RBC (Auto) Blood Type A NEGATIVE Impressions: Abdomen/Pelvis CT 04/20/17 00:00 IMPRESSION: 1. Right lower lobar pneumonia. 2. Large partially loculated/encapsulated ascites; differential diagnosis includes early abscess. 3. Moderate right hydronephrosis/hydroureter could be secondary to extrinsic compression from partially loculated ascites. 4. Cholelithiasis with moderate nonspecific pericholecystic fluid. 5. Mild transverse colitis pattern. Chest X-Ray 04/20/17 17:41 IMPRESSION: Marked improvement in the previous noted abnormal air space density in the lungs with differential including pulmonary edema and pneumonia. Mild residual persists. Assessment & Plan - Diagnosis (1) Cellulitis Qualifiers: Site of cellulitis of extremity: lower extremity Laterality: left Is this a current diagnosis for this admission?: Yes (3) Acute renal failure superimposed on stage 3 chronic kidney disease Qualifiers: Acute renal failure type: unspecified Qualified Code(s): N17.9 - Acute kidney failure, unspecified; N18.3 - Chronic kidney disease, stage 3 (moderate) ; N18.3 - Chronic kidney disease, stage 3 (moderate) Is this a current diagnosis for this admission?: Yes Plan: Initiated albumin infusion to increase renal perfusion (4) Autoimmune hepatitis Is this a current diagnosis for this admission?: Yes (5) SBP (spontaneous bacterial peritonitis) Is this a current diagnosis for this admission?: Yes - Time Time Spent with patient: Septic shock Likely secondary to continue SBP and cellulitis We will reevaluate the antibiotic management and change antibiotics to Azactam; Flagyl and vancomycin Continue Levophed Patient's mentation remains excellent Patient's renal function is stable Mentation is excellent Oxygenation is adequate on nasal O2 Overall she is quite stable Time Spent with patient: 25-34 minutes
[2017-04-21 19:00] LABS: HEMATOCRIT 24.9 % (36.0-47.0); HEMOGLOBIN 8.1 g/dL (12.0-15.5); MEAN CORPUSCULAR HEMOGLOBIN 32.5 pg (27.0-33.4); MEAN CORPUSCULAR HGB CONC 32.6 g/dL (32.0-36.0); MEAN CORPUSCULAR VOLUME 100 fl (80-97); RED CELL DISTRIBUTION WIDTH 19.8 % (11.5-14.0); WHITE BLOOD COUNT 8.2 10^3/uL (4.0-10.5)
[2017-04-21 19:25] LABS: ABSOLUTE LYMPHOCYTES# (MANUAL) 0.4 10^3/uL (0.5-4.7); ABSOLUTE MONOCYTES # (MANUAL) 0.6 10^3/uL (0.1-1.4); ABSOLUTE NEUTROPHILS# (MANUAL) 7.1 10^3/uL (1.7-8.2); BASOPHILS % (MANUAL) 0 % (0-2); EOSINOPHILS % (MANUAL) 1 % (0-6); LYMPHOCYTES % (MANUAL) 5 % (13-45); MONOCYTES % (MANUAL) 7 % (3-13); SEGMENTED NEUTROPHILS % (MAN) 87 % (42-78); TOTAL CELLS COUNTED 100
[2017-04-21 19:27] LABS: OVALOCYTES 1+; POLYCHROMASIA SLIGHT; TEAR DROP CELLS SLIGHT
[2017-04-21 19:28] LABS: POIKILOCYTOSIS 1+
[2017-04-21 19:30] LABS: PLATELET COMMENT DECREASED; PLATELET COUNT 60 10^3/uL (150-450)
--- NOTE | 2017-04-21 19:40 | PDOC CONSULTATION ---
Consultation Consult Date: 04/21/17 Consult reason:: Acute on chronic renal failure with anuria History of Present Illness Admission Date/PCP: 04/20/17 19:30 RUSSELL DORAN MD History of Present Illness: GUS PELLETIER is a 36 year old female with history of juvenile rheumatoid arthritis (at the age of 19, currently off biologic medication per patient, follows with Dr. Rivera) gastric ulcer, chronic metabolic acidosis, anasarca, malnutrition, recurrent spontaneous bacterial peritonitis/ questionable chronic autoimmune hepatitis and lower extremity venous stasis. According to her mother and her she was out of [facility] for about 1 week. During that week the mother said that she made some improvements. Over the past couple of days she has had decreased urination. They finally decided to go to the ER because she had not urinated in 24 hours nor did she feel like she had to. The patient was last hospitalized here from 03/30/2017 till 04/03/2017 with septic shock/SBP/hepatic encephalopathy and acute renal failure. She was transferred since there was concern for possible TTP. In the ED, her temperature was 98.7, heart rate 106, respiratory rate 13, blood pressure 84/50 with oxygen saturation of 99% on room air. Her WBC was 8.6 and her hemoglobin was 9.6 with platelets of 38. Her BUN/creatinine was 51/1.93 ( up from 51/1.35 on 04/04/2017). Her UA was negative. She had a diagnostic paracentesis with a 10-15 cc of fluid drawn by the ED physician. A chest x-ray was done which showed improvement in pulmonary edema/pneumonia. She received 1 dose of vancomycin, 400 mg IV Cipro x1 and 500 mg IV Flagyl 1. A CT was also done that shows moderate right hydronephrosis. She denies any fever, chills, nausea, vomiting but complains of diffuse abdominal pain, no diarrhea or constipation. The patient denies any chest pain. She has been having shortness of breath when she sits straight up due to the ascites. She has bilateral lower leg edema and venous stasis (left more than right) but she noticed increased erythema and pain in her left leg since this morning. Past Medical History Cardiac Medical History: Denies: Coronary Artery Disease Pulmonary Medical History: Reports: Pneumonia - intubated Denies: Tuberculosis Neurological Medical History: Denies: Seizures GI Medical History: Reports: Cirrhosis, Hepatitis - Autoimmune ? Musculoskeltal Medical History: Reports: Arthritis - Juvenile rheumatoid arthritis, Rheumatoid Arthritis - Juvenile. Steroid dependent. Psychiatric Medical History: Denies: Depression Past Surgical History Past Surgical History: Reports: Section - 2, Orthopedic Surgery - joint replacements (bilateral shoulders, and knees), Tonsillectomy Denies: Hysterectomy Social History Smoking Status: Unknown if Ever Smoked Cigarettes Packs Per Day: 0 Frequency of Alcohol Use: None Hx Recreational Drug Use: No Drugs: None Hx Prescription Drug Abuse: No Family History Parental Family History Reviewed: No Children Family History Reviewed: NA Sibling(s) Family History Reviewed.: NA Medication/Allergy Home Medications: Folic Acid [Folvite 1 mg Tablet] 1 mg PO DAILY 04/20/17 Hydrocodone/Acetaminophen [Hydrocodone-Acetamin 5-325 mg] 1 tab PO Q6HP PRN Lisinopril [Prinivil 10 mg Tablet] 10 mg PO DAILY 04/20/17 Paroxetine HCl [Paxil 20 mg Tablet] 20 mg PO DAILY 04/20/17 Spironolactone [Aldactone 100 mg Tablet] 100 mg PO DAILY 04/20/17 Allergies/Adverse Reactions: amoxicillin trihydrate [From Augmentin] Allergy (Verified 04/20/17 15:05) ITCHING cephalexin monohydrate [From Keflex] Allergy (Verified 04/20/17 15:05) ibuprofen [From Motrin] Allergy (Verified 04/20/17 15:05) Potassium Clavulanate * [From Augmentin] Allergy (Verified 04/20/17 15:05) Review of Systems Constitutional: PRESENT: fatigue, weakness. ABSENT: chills, fever(s), headache( s) Nose, Mouth, and Throat: ABSENT: headache(s) Cardiovascular: ABSENT: chest pain, dyspnea on exertion, edema, orthropnea, palpitations Respiratory: PRESENT: dyspnea. ABSENT: cough, sputum Gastrointestinal: PRESENT: abdominal pain. ABSENT: constipation, diarrhea, nausea, vomiting Genitourinary: PRESENT: difficulty urinating. ABSENT: dysuria Musculoskeletal: PRESENT: back pain, deformity, joint swelling, muscle weakness Neurological: PRESENT: weakness. ABSENT: confusion, dizziness Physical Exam Vital Signs: Temp Pulse Resp BP Pulse Ox 98.1 F 106 H 16 110/71 100 04/21/17 18:00 04/21/17 14:20 04/21/17 18:00 04/21/17 17:57 04/21/17 18:00 Intake & Output 04/20/17 04/21/17 04/22/17 06:59 06:59 06:59 Intake Total 2864 Output Total 1600 Balance 1264 General appearance: PRESENT: no acute distress, well-developed, well-nourished Mouth exam: PRESENT: moist, neck supple Respiratory exam: PRESENT: clear to auscultation jose j. ABSENT: accessory muscle use, crackles, rales, rhonchi, wheezes Cardiovascular exam: PRESENT: RRR, +S1, +S2. ABSENT: gallop, rubs GI/Abdominal exam: PRESENT: ascites, distended, firm, tenderness. ABSENT: soft Extremities exam: PRESENT: tenderness, +2 edema, other - erthema on the inside of her left calve- Musculoskeletal exam: PRESENT: tenderness. ABSENT: normal inspection Neurological exam: PRESENT: alert, awake, oriented to person, oriented to place , oriented to time, oriented to situation Skin exam: PRESENT: dry, erythema, intact, rash, warm. ABSENT: cyanosis Results Laboratory Results: 04/21/17 05:05 04/21/17 05:05 04/20/17 04/20/17 04/21/17 20:30 20:30 05:05 WBC 10.1 RBC 2.68 L Hgb 8.7 L Hct 26.4 L MCV 98 H MCH 32.4 MCHC 32.9 RDW 19.5 H Plt Count 36 L Sodium Potassium Chloride Carbon Dioxide Anion Gap BUN Creatinine Est GFR ( Amer) Est GFR (Non-Af Amer) Glucose Calcium Phosphorus Magnesium Urine Color JUAN Urine Appearance CLOUDY Urine pH 5.0 Ur Specific [place] 1.014 Cancelled Urine Protein NEGATIVE Urine Glucose (UA) NEGATIVE Urine Ketones NEGATIVE Urine Blood NEGATIVE Urine Nitrite NEGATIVE Ur Leukocyte Esterase TRACE H Urine WBC (Auto) 10 Urine RBC (Auto) 1 Blood Type 04/21/17 04/21/17 05:05 08:45 WBC RBC Hgb Hct MCV MCH MCHC RDW Plt Count Sodium 129.4 L Potassium 4.2 Chloride 97 L Carbon Dioxide 25 Anion Gap 7 BUN 49 H Creatinine 1.74 H Est GFR ( Amer) 41 L Est GFR (Non-Af Amer) 33 L Glucose 92 Calcium 7.4 L Phosphorus 5.2 H Magnesium 1.8 Urine Color Urine Appearance Urine pH Ur Specific [place] Urine Protein Urine Glucose (UA) Urine Ketones Urine Blood Urine Nitrite Ur Leukocyte Esterase Urine WBC (Auto) Urine RBC (Auto) Blood Type A NEGATIVE Impressions: Abdomen/Pelvis CT 04/20/17 00:00 IMPRESSION: 1. Right lower lobar pneumonia. 2. Large partially loculated/encapsulated ascites; differential diagnosis includes early abscess. 3. Moderate right hydronephrosis/hydroureter could be secondary to extrinsic compression from partially loculated ascites. 4. Cholelithiasis with moderate nonspecific pericholecystic fluid. 5. Mild transverse colitis pattern. Chest X-Ray 04/20/17 17:41 IMPRESSION: Marked improvement in the previous noted abnormal air space density in the lungs with differential including pulmonary edema and pneumonia. Mild residual persists. Assessment & Plan - Diagnosis (1) Acute renal failure superimposed on stage 3 chronic kidney disease Qualifiers: Acute renal failure type: unspecified Qualified Code(s): N17.9 - Acute kidney failure, unspecified; N18.3 - Chronic kidney disease, stage 3 (moderate) ; N18.3 - Chronic kidney disease, stage 3 (moderate) Is this a current diagnosis for this admission?: Yes Plan: Nonoliguirc JOHN, currently multifactorial due to post-obstruction, septic shock , and hypotension. Will continue NS at 50mL an hour, start IV lasix to help with urine production. Also recommend paracentesis to alleviate pressure on the kidneys. (2) Cellulitis of left lower leg Is this a current diagnosis for this admission?: Yes Plan: Currently on vanc, cipro and metronidazole (3) Septic shock Plan: Currently on vanc, cipro and metronidazole. Awaiting blood cultures (4) Hypotension Qualifiers: Plan: currently on levophed and stable. Most likely due to septic shock, less likely due to dehydration (5) Hyponatremia Is this a current diagnosis for this admission?: Yes Plan: most likely due to fluid overload, will reassess tomorrow once some fluid has been removed (6) Ascites Qualifiers: Ascites type: other type Qualified Code(s): R18.8 - Other ascites Is this a current diagnosis for this admission?: Yes Plan: currently built up and affecting other organs. Also retrieving records from previous hospital that she was transferred to see if a work up was done for underlining cause of ascites. (7) Anasarca Plan: giving lasix (8) Anemia Qualifiers: Anemia type: unspecified type Qualified Code(s): D64.9 - Anemia, unspecified Plan: Will draw anemia panel tomorrow. - Notes Notes: patient was discussed with Dr. Humphries
[2017-04-21] MEDS: METRONIDAZOLE 500 MG/NS RTU 100 ML IV SCH (20:35)
[2017-04-21] MEDS: AZTREONAM 1 GM in NORMAL SALINE 100 ML IV SCH (22:12)
[2017-04-21] MEDS: FUROSEMIDE INJ/PF 20 MG/2 ML SDV IV SCH (22:12)
[2017-04-22] MEDS: METRONIDAZOLE 500 MG/NS RTU 100 ML IV SCH ×4 (01:39→20:47)
[2017-04-22] MEDS: FENTANYL CITRATE INJ/PF 100 MCG/2 ML AMPUL IV PRN ×4 (01:39→22:25)
[2017-04-22] MEDS: AZTREONAM 1 GM in NORMAL SALINE 100 ML IV SCH ×3 (05:14→22:07)
[2017-04-22] MEDS: DEXTROSE 5%-WATER 250 ML with NOREPINEPHRINE BITARTRATE 4 MG IV PRN ×2 (05:14)
[2017-04-22 05:41] LABS: ABSOLUTE RETICS # 0.021 10^6/uL (0.028-0.122); HEMATOCRIT 23.8 % (36.0-47.0); MEAN CORPUSCULAR HEMOGLOBIN 32.4 pg (27.0-33.4); MEAN CORPUSCULAR HGB CONC 32.8 g/dL (32.0-36.0); MEAN CORPUSCULAR VOLUME 99 fl (80-97); RED BLOOD COUNT 2.41 10^6/uL (3.72-5.28); RED CELL DISTRIBUTION WIDTH 19.6 % (11.5-14.0); RETICULOCYTE COUNT (AUTO) 0.87 % (0.66-2.85); WHITE BLOOD COUNT 6.8 10^3/uL (4.0-10.5)
[2017-04-22 05:54] LABS: ANION GAP 6 (5-19); BLOOD UREA NITROGEN 40 mg/dL (7-20); CALCIUM 7.9 mg/dL (8.4-10.2); CARBON DIOXIDE 25 mmol/L (22-30); CHLORIDE 101 mmol/L (98-107); GLUCOSE 113 mg/dL (75-110); POTASSIUM 3.6 mmol/L (3.6-5.0); SODIUM 132.1 mmol/L (137-145)
[2017-04-22 06:07] LABS: PLATELET COUNT 57 10^3/uL (150-450)
[2017-04-22 06:10] LABS: ABSOLUTE LYMPHOCYTES# (MANUAL) 0.1 10^3/uL (0.5-4.7); ABSOLUTE MONOCYTES # (MANUAL) 0.7 10^3/uL (0.1-1.4); ABSOLUTE NEUTROPHILS# (MANUAL) 5.8 10^3/uL (1.7-8.2); BAND NEUTROPHILS % (MANUAL) 3 % (3-5); BASOPHILS % (MANUAL) 0 % (0-2); EOSINOPHILS % (MANUAL) 2 % (0-6); LYMPHOCYTES % (MANUAL) 2 % (13-45); MONOCYTES % (MANUAL) 10 % (3-13); NUCLEATED RED BLOOD CELLS 1 /100 WBC (0); SEGMENTED NEUTROPHILS % (MAN) 83 % (42-78); TOTAL CELLS COUNTED 100
[2017-04-22 06:21] LABS: ANISOCYTOSIS 2+; OVALOCYTES 1+; PLATELET COMMENT DECREASED; PLATELET LARGE PRESENT; POIKILOCYTOSIS 1+; TEAR DROP CELLS SLIGHT; TOXIC GRANULATION SLIGHT
[2017-04-22 06:25] LABS: HEMOGLOBIN 7.8 g/dL (12.0-15.5)
[2017-04-22] MEDS ORDERED: NORMAL SALINE 1000 ML 1,000 ML IV ONE (06:45)
[2017-04-22 07:09] LABS: FOLATE > 20.00 ng/mL (>2.76); IRON(TIBC) < 10.1 ug/dL (37-170)
[2017-04-22] MEDS: ALBUMIN HUMAN 50 ML IV SCH ×3 (09:50→23:14)
[2017-04-22] MEDS: FUROSEMIDE INJ/PF 20 MG/2 ML SDV IV SCH ×2 (09:52→22:07)
[2017-04-22] MEDS: VANCOMYCIN HCL 750 MG in DEXTROSE 5%-WATER 250 ML IV SCH ×2 (11:16→22:08)
--- NOTE | 2017-04-22 13:44 | PDOC PROGRESS REPORT ---
Subjective Progress Note for:: 04/22/17 Reason For Visit: Seen in the ICU today.She is feeling a little better than yesterday. She has been diagnosed with Cellulitis of her left leg, SBP on a diagnostic paracentesis in Septic shock currently on Pressor agents, large loculated/ encapsulated ascitic fluid which could be compressing on her right kidney to produce a Hydronephrosis. Besides the above she has Anasarca from hypoalbuminemia, JOHN - now non oliguric with improving renal nos. She is on multiple antibiotics tailored to her renal filtration rate. She grew GPC in one blood c&s bottle.No growth so far from her ascitic fluid. To recall, she was here early this monthg and was transferred to [facility] because of progressive thrombocytopenia and unexplaied ascites with SBP. The CT done then showed an enlarged spleen without any features of a cirrhotic Liver. I did entertain a differential diagnosis of possible Budd - Chiari Syndrome but as per history from the patient she was not seen by any specialists while in [facility] to work put the above or other causes of her ascites with enlarged spleen and denis cytopenia. She denies any chest pains, dyspnea, fever or chills.No abdominal pains. Good Bowel movements without any diarrhea.No dysuria. I reviewed her labs, meds and imaging studies. I did discuss her issues with Dr Williamson , her treating hospitalist. Physical Exam Vital Signs: Temp Pulse Resp BP Pulse Ox 98.0 F 113 H 16 98/71 L 97 04/22/17 12:00 04/22/17 12:00 04/22/17 12:00 04/22/17 12:04/22/17 12:00 Intake & Output 04/21/17 04/22/17 04/23/17 06:59 06:59 06:59 Intake Total 4109 250 Output Total 3590 1100 Balance 519 -850 Weight 92.8 kg General appearance: PRESENT: no acute distress, disheveled Neck exam: ABSENT: lymphadenopathy, meningismus, tenderness, thyromegaly Respiratory exam: PRESENT: clear to auscultation jose j, crackles - -a few scattered, symmetrical. ABSENT: rhonchi Cardiovascular exam: PRESENT: RRR, +S1, +S2. ABSENT: gallop, rubs GI/Abdominal exam: PRESENT: ascites, distended, firm, normal bowel sounds. ABSENT: guarding, mass, organomegaly, soft, tenderness Extremities exam: PRESENT: +2 edema Musculoskeletal exam: PRESENT: deformity - extensive of her JRA hands. Neurological exam: PRESENT: awake, oriented to person, oriented to place Skin exam: PRESENT: erythema - but better of the left leg.Homans negative.. ABSENT: cyanosis, mottled Results Laboratory Results: 04/22/17 05:24 04/22/17 05:24 04/21/17 04/21/17 04/22/17 08:45 18:35 05:24 WBC 8.2 RBC 2.50 L Hgb 8.1 L Hct 24.9 L MCV 100 H MCH 32.5 MCHC 32.6 RDW 19.8 H Plt Count 60 L Seg Neutrophils % Not Reportable Lymphocytes % Not Reportable Monocytes % Not Reportable Eosinophils % Not Reportable Basophils % Not Reportable Absolute Neutrophils Not Reportable Absolute Lymphocytes Not Reportable Absolute Monocytes Not Reportable Absolute Eosinophils Not Reportable Absolute Basophils Not Reportable Retic Count (auto) Absolute Retic Sodium 132.1 L Potassium 3.6 Chloride 101 Carbon Dioxide 25 Anion Gap 6 BUN 40 H Creatinine 1.27 H Est GFR ( Amer) 58 L Est GFR (Non-Af Amer) 48 L Glucose 113 H Calcium 7.9 L Iron < 10.1 L TIBC 184 L % Saturation UNABLE TO CALCULATE Ferritin 106.00 Vitamin B12 > 1000.0 H Folate > 20.00 Blood Type A NEGATIVE 04/22/17 05:24 WBC 6.8 RBC 2.41 L Hgb 7.8 L Hct 23.8 L MCV 99 H MCH 32.4 MCHC 32.8 RDW 19.6 H Plt Count 57 L Seg Neutrophils % Not Reportable Lymphocytes % Not Reportable Monocytes % Not Reportable Eosinophils % Not Reportable Basophils % Not Reportable Absolute Neutrophils Not Reportable Absolute Lymphocytes Not Reportable Absolute Monocytes Not Reportable Absolute Eosinophils Not Reportable Absolute Basophils Not Reportable Retic Count (auto) 0.87 Absolute Retic 0.021 L Sodium Potassium Chloride Carbon Dioxide Anion Gap BUN Creatinine Est GFR ( Amer) Est GFR (Non-Af Amer) Glucose Calcium Iron TIBC % Saturation Ferritin Vitamin B12 Folate Blood Type 04/20/17 20:30 Ritter Catheter Urine Culture - Final NO GROWTH 2 DAYS Impressions: Abdomen/Pelvis CT 04/20/17 00:00 IMPRESSION: 1. Right lower lobar pneumonia. 2. Large partially loculated/encapsulated ascites; differential diagnosis includes early abscess. 3. Moderate right hydronephrosis/hydroureter could be secondary to extrinsic compression from partially loculated ascites. 4. Cholelithiasis with moderate nonspecific pericholecystic fluid. 5. Mild transverse colitis pattern. Chest X-Ray 04/20/17 17:41 IMPRESSION: Marked improvement in the previous noted abnormal air space density in the lungs with differential including pulmonary edema and pneumonia. Mild residual persists. Assessment & Plan - Diagnosis (1) Acute renal failure superimposed on stage 3 chronic kidney disease Qualifiers: Acute renal failure type: unspecified Qualified Code(s): N17.9 - Acute kidney failure, unspecified; N18.3 - Chronic kidney disease, stage 3 (moderate) ; N18.3 - Chronic kidney disease, stage 3 (moderate) Is this a current diagnosis for this admission?: Yes Plan: Likely from combination of ATN /Septic shock and Obstructive uropathy. She is now non oliguric with renal nos as issues are being tackled simultaneously.Discussed with DR Williamson. She would benefit from a therapeutic paracentesis followed by repeat CT of the kidneys a day later to see of improving hydronephrosis. If not then a urological consult would be required. (2) Ascites Qualifiers: Ascites type: other type Qualified Code(s): R18.8 - Other ascites Is this a current diagnosis for this admission?: Yes Plan: Recurring with SBP. I dont believe that her hypoalbuminemia/ anasarca is the only explanation for her recurring ascites with complications. As mentioned earlier one has to tie in the splenomegaly with this. Splenomegaly with leucopenia in RA could be Feltys Syndrome but her WBC is normal to high and has never been low. Suggest a GI consult for possible exclusion of portal vein/ hepatic vein thrombosis etc. (3) Cellulitis of left lower leg Is this a current diagnosis for this admission?: Yes Plan: On antibiotics and improving. (4) Hypotension Qualifiers: (5) Septic shock Plan: Multi factorial. Cellulitis and SBP. Currently on abx and weaning off pressors. (6) Anasarca Plan: From low albumin. (7) Anemia Qualifiers: Anemia type: unspecified type Qualified Code(s): D64.9 - Anemia, unspecified (8) Bacteremia Plan: Monitor.On antibiotics. (9) Juvenile rheumatoid arthritis Plan: Crippling.Being followed by Rheum.Been on biologicals before. (10) SBP (spontaneous bacterial peritonitis) Is this a current diagnosis for this admission?: Yes Plan: Recurrent.Now on antibiotics. (11) Thrombocytopenia Plan: Unexplained. (12) Hydronephrosis Plan: Right.? from compression from the large encapsulated Ascites. Discussed with Dr Williamson on tackling this with initial therapeutic drainage to completion of the loculated ascites followed a day later with repeat CT of abdomen.
[2017-04-22] MEDS ORDERED: NORMAL SALINE 250 ML IV PRN ×2 (15:23)
--- NOTE | 2017-04-22 15:58 | PDOC PROGRESS REPORT ---
Subjective Progress Note for:: 04/22/17 Subjective:: Is doing a lot better she is almost off pressors Mentation is very much improved She is oxygenating adequately without nasal O2 She has no shortness of breath no chest pains She is still complaining of abdominal pain Cellulitis of the left lower extremity appears somewhat improved although there is some fluctuance over the medial aspect of the leg Renal function has improved Reason For Visit: ACUTE ON CHRONIC RENAL FAILURE Physical Exam Vital Signs: Temp Pulse Resp BP Pulse Ox 98.0 F 113 H 16 98/71 L 97 04/22/17 12:00 04/22/17 12:00 04/22/17 12:00 04/22/17 12:00 04/22/17 12:00 Intake & Output 04/21/17 04/22/17 04/23/17 00:59 00:59 00:59 Intake Total 2964 1695 Output Total 2550 2140 Balance 414 -445 Weight 92.8 kg General appearance: PRESENT: no acute distress Head exam: PRESENT: atraumatic, normocephalic Eye exam: PRESENT: conjunctiva pale, scleral icterus Neck exam: ABSENT: carotid bruit, JVD, lymphadenopathy, thyromegaly Respiratory exam: PRESENT: clear to auscultation jose j, decreased breath sounds - Both bases. ABSENT: rales, rhonchi, wheezes Cardiovascular exam: PRESENT: RRR, tachycardia. ABSENT: diastolic murmur, rubs , systolic murmur Pulses: PRESENT: normal dorsalis pedis pul GI/Abdominal exam: PRESENT: ascites, distended, tenderness - Diffuse Rectal exam: PRESENT: deferred Extremities exam: PRESENT: other - Left lower extremity decreased redness Fluctuance medial aspect of the leg Neurological exam: PRESENT: alert Psychiatric exam: PRESENT: appropriate affect, normal mood Results Laboratory Results: 04/22/17 05:24 04/22/17 05:24 04/21/17 04/21/17 04/22/17 08:45 18:35 05:24 WBC 8.2 RBC 2.50 L Hgb 8.1 L Hct 24.9 L MCV 100 H MCH 32.5 MCHC 32.6 RDW 19.8 H Plt Count 60 L Seg Neutrophils % Not Reportable Lymphocytes % Not Reportable Monocytes % Not Reportable Eosinophils % Not Reportable Basophils % Not Reportable Absolute Neutrophils Not Reportable Absolute Lymphocytes Not Reportable Absolute Monocytes Not Reportable Absolute Eosinophils Not Reportable Absolute Basophils Not Reportable Retic Count (auto) Absolute Retic Sodium 132.1 L Potassium 3.6 Chloride 101 Carbon Dioxide 25 Anion Gap 6 BUN 40 H Creatinine 1.27 H Est GFR ( Amer) 58 L Est GFR (Non-Af Amer) 48 L Glucose 113 H Calcium 7.9 L Iron < 10.1 L TIBC 184 L % Saturation UNABLE TO CALCULATE Ferritin 106.00 Vitamin B12 > 1000.0 H Folate > 20.00 Blood Type A NEGATIVE 04/22/17 05:24 WBC 6.8 RBC 2.41 L Hgb 7.8 L Hct 23.8 L MCV 99 H MCH 32.4 MCHC 32.8 RDW 19.6 H Plt Count 57 L Seg Neutrophils % Not Reportable Lymphocytes % Not Reportable Monocytes % Not Reportable Eosinophils % Not Reportable Basophils % Not Reportable Absolute Neutrophils Not Reportable Absolute Lymphocytes Not Reportable Absolute Monocytes Not Reportable Absolute Eosinophils Not Reportable Absolute Basophils Not Reportable Retic Count (auto) 0.87 Absolute Retic 0.021 L Sodium Potassium Chloride Carbon Dioxide Anion Gap BUN Creatinine Est GFR ( Amer) Est GFR (Non-Af Amer) Glucose Calcium Iron TIBC % Saturation Ferritin Vitamin B12 Folate Blood Type 04/20/17 20:30 Ritter Catheter Urine Culture - Final NO GROWTH 2 DAYS Impressions: Abdomen/Pelvis CT 04/20/17 00:00 IMPRESSION: 1. Right lower lobar pneumonia. 2. Large partially loculated/encapsulated ascites; differential diagnosis includes early abscess. 3. Moderate right hydronephrosis/hydroureter could be secondary to extrinsic compression from partially loculated ascites. 4. Cholelithiasis with moderate nonspecific pericholecystic fluid. 5. Mild transverse colitis pattern. Chest X-Ray 04/20/17 17:41 IMPRESSION: Marked improvement in the previous noted abnormal air space density in the lungs with differential including pulmonary edema and pneumonia. Mild residual persists. Assessment & Plan - Diagnosis (1) Cellulitis Qualifiers: Site of cellulitis of extremity: lower extremity Laterality: left Is this a current diagnosis for this admission?: Yes Plan: Cellulitis appears to be improving We will continue the present antibiotic management ; noted that patient is very allergic to penicillin and cephalosporins Currently treated with Azactam, Flagyl and vancomycin Ultrasound of the left lower extremity was ordered to evaluate for an abscess (2) Septic shock Is this a current diagnosis for this admission?: Yes Plan: Likely secondary to pneumonia , spontaneous bacterial peritonitis and cellulitis continue present management Patient is clinically improved, mentation is excellent She is on very small doses of Levophed We have discontinued IV fluids as she look very much fluid overloaded (3) Acute renal failure superimposed on stage 3 chronic kidney disease Qualifiers: Acute renal failure type: unspecified Qualified Code(s): N17.9 - Acute kidney failure, unspecified; N18.3 - Chronic kidney disease, stage 3 (moderate) ; N18.3 - Chronic kidney disease, stage 3 (moderate) Is this a current diagnosis for this admission?: Yes Plan: Secondary to hypotension Also likely secondary to post obstructive uropathy Initial CAT scan abdomen and pelvis showed right hydronephrosis Drainage of the ascites today will be performed We will obtain US in a.m. to reevaluate the right kidney after ascites is drained If hydronephrosis is still persistent patient should be evaluated by urology (4) Autoimmune hepatitis Is this a current diagnosis for this admission?: Yes (5) SBP (spontaneous bacterial peritonitis) Is this a current diagnosis for this admission?: Yes (6) Pneumonia Qualifiers: Pneumonia type: due to unspecified organism Laterality: right Lung location: lower lobe of lung Qualified Code(s): J18.1 - Lobar pneumonia, unspecified organism Is this a current diagnosis for this admission?: Yes Plan: Continue present antibiotic management (7) Hydronephrosis, right Is this a current diagnosis for this admission?: Yes Plan: See above Paracentesis will be performed this afternoon Repeat CT abdomen and pelvis in a.m. If hydronephrosis is still persistent consult urology (8) Anasarca Is this a current diagnosis for this admission?: Yes Plan: Secondary to chronic liver disease Lasix and Aldactone have been initiated as patient's blood pressure is improved and renal function is also improved (9) Anemia Qualifiers: Anemia type: iron deficiency Is this a current diagnosis for this admission?: Yes Plan: Acute on chronic anemia likely anemia of chronic disease and iron deficiency anemia We will transfuse 1 more unit of blood to achieve a hemoglobin of 8 Obtain stools for occult blood (10) Chronic liver disease Is this a current diagnosis for this admission?: Yes Plan: The etiology at this time is unclear Dr. Humphries suggested that Dr. Lazaro be consulted We will place a consultation request Doppler ultrasound of the right upper quadrant will be ordered for tomorrow a.m. to exclude portal or splenic vein thrombosis - Time Time Spent with patient: 25-34 minutes
[2017-04-22] MEDS ORDERED: SPIRONOLACTONE 25 MG TABLET PO ONE (16:00)
[2017-04-22] MEDS ORDERED: LIDOCAINE 1% INJ-PF (10 MG/ML) 30 ML SDV ONE (16:08)
[2017-04-22] MEDS ORDERED: DEXTROSE 40% GEL 15 GM TUBE PO PRN ×2 (16:12)
[2017-04-22] MEDS ORDERED: DEXTROSE 50%-WATER 25 GM/50 ML DISP.SYRIN IV PRN ×2 (16:12)
[2017-04-22] MEDS ORDERED: GLUCAGON,HUMAN RECOMB 1 MG INJ SUBCUT PRN (16:12)
--- NOTE | 2017-04-22 16:15 | Progress Note ---
Provider Note Provider Note: spoke with Dr Chapa Urology will evaluate patient after US kidneys performed if right hydronephrosis is persistent may need a sent will keep NPO after midnight
--- NOTE | 2017-04-22 17:55 | RADIOLOGY REPORT (SQ) ---
EXAM DESCRIPTION: U/S ABD PARACENTESIS COMPLETED DATE/TIME: 04/22/2017 5:21 pm REASON FOR STUDY: loculated ascites COMPARISON 01/14/2017, 07/06/2013 LIMITATIONS: None. PROCEDURE: After obtaining informed consent, the patient was brought to the ultrasound suite. The p rocedure was performed with the patient on a gurney. Ultrasound was used to identify a prominent poc ket of ascites in the left lower quadrant. An appropriate access site was selected. The patient was prepped and draped in usual sterile fashion. The access site was anesthetized with 4.5 mL 1% lidoc riri. A Uymw-M-Kedilftn needle was advanced into the fluid. After aspiration of fluid the needle, t he catheter was advanced off the needle into the fluid. A total of 3,850 mL of yellow cloudy fluid w as removed. The patient tolerated the procedure well left the department in satisfactory condition. Specimen was sent for culture as per Dr. Williamson. IMPRESSION: Successful ultrasound-guided paracentesis COMMENT: Patient medication list reviewed: Yes- Quality ID# [id number]:Eligible professional attests to doc umenting in the medical record they obtained, updated, or reviewed the patient's current medications. Quality ID #76: The patient was prepped and draped using maximum sterile barrier technique including cap, mask, sterile gown, sterile gloves, a large sterile sheet, hand hygiene, and 2% Chlorhexidine fo r cutaneous antisepsis. When ultrasound is used, sterile ultrasound techniques are followed requiring sterile gel and sterile probes. Quality ID #145: Final reports for procedures using fluoroscopy that document radiation exposure radha devika, or exposure time and number of fluorographic images (if radiation exposure indices are not avail able) TECHNICAL DOCUMENTATION: JOB ID: [id number] [employer]- All Rights Reserved Reading location - IP/workstation name: [email or web address]
--- NOTE | 2017-04-22 18:00 | RADIOLOGY REPORT (SQ) ---
EXAM DESCRIPTION: U/S EXTREMITY NONVASCULAR LTD COMPLETED DATE/TIME: 04/22/2017 5:28 pm REASON FOR STUDY: Lt leg ? abscess COMPARISON: None. TECHNIQUE: Static and real time howard scale ultrasound Doppler spectral analysis, and color Doppler a cquired along the left lower leg medial aspect LIMITATIONS: None. FINDINGS: Ultrasound of the left lower leg soft tissues was performed to evaluate soft tissues for a bscess. In the medial aspect of the left calf, a complex fluid collection is present deep to the sub cutaneous fat, measuring 6 x 82.5 by 4 cm in size. This is worrisome for soft tissue abscess or olamide maya. Extent of this fluid collection was marked on the patient's skin IMPRESSION: Complex fluid collection in the subcutaneous fat of the medial left calf worrisome for a bscess. Extent of the fluid collection was marked on the patient's skin. TECHNICAL DOCUMENTATION: JOB ID: [id number] [employer]- All Rights Reserved Reading location - IP/workstation name: [email or web address]
[2017-04-22] MEDS: SPIRONOLACTONE 25 MG TABLET PO SCH (22:07)
[2017-04-22 22:45] LABS: ABSOLUTE EOSINOPHILS # (AUTO) 0.2 10^3/uL (0.0-0.6); ABSOLUTE LYMPHOCYTES (AUTO) 0.3 10^3/uL (0.5-4.7); ABSOLUTE MONOCYTES (AUTO) 0.6 10^3/uL (0.1-1.4); ABSOLUTE NEUT (AUTO) 3.9 10^3/uL (1.7-8.2); BASOPHILS % (AUTO) 0.2 % (0-2); EOSINOPHILS % (AUTO) 3.9 % (0-6); HEMATOCRIT 25.8 % (36.0-47.0); HEMOGLOBIN 8.6 g/dL (12.0-15.5); LYMPHOCYTES % (AUTO) 6.5 % (13-45); MEAN CORPUSCULAR HEMOGLOBIN 31.8 pg (27.0-33.4); MEAN CORPUSCULAR HGB CONC 33.4 g/dL (32.0-36.0); MONOCYTES % (AUTO) 12.7 % (3-13); RED CELL DISTRIBUTION WIDTH 21.4 % (11.5-14.0); SEGMENTED NEUTROPHILS % (AUTO) 76.7 % (42-78); TOTAL CELLS COUNTED % (AUTO) 100 %; WHITE BLOOD COUNT 5.1 10^3/uL (4.0-10.5)
[2017-04-22 23:08] LABS: MEAN CORPUSCULAR VOLUME 95 fl (80-97); PLATELET COUNT 48 10^3/uL (150-450)
[2017-04-23] MEDS: METRONIDAZOLE 500 MG/NS RTU 100 ML IV SCH ×4 (02:00→21:27)
[2017-04-23 03:11] LABS: ANION GAP 6 (5-19); BLOOD UREA NITROGEN 33 mg/dL (7-20); CALCIUM 7.8 mg/dL (8.4-10.2); CARBON DIOXIDE 25 mmol/L (22-30); CHLORIDE 105 mmol/L (98-107); GLUCOSE 106 mg/dL (75-110); PHOSPHORUS 4.3 mg/dL (2.5-4.5); POTASSIUM 3.1 mmol/L (3.6-5.0); SODIUM 136.3 mmol/L (137-145)
[2017-04-23] MEDS: POTASSIUM CHLORIDE 20 MEQ/50 ML RTU IV SCH ×2 (03:41→05:23)
[2017-04-23] MEDS: MAGNESIUM SULFATE 1 GM/D5W 100 ML IV SCH ×2 (03:43→04:45)
[2017-04-23] MEDS: AZTREONAM 1 GM in NORMAL SALINE 100 ML IV SCH ×3 (05:24→22:40)
[2017-04-23] MEDS: FENTANYL CITRATE INJ/PF 100 MCG/2 ML AMPUL IV PRN ×3 (06:23→15:22)
--- NOTE | 2017-04-23 08:26 | RADIOLOGY REPORT (SQ) ---
EXAM DESCRIPTION: U/S ABDOMEN COMPLETE W/DOPPLER COMPLETED DATE/TIME: 04/23/2017 7:49 am REASON FOR STUDY: R/O portal vein thrombosis ; fup Rt Hydronephrosis COMPARISON: Abdominal CT scan dated 04/20/2017 TECHNIQUE: Dynamic and static grayscale images acquired of the abdomen and recorded on PACS. Additio nal selected color Doppler and spectral images recorded. LIMITATIONS: None. FINDINGS: PANCREAS: No masses. Visualized pancreatic duct normal caliber. Pancreatic tail could not be visualized due to overlying bowel gas. LIVER: No masses. Echotexture normal. LIVER VASCULATURE: Normal directional flow of the main portal vein. GALLBLADDER: Gallstones are identified as well as a component of biliary sludge. There is borderline thickening of the gallbladder wall with evidence for pericholecystic fluid. The appearance is consi stent with cholecystitis. Clinical correlation is recommended. ULTRASOUND-DETECTED SEPULVEDA'S SIGN: Negative. INTRAHEPATIC DUCTS AND COMMON DUCT: CBD and intrahepatic ducts normal caliber. No filling defects. INFERIOR VENA CAVA: Normal flow. AORTA: No aneurysm. RIGHT KIDNEY: 13.4 cm in length. Normal echogenicity. No solid or suspicious masses. No hydron ephrosis. No calcifications. LEFT KIDNEY: 10.9 cm in length. Normal echogenicity. No solid or suspicious masses. No hydrone phrosis. No calcifications. SPLEEN: Normal size. No solid masses. PERITONEAL AND PLEURAL SPACES: Small amount of residual ascitic fluid is identified status post recen t paracentesis. OTHER: No other significant finding. IMPRESSION: No evidence for portal vein thrombosis. The previously described hydronephrosis involvi ng the right kidney is not identified on the basis of the ultrasound evaluation. Small amount residu al ascitic fluid is identified status post recent paracentesis. Gallstones are identified as well as a component biliary sludge. Findings suspicious for cholecystitis are identified. Clinical correla tion is recommended. Other findings as noted above. TECHNICAL DOCUMENTATION: JOB ID: [id number] [employer]- All Rights Reserved Reading location - IP/workstation name: [email or web address]
[2017-04-23] MEDS: ALBUMIN HUMAN 50 ML IV SCH (10:17)
[2017-04-23] MEDS: FUROSEMIDE INJ/PF 20 MG/2 ML SDV IV SCH (10:19)
[2017-04-23] MEDS: SPIRONOLACTONE 25 MG TABLET PO SCH ×2 (10:19→21:27)
[2017-04-23 11:05] LABS: ABSOLUTE EOSINOPHILS # (AUTO) 0.2 10^3/uL (0.0-0.6); ABSOLUTE LYMPHOCYTES (AUTO) 0.3 10^3/uL (0.5-4.7); ABSOLUTE MONOCYTES (AUTO) 0.5 10^3/uL (0.1-1.4); ABSOLUTE NEUT (AUTO) 3.5 10^3/uL (1.7-8.2); BASOPHILS % (AUTO) 0.3 % (0-2); EOSINOPHILS % (AUTO) 3.9 % (0-6); HEMATOCRIT 26.4 % (36.0-47.0); HEMOGLOBIN 8.7 g/dL (12.0-15.5); LYMPHOCYTES % (AUTO) 6.4 % (13-45); MEAN CORPUSCULAR HEMOGLOBIN 31.2 pg (27.0-33.4); MEAN CORPUSCULAR HGB CONC 32.8 g/dL (32.0-36.0); MEAN CORPUSCULAR VOLUME 95 fl (80-97); MONOCYTES % (AUTO) 12.1 % (3-13); RED BLOOD COUNT 2.77 10^6/uL (3.72-5.28); RED CELL DISTRIBUTION WIDTH 21.8 % (11.5-14.0); SEGMENTED NEUTROPHILS % (AUTO) 77.3 % (42-78); TOTAL CELLS COUNTED % (AUTO) 100 %; WHITE BLOOD COUNT 4.5 10^3/uL (4.0-10.5)
[2017-04-23 11:19] LABS: BLOOD UREA NITROGEN 31 mg/dL (7-20); CALCIUM 7.7 mg/dL (8.4-10.2); CARBON DIOXIDE 25 mmol/L (22-30); CHLORIDE 106 mmol/L (98-107); GLUCOSE 81 mg/dL (75-110); POTASSIUM 3.5 mmol/L (3.6-5.0)
[2017-04-23 11:20] LABS: ANION GAP 5 (5-19)
[2017-04-23] MEDS: VANCOMYCIN HCL 1,250 MG in DEXTROSE 5%-WATER 250 ML IV SCH ×2 (11:37→22:43)
[2017-04-23 11:53] LABS: PLATELET COUNT 50 10^3/uL (150-450)
[2017-04-23] MEDS ORDERED: PREDNISONE 20 MG TABLET PO ONE (12:30)
[2017-04-23] MEDS ORDERED: NORMAL SALINE 1,000 ML IV PRN (14:30)
--- NOTE | 2017-04-23 14:45 | PDOC PROGRESS REPORT ---
Subjective Progress Note for:: 04/23/17 Subjective:: Patient was evaluated while she was laying in her bed. Her mother at the time was not at her bedside. She was complaining of pain in her joints. She was claiming that it feels like the pain she has from RA. Patient was being held NPO at the time and getting a new abdominal ultrasound to see if the hydronephrosis had alleviated. She urinated out 4.2L yesterday. She also had an ultrasound of the left lower leg that showed concern for an abscess. She currently denies chest pain, sob, nausea, vomiting or diarrhea. Reason For Visit: ACUTE ON CHRONIC RENAL FAILURE Physical Exam Vital Signs: Temp Pulse Resp BP Pulse Ox 97.0 F 110 H 18 102/73 100 04/23/17 12:00 04/23/17 12:00 04/23/17 14:00 04/23/17 13:49 04/23/17 14:00 Intake & Output 04/22/17 04/23/17 04/24/17 06:59 06:59 06:59 Intake Total 4109 4222 50 Output Total 3590 4425 1100 Balance 519 -203 -1050 Weight 92.8 kg 88.3 kg General appearance: PRESENT: mild distress - -from pain, well-developed, well- nourished Mouth exam: PRESENT: moist, neck supple Neck exam: PRESENT: full ROM. ABSENT: JVD Respiratory exam: PRESENT: clear to auscultation jose j. ABSENT: accessory muscle use, crackles, rales, rhonchi, wheezes Cardiovascular exam: PRESENT: RRR, +S1, +S2. ABSENT: gallop, rubs GI/Abdominal exam: PRESENT: normal bowel sounds, soft. ABSENT: ascites, distended, firm, guarding, mass, organomegaly, tenderness Extremities exam: PRESENT: pedal edema - -trace+, tenderness Musculoskeletal exam: PRESENT: tenderness. ABSENT: normal inspection Neurological exam: PRESENT: alert, awake, oriented to person, oriented to place , oriented to time, oriented to situation Skin exam: PRESENT: dry, erythema - -left inside of her calve, intact, warm Results Laboratory Results: 04/23/17 10:30 04/23/17 10:30 04/21/17 04/22/17 04/22/17 08:45 05:24 22:21 WBC 5.1 RBC 2.70 L Hgb 8.6 L Hct 25.8 L MCV 95 D MCH 31.8 MCHC 33.4 RDW 21.4 H Plt Count 48 L Seg Neutrophils % 76.7 Lymphocytes % 6.5 L Monocytes % 12.7 Eosinophils % 3.9 Basophils % 0.2 Absolute Neutrophils 3.9 Absolute Lymphocytes 0.3 L Absolute Monocytes 0.6 Absolute Eosinophils 0.2 Absolute Basophils 0.0 Sodium Potassium Chloride Carbon Dioxide Anion Gap BUN Creatinine Est GFR ( Amer) Est GFR (Non-Af Amer) Glucose Calcium Phosphorus Magnesium Transferrin 88 L Blood Type A NEGATIVE Antibody Screen NEGATIVE 04/23/17 04/23/17 04/23/17 02:44 10:30 10:30 WBC 4.5 RBC 2.77 L Hgb 8.7 L Hct 26.4 L MCV 95 MCH 31.2 MCHC 32.8 RDW 21.8 H Plt Count 50 L Seg Neutrophils % 77.3 Lymphocytes % 6.4 L Monocytes % 12.1 Eosinophils % 3.9 Basophils % 0.3 Absolute Neutrophils 3.5 Absolute Lymphocytes 0.3 L Absolute Monocytes 0.5 Absolute Eosinophils 0.2 Absolute Basophils 0.0 Sodium 136.3 L 136.0 L Potassium 3.1 L 3.5 L Chloride 105 106 Carbon Dioxide 25 25 Anion Gap 6 5 BUN 33 H 31 H Creatinine 0.90 0.86 Est GFR ( Amer) > 60 > 60 Est GFR (Non-Af Amer) > 60 > 60 Glucose 106 81 Calcium 7.8 L 7.7 L Phosphorus 4.3 Magnesium 1.4 L Transferrin Blood Type Antibody Screen 04/23/17 10:30 WBC RBC Hgb Hct MCV MCH MCHC RDW Plt Count Seg Neutrophils % Lymphocytes % Monocytes % Eosinophils % Basophils % Absolute Neutrophils Absolute Lymphocytes Absolute Monocytes Absolute Eosinophils Absolute Basophils Sodium Potassium Chloride Carbon Dioxide Anion Gap BUN Creatinine Est GFR ( Amer) Est GFR (Non-Af Amer) Glucose Calcium Phosphorus Magnesium 1.7 Transferrin Blood Type Antibody Screen Impressions: Abdomen/Pelvis CT 04/20/17 00:00 IMPRESSION: 1. Right lower lobar pneumonia. 2. Large partially loculated/encapsulated ascites; differential diagnosis includes early abscess. 3. Moderate right hydronephrosis/hydroureter could be secondary to extrinsic compression from partially loculated ascites. 4. Cholelithiasis with moderate nonspecific pericholecystic fluid. 5. Mild transverse colitis pattern. Chest X-Ray 04/20/17 17:41 IMPRESSION: Marked improvement in the previous noted abnormal air space density in the lungs with differential including pulmonary edema and pneumonia. Mild residual persists. Extremity Ultrasound 04/22/17 15:25 IMPRESSION: Complex fluid collection in the subcutaneous fat of the medial left calf worrisome for abscess. Extent of the fluid collection was marked on the patient's skin. Paracentesis Ultrasound 04/22/17 15:34 IMPRESSION: Successful ultrasound-guided paracentesis Abdomen Ultrasound 04/23/17 00:00 IMPRESSION: No evidence for portal vein thrombosis. The previously described hydronephrosis involving the right kidney is not identified on the basis of the ultrasound evaluation. Small amount residual ascitic fluid is identified status post recent paracentesis. Gallstones are identified as well as a component biliary sludge. Findings suspicious for cholecystitis are identified. Clinical correlation is recommended. Other findings as noted above. Assessment & Plan - Diagnosis (1) Acute renal failure superimposed on stage 3 chronic kidney disease Qualifiers: Acute renal failure type: unspecified Qualified Code(s): N17.9 - Acute kidney failure, unspecified; N18.3 - Chronic kidney disease, stage 3 (moderate) ; N18.3 - Chronic kidney disease, stage 3 (moderate) Is this a current diagnosis for this admission?: Yes Plan: looks to have resolved, will continue with NS at 75mL hour and will reduce lasix to 20mg IV qd (2) Hydronephrosis, right Is this a current diagnosis for this admission?: Yes Plan: looks to have resolved according to recent ultrasound (3) Cellulitis of left lower leg Is this a current diagnosis for this admission?: Yes Plan: Currently on vanc, cipro and metronidazole, ultrasound shows concern for possible abscess. May need to have I&D to prevent remission of infection. (4) Septic shock Is this a current diagnosis for this admission?: Yes Plan: Currently on vanc, cipro and metronidazole. Growth only in one bottle (5) Hypotension Qualifiers: Plan: currently on levophed and stable. (6) Hypokalemia Plan: redraw on bmp showed a potassium of 3.5, ordered 20mEQ k-rider, will re- evaluate tomorrow. (7) Hyponatremia Is this a current diagnosis for this admission?: Yes Plan: resolving (8) Ascites Qualifiers: Ascites type: other type Qualified Code(s): R18.8 - Other ascites Is this a current diagnosis for this admission?: Yes Plan: recent paracentesis (9) Anasarca Plan: looks to be resolving (10) Anemia Qualifiers: Anemia type: unspecified type Qualified Code(s): D64.9 - Anemia, unspecified Plan: slowly improving after receiving IV iron.
[2017-04-23] MEDS ORDERED: POTASSI CL 20 MEQ/50 ML RIDER 20 MEQ/50 ML RTUPB IV ONE (15:00)
[2017-04-23] MEDS: PREDNISONE 20 MG TABLET PO SCH (17:23)
[2017-04-23] MEDS ORDERED: GABAPENTIN 300 MG CAPSULE PO ONE (18:45)
--- NOTE | 2017-04-23 20:21 | PDOC PROGRESS REPORT ---
Subjective Progress Note for:: 04/23/17 Subjective:: Feeling a little better today, but c/ pain in joints. Was on prednisone 30 mg daily as outpatient for RA. S/p paracentesis yesterday. No f/c, no n/v, no bleeding rectum or otherwise. Reason For Visit: ACUTE ON CHRONIC RENAL FAILURE Physical Exam Vital Signs: Temp Pulse Resp BP Pulse Ox 97.0 F 115 H 19 96/54 L 99 04/23/17 12:00 04/23/17 14:35 04/23/17 18:00 04/23/17 17:49 04/23/17 18:00 Intake & Output 04/22/17 04/23/17 04/24/17 06:59 06:59 06:59 Intake Total 4104 4222 1120 Output Total 4839 2326 4104 Balance 249 -759 -9061 Weight 92.8 kg 88.3 kg GEN: NAD, well-developed, chronically ill-appearing CV: RRR, NL S1S2 LUNGS: CTA bilaterally ABDOMEN Soft, NT, +BS EXTERMITIES: My swelling bilateral knee, no warmth or erythema, cellulitis left lower extremity which is apparently improving NEURO: Alert, oriented 3, no acute weakness Results Laboratory Results: 04/23/17 10:30 04/23/17 10:30 04/22/17 04/22/17 04/23/17 05:24 22:21 02:44 WBC 5.1 RBC 2.70 L Hgb 8.6 L Hct 25.8 L MCV 95 D MCH 31.8 MCHC 33.4 RDW 21.4 H Plt Count 48 L Seg Neutrophils % 76.7 Lymphocytes % 6.5 L Monocytes % 12.7 Eosinophils % 3.9 Basophils % 0.2 Absolute Neutrophils 3.9 Absolute Lymphocytes 0.3 L Absolute Monocytes 0.6 Absolute Eosinophils 0.2 Absolute Basophils 0.0 Sodium 136.3 L Potassium 3.1 L Chloride 105 Carbon Dioxide 25 Anion Gap 6 BUN 33 H Creatinine 0.90 Est GFR ( Amer) > 60 Est GFR (Non-Af Amer) > 60 Glucose 106 Calcium 7.8 L Phosphorus 4.3 Magnesium 1.4 L Transferrin 88 L 04/23/17 04/23/17 04/23/17 10:30 10:30 10:30 WBC 4.5 RBC 2.77 L Hgb 8.7 L Hct 26.4 L MCV 95 MCH 31.2 MCHC 32.8 RDW 21.8 H Plt Count 50 L Seg Neutrophils % 77.3 Lymphocytes % 6.4 L Monocytes % 12.1 Eosinophils % 3.9 Basophils % 0.3 Absolute Neutrophils 3.5 Absolute Lymphocytes 0.3 L Absolute Monocytes 0.5 Absolute Eosinophils 0.2 Absolute Basophils 0.0 Sodium 136.0 L Potassium 3.5 L Chloride 106 Carbon Dioxide 25 Anion Gap 5 BUN 31 H Creatinine 0.86 Est GFR ( Amer) > 60 Est GFR (Non-Af Amer) > 60 Glucose 81 Calcium 7.7 L Phosphorus Magnesium 1.7 Transferrin Impressions: Abdomen/Pelvis CT 04/20/17 00:00 IMPRESSION: 1. Right lower lobar pneumonia. 2. Large partially loculated/encapsulated ascites; differential diagnosis includes early abscess. 3. Moderate right hydronephrosis/hydroureter could be secondary to extrinsic compression from partially loculated ascites. 4. Cholelithiasis with moderate nonspecific pericholecystic fluid. 5. Mild transverse colitis pattern. Chest X-Ray 04/20/17 17:41 IMPRESSION: Marked improvement in the previous noted abnormal air space density in the lungs with differential including pulmonary edema and pneumonia. Mild residual persists. Extremity Ultrasound 04/22/17 15:25 IMPRESSION: Complex fluid collection in the subcutaneous fat of the medial left calf worrisome for abscess. Extent of the fluid collection was marked on the patient's skin. Paracentesis Ultrasound 04/22/17 15:34 IMPRESSION: Successful ultrasound-guided paracentesis Abdomen Ultrasound 04/23/17 00:00 IMPRESSION: No evidence for portal vein thrombosis. The previously described hydronephrosis involving the right kidney is not identified on the basis of the ultrasound evaluation. Small amount residual ascitic fluid is identified status post recent paracentesis. Gallstones are identified as well as a component biliary sludge. Findings suspicious for cholecystitis are identified. Clinical correlation is recommended. Other findings as noted above. Assessment & Plan - Plan Summary Plan Summary: (1) Cellulitis Qualifiers: Site of cellulitis of extremity: lower extremity Laterality: left Is this a current diagnosis for this admission?: Yes Plan: Cellulitis appears to be improving We will continue the present antibiotic management ; noted that patient is allergic to penicillin and cephalosporins Currently being treated with Azactam, Flagyl and vancomycin Ultrasound of the left lower extremity questionable abscess; consider surgical consult. (2) Septic shock Is this a current diagnosis for this admission?: Yes Plan: Likely secondary to pneumonia, spontaneous bacterial peritonitis and cellulitis continue present management Patient is clinically improved, good mentation She is on very small doses of Levophed No longer on IV fluids due to fluid overloaded (3) Acute renal failure superimposed on stage 3 chronic kidney disease Qualifiers: Acute renal failure type: unspecified Qualified Code(s): N17.9 - Acute kidney failure, unspecified; N18.3 - Chronic kidney disease, stage 3 (moderate) ; N18.3 - Chronic kidney disease, stage 3 (moderate) Is this a current diagnosis for this admission?: Yes Plan: Secondary to hypotension Also likely secondary to post obstructive uropathy Initial CAT scan abdomen and pelvis showed right hydronephrosis Drainage of the ascites performed 04/22/17 US reevaluate the right kidney after ascites drained revealed no hydronephrosis or portal vein thrombosis [place] [employer] follow-up appreciated (4) Autoimmune hepatitis Is this a current diagnosis for this admission?: Yes (5) SBP (spontaneous bacterial peritonitis) Is this a current diagnosis for this admission?: Yes Continue antibiotics (6) Pneumonia Qualifiers: Pneumonia type: due to unspecified organism Laterality: right Lung location: lower lobe of lung Qualified Code(s): J18.1 - Lobar pneumonia, unspecified organism Is this a current diagnosis for this admission?: Yes Plan: Continue present antibiotic management (7) Hydronephrosis, right Is this a current diagnosis for this admission?: Yes Plan: See above #3 (8) Anasarca Is this a current diagnosis for this admission?: Yes Plan: Secondary to chronic liver disease Lasix and Aldactone have already been initiated as patient's blood pressure is improved and renal function is also improved (9) Anemia Qualifiers: Anemia type: iron deficiency Is this a current diagnosis for this admission?: Yes Plan: Acute on chronic anemia likely anemia of chronic disease and iron deficiency anemia S/p transfuse 1 more unit of blood 04/22/17 with improvement in hemoglobin of 8.6 today Stools for occult blood (10) Chronic liver disease Is this a current diagnosis for this admission?: Yes Plan: The etiology at this time is unclear Dr. Humphries suggested that Dr. Lazaro be consulted Doppler ultrasound of the right upper quadrant to exclude portal or splenic vein thrombosis done today negative
[2017-04-24] MEDS: METRONIDAZOLE 500 MG/NS RTU 100 ML IV SCH ×4 (02:41→22:27)
[2017-04-24] MEDS: AZTREONAM 1 GM in NORMAL SALINE 100 ML IV SCH (05:38)
[2017-04-24] MEDS: GABAPENTIN 300 MG CAPSULE PO SCH ×3 (05:38→22:29)
[2017-04-24 05:39] LABS: ABSOLUTE LYMPHOCYTES (AUTO) 0.2 10^3/uL (0.5-4.7); ABSOLUTE MONOCYTES (AUTO) 0.2 10^3/uL (0.1-1.4); ABSOLUTE NEUT (AUTO) 2.4 10^3/uL (1.7-8.2); BASOPHILS % (AUTO) 0.1 % (0-2); HEMATOCRIT 25.6 % (36.0-47.0); HEMOGLOBIN 8.4 g/dL (12.0-15.5); LYMPHOCYTES % (AUTO) 6.4 % (13-45); MEAN CORPUSCULAR HEMOGLOBIN 31.4 pg (27.0-33.4); MEAN CORPUSCULAR HGB CONC 32.8 g/dL (32.0-36.0); MEAN CORPUSCULAR VOLUME 96 fl (80-97); MONOCYTES % (AUTO) 8.4 % (3-13); RED BLOOD COUNT 2.68 10^6/uL (3.72-5.28); RED CELL DISTRIBUTION WIDTH 21.6 % (11.5-14.0); SEGMENTED NEUTROPHILS % (AUTO) 85.1 % (42-78); TOTAL CELLS COUNTED % (AUTO) 100 %
[2017-04-24 06:00] LABS: ALANINE AMINOTRANSFERASE 30 U/L (9-52); ALBUMIN 1.8 g/dL (3.5-5.0); ALKALINE PHOSPHATASE 296 U/L (38-126); ANION GAP 6 (5-19); ASPARTATE AMINO TRANSFERASE 21 U/L (14-36); BILIRUBIN,DIRECT 1.1 mg/dL (0.0-0.4); BILIRUBIN,TOTAL 1.3 mg/dL (0.2-1.3); BLOOD UREA NITROGEN 31 mg/dL (7-20); CALCIUM 7.9 mg/dL (8.4-10.2); CARBON DIOXIDE 24 mmol/L (22-30); CHLORIDE 106 mmol/L (98-107); GLUCOSE 221 mg/dL (75-110); POTASSIUM 3.9 mmol/L (3.6-5.0); SODIUM 135.8 mmol/L (137-145); TOTAL PROTEIN 3.9 g/dL (6.3-8.2)
[2017-04-24 06:29] LABS: PLATELET COUNT 64 10^3/uL (150-450); TEAR DROP CELLS SLIGHT; TOXIC GRANULATION 1+; WHITE BLOOD COUNT 2.8 10^3/uL (4.0-10.5)
[2017-04-24 06:31] LABS: ANISOCYTOSIS 2+; OVALOCYTES SLIGHT; PLATELET COMMENT DECREASED; PLATELET LARGE PRESENT; POIKILOCYTOSIS 1+; POLYCHROMASIA SLIGHT; SCHISTOCYTES SLIGHT
[2017-04-24] MEDS: VANCOMYCIN HCL 1,250 MG in DEXTROSE 5%-WATER 250 ML IV SCH ×2 (09:07→23:15)
[2017-04-24] MEDS: SPIRONOLACTONE 25 MG TABLET PO SCH ×2 (09:08→22:29)
[2017-04-24] MEDS: PREDNISONE 20 MG TABLET PO SCH ×2 (09:08→22:48)
--- NOTE | 2017-04-24 09:23 | PDOC PROGRESS REPORT ---
Subjective Progress Note for:: 04/24/17 Subjective:: Doing better today. Pain generally better in the joints with restarting steroids and gabapentin. Denies fever or chills, no chest pain or shortness of breath or palpitations. Left lower extremity also controlled. No abdominal pain, no nausea or vomiting, no rectal bleeding or hematemesis. Of note is that ultrasound of the left calf 04/22/17 revealed 6 x 82.5 x4 cm complex fluid collection concerning for abscess versus hematoma. I have spoken with Dr. Coto of surgery and he would see patient. Recommended make patient NPO for now. Reason For Visit: ACUTE ON CHRONIC RENAL FAILURE Physical Exam Vital Signs: Temp Pulse Resp BP Pulse Ox 97.8 F 99 19 96/78 L 100 04/24/17 08:00 04/24/17 08:00 04/24/17 08:19 04/24/17 08:19 04/24/17 08:19 Intake & Output 04/23/17 04/24/17 04/25/17 06:59 06:59 06:59 Intake Total 4222 1450 Output Total 4425 3252 120 Balance -203 -1802 -120 Weight 88.3 kg 87.9 kg GEN: NAD, well-developed, chronically ill-appearing CV: RRR, NL S1S2 LUNGS: CTA bilaterally ABDOMEN Soft, NT, +BS EXTERMITIES: Mild swelling bilateral knee, no warmth or erythema, cellulitis left lower extremity improving, tenderness left calf present NEURO: Alert, oriented 3, no acute weakness Results Laboratory Results: 04/24/17 05:15 04/24/17 05:15 04/23/17 04/23/17 04/23/17 10:30 10:30 10:30 WBC 4.5 RBC 2.77 L Hgb 8.7 L Hct 26.4 L MCV 95 MCH 31.2 MCHC 32.8 RDW 21.8 H Plt Count 50 L Seg Neutrophils % 77.3 Lymphocytes % 6.4 L Monocytes % 12.1 Eosinophils % 3.9 Basophils % 0.3 Absolute Neutrophils 3.5 Absolute Lymphocytes 0.3 L Absolute Monocytes 0.5 Absolute Eosinophils 0.2 Absolute Basophils 0.0 Sodium 136.0 L Potassium 3.5 L Chloride 106 Carbon Dioxide 25 Anion Gap 5 BUN 31 H Creatinine 0.86 Est GFR ( Amer) > 60 Est GFR (Non-Af Amer) > 60 Glucose 81 Calcium 7.7 L Magnesium 1.7 Total Bilirubin AST ALT Alkaline Phosphatase Total Protein Albumin 04/24/17 04/24/17 05:15 05:15 WBC 2.8 L D RBC 2.68 L Hgb 8.4 L Hct 25.6 L MCV 96 MCH 31.4 MCHC 32.8 RDW 21.6 H Plt Count 64 L Seg Neutrophils % 85.1 H Lymphocytes % 6.4 L Monocytes % 8.4 Eosinophils % 0.0 Basophils % 0.1 Absolute Neutrophils 2.4 Absolute Lymphocytes 0.2 L Absolute Monocytes 0.2 Absolute Eosinophils 0.0 Absolute Basophils 0.0 Sodium 135.8 L Potassium 3.9 Chloride 106 Carbon Dioxide 24 Anion Gap 6 BUN 31 H Creatinine 0.82 Est GFR ( Amer) > 60 Est GFR (Non-Af Amer) > 60 Glucose 221 H Calcium 7.9 L Magnesium 1.6 Total Bilirubin 1.3 AST 21 ALT 30 Alkaline Phosphatase 296 H Total Protein 3.9 L Albumin 1.8 L Impressions: Abdomen/Pelvis CT 04/20/17 00:00 IMPRESSION: 1. Right lower lobar pneumonia. 2. Large partially loculated/encapsulated ascites; differential diagnosis includes early abscess. 3. Moderate right hydronephrosis/hydroureter could be secondary to extrinsic compression from partially loculated ascites. 4. Cholelithiasis with moderate nonspecific pericholecystic fluid. 5. Mild transverse colitis pattern. Chest X-Ray 04/20/17 17:41 IMPRESSION: Marked improvement in the previous noted abnormal air space density in the lungs with differential including pulmonary edema and pneumonia. Mild residual persists. Extremity Ultrasound 04/22/17 15:25 IMPRESSION: Complex fluid collection in the subcutaneous fat of the medial left calf worrisome for abscess. Extent of the fluid collection was marked on the patient's skin. Paracentesis Ultrasound 04/22/17 15:34 IMPRESSION: Successful ultrasound-guided paracentesis Abdomen Ultrasound 04/23/17 00:00 IMPRESSION: No evidence for portal vein thrombosis. The previously described hydronephrosis involving the right kidney is not identified on the basis of the ultrasound evaluation. Small amount residual ascitic fluid is identified status post recent paracentesis. Gallstones are identified as well as a component biliary sludge. Findings suspicious for cholecystitis are identified. Clinical correlation is recommended. Other findings as noted above. Assessment & Plan - Plan Summary Plan Summary: (1) Cellulitis Qualifiers: Site of cellulitis of extremity: lower extremity Laterality: left Is this a current diagnosis for this admission?: Yes Plan: Cellulitis appears to be improving We will continue the present antibiotic management ; noted that patient is allergic to penicillin and cephalosporins Currently being treated with Azactam, Flagyl and vancomycin -Ultrasound of the left calf 04/22/17 revealed 6 x 82.5 x4 cm complex fluid collection concerning for abscess versus hematoma. I have consulted Dr. Coto of surgery and he would see patient. Recommended I make patient NPO for now. (2) Septic shock Is this a current diagnosis for this admission?: Yes Plan: Likely secondary to pneumonia, spontaneous bacterial peritonitis and cellulitis- -continue present management Patient is clinically improved, good mentation She is is now off Levophed No longer on IV fluids due to fluid overloaded (3) Acute renal failure superimposed on stage 3 chronic kidney disease Qualifiers: Acute renal failure type: unspecified Qualified Code(s): N17.9 - Acute kidney failure, unspecified; N18.3 - Chronic kidney disease, stage 3 (moderate) ; N18.3 - Chronic kidney disease, stage 3 (moderate) Is this a current diagnosis for this admission?: Yes Plan: Secondary to hypotension Also likely secondary to post obstructive uropathy Initial CAT scan abdomen and pelvis showed right hydronephrosis S/p drainage of the ascites performed 04/22/17 US reevaluate the right kidney after ascites drained revealed no hydronephrosis or portal vein thrombosis Jig Worker follow-up appreciated (4) Autoimmune hepatitis Is this a current diagnosis for this admission?: Yes (5) SBP (spontaneous bacterial peritonitis) Is this a current diagnosis for this admission?: Yes Continue antibiotics (6) Pneumonia Qualifiers: Pneumonia type: due to unspecified organism Laterality: right Lung location: lower lobe of lung Qualified Code(s): J18.1 - Lobar pneumonia, unspecified organism Is this a current diagnosis for this admission?: Yes Plan: Continue present antibiotic management (7) Hydronephrosis, right Is this a current diagnosis for this admission?: Yes Plan: See above #3 (8) Anasarca Is this a current diagnosis for this admission?: Yes Plan: Secondary to chronic liver disease Now back on Lasix and Aldactone as patient's blood pressure and renal function improved (9) Anemia Qualifiers: Anemia type: iron deficiency Is this a current diagnosis for this admission?: Yes Plan: Acute on chronic anemia likely anemia of chronic disease and iron deficiency anemia S/p transfuse 1 more unit of blood 04/22/17 with improvement in hemoglobin Stools for occult blood (10) Chronic liver disease Is this a current diagnosis for this admission?: Yes Plan: The etiology at this time is unclear --although patient with history of autoimmune hepatitis, among other conditions Patient will need GI follow-up Doppler ultrasound of the right upper quadrant to exclude portal or splenic vein thrombosis done today negative Critical care time spent 40 minutes. Possible transfer out of ICU today depending on surgeon's plan.
[2017-04-24] MEDS: FUROSEMIDE INJ/PF 20 MG/2 ML SDV IV SCH (10:26)
--- NOTE | 2017-04-24 12:40 | PDOC PROGRESS REPORT ---
Subjective Progress Note for:: 04/24/17 Reason For Visit: Seen in the ICU today. She is overall feeling lots better. She had a large volume paracentesis of her encapsulated ascites yesterday of approx 4 L. No abdominal pains, fever or chills. She is also scheduled to have a I&D of her left leg abscess later today. Labs and medsa were reviewed with her.Her status was discussed with her treating RN at the bedside. Physical Exam Vital Signs: Temp Pulse Resp BP Pulse Ox 97.8 F 99 16 110/80 100 04/24/17 08:00 04/24/17 08:00 04/24/17 10:19 04/24/17 10:19 04/24/17 10:19 Intake & Output 04/23/17 04/24/17 04/25/17 06:59 06:59 06:59 Intake Total 4222 1450 200 Output Total 4425 3252 245 Balance -203 -1802 -45 Weight 88.3 kg 87.9 kg General appearance: PRESENT: no acute distress Respiratory exam: PRESENT: clear to auscultation jose j. ABSENT: crackles, rhonchi Cardiovascular exam: PRESENT: RRR, +S1, +S2. ABSENT: gallop, rubs GI/Abdominal exam: PRESENT: normal bowel sounds, soft. ABSENT: ascites, distended, firm, guarding, mass, organomegaly, tenderness Extremities exam: PRESENT: +2 edema - lateral fluctuant swelling on left leg.Tender. Neurological exam: PRESENT: alert, awake, oriented to person, oriented to place Psychiatric exam: PRESENT: appropriate affect Results Laboratory Results: 04/24/17 05:15 04/24/17 05:15 04/24/17 04/24/17 05:15 05:15 WBC 2.8 L D RBC 2.68 L Hgb 8.4 L Hct 25.6 L MCV 96 MCH 31.4 MCHC 32.8 RDW 21.6 H Plt Count 64 L Seg Neutrophils % 85.1 H Lymphocytes % 6.4 L Monocytes % 8.4 Eosinophils % 0.0 Basophils % 0.1 Absolute Neutrophils 2.4 Absolute Lymphocytes 0.2 L Absolute Monocytes 0.2 Absolute Eosinophils 0.0 Absolute Basophils 0.0 Sodium 135.8 L Potassium 3.9 Chloride 106 Carbon Dioxide 24 Anion Gap 6 BUN 31 H Creatinine 0.82 Est GFR ( Amer) > 60 Est GFR (Non-Af Amer) > 60 Glucose 221 H Calcium 7.9 L Magnesium 1.6 Total Bilirubin 1.3 AST 21 ALT 30 Alkaline Phosphatase 296 H Total Protein 3.9 L Albumin 1.8 L Impressions: Abdomen/Pelvis CT 04/20/17 00:00 IMPRESSION: 1. Right lower lobar pneumonia. 2. Large partially loculated/encapsulated ascites; differential diagnosis includes early abscess. 3. Moderate right hydronephrosis/hydroureter could be secondary to extrinsic compression from partially loculated ascites. 4. Cholelithiasis with moderate nonspecific pericholecystic fluid. 5. Mild transverse colitis pattern. Chest X-Ray 04/20/17 17:41 IMPRESSION: Marked improvement in the previous noted abnormal air space density in the lungs with differential including pulmonary edema and pneumonia. Mild residual persists. Extremity Ultrasound 04/22/17 15:25 IMPRESSION: Complex fluid collection in the subcutaneous fat of the medial left calf worrisome for abscess. Extent of the fluid collection was marked on the patient's skin. Paracentesis Ultrasound 04/22/17 15:34 IMPRESSION: Successful ultrasound-guided paracentesis Abdomen Ultrasound 04/23/17 00:00 IMPRESSION: No evidence for portal vein thrombosis. The previously described hydronephrosis involving the right kidney is not identified on the basis of the ultrasound evaluation. Small amount residual ascitic fluid is identified status post recent paracentesis. Gallstones are identified as well as a component biliary sludge. Findings suspicious for cholecystitis are identified. Clinical correlation is recommended. Other findings as noted above. Assessment & Plan - Diagnosis (1) Acute renal failure superimposed on stage 3 chronic kidney disease Qualifiers: Acute renal failure type: unspecified Qualified Code(s): N17.9 - Acute kidney failure, unspecified; N18.3 - Chronic kidney disease, stage 3 (moderate) ; N18.3 - Chronic kidney disease, stage 3 (moderate) Is this a current diagnosis for this admission?: Yes Plan: Resolved. Likely from combination of ATN /Septic shock and Obstructive uropathy. She has had a large volume therapeutic paracentesis followed by US of the kidneys which does not show hydronephrosis. Her renal nos are now good. I am going to sign off and call prn. (2) Ascites Qualifiers: Ascites type: other type Qualified Code(s): R18.8 - Other ascites Is this a current diagnosis for this admission?: Yes Plan: Unknown etiology.Apparently was an encapsulted collection and was drained to completion yesterday of approx 4 L. Follow up US showed no hydro. (3) Cellulitis of left lower leg Is this a current diagnosis for this admission?: Yes Plan: Now also showing ? abscess of left lateral leg and scheduled for a I & D later today. Overall the cellulitis is much improved. On antibiotics and improving. (4) Hypotension Qualifiers: Plan: from septic shock.Imroving. (5) Septic shock Is this a current diagnosis for this admission?: Yes Plan: Multi factorial. Cellulitis with abscess of leg and SBP. Currently on abx and weaning off pressors. (6) Anasarca Plan: From low albumin. (7) Anemia Qualifiers: Anemia type: unspecified type Qualified Code(s): D64.9 - Anemia, unspecified Plan: Has Iron deficiency indices. Also now has developed low WBC in conjunction with her anemia and low Platlets- Pancytopenia. Recommed IV Iron for the iron deficiency. (8) Bacteremia Plan: Monitor.On antibiotics. (9) Juvenile rheumatoid arthritis Plan: Crippling.Being followed by Rheum.Been on biologicals before. (10) Thrombocytopenia Plan: Unexplained. (11) SBP (spontaneous bacterial peritonitis) Is this a current diagnosis for this admission?: Yes Plan: Recurrent. Apparently had this encapsulated ascites which has now been drained to almost completion. Now on antibiotics. (12) Hydronephrosis Plan: Right.? from compression from the large encapsulated Ascites. S/P therapeutic drainage to completion of the loculated ascites followed bu a US which did show any hydronephrosis. (13) Abnormal LFTs (liver function tests) Plan: Gives a h/o suggestive of chronic cholecystitis. US shows features suggestive of the same. Recommend a surgical consult and maybe OP Lap shelly when better post discharge.
[2017-04-24] MEDS: AZTREONAM 1 GM in DEXTROSE 5%-WATER 100 ML IV SCH (14:34)
[2017-04-24] MEDS ORDERED: FENTANYL CITRATE INJ/PF 100 MCG/2 ML AMPUL ONE (17:38)
[2017-04-24] MEDS ORDERED: KETAMINE HCL INJ 500 MG/10 ML VIAL ONE (17:38)
[2017-04-24] MEDS ORDERED: PROPOFOL INJ 200 MG/20 ML VIAL IV ONE (17:39)
[2017-04-24] MEDS ORDERED: MIDAZOLAM 2 MG/2 ML INJ ONE (17:39)
[2017-04-24] MEDS ORDERED: LIDOCAINE 0.5% INJ-PF (5 MG/ML) 50 ML SDV ONE (17:42)
[2017-04-24] MEDS ORDERED: METHYLPREDNISOLONE INJ 125 MG/2 ML SDV ONE (18:03)
[2017-04-24] MEDS ORDERED: FENTANYL CITRATE INJ/PF 100 MCG/2 ML AMPUL IV PRN ×2 (18:45)
[2017-04-24] MEDS ORDERED: DIPHENHYDRAMINE HCL 50 MG/ML VIAL IV PRN (18:45)
[2017-04-24] MEDS: FENTANYL CITRATE INJ/PF 100 MCG/2 ML AMPUL ONE ×2 (19:20→19:25)
[2017-04-24] MEDS ORDERED: ONDANSETRON HCL INJ/PF 4 MG/2 ML SDV IV PRN (20:01)
--- NOTE | 2017-04-24 20:33 | OPERATIVE REPORT E ---
Operative Report NAME: GUS PELLETIER : 1980 AGE: 36Y DATE OF SURGERY: 04/24/2017 ROOM: 606 PREOPERATIVE DIAGNOSIS: ABSCESS OF THE LEFT LOWER LEG. POSTOPERATIVE DIAGNOSIS: ABSCESS OF THE LEFT LOWER LEG. PROCEDURE: Incision and drainage of abscess, left lower leg. SURGEON: BLAKE GILBERT M.D. ANESTHESIA: Local/MAC INDICATION: This is a 36-year-old female with severe rheumatoid arthritis and was in the intensive care unit for hemodynamic problems. She was then noted to have swelling along the left lower leg, and subsequent ultrasound revealed an abscess/hematoma cavity on the left lower leg about 8 cm long. DESCRIPTION OF PROCEDURE: After adequate IV sedation, the patient was placed in the supine position, and the left lower leg prepped and draped in the usual sterile fashion. Local anesthesia infiltrated over the prominent area on the medial aspect of the left lower leg. Appropriate timeout was then obtained. Timeout done before placement of the lidocaine. After lidocaine placement, about a 7 inch incision long was made and carried down through the skin and subcutaneous area. There was subsequently a lot of white purulent material when the area was probed. Cultures were obtained. Further finger exploration around the area was done, and more formed exudates were removed, and some of it was sent for culture. The cavity roughly measured about 12 cm long by about 7 cm wide by about 4 cm deep. It was just above the fascia. The cavity was then pulse lavaged with at least 2 L of saline. Hemostasis obtained with cautery. The cavity was then packed with quarter-inch iodoform gauze and tied to another half-inch plain iodoform gauze. A pack of 4x4's with ABD placed on top, and then a wrap over by Kerlix, and an Mele bandage placed on the Kerlix. The patient tolerated the procedure well and was brought to the recovery room in satisfactory condition. Needle, instrument, and sponge count were all correct. Estimated blood loss about 20 mL. DICTATING PHYSICIAN: BLAKE GILBERT M.D. [id number] PHY#: [id number] ID: [id number] JOB#: [id number] ACCT: [id number] cc:BLAKE GILBERT M.D. > [facility]
[2017-04-24] MEDS: HYDROMORPHONE HCL INJ/PF 2 MG/ML AMPULE IV PRN (21:15)
--- NOTE | 2017-04-25 00:13 | PDOC CONSULTATION ---
History of Present Illness Admission Date/PCP: 04/20/17 19:30 RUSSELL DORAN MD Patient complains of: Pains along left lower leg History of Present Illness: Patient apparently has been having edema/swelling left lower leg for about a month.Noted more prominent and reddish and therefore obtained an ultrasound which showed abscess/hematoma left lower leg. Past Medical History Cardiac Medical History: Denies: Coronary Artery Disease Pulmonary Medical History: Reports: Pneumonia - intubated Denies: Tuberculosis Neurological Medical History: Denies: Seizures Renal/ Medical History: Reports: Chronic Kidney Disease GI Medical History: Reports: Cirrhosis, Hepatitis - Autoimmune ? Musculoskeltal Medical History: Reports: Arthritis - Juvenile rheumatoid arthritis Psychiatric Medical History: Denies: Depression Past Surgical History Past Surgical History: Reports: Section - 2, Orthopedic Surgery - joint replacements (bilateral shoulders, and knees), Tonsillectomy Denies: Hysterectomy Social History Smoking Status: Unknown if Ever Smoked Cigarettes Packs Per Day: 0 Frequency of Alcohol Use: None Hx Recreational Drug Use: No Drugs: None Hx Prescription Drug Abuse: No - Advance Directive Resuscitation Status: Full Code Family History Family History: Hypertension Parental Family History Reviewed: No Children Family History Reviewed: No Sibling(s) Family History Reviewed.: No Medication/Allergy Home Medications: Folic Acid [Folvite 1 mg Tablet] 1 mg PO DAILY 04/20/17 Hydrocodone/Acetaminophen [Hydrocodone-Acetamin 5-325 mg] 1 tab PO Q6HP PRN Lisinopril [Prinivil 10 mg Tablet] 10 mg PO DAILY 04/20/17 Paroxetine HCl [Paxil 20 mg Tablet] 20 mg PO DAILY 04/20/17 Spironolactone [Aldactone 100 mg Tablet] 100 mg PO DAILY 04/20/17 Allergies/Adverse Reactions: amoxicillin trihydrate [From Augmentin] Allergy (Verified 04/20/17 15:05) ITCHING cephalexin monohydrate [From Keflex] Allergy (Verified 04/20/17 15:05) ibuprofen [From Motrin] Allergy (Verified 04/20/17 15:05) Potassium Clavulanate * [From Augmentin] Allergy (Verified 04/20/17 15:05) Review of Systems Constitutional: PRESENT: weakness Eyes: PRESENT: other - no visual/hearing changes Cardiovascular: PRESENT: other - lona chest pains Respiratory: PRESENT: other - no dyspnea Musculoskeletal: PRESENT: muscle weakness, other - joint pains Integumentary: PRESENT: other - left lower leg with swelling/erythema and tenderness just above ankle Neurological: PRESENT: weakness Physical Exam Vital Signs: Temp Pulse Resp BP Pulse Ox 97.7 F 90 16 109/76 98 04/24/17 19:55 04/24/17 19:55 04/24/17 19:55 04/24/17 19:55 04/24/17 19:55 Intake & Output 04/23/17 04/24/17 04/25/17 06:59 06:59 06:59 Intake Total 4222 1450 3120 Output Total 4424 4202 2655 Balance -203 -1802 465 Weight 88.3 kg 87.9 kg General appearance: PRESENT: no acute distress Head exam: PRESENT: atraumatic Eye exam: PRESENT: conjunctiva pink Mouth exam: PRESENT: moist Neck exam: PRESENT: full ROM Respiratory exam: PRESENT: clear to auscultation jose j Cardiovascular exam: PRESENT: RRR Pulses: PRESENT: normal radial pulses Vascular exam: PRESENT: normal capillary refill GI/Abdominal exam: PRESENT: soft Rectal exam: PRESENT: deferred Extremities exam: PRESENT: +1 edema, other - Has a prominent swelling,tender and erythematous lower leg just above ankle Musculoskeletal exam: PRESENT: full ROM Neurological exam: PRESENT: alert, oriented to person, oriented to place, oriented to time, oriented to situation Psychiatric exam: PRESENT: appropriate affect Skin exam: PRESENT: normal color, warm, other - erythematous swelling left lower leg Results Laboratory Results: 04/24/17 05:15 04/24/17 05:15 04/24/17 04/24/17 05:15 05:15 WBC 2.8 L D RBC 2.68 L Hgb 8.4 L Hct 25.6 L MCV 96 MCH 31.4 MCHC 32.8 RDW 21.6 H Plt Count 64 L Seg Neutrophils % 85.1 H Lymphocytes % 6.4 L Monocytes % 8.4 Eosinophils % 0.0 Basophils % 0.1 Absolute Neutrophils 2.4 Absolute Lymphocytes 0.2 L Absolute Monocytes 0.2 Absolute Eosinophils 0.0 Absolute Basophils 0.0 Sodium 135.8 L Potassium 3.9 Chloride 106 Carbon Dioxide 24 Anion Gap 6 BUN 31 H Creatinine 0.82 Est GFR ( Amer) > 60 Est GFR (Non-Af Amer) > 60 Glucose 221 H Calcium 7.9 L Magnesium 1.6 Total Bilirubin 1.3 AST 21 ALT 30 Alkaline Phosphatase 296 H Total Protein 3.9 L Albumin 1.8 L Impressions: Abdomen/Pelvis CT 04/20/17 00:00 IMPRESSION: 1. Right lower lobar pneumonia. 2. Large partially loculated/encapsulated ascites; differential diagnosis includes early abscess. 3. Moderate right hydronephrosis/hydroureter could be secondary to extrinsic compression from partially loculated ascites. 4. Cholelithiasis with moderate nonspecific pericholecystic fluid. 5. Mild transverse colitis pattern. Chest X-Ray 04/20/17 17:41 IMPRESSION: Marked improvement in the previous noted abnormal air space density in the lungs with differential including pulmonary edema and pneumonia. Mild residual persists. Extremity Ultrasound 04/22/17 15:25 IMPRESSION: Complex fluid collection in the subcutaneous fat of the medial left calf worrisome for abscess. Extent of the fluid collection was marked on the patient's skin. Paracentesis Ultrasound 04/22/17 15:34 IMPRESSION: Successful ultrasound-guided paracentesis Abdomen Ultrasound 04/23/17 00:00 IMPRESSION: No evidence for portal vein thrombosis. The previously described hydronephrosis involving the right kidney is not identified on the basis of the ultrasound evaluation. Small amount residual ascitic fluid is identified status post recent paracentesis. Gallstones are identified as well as a component biliary sludge. Findings suspicious for cholecystitis are identified. Clinical correlation is recommended. Other findings as noted above. Assessment & Plan - Diagnosis (1) Abscess of left lower leg Is this a current diagnosis for this admission?: Yes - Time Time Spent: 30 to 50 Minutes - Plan Summary Plan Summary: For I&D left lower leg abscess
[2017-04-25] MEDS: AZTREONAM 1 GM in DEXTROSE 5%-WATER 100 ML IV SCH ×4 (01:09→22:04)
[2017-04-25] MEDS: HYDROMORPHONE HCL INJ/PF 2 MG/ML AMPULE IV PRN ×2 (01:12→11:35)
[2017-04-25] MEDS: METRONIDAZOLE 500 MG/NS RTU 100 ML IV SCH ×4 (04:23→20:48)
[2017-04-25] MEDS: GABAPENTIN 300 MG CAPSULE PO SCH ×3 (06:39→22:02)
[2017-04-25] MEDS: SPIRONOLACTONE 25 MG TABLET PO SCH ×2 (10:17→22:02)
[2017-04-25] MEDS: PREDNISONE 20 MG TABLET PO SCH ×2 (10:18→17:58)
[2017-04-25] MEDS: FUROSEMIDE INJ/PF 20 MG/2 ML SDV IV SCH (10:19)
[2017-04-25] MEDS: VANCOMYCIN HCL 1,250 MG in DEXTROSE 5%-WATER 250 ML IV SCH (10:22)
[2017-04-25 10:46] LABS: ABSOLUTE LYMPHOCYTES (AUTO) 0.5 10^3/uL (0.5-4.7); ABSOLUTE MONOCYTES (AUTO) 0.7 10^3/uL (0.1-1.4); ABSOLUTE NEUT (AUTO) 7.9 10^3/uL (1.7-8.2); BASOPHILS % (AUTO) 0.1 % (0-2); HEMATOCRIT 28.2 % (36.0-47.0); HEMOGLOBIN 9.2 g/dL (12.0-15.5); LYMPHOCYTES % (AUTO) 5.4 % (13-45); MEAN CORPUSCULAR HEMOGLOBIN 31.5 pg (27.0-33.4); MEAN CORPUSCULAR HGB CONC 32.7 g/dL (32.0-36.0); MEAN CORPUSCULAR VOLUME 96 fl (80-97); MONOCYTES % (AUTO) 7.4 % (3-13); RED BLOOD COUNT 2.93 10^6/uL (3.72-5.28); RED CELL DISTRIBUTION WIDTH 21.4 % (11.5-14.0); SEGMENTED NEUTROPHILS % (AUTO) 87.1 % (42-78); TOTAL CELLS COUNTED % (AUTO) 100 %
[2017-04-25 10:57] LABS: ANION GAP 9 (5-19); BLOOD UREA NITROGEN 34 mg/dL (7-20); CALCIUM 8.5 mg/dL (8.4-10.2); CARBON DIOXIDE 23 mmol/L (22-30); CHLORIDE 103 mmol/L (98-107); GLUCOSE 235 mg/dL (75-110); POTASSIUM 4.2 mmol/L (3.6-5.0); SODIUM 135.1 mmol/L (137-145)
[2017-04-25 11:02] LABS: VANCOMYCIN,TROUGH 41.6 ug/mL (5.0-20.0)
[2017-04-25 11:13] LABS: PLATELET COUNT 90 10^3/uL (150-450)
--- NOTE | 2017-04-25 12:19 | PDOC PROGRESS REPORT ---
Subjective Progress Note for:: 04/25/17 Subjective:: Doing better today. Pain generally better in the joints with restarting steroids and gabapentin. Denies fever or chills, no chest pain or shortness of breath or palpitations. No abdominal pain, no nausea or vomiting, no rectal bleeding or hematemesis. Pain left lower extremity also controlled. Of note is that ultrasound of the left calf 04/22/17 revealed 6 x 82.5 x4 cm complex fluid collection concerning for abscess versus hematoma. Dr. Coto of surgery performed I&D yesterday, 04/24. Reason For Visit: ACUTE ON CHRONIC RENAL FAILURE Physical Exam Vital Signs: Temp Pulse Resp BP Pulse Ox 97.6 F 101 H 13 112/80 100 04/25/17 09:50 04/25/17 09:50 04/25/17 11:00 04/25/17 10:07 04/25/17 11:00 Intake & Output 04/24/17 04/25/17 04/26/17 06:59 06:59 06:59 Intake Total 1450 3780 Output Total 3252 2920 95 Balance -1802 860 -95 Weight 87.9 kg 90.2 kg GEN: NAD, well-developed, chronically ill-appearing CV: RRR, NL S1S2 LUNGS: CTA bilaterally ABDOMEN Soft, NT, +BS EXTERMITIES: Mild swelling bilateral knee, no warmth or erythema, 3+ b/l pedal edema. Left calf status post I&D, dressing c/d/i NEURO: Alert, oriented 3, no acute weakness Results Laboratory Results: 04/25/17 10:10 04/25/17 10:10 04/25/17 04/25/17 10:10 10:10 WBC 9.0 D RBC 2.93 L Hgb 9.2 L Hct 28.2 L MCV 96 MCH 31.5 MCHC 32.7 RDW 21.4 H Plt Count 90 L Seg Neutrophils % 87.1 H Lymphocytes % 5.4 L Monocytes % 7.4 Eosinophils % 0.0 Basophils % 0.1 Absolute Neutrophils 7.9 Absolute Lymphocytes 0.5 Absolute Monocytes 0.7 Absolute Eosinophils 0.0 Absolute Basophils 0.0 Sodium 135.1 L Potassium 4.2 Chloride 103 Carbon Dioxide 23 Anion Gap 9 BUN 34 H Creatinine 1.02 Est GFR ( Amer) > 60 Est GFR (Non-Af Amer) > 60 Glucose 235 H Calcium 8.5 Impressions: Abdomen/Pelvis CT 04/20/17 00:00 IMPRESSION: 1. Right lower lobar pneumonia. 2. Large partially loculated/encapsulated ascites; differential diagnosis includes early abscess. 3. Moderate right hydronephrosis/hydroureter could be secondary to extrinsic compression from partially loculated ascites. 4. Cholelithiasis with moderate nonspecific pericholecystic fluid. 5. Mild transverse colitis pattern. Chest X-Ray 04/20/17 17:41 IMPRESSION: Marked improvement in the previous noted abnormal air space density in the lungs with differential including pulmonary edema and pneumonia. Mild residual persists. Extremity Ultrasound 04/22/17 15:25 IMPRESSION: Complex fluid collection in the subcutaneous fat of the medial left calf worrisome for abscess. Extent of the fluid collection was marked on the patient's skin. Paracentesis Ultrasound 04/22/17 15:34 IMPRESSION: Successful ultrasound-guided paracentesis Abdomen Ultrasound 04/23/17 00:00 IMPRESSION: No evidence for portal vein thrombosis. The previously described hydronephrosis involving the right kidney is not identified on the basis of the ultrasound evaluation. Small amount residual ascitic fluid is identified status post recent paracentesis. Gallstones are identified as well as a component biliary sludge. Findings suspicious for cholecystitis are identified. Clinical correlation is recommended. Other findings as noted above. Assessment & Plan - Plan Summary Plan Summary: (1) Cellulitis and possible abscess left lower extremity Qualifiers: Site of cellulitis of extremity: lower extremity Laterality: left Is this a current diagnosis for this admission?: Yes Plan: Cellulitis appears to be improving We will continue the present antibiotic management ; noted that patient is allergic to penicillin and cephalosporins Currently being treated with Azactam, Flagyl and vancomycin -Ultrasound of the left calf 04/22/17 revealed 6 x 82.5 x4 cm complex fluid collection concerning for abscess versus hematoma. -Status post I&D by Dr. Coto of surgery 04/24/17 (2) Septic shock Is this a current diagnosis for this admission?: Yes Plan: Likely secondary to pneumonia, spontaneous bacterial peritonitis and cellulitis- -continue present management Patient is clinically improved, good mentation She is is now off Levophed No longer on IV fluids due to fluid overloaded (3) Acute renal failure superimposed on stage 3 chronic kidney disease Qualifiers: Acute renal failure type: unspecified Qualified Code(s): N17.9 - Acute kidney failure, unspecified; N18.3 - Chronic kidney disease, stage 3 (moderate) ; N18.3 - Chronic kidney disease, stage 3 (moderate) Is this a current diagnosis for this admission?: Yes Plan: Secondary to hypotension Also likely secondary to post obstructive uropathy Initial CAT scan abdomen and pelvis showed right hydronephrosis S/p drainage of the ascites performed 04/22/17 US reevaluate the right kidney after ascites drained revealed no hydronephrosis or portal vein thrombosis [employer] follow-up appreciated (4) Autoimmune hepatitis Is this a current diagnosis for this admission?: Yes (5) SBP (spontaneous bacterial peritonitis) Is this a current diagnosis for this admission?: Yes Continue antibiotics (6) Pneumonia Qualifiers: Pneumonia type: due to unspecified organism Laterality: right Lung location: lower lobe of lung Qualified Code(s): J18.1 - Lobar pneumonia, unspecified organism Is this a current diagnosis for this admission?: Yes Plan: Continue present antibiotic management (7) Hydronephrosis, right Is this a current diagnosis for this admission?: Yes Plan: See above #3 (8) Anasarca Is this a current diagnosis for this admission?: Yes Plan: Secondary to chronic liver disease Now back on Lasix and Aldactone as patient's blood pressure and renal function improved (9) Anemia Qualifiers: Anemia type: iron deficiency Is this a current diagnosis for this admission?: Yes Plan: Acute on chronic anemia likely anemia of chronic disease and iron deficiency anemia S/p transfuse 1 more unit of blood 04/22/17 with improvement in hemoglobin Stools for occult blood Patient is currently stable (10) Chronic liver disease Is this a current diagnosis for this admission?: Yes Plan: The etiology at this time is unclear --although patient with history of autoimmune hepatitis, among other conditions Patient will need GI follow-up Doppler ultrasound of the right upper quadrant done on 04/23/17 to exclude portal or splenic vein thrombosis negative Patient to improve. We will downgraded to IMCU. Critical care time spent 40 minutes.
--- NOTE | 2017-04-25 20:01 | PDOC PROGRESS REPORT ---
Subjective Progress Note for:: 04/25/17 Subjective:: left leg pains post op Reason For Visit: ACUTE ON CHRONIC RENAL FAILURE Physical Exam Vital Signs: Temp Pulse Resp BP Pulse Ox 96.4 F L 90 17 125/98 H 96 04/25/17 16:00 04/25/17 16:00 04/25/17 18:00 04/25/17 16:53 04/25/17 16:53 Intake & Output 04/24/17 04/25/17 04/26/17 06:59 06:59 06:59 Intake Total 1450 3780 629 Output Total 3252 2920 330 Balance -1802 860 299 Weight 87.9 kg 90.2 kg Exam: Dressings left lower leg intact Results Laboratory Results: 04/25/17 10:10 04/25/17 10:10 04/25/17 04/25/17 10:10 10:10 WBC 9.0 D RBC 2.93 L Hgb 9.2 L Hct 28.2 L MCV 96 MCH 31.5 MCHC 32.7 RDW 21.4 H Plt Count 90 L Seg Neutrophils % 87.1 H Lymphocytes % 5.4 L Monocytes % 7.4 Eosinophils % 0.0 Basophils % 0.1 Absolute Neutrophils 7.9 Absolute Lymphocytes 0.5 Absolute Monocytes 0.7 Absolute Eosinophils 0.0 Absolute Basophils 0.0 Sodium 135.1 L Potassium 4.2 Chloride 103 Carbon Dioxide 23 Anion Gap 9 BUN 34 H Creatinine 1.02 Est GFR ( Amer) > 60 Est GFR (Non-Af Amer) > 60 Glucose 235 H Calcium 8.5 Impressions: Abdomen/Pelvis CT 04/20/17 00:00 IMPRESSION: 1. Right lower lobar pneumonia. 2. Large partially loculated/encapsulated ascites; differential diagnosis includes early abscess. 3. Moderate right hydronephrosis/hydroureter could be secondary to extrinsic compression from partially loculated ascites. 4. Cholelithiasis with moderate nonspecific pericholecystic fluid. 5. Mild transverse colitis pattern. Chest X-Ray 04/20/17 17:41 IMPRESSION: Marked improvement in the previous noted abnormal air space density in the lungs with differential including pulmonary edema and pneumonia. Mild residual persists. Extremity Ultrasound 04/22/17 15:25 IMPRESSION: Complex fluid collection in the subcutaneous fat of the medial left calf worrisome for abscess. Extent of the fluid collection was marked on the patient's skin. Paracentesis Ultrasound 04/22/17 15:34 IMPRESSION: Successful ultrasound-guided paracentesis Abdomen Ultrasound 04/23/17 00:00 IMPRESSION: No evidence for portal vein thrombosis. The previously described hydronephrosis involving the right kidney is not identified on the basis of the ultrasound evaluation. Small amount residual ascitic fluid is identified status post recent paracentesis. Gallstones are identified as well as a component biliary sludge. Findings suspicious for cholecystitis are identified. Clinical correlation is recommended. Other findings as noted above. Assessment & Plan - Diagnosis (1) Abscess of left lower leg Is this a current diagnosis for this admission?: Yes - Time Time Spent with patient: 15-24 minutes - Plan Summary Plan Summary: Will remove packing tomorrow. Patient's condition downgraded from ICU.
[2017-04-26] MEDS: METRONIDAZOLE 500 MG/NS RTU 100 ML IV SCH ×4 (04:23→20:48)
[2017-04-26] MEDS: AZTREONAM 1 GM in DEXTROSE 5%-WATER 100 ML IV SCH ×2 (06:30→13:37)
[2017-04-26] MEDS: GABAPENTIN 300 MG CAPSULE PO SCH ×3 (06:30→21:32)
[2017-04-26 07:13] LABS: ANION GAP 7 (5-19); BLOOD UREA NITROGEN 39 mg/dL (7-20); CALCIUM 8.7 mg/dL (8.4-10.2); CARBON DIOXIDE 24 mmol/L (22-30); CHLORIDE 104 mmol/L (98-107); GLUCOSE 240 mg/dL (75-110); SODIUM 134.5 mmol/L (137-145)
[2017-04-26 07:46] LABS: HEMATOCRIT 29.1 % (36.0-47.0); HEMOGLOBIN 9.6 g/dL (12.0-15.5); MEAN CORPUSCULAR HEMOGLOBIN 31.6 pg (27.0-33.4); MEAN CORPUSCULAR VOLUME 96 fl (80-97); PLATELET COUNT 100 10^3/uL (150-450); RED BLOOD COUNT 3.03 10^6/uL (3.72-5.28); RED CELL DISTRIBUTION WIDTH 20.7 % (11.5-14.0); WHITE BLOOD COUNT 8.8 10^3/uL (4.0-10.5)
[2017-04-26 08:35] LABS: ABSOLUTE LYMPHOCYTES# (MANUAL) 0.4 10^3/uL (0.5-4.7); ABSOLUTE MONOCYTES # (MANUAL) 0.4 10^3/uL (0.1-1.4); ABSOLUTE NEUTROPHILS# (MANUAL) 8.1 10^3/uL (1.7-8.2); BASOPHILS % (MANUAL) 0 % (0-2); EOSINOPHILS % (MANUAL) 0 % (0-6); LYMPHOCYTES % (MANUAL) 4 % (13-45); MONOCYTES % (MANUAL) 4 % (3-13); SEGMENTED NEUTROPHILS % (MAN) 92 % (42-78); TOTAL CELLS COUNTED 100
[2017-04-26 08:38] LABS: ANISOCYTOSIS 2+; HELMET CELLS SLIGHT; OVALOCYTES 1+; PLATELET COMMENT DECREASED; POIKILOCYTOSIS 1+; TEAR DROP CELLS SLIGHT
[2017-04-26] MEDS: SPIRONOLACTONE 25 MG TABLET PO SCH ×2 (09:15→21:32)
[2017-04-26] MEDS: PREDNISONE 20 MG TABLET PO SCH ×2 (09:15→18:29)
[2017-04-26] MEDS: FUROSEMIDE INJ/PF 40 MG/4 ML SDV IV SCH (10:10)
[2017-04-26] MEDS: VANCOMYCIN HCL 1,250 MG in DEXTROSE 5%-WATER 250 ML IV SCH (10:11)
--- NOTE | 2017-04-26 15:58 | PDOC PROGRESS REPORT ---
Subjective Progress Note for:: 04/26/17 Subjective:: Doing okay. Denies fever or chills, no chest pain or shortness of breath or palpitations. No abdominal pain, no nausea or vomiting, no rectal bleeding or hematemesis. Pain left lower extremity also controlled. Of note is that ultrasound of the left calf 04/22/17 revealed 6 x 82.5 x4 cm complex fluid collection concerning for abscess versus hematoma. Dr. Coto of surgery performed I&D 04/24/17. Reason For Visit: ACUTE ON CHRONIC RENAL FAILURE Physical Exam Vital Signs: Temp Pulse Resp BP Pulse Ox 97.6 F 97 13 131/100 H 100 04/26/17 12:00 04/26/17 12:00 04/26/17 14:00 04/26/17 12:48 04/26/17 12:48 Intake & Output 04/25/17 04/26/17 04/27/17 06:59 06:59 06:59 Intake Total 3780 1047 Output Total 2920 705 480 Balance 860 342 -480 Weight 90.2 kg GEN: NAD, well-developed, chronically ill-appearing CV: RRR, NL S1S2 LUNGS: CTA bilaterally ABDOMEN Soft, NT, +BS EXTERMITIES: Mild swelling bilateral knee, no warmth or erythema, 3+ b/l pedal edema. Left calf status post I&D, dressing c/d/i NEURO: Alert, oriented 3, no acute weakness Results Laboratory Results: 04/26/17 06:30 04/26/17 06:30 04/26/17 04/26/17 06:30 06:30 WBC 8.8 RBC 3.03 L Hgb 9.6 L Hct 29.1 L MCV 96 MCH 31.6 MCHC 33.0 RDW 20.7 H Plt Count 100 L Seg Neutrophils % Not Reportable Lymphocytes % Not Reportable Monocytes % Not Reportable Eosinophils % Not Reportable Basophils % Not Reportable Absolute Neutrophils Not Reportable Absolute Lymphocytes Not Reportable Absolute Monocytes Not Reportable Absolute Eosinophils Not Reportable Absolute Basophils Not Reportable Sodium 134.5 L Potassium 4.0 Chloride 104 Carbon Dioxide 24 Anion Gap 7 BUN 39 H Creatinine 1.00 Est GFR ( Amer) > 60 Est GFR (Non-Af Amer) > 60 Glucose 240 H Calcium 8.7 04/22/17 16:15 Peritoneal Gram Stain - Final 04/22/17 16:15 Peritoneal Body Fluid Culture - Final NO AEROBIC OR ANAEROBIC ORGANISMS RECOVERED Impressions: Abdomen/Pelvis CT 04/20/17 00:00 IMPRESSION: 1. Right lower lobar pneumonia. 2. Large partially loculated/encapsulated ascites; differential diagnosis includes early abscess. 3. Moderate right hydronephrosis/hydroureter could be secondary to extrinsic compression from partially loculated ascites. 4. Cholelithiasis with moderate nonspecific pericholecystic fluid. 5. Mild transverse colitis pattern. Chest X-Ray 04/20/17 17:41 IMPRESSION: Marked improvement in the previous noted abnormal air space density in the lungs with differential including pulmonary edema and pneumonia. Mild residual persists. Extremity Ultrasound 04/22/17 15:25 IMPRESSION: Complex fluid collection in the subcutaneous fat of the medial left calf worrisome for abscess. Extent of the fluid collection was marked on the patient's skin. Paracentesis Ultrasound 04/22/17 15:34 IMPRESSION: Successful ultrasound-guided paracentesis Abdomen Ultrasound 04/23/17 00:00 IMPRESSION: No evidence for portal vein thrombosis. The previously described hydronephrosis involving the right kidney is not identified on the basis of the ultrasound evaluation. Small amount residual ascitic fluid is identified status post recent paracentesis. Gallstones are identified as well as a component biliary sludge. Findings suspicious for cholecystitis are identified. Clinical correlation is recommended. Other findings as noted above. Assessment & Plan - Plan Summary Plan Summary: (1) Cellulitis and possible abscess left lower extremity Qualifiers: Site of cellulitis of extremity: lower extremity Laterality: left Is this a current diagnosis for this admission?: Yes Plan: Cellulitis continues to be improving We will continue the present antibiotic management ; patient is allergic to penicillin and cephalosporins Currently being treated with Azactam, Flagyl and vancomycin -Ultrasound of the left calf 04/22/17 revealed 6 x 82.5 x4 cm complex fluid collection concerning for abscess versus hematoma. -Status post I&D by Dr. Coto of surgery 04/24/17 (2) Septic shock Is this a current diagnosis for this admission?: Yes Plan: Likely secondary to pneumonia, spontaneous bacterial peritonitis and cellulitis- -continue present management Patient is clinically improved She received Levophed in the ICU No longer on IV fluids due to fluid overloaded (3) Acute renal failure superimposed on stage 3 chronic kidney disease Qualifiers: Acute renal failure type: unspecified Qualified Code(s): N17.9 - Acute kidney failure, unspecified; N18.3 - Chronic kidney disease, stage 3 (moderate) ; N18.3 - Chronic kidney disease, stage 3 (moderate) Is this a current diagnosis for this admission?: Yes Plan: Secondary to hypotension Also likely secondary to post obstructive uropathy Initial CAT scan abdomen and pelvis showed right hydronephrosis S/p drainage of the ascites performed 04/22/17 US 04/23/17 to reevaluate the right kidney after ascites drained revealed no hydronephrosis or portal vein thrombosis (4) Autoimmune hepatitis Is this a current diagnosis for this admission?: Yes (5) SBP (spontaneous bacterial peritonitis) Is this a current diagnosis for this admission?: Yes Continue antibiotics (6) Pneumonia Qualifiers: Pneumonia type: due to unspecified organism Laterality: right Lung location: lower lobe of lung Qualified Code(s): J18.1 - Lobar pneumonia, unspecified organism Is this a current diagnosis for this admission?: Yes Plan: Continue present antibiotic management (7) Hydronephrosis, right Is this a current diagnosis for this admission?: Yes Plan: See above #3 (8) Anasarca Is this a current diagnosis for this admission?: Yes Plan: Secondary to chronic liver disease Now back on Lasix and Aldactone as patient's blood pressure and renal function improved (9) Anemia Qualifiers: Anemia type: iron deficiency Is this a current diagnosis for this admission?: Yes Plan: Acute on chronic anemia likely anemia of chronic disease and iron deficiency anemia S/p transfuse 1 more unit of blood 04/22/17 with improvement in hemoglobin Stools for occult blood Patient is currently stable (10) Chronic liver disease Is this a current diagnosis for this admission?: Yes Plan: The etiology at this time is unclear --although patient with history of autoimmune hepatitis, among other conditions Patient will need GI follow-up Doppler ultrasound of the right upper quadrant done on 04/23/17 to exclude portal or splenic vein thrombosis negative
[2017-04-26] MEDS: HYDROMORPHONE HCL INJ/PF 2 MG/ML AMPULE IV PRN (16:35)
[2017-04-26] MEDS ORDERED: HYDROMORPHONE HCL INJ/PF 2 MG/ML AMPULE IV ONE (17:00)
--- NOTE | 2017-04-26 21:11 | PDOC PROGRESS REPORT ---
Subjective Progress Note for:: 04/26/17 Subjective:: Pains left lower leg I&D site Reason For Visit: ACUTE ON CHRONIC RENAL FAILURE Physical Exam Vital Signs: Temp Pulse Resp BP Pulse Ox 97.5 F 110 H 16 122/86 H 100 04/26/17 16:46 04/26/17 20:00 04/26/17 16:46 04/26/17 16:46 04/26/17 16:46 Intake & Output 04/25/17 04/26/17 04/27/17 06:59 06:59 06:59 Intake Total 3780 1047 1100 Output Total 2920 705 730 Balance 860 342 370 Weight 90.2 kg Exam: Packing removed and recruiting team lead packing placed Wound looks clean with small amount of drainage Replace packing in 2 days Continue antibiotics Results Laboratory Results: 04/26/17 06:30 04/26/17 06:30 04/26/17 04/26/17 06:30 06:30 WBC 8.8 RBC 3.03 L Hgb 9.6 L Hct 29.1 L MCV 96 MCH 31.6 MCHC 33.0 RDW 20.7 H Plt Count 100 L Seg Neutrophils % Not Reportable Lymphocytes % Not Reportable Monocytes % Not Reportable Eosinophils % Not Reportable Basophils % Not Reportable Absolute Neutrophils Not Reportable Absolute Lymphocytes Not Reportable Absolute Monocytes Not Reportable Absolute Eosinophils Not Reportable Absolute Basophils Not Reportable Sodium 134.5 L Potassium 4.0 Chloride 104 Carbon Dioxide 24 Anion Gap 7 BUN 39 H Creatinine 1.00 Est GFR ( Amer) > 60 Est GFR (Non-Af Amer) > 60 Glucose 240 H Calcium 8.7 04/22/17 16:15 Peritoneal Gram Stain - Final 04/22/17 16:15 Peritoneal Body Fluid Culture - Final NO AEROBIC OR ANAEROBIC ORGANISMS RECOVERED Impressions: Abdomen/Pelvis CT 04/20/17 00:00 IMPRESSION: 1. Right lower lobar pneumonia. 2. Large partially loculated/encapsulated ascites; differential diagnosis includes early abscess. 3. Moderate right hydronephrosis/hydroureter could be secondary to extrinsic compression from partially loculated ascites. 4. Cholelithiasis with moderate nonspecific pericholecystic fluid. 5. Mild transverse colitis pattern. Chest X-Ray 04/20/17 17:41 IMPRESSION: Marked improvement in the previous noted abnormal air space density in the lungs with differential including pulmonary edema and pneumonia. Mild residual persists. Extremity Ultrasound 04/22/17 15:25 IMPRESSION: Complex fluid collection in the subcutaneous fat of the medial left calf worrisome for abscess. Extent of the fluid collection was marked on the patient's skin. Paracentesis Ultrasound 04/22/17 15:34 IMPRESSION: Successful ultrasound-guided paracentesis Abdomen Ultrasound 04/23/17 00:00 IMPRESSION: No evidence for portal vein thrombosis. The previously described hydronephrosis involving the right kidney is not identified on the basis of the ultrasound evaluation. Small amount residual ascitic fluid is identified status post recent paracentesis. Gallstones are identified as well as a component biliary sludge. Findings suspicious for cholecystitis are identified. Clinical correlation is recommended. Other findings as noted above. Assessment & Plan - Diagnosis (1) Abscess of left lower leg Is this a current diagnosis for this admission?: Yes - Time Time Spent with patient: 15-24 minutes - Plan Summary Plan Summary: Packing from left lower leg wound removed and replaced with almost a bottle of 1 /4 inch iodoform gauze. Will re-examine wound in 48 hrs
[2017-04-26] MEDS: AZTREONAM 1 GM in NORMAL SALINE 100 ML IV SCH (21:31)
[2017-04-27] MEDS: METRONIDAZOLE 500 MG/NS RTU 100 ML IV SCH ×4 (02:07→22:30)
[2017-04-27 04:42] LABS: HEMATOCRIT 26.8 % (36.0-47.0); HEMOGLOBIN 8.7 g/dL (12.0-15.5); MEAN CORPUSCULAR HEMOGLOBIN 31.2 pg (27.0-33.4); MEAN CORPUSCULAR HGB CONC 32.3 g/dL (32.0-36.0); MEAN CORPUSCULAR VOLUME 96 fl (80-97); PLATELET COUNT 104 10^3/uL (150-450); RED BLOOD COUNT 2.78 10^6/uL (3.72-5.28); RED CELL DISTRIBUTION WIDTH 21.1 % (11.5-14.0); WHITE BLOOD COUNT 8.3 10^3/uL (4.0-10.5)
[2017-04-27 04:55] LABS: ANION GAP 7 (5-19); BLOOD UREA NITROGEN 41 mg/dL (7-20); CALCIUM 8.4 mg/dL (8.4-10.2); CARBON DIOXIDE 23 mmol/L (22-30); CHLORIDE 105 mmol/L (98-107); GLUCOSE 303 mg/dL (75-110); POTASSIUM 3.9 mmol/L (3.6-5.0); SODIUM 134.8 mmol/L (137-145)
[2017-04-27] MEDS: GABAPENTIN 300 MG CAPSULE PO SCH ×3 (05:35→22:29)
[2017-04-27] MEDS: AZTREONAM 1 GM in NORMAL SALINE 100 ML IV SCH ×3 (05:35→23:45)
[2017-04-27 05:53] LABS: ABSOLUTE LYMPHOCYTES# (MANUAL) 0.3 10^3/uL (0.5-4.7); ABSOLUTE MONOCYTES # (MANUAL) 0.6 10^3/uL (0.1-1.4); ABSOLUTE NEUTROPHILS# (MANUAL) 7.4 10^3/uL (1.7-8.2); BASOPHILS % (MANUAL) 0 % (0-2); EOSINOPHILS % (MANUAL) 0 % (0-6); LYMPHOCYTES % (MANUAL) 4 % (13-45); MONOCYTES % (MANUAL) 7 % (3-13); SEGMENTED NEUTROPHILS % (MAN) 89 % (42-78); TOTAL CELLS COUNTED 100
[2017-04-27 05:56] LABS: ANISOCYTOSIS 3+; OVALOCYTES 2+; POLYCHROMASIA SLIGHT; SCHISTOCYTES SLIGHT
[2017-04-27 05:57] LABS: PLATELET COMMENT ADEQUATE; TARGET CELLS SLIGHT; TEAR DROP CELLS 1+
[2017-04-27] MEDS: FUROSEMIDE INJ/PF 40 MG/4 ML SDV IV SCH (09:34)
[2017-04-27] MEDS: PREDNISONE 20 MG TABLET PO SCH ×2 (09:34→17:39)
[2017-04-27] MEDS: VANCOMYCIN HCL 1,250 MG in DEXTROSE 5%-WATER 250 ML IV SCH (09:34)
[2017-04-27] MEDS: SPIRONOLACTONE 25 MG TABLET PO SCH ×2 (09:34→22:29)
[2017-04-27] MEDS: HYDROMORPHONE HCL INJ/PF 2 MG/ML AMPULE IV PRN ×2 (09:42→23:52)
--- NOTE | 2017-04-27 17:54 | PDOC PROGRESS REPORT ---
Subjective Progress Note for:: 04/27/17 Subjective:: Doing better today--she is out of the ICU abd seen on the medical floor. Denies fever or chills, no chest pain or shortness of breath or palpitations. No abdominal pain, no nausea or vomiting, no rectal bleeding or hematemesis. Pain left lower extremity also controlled. Of note is that ultrasound of the left calf 04/22/17 revealed 6 x 82.5 x4 cm complex fluid collection concerning for abscess versus hematoma. Dr. Coto of surgery performed I&D 04/24/17. He is follow-up yesterday, 05/04/17 noted. Reason For Visit: ACUTE ON CHRONIC RENAL FAILURE Physical Exam Vital Signs: Temp Pulse Resp BP Pulse Ox 97.6 F 99 18 125/87 H 99 04/27/17 11:39 04/27/17 14:00 04/27/17 11:39 04/27/17 11:39 04/27/17 11:39 Intake & Output 04/26/17 04/27/17 04/28/17 06:59 06:59 06:59 Intake Total 1047 2200 822 Output Total 705 1280 475 Balance 342 920 347 Weight 93.3 kg GEN: NAD, well-developed, chronically ill-appearing CV: RRR, NL S1S2 LUNGS: CTA bilaterally ABDOMEN Soft, NT, +BS EXTERMITIES: Mild swelling bilateral knee, no warmth or erythema, 3+ b/l pedal edema. Left calf status post I&D, dressing c/d/i NEURO: Alert, oriented 3, no acute weakness Results Laboratory Results: 04/27/17 04:15 04/27/17 04:15 04/27/17 04/27/17 04:15 04:15 WBC 8.3 RBC 2.78 L Hgb 8.7 L Hct 26.8 L MCV 96 MCH 31.2 MCHC 32.3 RDW 21.1 H Plt Count 104 L Seg Neutrophils % Not Reportable Lymphocytes % Not Reportable Monocytes % Not Reportable Eosinophils % Not Reportable Basophils % Not Reportable Absolute Neutrophils Not Reportable Absolute Lymphocytes Not Reportable Absolute Monocytes Not Reportable Absolute Eosinophils Not Reportable Absolute Basophils Not Reportable Sodium 134.8 L Potassium 3.9 Chloride 105 Carbon Dioxide 23 Anion Gap 7 BUN 41 H Creatinine 0.98 Est GFR ( Amer) > 60 Est GFR (Non-Af Amer) > 60 Glucose 303 H Calcium 8.4 Impressions: Abdomen/Pelvis CT 04/20/17 00:00 IMPRESSION: 1. Right lower lobar pneumonia. 2. Large partially loculated/encapsulated ascites; differential diagnosis includes early abscess. 3. Moderate right hydronephrosis/hydroureter could be secondary to extrinsic compression from partially loculated ascites. 4. Cholelithiasis with moderate nonspecific pericholecystic fluid. 5. Mild transverse colitis pattern. Chest X-Ray 04/20/17 17:41 IMPRESSION: Marked improvement in the previous noted abnormal air space density in the lungs with differential including pulmonary edema and pneumonia. Mild residual persists. Extremity Ultrasound 04/22/17 15:25 IMPRESSION: Complex fluid collection in the subcutaneous fat of the medial left calf worrisome for abscess. Extent of the fluid collection was marked on the patient's skin. Paracentesis Ultrasound 04/22/17 15:34 IMPRESSION: Successful ultrasound-guided paracentesis Abdomen Ultrasound 04/23/17 00:00 IMPRESSION: No evidence for portal vein thrombosis. The previously described hydronephrosis involving the right kidney is not identified on the basis of the ultrasound evaluation. Small amount residual ascitic fluid is identified status post recent paracentesis. Gallstones are identified as well as a component biliary sludge. Findings suspicious for cholecystitis are identified. Clinical correlation is recommended. Other findings as noted above. Assessment & Plan - Plan Summary Plan Summary: (1) Cellulitis and possible abscess left lower extremity Qualifiers: Site of cellulitis of extremity: lower extremity Laterality: left Is this a current diagnosis for this admission?: Yes Plan: Cellulitis continues to be improving We will continue the present antibiotic management ; patient is allergic to penicillin and cephalosporins Currently being treated with Azactam, Flagyl and vancomycin -Ultrasound of the left calf 04/22/17 revealed 6 x 82.5 x4 cm complex fluid collection concerning for abscess versus hematoma. -Status post I&D by Dr. Coto of surgery 04/24/17 (2) Septic shock Is this a current diagnosis for this admission?: Yes Plan: Likely secondary to pneumonia, spontaneous bacterial peritonitis and cellulitis- -continue present management Patient is clinically improved She received Levophed in the ICU No longer on IV fluids due to fluid overloaded (3) Acute renal failure superimposed on stage 3 chronic kidney disease Qualifiers: Acute renal failure type: unspecified Qualified Code(s): N17.9 - Acute kidney failure, unspecified; N18.3 - Chronic kidney disease, stage 3 (moderate) ; N18.3 - Chronic kidney disease, stage 3 (moderate) Is this a current diagnosis for this admission?: Yes Plan: Secondary to hypotension Also likely secondary to post obstructive uropathy Initial CAT scan abdomen and pelvis showed right hydronephrosis S/p drainage of the ascites performed 04/22/17 US 04/23/17 to reevaluate the right kidney after ascites drained revealed no hydronephrosis or portal vein thrombosis (4) Autoimmune hepatitis Is this a current diagnosis for this admission?: Yes (5) SBP (spontaneous bacterial peritonitis) Is this a current diagnosis for this admission?: Yes Continue antibiotics (6) Pneumonia Qualifiers: Pneumonia type: due to unspecified organism Laterality: right Lung location: lower lobe of lung Qualified Code(s): J18.1 - Lobar pneumonia, unspecified organism Is this a current diagnosis for this admission?: Yes Plan: Continue present antibiotic management (7) Hydronephrosis, right Is this a current diagnosis for this admission?: Yes Plan: See above #3 (8) Anasarca Is this a current diagnosis for this admission?: Yes Plan: Secondary to chronic liver disease Now back on Lasix and Aldactone as patient's blood pressure and renal function improved (9) Anemia Qualifiers: Anemia type: iron deficiency Is this a current diagnosis for this admission?: Yes Plan: Acute on chronic anemia likely anemia of chronic disease and iron deficiency anemia S/p transfuse 1 more unit of blood 04/22/17 with improvement in hemoglobin Stools for occult blood Patient is currently stable (10) Chronic liver disease Is this a current diagnosis for this admission?: Yes Plan: The etiology at this time is unclear --although patient with history of autoimmune hepatitis, among other conditions Patient will need GI follow-up Doppler ultrasound of the right upper quadrant done on 04/23/17 to exclude portal or splenic vein thrombosis negative
[2017-04-28] MEDS: METRONIDAZOLE 500 MG/NS RTU 100 ML IV SCH ×3 (02:37→14:31)
[2017-04-28 05:18] LABS: HEMATOCRIT 26.6 % (36.0-47.0); HEMOGLOBIN 8.7 g/dL (12.0-15.5); MEAN CORPUSCULAR HEMOGLOBIN 31.4 pg (27.0-33.4); MEAN CORPUSCULAR HGB CONC 32.5 g/dL (32.0-36.0); MEAN CORPUSCULAR VOLUME 97 fl (80-97); PLATELET COUNT 113 10^3/uL (150-450); RED BLOOD COUNT 2.76 10^6/uL (3.72-5.28); WHITE BLOOD COUNT 9.5 10^3/uL (4.0-10.5)
[2017-04-28 05:33] LABS: ANION GAP 8 (5-19); BLOOD UREA NITROGEN 41 mg/dL (7-20); CALCIUM 8.7 mg/dL (8.4-10.2); CARBON DIOXIDE 23 mmol/L (22-30); CHLORIDE 104 mmol/L (98-107); GLUCOSE 345 mg/dL (75-110); SODIUM 134.7 mmol/L (137-145)
[2017-04-28 06:01] LABS: ABSOLUTE LYMPHOCYTES# (MANUAL) 0.8 10^3/uL (0.5-4.7); ABSOLUTE MONOCYTES # (MANUAL) 0.5 10^3/uL (0.1-1.4); ABSOLUTE NEUTROPHILS# (MANUAL) 8.2 10^3/uL (1.7-8.2); BASOPHILS % (MANUAL) 0 % (0-2); EOSINOPHILS % (MANUAL) 1 % (0-6); LYMPHOCYTES % (MANUAL) 8 % (13-45); MONOCYTES % (MANUAL) 5 % (3-13); SEGMENTED NEUTROPHILS % (MAN) 86 % (42-78); TOTAL CELLS COUNTED 100
[2017-04-28 06:03] LABS: TOXIC GRANULATION 1+
[2017-04-28 06:04] LABS: ANISOCYTOSIS 3+; BURR CELLS SLIGHT; HELMET CELLS SLIGHT; OVALOCYTES 1+; PLATELET COMMENT ADEQUATE; PLATELET LARGE PRESENT; POIKILOCYTOSIS 1+; SCHISTOCYTES 1+; TEAR DROP CELLS 1+
[2017-04-28] MEDS: AZTREONAM 1 GM in NORMAL SALINE 100 ML IV SCH ×3 (06:22→21:38)
[2017-04-28] MEDS: GABAPENTIN 300 MG CAPSULE PO SCH ×3 (06:22→21:40)
[2017-04-28] MEDS: VANCOMYCIN HCL 1,250 MG in DEXTROSE 5%-WATER 250 ML IV SCH (10:14)
[2017-04-28] MEDS: FUROSEMIDE INJ/PF 40 MG/4 ML SDV IV SCH (10:14)
[2017-04-28] MEDS: PREDNISONE 20 MG TABLET PO SCH ×2 (10:14→17:10)
[2017-04-28] MEDS: SPIRONOLACTONE 25 MG TABLET PO SCH ×2 (10:14→21:39)
[2017-04-28] MEDS: HYDROMORPHONE HCL INJ/PF 2 MG/ML AMPULE IV PRN (19:33)
[2017-04-28] MEDS ORDERED: METOLAZONE 2.5 MG TABLET PO ONE (20:30)
[2017-04-28] MEDS: FAMOTIDINE 20 MG TABLET PO SCH (21:39)
[2017-04-28] MEDS: SUCRALFATE 1 GM TABLET PO SCH (21:40)
[2017-04-29] MEDS: AZTREONAM 1 GM in NORMAL SALINE 100 ML IV SCH ×3 (05:09→21:22)
[2017-04-29] MEDS: GABAPENTIN 300 MG CAPSULE PO SCH ×3 (05:09→21:22)
[2017-04-29] MEDS: SUCRALFATE 1 GM TABLET PO SCH ×4 (09:14→21:22)
[2017-04-29] MEDS: SPIRONOLACTONE 25 MG TABLET PO SCH ×2 (09:15→21:23)
[2017-04-29] MEDS: METOLAZONE 2.5 MG TABLET PO SCH (09:15)
[2017-04-29] MEDS: FUROSEMIDE INJ/PF 40 MG/4 ML SDV IV SCH (09:16)
[2017-04-29] MEDS: FAMOTIDINE 20 MG TABLET PO SCH ×2 (09:16→21:22)
[2017-04-29] MEDS ORDERED: PREDNISONE 20 MG TABLET PO SCH ×2 (10:00→12:40)
[2017-04-29 10:49] LABS: VANCOMYCIN,TROUGH 24.3 ug/mL (5.0-20.0)
[2017-04-29] MEDS: VANCOMYCIN HCL 1,250 MG in DEXTROSE 5%-WATER 250 ML IV SCH (11:26)
--- NOTE | 2017-04-29 13:04 | PDOC PROGRESS REPORT ---
Subjective Progress Note for:: 04/28/17 Subjective:: Is doing better today. Patient states that she has some abdominal discomfort. Patient states she does not want to be on steroids as is causing her to swell more. Patient is status post I&D on 04/24/2017 of the left lower leg abscess/ hematoma. Patient is requesting CPT and OT. Patient also wants something for her abdominal discomfort. Reason For Visit: ACUTE ON CHRONIC RENAL FAILURE Physical Exam Vital Signs: Temp Pulse Resp BP Pulse Ox 97.4 F 112 H 18 130/94 H 98 04/28/17 11:35 04/28/17 18:37 04/28/17 11:35 04/28/17 11:35 04/28/17 11:35 Intake & Output 04/27/17 04/28/17 04/29/17 06:59 06:59 06:59 Intake Total 2200 2794 1478 Output Total 1280 1475 1475 Balance 920 1319 3 Weight 93.3 kg 93.3 kg General appearance: PRESENT: no acute distress Head exam: PRESENT: normocephalic, other - Full face Eye exam: PRESENT: EOMI. ABSENT: scleral icterus Ear exam: PRESENT: normal external ear exam Neck exam: ABSENT: carotid bruit, JVD, lymphadenopathy, thyromegaly Respiratory exam: PRESENT: clear to auscultation jose j. ABSENT: rales, rhonchi, wheezes Cardiovascular exam: PRESENT: RRR. ABSENT: diastolic murmur, rubs, systolic murmur GI/Abdominal exam: PRESENT: normal bowel sounds, soft, tenderness - Gastric tenderness. ABSENT: distended, guarding, mass, organolmegaly, rebound Rectal exam: PRESENT: deferred Gentrourinary exam: PRESENT: indwelling catheter Extremities exam: PRESENT: pedal edema. ABSENT: calf tenderness, clubbing Neurological exam: PRESENT: alert, awake, oriented to person, oriented to place , oriented to time, oriented to situation, CN II-XII grossly intact. ABSENT: motor sensory deficit Psychiatric exam: PRESENT: appropriate affect, normal mood. ABSENT: homicidal ideation, suicidal ideation Skin exam: PRESENT: dry, intact, warm, other - Dressing on the left lower extremity. There is drainage on the dressing on the medial side.. ABSENT: cyanosis, rash Results Laboratory Results: 04/28/17 04:45 04/28/17 04:45 04/28/17 04/28/17 04:45 04:45 WBC 9.5 RBC 2.76 L Hgb 8.7 L Hct 26.6 L MCV 97 MCH 31.4 MCHC 32.5 RDW 21.0 H Plt Count 113 L Seg Neutrophils % Not Reportable Lymphocytes % Not Reportable Monocytes % Not Reportable Eosinophils % Not Reportable Basophils % Not Reportable Absolute Neutrophils Not Reportable Absolute Lymphocytes Not Reportable Absolute Monocytes Not Reportable Absolute Eosinophils Not Reportable Absolute Basophils Not Reportable Sodium 134.7 L Potassium 4.0 Chloride 104 Carbon Dioxide 23 Anion Gap 8 BUN 41 H Creatinine 0.92 Est GFR ( Amer) > 60 Est GFR (Non-Af Amer) > 60 Glucose 345 H Calcium 8.7 04/24/17 18:43 Leg - Left Gram Stain - Final 04/24/17 18:43 Leg - Left Wound Culture - Final NO AEROBIC OR ANAEROBIC ORGANISMS RECOVERED 04/24/17 18:41 Leg - Left Gram Stain - Final 04/24/17 18:41 Leg - Left Wound Culture - Final NO AEROBIC OR ANAEROBIC ORGANISMS RECOVERED Impressions: Abdomen/Pelvis CT 04/20/17 00:00 IMPRESSION: 1. Right lower lobar pneumonia. 2. Large partially loculated/encapsulated ascites; differential diagnosis includes early abscess. 3. Moderate right hydronephrosis/hydroureter could be secondary to extrinsic compression from partially loculated ascites. 4. Cholelithiasis with moderate nonspecific pericholecystic fluid. 5. Mild transverse colitis pattern. Chest X-Ray 04/20/17 17:41 IMPRESSION: Marked improvement in the previous noted abnormal air space density in the lungs with differential including pulmonary edema and pneumonia. Mild residual persists. Extremity Ultrasound 04/22/17 15:25 IMPRESSION: Complex fluid collection in the subcutaneous fat of the medial left calf worrisome for abscess. Extent of the fluid collection was marked on the patient's skin. Paracentesis Ultrasound 04/22/17 15:34 IMPRESSION: Successful ultrasound-guided paracentesis Abdomen Ultrasound 04/23/17 00:00 IMPRESSION: No evidence for portal vein thrombosis. The previously described hydronephrosis involving the right kidney is not identified on the basis of the ultrasound evaluation. Small amount residual ascitic fluid is identified status post recent paracentesis. Gallstones are identified as well as a component biliary sludge. Findings suspicious for cholecystitis are identified. Clinical correlation is recommended. Other findings as noted above. Assessment & Plan - Diagnosis (1) Abscess of left lower leg Is this a current diagnosis for this admission?: Yes Plan: Patient is status post I&D on 04/24/2017. Patient is being followed by surgery. Patient currently on antibiotics. Will continue to monitor. (2) SBP (spontaneous bacterial peritonitis) Is this a current diagnosis for this admission?: Yes Plan: She did have greater than 7000 WBCs and her peritoneal fluid. She currently on antibiotics. Peritoneal fluid shows no growth. The patient has history of recurrent SBP. Patient does follow-up with GI. Uncertain as to why patient is not on prophylaxis if she has recurrent SBP. (3) Acute renal failure superimposed on stage 3 chronic kidney disease Qualifiers: Acute renal failure type: unspecified Qualified Code(s): N17.9 - Acute kidney failure, unspecified; N18.3 - Chronic kidney disease, stage 3 (moderate) ; N18.3 - Chronic kidney disease, stage 3 (moderate) Is this a current diagnosis for this admission?: Yes Plan: Now improved. Nephrology following. (4) Anasarca Is this a current diagnosis for this admission?: Yes Plan: Secondary to hypotension and postobstructive uropathy. Patient did have right- sided hydronephrosis on CT scan. Patient is status post drainage of her ascites on 04/22/2017. Repeat ultrasound of the abdomen revealed resolved hydronephrosis of the right kidney and no portal vein thrombosis. (5) Pneumonia Qualifiers: Pneumonia type: due to unspecified organism Laterality: right Lung location: lower lobe of lung Qualified Code(s): J18.1 - Lobar pneumonia, unspecified organism Is this a current diagnosis for this admission?: Yes Plan: Continue current antibiotics. (6) Chronic liver disease Is this a current diagnosis for this admission?: Yes Plan: Likely due to autoimmune hepatitis. Patient will need GI follow-up as outpatient. Doppler of the right upper extremity was done and showed no portal or splenic vein thrombosis. (7) Hydronephrosis, right Is this a current diagnosis for this admission?: Yes Plan: Secondary to obstructive uropathy and ascites. Patient is status post paracentesis on 04/22/2017. Repeat ultrasound showed resolution of the right hydronephrosis. (8) Septic shock Is this a current diagnosis for this admission?: Yes Plan: Please secondary to pneumonia, SBP and left lower extremity cellulitis and abscess. Patient was in the ICU on pressors on fluids. This has since resolved. (9) Autoimmune hepatitis Is this a current diagnosis for this admission?: Yes Plan: Continue supportive care. Patient was started on prednisone however patient is requesting that it be discontinued. - Time Time Spent with patient: 15-24 minutes Anticipated discharge: Home - Inpatient Certification Medical Necessity: Significant Comorbidiites Make Outpatient Treatment Too Risky , Need Close Monitoring Due to Risk of Patient Decompensation, Need for IV Antibiotics
--- NOTE | 2017-04-29 13:14 | PDOC PROGRESS REPORT ---
Subjective Progress Note for:: 04/29/17 Subjective:: Patient is doing much better today. Patient is asking about PT and OT. Reason For Visit: ACUTE ON CHRONIC RENAL FAILURE Physical Exam Vital Signs: Temp Pulse Resp BP Pulse Ox 98.4 F 101 H 18 145/91 H 100 04/29/17 08:15 04/29/17 08:15 04/29/17 08:15 04/29/17 08:15 04/29/17 08:15 Intake & Output 04/28/17 04/29/17 04/30/17 06:59 06:59 06:59 Intake Total 2794 2090 Output Total 1475 1045 Balance 1319 -585 Weight 93.3 kg 92 kg General appearance: PRESENT: no acute distress, obese Head exam: PRESENT: normocephalic Eye exam: PRESENT: EOMI. ABSENT: scleral icterus Ear exam: PRESENT: normal external ear exam Mouth exam: PRESENT: moist Neck exam: ABSENT: carotid bruit, JVD, lymphadenopathy, thyromegaly Respiratory exam: PRESENT: clear to auscultation jose j. ABSENT: rales, rhonchi, wheezes Cardiovascular exam: PRESENT: RRR. ABSENT: diastolic murmur, rubs, systolic murmur GI/Abdominal exam: PRESENT: normal bowel sounds, soft. ABSENT: distended, guarding, mass, organolmegaly, rebound, tenderness Rectal exam: PRESENT: deferred Gentrourinary exam: PRESENT: indwelling catheter Extremities exam: PRESENT: full ROM, pedal edema. ABSENT: calf tenderness, clubbing Musculoskeletal exam: PRESENT: other - Bony deformities of the hands Neurological exam: PRESENT: alert, awake, oriented to person, oriented to place , oriented to time, oriented to situation, CN II-XII grossly intact. ABSENT: motor sensory deficit Psychiatric exam: PRESENT: appropriate affect, normal mood. ABSENT: homicidal ideation, suicidal ideation Skin exam: PRESENT: dry, intact, warm. ABSENT: cyanosis, rash Results Laboratory Results: 04/28/17 04:45 04/29/17 10:00 04/29/17 10:00 Creatinine 0.90 Est GFR ( Amer) > 60 Est GFR (Non-Af Amer) > 60 04/24/17 18:43 Leg - Left Gram Stain - Final 04/24/17 18:43 Leg - Left Wound Culture - Final NO AEROBIC OR ANAEROBIC ORGANISMS RECOVERED 04/24/17 18:41 Leg - Left Gram Stain - Final 04/24/17 18:41 Leg - Left Wound Culture - Final NO AEROBIC OR ANAEROBIC ORGANISMS RECOVERED Impressions: Abdomen/Pelvis CT 04/20/17 00:00 IMPRESSION: 1. Right lower lobar pneumonia. 2. Large partially loculated/encapsulated ascites; differential diagnosis includes early abscess. 3. Moderate right hydronephrosis/hydroureter could be secondary to extrinsic compression from partially loculated ascites. 4. Cholelithiasis with moderate nonspecific pericholecystic fluid. 5. Mild transverse colitis pattern. Chest X-Ray 04/20/17 17:41 IMPRESSION: Marked improvement in the previous noted abnormal air space density in the lungs with differential including pulmonary edema and pneumonia. Mild residual persists. Extremity Ultrasound 04/22/17 15:25 IMPRESSION: Complex fluid collection in the subcutaneous fat of the medial left calf worrisome for abscess. Extent of the fluid collection was marked on the patient's skin. Paracentesis Ultrasound 04/22/17 15:34 IMPRESSION: Successful ultrasound-guided paracentesis Abdomen Ultrasound 04/23/17 00:00 IMPRESSION: No evidence for portal vein thrombosis. The previously described hydronephrosis involving the right kidney is not identified on the basis of the ultrasound evaluation. Small amount residual ascitic fluid is identified status post recent paracentesis. Gallstones are identified as well as a component biliary sludge. Findings suspicious for cholecystitis are identified. Clinical correlation is recommended. Other findings as noted above. Assessment & Plan - Diagnosis (1) Abscess of left lower leg Is this a current diagnosis for this admission?: Yes Plan: Patient is status post I&D on 04/24/2017. Patient is being followed by surgery. Patient currently on antibiotics. Will continue to monitor. (2) SBP (spontaneous bacterial peritonitis) Is this a current diagnosis for this admission?: Yes Plan: She did have greater than 7000 WBCs in the peritoneal fluid but no growth on culture. She currently on antibiotics. Peritoneal fluid shows no growth. The patient has history of recurrent SBP. Patient does follow-up with GI. Patient may need to be on prophylaxis on discharge. (3) Acute renal failure superimposed on stage 3 chronic kidney disease Qualifiers: Acute renal failure type: unspecified Qualified Code(s): N17.9 - Acute kidney failure, unspecified; N18.3 - Chronic kidney disease, stage 3 (moderate) ; N18.3 - Chronic kidney disease, stage 3 (moderate) Is this a current diagnosis for this admission?: Yes Plan: Secondary to hypotension and postobstructive uropathy. Patient did have right- sided hydronephrosis on CT scan. Patient is status post drainage of her ascites on 04/22/2017. Repeat ultrasound of the abdomen revealed resolved hydronephrosis of the right kidney and no portal vein thrombosis. (4) Anasarca Is this a current diagnosis for this admission?: Yes Plan: Gradually improving. (5) Pneumonia Qualifiers: Pneumonia type: due to unspecified organism Laterality: right Lung location: lower lobe of lung Qualified Code(s): J18.1 - Lobar pneumonia, unspecified organism Is this a current diagnosis for this admission?: Yes Plan: Continue current antibiotics. (6) Chronic liver disease Is this a current diagnosis for this admission?: Yes Plan: Likely due to autoimmune hepatitis. Patient will need GI follow-up as outpatient. Doppler of the right upper extremity was done and showed no portal or splenic vein thrombosis. (7) Hydronephrosis, right Is this a current diagnosis for this admission?: Yes Plan: Secondary to obstructive uropathy and ascites. Patient is status post paracentesis on 04/22/2017. Repeat ultrasound showed resolution of the right hydronephrosis. (8) Septic shock Is this a current diagnosis for this admission?: Yes Plan: Please secondary to pneumonia, SBP and left lower extremity cellulitis and abscess. Patient was in the ICU on pressors on fluids. This has since resolved. (9) Autoimmune hepatitis Is this a current diagnosis for this admission?: Yes Plan: Continue supportive care. Patient was started on prednisone however patient is requesting that it be discontinued. - Time Time Spent with patient: Less than 15 minutes Anticipated discharge: Home - Inpatient Certification Medical Necessity: Significant Comorbidiites Make Outpatient Treatment Too Risky , Need Close Monitoring Due to Risk of Patient Decompensation, Need for IV Antibiotics
[2017-04-29] MEDS: HYDROMORPHONE HCL INJ/PF 2 MG/ML AMPULE IV PRN ×2 (14:15→22:23)
[2017-04-29] MEDS: PREDNISONE 10 MG TABLET PO SCH (19:00)
[2017-04-30 04:30] LABS: HEMATOCRIT 27.5 % (36.0-47.0); HEMOGLOBIN 8.8 g/dL (12.0-15.5); MEAN CORPUSCULAR HEMOGLOBIN 30.8 pg (27.0-33.4); MEAN CORPUSCULAR HGB CONC 31.8 g/dL (32.0-36.0); MEAN CORPUSCULAR VOLUME 97 fl (80-97); PLATELET COUNT 109 10^3/uL (150-450); RED BLOOD COUNT 2.84 10^6/uL (3.72-5.28); RED CELL DISTRIBUTION WIDTH 21.3 % (11.5-14.0); WHITE BLOOD COUNT 11.9 10^3/uL (4.0-10.5)
[2017-04-30 04:47] LABS: ALANINE AMINOTRANSFERASE 34 U/L (9-52); ALBUMIN 1.9 g/dL (3.5-5.0); ALKALINE PHOSPHATASE 346 U/L (38-126); ASPARTATE AMINO TRANSFERASE 35 U/L (14-36); BILIRUBIN,DIRECT 0.8 mg/dL (0.0-0.4); BILIRUBIN,TOTAL 1.1 mg/dL (0.2-1.3); BLOOD UREA NITROGEN 35 mg/dL (7-20); GLUCOSE 322 mg/dL (75-110); POTASSIUM 3.8 mmol/L (3.6-5.0); TOTAL PROTEIN 3.8 g/dL (6.3-8.2)
[2017-04-30 04:52] LABS: ANION GAP 5 (5-19); CARBON DIOXIDE 23 mmol/L (22-30); CHLORIDE 104 mmol/L (98-107)
[2017-04-30 04:55] LABS: ABSOLUTE LYMPHOCYTES# (MANUAL) 0.6 10^3/uL (0.5-4.7); ABSOLUTE MONOCYTES # (MANUAL) 1.1 10^3/uL (0.1-1.4); ABSOLUTE NEUTROPHILS# (MANUAL) 10.2 10^3/uL (1.7-8.2); BAND NEUTROPHILS % (MANUAL) 1 % (3-5); BASOPHILS % (MANUAL) 0 % (0-2); EOSINOPHILS % (MANUAL) 0 % (0-6); LYMPHOCYTES % (MANUAL) 5 % (13-45); METAMYELOCYTES % (MANUAL) 1 % (0); MONOCYTES % (MANUAL) 9 % (3-13); NUCLEATED RED BLOOD CELLS 1 /100 WBC (0); SEGMENTED NEUTROPHILS % (MAN) 84 % (42-78); TOTAL CELLS COUNTED 100
[2017-04-30 04:57] LABS: ANISOCYTOSIS 3+; TOXIC GRANULATION 2+
[2017-04-30 04:58] LABS: BURR CELLS 1+; HELMET CELLS SLIGHT; OVALOCYTES 1+; PLATELET COMMENT ADEQUATE; PLATELET LARGE PRESENT; POIKILOCYTOSIS 1+; SCHISTOCYTES 1+; TEAR DROP CELLS 1+
[2017-04-30] MEDS: AZTREONAM 1 GM in NORMAL SALINE 100 ML IV SCH ×3 (05:14→21:40)
[2017-04-30] MEDS: GABAPENTIN 300 MG CAPSULE PO SCH ×3 (05:14→21:40)
[2017-04-30] MEDS: SUCRALFATE 1 GM TABLET PO SCH ×4 (08:02→21:40)
[2017-04-30] MEDS: FAMOTIDINE 20 MG TABLET PO SCH ×2 (09:23→21:41)
[2017-04-30] MEDS: FUROSEMIDE INJ/PF 40 MG/4 ML SDV IV SCH (09:23)
[2017-04-30] MEDS: METOLAZONE 2.5 MG TABLET PO SCH (09:24)
[2017-04-30] MEDS: PREDNISONE 10 MG TABLET PO SCH ×2 (09:25→17:05)
[2017-04-30] MEDS: SPIRONOLACTONE 25 MG TABLET PO SCH ×2 (09:26→21:41)
[2017-04-30] MEDS ORDERED: VANCOMYCIN HCL 750 MG in DEXTROSE 5%-WATER 250 ML IV SCH (10:00)
[2017-04-30] MEDS: HYDROMORPHONE HCL INJ/PF 2 MG/ML AMPULE IV PRN (12:05)
[2017-05-01] MEDS: GABAPENTIN 300 MG CAPSULE PO SCH ×3 (05:06→21:04)
[2017-05-01] MEDS: AZTREONAM 1 GM in NORMAL SALINE 100 ML IV SCH ×2 (05:06→15:23)
[2017-05-01] MEDS: SUCRALFATE 1 GM TABLET PO SCH ×4 (08:00→21:04)
[2017-05-01] MEDS ORDERED: METOLAZONE 2.5 MG TABLET PO SCH ×2 (08:36→10:00)
--- NOTE | 2017-05-01 08:50 | PDOC PROGRESS REPORT ---
Subjective Progress Note for:: 04/30/17 Subjective:: Patient is doing better. She reports that she did work with physical therapy yesterday however became tachycardic therefore had to stop. Patient still has significant swelling with weeping of the abdominal area. Reason For Visit: ACUTE ON CHRONIC RENAL FAILURE Physical Exam Vital Signs: Temp Pulse Resp BP Pulse Ox 98.6 F 112 H 16 129/90 H 100 04/30/17 19:53 04/30/17 19:53 04/30/17 19:53 04/30/17 19:53 04/30/17 19:53 Intake & Output 04/29/17 04/30/17 05/01/17 06:59 06:59 06:59 Intake Total 2090 1683 1019 Output Total 5550 0645 262 Balance -585 -5443 -1439 Weight 92 kg 92.1 kg General appearance: PRESENT: no acute distress, obese Head exam: PRESENT: normocephalic, other - Facial fullness Eye exam: PRESENT: EOMI. ABSENT: scleral icterus Ear exam: PRESENT: normal external ear exam Mouth exam: PRESENT: moist Neck exam: ABSENT: carotid bruit, JVD, lymphadenopathy, thyromegaly Respiratory exam: PRESENT: clear to auscultation jose j. ABSENT: rales, rhonchi, wheezes Cardiovascular exam: PRESENT: tachycardia. ABSENT: diastolic murmur, rubs, systolic murmur GI/Abdominal exam: PRESENT: normal bowel sounds, soft, other - Swelling of the abdominal wall. ABSENT: distended, guarding, mass, organolmegaly, rebound, tenderness Rectal exam: PRESENT: deferred Extremities exam: PRESENT: full ROM, pedal edema. ABSENT: calf tenderness, clubbing Musculoskeletal exam: PRESENT: deformity - Fingers, tenderness - Swelling of the sacrum, other - Patient with sacral edema Neurological exam: PRESENT: alert, awake, oriented to person, oriented to place , oriented to time, oriented to situation, CN II-XII grossly intact. ABSENT: motor sensory deficit Psychiatric exam: PRESENT: appropriate affect, normal mood. ABSENT: homicidal ideation, suicidal ideation Skin exam: PRESENT: dry, intact, warm, other - Patient with dressing on left lower extremity.. ABSENT: cyanosis, rash Results Laboratory Results: 04/30/17 04:00 04/30/17 04:00 04/30/17 04/30/17 04:00 04:00 WBC 11.9 H RBC 2.84 L Hgb 8.8 L Hct 27.5 L MCV 97 MCH 30.8 MCHC 31.8 L RDW 21.3 H Plt Count 109 L Seg Neutrophils % Not Reportable Lymphocytes % Not Reportable Monocytes % Not Reportable Eosinophils % Not Reportable Basophils % Not Reportable Absolute Neutrophils Not Reportable Absolute Lymphocytes Not Reportable Absolute Monocytes Not Reportable Absolute Eosinophils Not Reportable Absolute Basophils Not Reportable Sodium 132.0 L Potassium 3.8 Chloride 104 Carbon Dioxide 23 Anion Gap 5 BUN 35 H Creatinine 0.80 Est GFR ( Amer) > 60 Est GFR (Non-Af Amer) > 60 Glucose 322 H Calcium 9.0 Magnesium 1.8 Total Bilirubin 1.1 AST 35 ALT 34 Alkaline Phosphatase 346 H Total Protein 3.8 L Albumin 1.9 L Impressions: Abdomen/Pelvis CT 04/20/17 00:00 IMPRESSION: 1. Right lower lobar pneumonia. 2. Large partially loculated/encapsulated ascites; differential diagnosis includes early abscess. 3. Moderate right hydronephrosis/hydroureter could be secondary to extrinsic compression from partially loculated ascites. 4. Cholelithiasis with moderate nonspecific pericholecystic fluid. 5. Mild transverse colitis pattern. Chest X-Ray 04/20/17 17:41 IMPRESSION: Marked improvement in the previous noted abnormal air space density in the lungs with differential including pulmonary edema and pneumonia. Mild residual persists. Extremity Ultrasound 04/22/17 15:25 IMPRESSION: Complex fluid collection in the subcutaneous fat of the medial left calf worrisome for abscess. Extent of the fluid collection was marked on the patient's skin. Paracentesis Ultrasound 04/22/17 15:34 IMPRESSION: Successful ultrasound-guided paracentesis Abdomen Ultrasound 04/23/17 00:00 IMPRESSION: No evidence for portal vein thrombosis. The previously described hydronephrosis involving the right kidney is not identified on the basis of the ultrasound evaluation. Small amount residual ascitic fluid is identified status post recent paracentesis. Gallstones are identified as well as a component biliary sludge. Findings suspicious for cholecystitis are identified. Clinical correlation is recommended. Other findings as noted above. Assessment & Plan - Diagnosis (1) Abscess of left lower leg Is this a current diagnosis for this admission?: Yes Plan: Patient is status post I&D on 04/24/2017. Patient is being followed by surgery. Patient currently on antibiotics. Will continue antibiotics for more days. (2) SBP (spontaneous bacterial peritonitis) Is this a current diagnosis for this admission?: Yes Plan: She did have greater than 7000 WBCs in the peritoneal fluid but no growth on culture. She currently on antibiotics. Peritoneal fluid shows no growth. The patient has history of recurrent SBP. Patient does follow-up with GI. Patient may need to be on prophylaxis on discharge. (3) Acute renal failure superimposed on stage 3 chronic kidney disease Qualifiers: Acute renal failure type: unspecified Qualified Code(s): N17.9 - Acute kidney failure, unspecified; N18.3 - Chronic kidney disease, stage 3 (moderate) ; N18.3 - Chronic kidney disease, stage 3 (moderate) Is this a current diagnosis for this admission?: Yes Plan: Secondary to hypotension and postobstructive uropathy. Patient did have right- sided hydronephrosis on CT scan. Patient is status post drainage of her ascites on 04/22/2017. Repeat ultrasound of the abdomen revealed resolved hydronephrosis of the right kidney and no portal vein thrombosis. (4) Anasarca Is this a current diagnosis for this admission?: Yes Plan: Gradually improving. (5) Pneumonia Qualifiers: Pneumonia type: due to unspecified organism Laterality: right Lung location: lower lobe of lung Qualified Code(s): J18.1 - Lobar pneumonia, unspecified organism Is this a current diagnosis for this admission?: Yes Plan: Continue current antibiotics for 4 more days to complete a total 14 days of antibiotics. (6) Chronic liver disease Is this a current diagnosis for this admission?: Yes Plan: Likely due to autoimmune hepatitis. Patient will need GI follow-up as outpatient. Doppler of the right upper extremity was done and showed no portal or splenic vein thrombosis. (7) Hydronephrosis, right Is this a current diagnosis for this admission?: Yes Plan: Secondary to obstructive uropathy and ascites. Patient is status post paracentesis on 04/22/2017. Repeat ultrasound showed resolution of the right hydronephrosis. (8) Septic shock Is this a current diagnosis for this admission?: Yes Plan: Please secondary to pneumonia, SBP and left lower extremity cellulitis and abscess. Patient was in the ICU on pressors on fluids. This has since resolved. (9) Autoimmune hepatitis Is this a current diagnosis for this admission?: Yes Plan: Continue supportive care. Patient was started on prednisone however patient is requesting that it be discontinued. - Time Time Spent with patient: 15-24 minutes Anticipated discharge: Home - Inpatient Certification Medical Necessity: Need for IV Antibiotics
[2017-05-01] MEDS ORDERED: PREDNISONE 10 MG TABLET PO SCH (10:00)
[2017-05-01] MEDS ORDERED: FUROSEMIDE INJ/PF 40 MG/4 ML SDV IV SCH (10:00)
[2017-05-01] MEDS ORDERED: METOPROLOL SUCCINATE 25 MG TAB.SR.24H PO SCH (10:00)
[2017-05-01] MEDS: SPIRONOLACTONE 25 MG TABLET PO SCH (10:55)
[2017-05-01] MEDS: METOPROLOL SUCCINATE 25 MG TAB.SR.24H PO SCH ×2 (10:57→17:19)
[2017-05-01] MEDS: FAMOTIDINE 20 MG TABLET PO SCH ×2 (10:57→21:04)
[2017-05-01] MEDS: HYDROMORPHONE HCL INJ/PF 2 MG/ML AMPULE IV PRN (11:52)
[2017-05-01] MEDS ORDERED: NORMAL SALINE 1000 ML 1,000 ML IV PRN (16:55)
--- NOTE | 2017-05-01 17:07 | PDOC PROGRESS REPORT ---
Subjective Progress Note for:: 05/01/17 Subjective:: Patient is complaining of the abdominal and sacral edema. Overall the edema has improved. Patient would like to walk with therapy however she is tachycardic. Explained to patient that she may be dehydrated. Patient still intermittently complaining of abdominal pain. Reason For Visit: ACUTE ON CHRONIC RENAL FAILURE Physical Exam Vital Signs: Temp Pulse Resp BP Pulse Ox 98.8 F 112 H 18 121/81 100 05/01/17 12:44 05/01/17 14:00 05/01/17 12:44 05/01/17 12:44 05/01/17 12:44 Intake & Output 04/30/17 05/01/17 05/02/17 06:59 06:59 06:59 Intake Total 1683 2443 222 Output Total 3422 0407 1900 Balance -1742 -2182 -1678 Weight 92.1 kg 91.2 kg General appearance: PRESENT: no acute distress, obese Head exam: PRESENT: normocephalic, other - Round face Eye exam: PRESENT: EOMI. ABSENT: scleral icterus Ear exam: PRESENT: normal external ear exam Mouth exam: PRESENT: moist Neck exam: ABSENT: carotid bruit, JVD, lymphadenopathy, thyromegaly Respiratory exam: PRESENT: clear to auscultation jose j. ABSENT: rales, rhonchi, wheezes Cardiovascular exam: PRESENT: tachycardia. ABSENT: diastolic murmur, rubs, systolic murmur GI/Abdominal exam: PRESENT: normal bowel sounds, soft, other - Abdominal wall edema. ABSENT: distended, guarding, mass, organolmegaly, rebound, tenderness Rectal exam: PRESENT: deferred Extremities exam: PRESENT: full ROM, pedal edema - Improved pedal edema. ABSENT : calf tenderness, clubbing Musculoskeletal exam: PRESENT: other - Sacral edema Neurological exam: PRESENT: alert, awake, oriented to person, oriented to place , oriented to time, oriented to situation, CN II-XII grossly intact. ABSENT: motor sensory deficit Psychiatric exam: PRESENT: appropriate affect, normal mood. ABSENT: homicidal ideation, suicidal ideation Skin exam: PRESENT: dry, intact, warm, other - Dressing on left lower leg. ABSENT: cyanosis, rash Results Laboratory Results: 04/30/17 04:00 04/30/17 04:00 Impressions: Abdomen/Pelvis CT 04/20/17 00:00 IMPRESSION: 1. Right lower lobar pneumonia. 2. Large partially loculated/encapsulated ascites; differential diagnosis includes early abscess. 3. Moderate right hydronephrosis/hydroureter could be secondary to extrinsic compression from partially loculated ascites. 4. Cholelithiasis with moderate nonspecific pericholecystic fluid. 5. Mild transverse colitis pattern. Chest X-Ray 04/20/17 17:41 IMPRESSION: Marked improvement in the previous noted abnormal air space density in the lungs with differential including pulmonary edema and pneumonia. Mild residual persists. Extremity Ultrasound 04/22/17 15:25 IMPRESSION: Complex fluid collection in the subcutaneous fat of the medial left calf worrisome for abscess. Extent of the fluid collection was marked on the patient's skin. Paracentesis Ultrasound 04/22/17 15:34 IMPRESSION: Successful ultrasound-guided paracentesis Abdomen Ultrasound 04/23/17 00:00 IMPRESSION: No evidence for portal vein thrombosis. The previously described hydronephrosis involving the right kidney is not identified on the basis of the ultrasound evaluation. Small amount residual ascitic fluid is identified status post recent paracentesis. Gallstones are identified as well as a component biliary sludge. Findings suspicious for cholecystitis are identified. Clinical correlation is recommended. Other findings as noted above. Assessment & Plan - Diagnosis (1) Tachycardia Is this a current diagnosis for this admission?: Yes Plan: Patient with presents with tachycardia. Concerned that patient may have been over diuresed and now is intravascularly depleted. Will gently hydrate patient with 1 L of fluid. Will monitor for resolution of tachycardia. (2) Abscess of left lower leg Is this a current diagnosis for this admission?: Yes Plan: Patient is status post I&D on 04/24/2017. Patient is being followed by surgery. Continue antibiotics for 3 more days for total of 14 days of treatment. Patient will need wound care. She can follow-up at the wound clinic. (3) SBP (spontaneous bacterial peritonitis) Is this a current diagnosis for this admission?: Yes Plan: She did have greater than 7000 WBCs in the peritoneal fluid but no growth on culture. She currently on antibiotics. Peritoneal fluid shows no growth. The patient has history of recurrent SBP. Patient does follow-up with GI. Patient may need to be on prophylaxis on discharge. (4) Acute renal failure superimposed on stage 3 chronic kidney disease Qualifiers: Acute renal failure type: unspecified Qualified Code(s): N17.9 - Acute kidney failure, unspecified; N18.3 - Chronic kidney disease, stage 3 (moderate) ; N18.3 - Chronic kidney disease, stage 3 (moderate) Is this a current diagnosis for this admission?: Yes Plan: Secondary to hypotension and postobstructive uropathy. Patient did have right- sided hydronephrosis on CT scan. Patient is status post drainage of her ascites on 04/22/2017. Repeat ultrasound of the abdomen revealed resolved hydronephrosis of the right kidney and no portal vein thrombosis. (5) Anasarca Is this a current diagnosis for this admission?: Yes Plan: Gradually improving. (6) Pneumonia Qualifiers: Pneumonia type: due to unspecified organism Laterality: right Lung location: lower lobe of lung Qualified Code(s): J18.1 - Lobar pneumonia, unspecified organism Is this a current diagnosis for this admission?: Yes Plan: Continue current antibiotics for 3 more days to complete a total 14 days of antibiotics. (7) Chronic liver disease Is this a current diagnosis for this admission?: Yes Plan: Likely due to autoimmune hepatitis. Patient will need GI follow-up as outpatient. Doppler of the right upper extremity was done and showed no portal or splenic vein thrombosis. (8) Hydronephrosis, right Is this a current diagnosis for this admission?: Yes Plan: Secondary to obstructive uropathy and ascites. Patient is status post paracentesis on 04/22/2017. Repeat ultrasound showed resolution of the right hydronephrosis. (9) Septic shock Is this a current diagnosis for this admission?: Yes Plan: Please secondary to pneumonia, SBP and left lower extremity cellulitis and abscess. Patient was in the ICU on pressors on fluids. This has since resolved. (10) Autoimmune hepatitis Is this a current diagnosis for this admission?: Yes Plan: Continue supportive care. Patient was started on prednisone however patient is requesting that it be discontinued. (11) Hyponatremia Is this a current diagnosis for this admission?: Yes Plan: She will hyponatremia this was originally possibly due to volume overload however patient may be dehydrated. Will stop IV Lasix and switch to p.o. Lasix start tomorrow. Will decrease patient's dose of spironolactone. Will gently hydrate with normal saline and monitor.
[2017-05-01] MEDS ORDERED: HYDROMORPHONE HCL INJ/PF 2 MG/ML AMPULE IV PRN (21:19)
[2017-05-02 04:15] LABS: HEMATOCRIT 27.5 % (36.0-47.0); HEMOGLOBIN 8.9 g/dL (12.0-15.5); MEAN CORPUSCULAR HEMOGLOBIN 31.2 pg (27.0-33.4); MEAN CORPUSCULAR HGB CONC 32.3 g/dL (32.0-36.0); MEAN CORPUSCULAR VOLUME 97 fl (80-97); RED BLOOD COUNT 2.85 10^6/uL (3.72-5.28); RED CELL DISTRIBUTION WIDTH 22.3 % (11.5-14.0); WHITE BLOOD COUNT 9.6 10^3/uL (4.0-10.5)
[2017-05-02 04:20] LABS: PLATELET COUNT 70 10^3/uL (150-450)
[2017-05-02 04:32] LABS: BLOOD UREA NITROGEN 28 mg/dL (7-20); CALCIUM 8.8 mg/dL (8.4-10.2); CARBON DIOXIDE 26 mmol/L (22-30); CHLORIDE 107 mmol/L (98-107); GLUCOSE 147 mg/dL (75-110); POTASSIUM 3.5 mmol/L (3.6-5.0)
[2017-05-02 04:35] LABS: ABSOLUTE LYMPHOCYTES# (MANUAL) 0.7 10^3/uL (0.5-4.7); ABSOLUTE MONOCYTES # (MANUAL) 0.8 10^3/uL (0.1-1.4); ABSOLUTE NEUTROPHILS# (MANUAL) 8.2 10^3/uL (1.7-8.2); BASOPHILS % (MANUAL) 0 % (0-2); EOSINOPHILS % (MANUAL) 0 % (0-6); LYMPHOCYTES % (MANUAL) 7 % (13-45); MONOCYTES % (MANUAL) 8 % (3-13); SEGMENTED NEUTROPHILS % (MAN) 85 % (42-78); TOTAL CELLS COUNTED 100
[2017-05-02 04:36] LABS: TOXIC VACUOLATION PRESENT
[2017-05-02 04:38] LABS: SODIUM 135.3 mmol/L (137-145)
[2017-05-02 04:41] LABS: ANISOCYTOSIS 3+; BURR CELLS SLIGHT; OVALOCYTES 1+; POIKILOCYTOSIS 2+; POLYCHROMASIA SLIGHT
[2017-05-02 04:42] LABS: ANION GAP 2 (5-19); PLATELET COMMENT DECREASED; SCHISTOCYTES SLIGHT; TEAR DROP CELLS 2+
[2017-05-02 04:46] LABS: PLATELET LARGE PRESENT
[2017-05-02] MEDS: GABAPENTIN 300 MG CAPSULE PO SCH ×3 (05:23→22:02)
[2017-05-02] MEDS ORDERED: POTASSIUM CHLORIDE 10 MEQ TABLET.SA PO ONE (07:35)
[2017-05-02] MEDS: SUCRALFATE 1 GM TABLET PO SCH ×4 (07:49→22:02)
[2017-05-02] MEDS: MAGNESIUM SULFATE/D5W 1 GM/100 ML RTUPB IV SCH ×2 (07:50→10:42)
[2017-05-02] MEDS ORDERED: FUROSEMIDE 40 MG TABLET PO SCH (10:00)
[2017-05-02] MEDS: METOPROLOL SUCCINATE 25 MG TAB.SR.24H PO SCH ×2 (10:40→18:55)
[2017-05-02] MEDS: PAROXETINE HCL 20 MG TABLET PO SCH (10:41)
[2017-05-02] MEDS: SPIRONOLACTONE 25 MG TABLET PO SCH (10:41)
[2017-05-02] MEDS: LISINOPRIL 10 MG TABLET PO SCH (10:42)
[2017-05-02] MEDS: FAMOTIDINE 20 MG TABLET PO SCH ×2 (10:42→22:02)
[2017-05-02] MEDS: FOLIC ACID 1 MG TABLET PO SCH (10:42)
[2017-05-02] MEDS: OXYCODONE HCL IR 5 MG TABLET PO PRN (12:44)
--- NOTE | 2017-05-02 12:47 | PDOC PROGRESS REPORT ---
Subjective Progress Note for:: 05/02/17 Subjective:: Today, the patient complains of left lower extremity pain. However, this is fairly well controlled. She actually stated that she wants to get up out of bed today and possibly ambulate. She had no other complaints this morning. Reason For Visit: ACUTE ON CHRONIC RENAL FAILURE Physical Exam Vital Signs: Temp Pulse Resp BP Pulse Ox 98.5 F 98 18 111/78 100 05/02/17 07:48 05/02/17 07:48 05/02/17 07:48 05/02/17 07:48 05/02/17 07:48 Intake & Output 05/01/17 05/02/17 05/03/17 06:59 06:59 07:59 Intake Total 2443 2466 Output Total 4608 4600 Balance -2182 -2134 Weight 91.2 kg 86.8 kg Additional comments: The patient appears to be in chronically poor health. That being said she does not appear to be septic or in any distress at this time. Her facial appearance is normal. Her cognition is normal. Her lungs are clear to auscultation bilaterally. Her cardiac exam is regular without murmurs, gallops or rubs. The abdomen is soft. Bowel sounds are noted. She does not have guarding or rebound noted and there are no hernias or masses present. The left lower extremity is covered with a surgical bandage which is not due to be changed until tomorrow. The right lower extremity does not demonstrate any significant edema. No lesions are present in the right lower extremity. Results Laboratory Results: 05/02/17 04:00 05/02/17 04:00 05/02/17 05/02/17 04:00 04:00 WBC 9.6 RBC 2.85 L Hgb 8.9 L Hct 27.5 L MCV 97 MCH 31.2 MCHC 32.3 RDW 22.3 H Plt Count 70 L Seg Neutrophils % Not Reportable Lymphocytes % Not Reportable Monocytes % Not Reportable Eosinophils % Not Reportable Basophils % Not Reportable Absolute Neutrophils Not Reportable Absolute Lymphocytes Not Reportable Absolute Monocytes Not Reportable Absolute Eosinophils Not Reportable Absolute Basophils Not Reportable Sodium 135.3 L Potassium 3.5 L Chloride 107 Carbon Dioxide 26 Anion Gap 2 L BUN 28 H Creatinine 0.59 Est GFR ( Amer) > 60 Est GFR (Non-Af Amer) > 60 Glucose 147 H Calcium 8.8 Magnesium 1.5 L Impressions: Abdomen/Pelvis CT 04/20/17 00:00 IMPRESSION: 1. Right lower lobar pneumonia. 2. Large partially loculated/encapsulated ascites; differential diagnosis includes early abscess. 3. Moderate right hydronephrosis/hydroureter could be secondary to extrinsic compression from partially loculated ascites. 4. Cholelithiasis with moderate nonspecific pericholecystic fluid. 5. Mild transverse colitis pattern. Chest X-Ray 04/20/17 17:41 IMPRESSION: Marked improvement in the previous noted abnormal air space density in the lungs with differential including pulmonary edema and pneumonia. Mild residual persists. Extremity Ultrasound 04/22/17 15:25 IMPRESSION: Complex fluid collection in the subcutaneous fat of the medial left calf worrisome for abscess. Extent of the fluid collection was marked on the patient's skin. Paracentesis Ultrasound 04/22/17 15:34 IMPRESSION: Successful ultrasound-guided paracentesis Abdomen Ultrasound 04/23/17 00:00 IMPRESSION: No evidence for portal vein thrombosis. The previously described hydronephrosis involving the right kidney is not identified on the basis of the ultrasound evaluation. Small amount residual ascitic fluid is identified status post recent paracentesis. Gallstones are identified as well as a component biliary sludge. Findings suspicious for cholecystitis are identified. Clinical correlation is recommended. Other findings as noted above. Assessment & Plan - Diagnosis (1) Abscess of left lower leg Is this a current diagnosis for this admission?: Yes (2) Acute renal failure superimposed on stage 3 chronic kidney disease Qualifiers: Acute renal failure type: unspecified Qualified Code(s): N17.9 - Acute kidney failure, unspecified; N18.3 - Chronic kidney disease, stage 3 (moderate) ; N18.3 - Chronic kidney disease, stage 3 (moderate) Is this a current diagnosis for this admission?: Yes (3) Anasarca Is this a current diagnosis for this admission?: Yes (4) Chronic liver disease Is this a current diagnosis for this admission?: Yes (5) Hydronephrosis, right Is this a current diagnosis for this admission?: Yes (6) Hyponatremia Is this a current diagnosis for this admission?: Yes (7) Pneumonia Qualifiers: Pneumonia type: due to unspecified organism Laterality: right Lung location: lower lobe of lung Qualified Code(s): J18.1 - Lobar pneumonia, unspecified organism Is this a current diagnosis for this admission?: Yes (8) Autoimmune hepatitis Is this a current diagnosis for this admission?: Yes (9) SBP (spontaneous bacterial peritonitis) Is this a current diagnosis for this admission?: Yes (10) Septic shock Is this a current diagnosis for this admission?: Yes (11) Tachycardia Is this a current diagnosis for this admission?: Yes - Time Time Spent with patient: 25-34 minutes - Inpatient Certification Medical Necessity: Significant Comorbidiites Make Outpatient Treatment Too Risky , Need Close Monitoring Due to Risk of Patient Decompensation, Need for Pain Control, Need for IV Antibiotics, Risk of Complication if Not Cared For in Hospital - Plan Summary Plan Summary: 1. Tachycardia: Improved after hydration yesterday. 2. Abscess of lower leg: Status post incision with drainage on 04/24/2017. Antibiotics will need to be continued for 2 more days for total of 14 days. The patient will need to follow-up at the wound clinic after discharge. 3. SBP: SBP cultures are negative. Follow-up with GI. Greater than 7000 WBCs were noted in peritoneal fluid. Consider prophylaxis. 4. Acute renal failure superimposed on stage III kidney disease with right- sided hydronephrosis; monitor labs and electrolytes. Avoid nephrotoxins. Right hydronephrosis resolved. 5. Anasarca, clinically improving. 6. Pneumonia: Continue IV antibiotics another 2 days for total of 14 days. 7. Chronic liver disease: Likely associated with autoimmune hepatitis. No portal or splenic vein thrombosis noted. 8. Right hydronephrosis: Resolved. This was secondary to obstructive uropathy and ascites. Resolution occurred after paracentesis which was performed on 04/22. 9. Septic shock: This was secondary to pneumonia, SBP, lower extremity cellulitis with abscess. Patient was in the ICU on pressors. Clinically, this is resolved. 10. Autoimmune hepatitis: Continue supportive care patient has requested that prednisone be discontinued. 11. Hyponatremia: Continue to follow labs and electrolytes. 12. Hypomagnesemia and hypokalemia: Being replaced today.
[2017-05-02] MEDS ORDERED: AZTREONAM INJ 1 GM VIAL IV SCH (17:45)
[2017-05-02] MEDS ORDERED: AZTREONAM 1 GM in DEXTROSE 5%-WATER 50 ML IV SCH (18:00)
[2017-05-02] MEDS ORDERED: FENTANYL CITRATE INJ/PF 100 MCG/2 ML AMPUL IV ONE (18:00)
[2017-05-02] MEDS ORDERED: AZTREONAM INJ 1 GM VIAL ONE (18:54)
[2017-05-03] MEDS: GABAPENTIN 300 MG CAPSULE PO SCH ×3 (05:44→22:05)
[2017-05-03] MEDS: OXYCODONE HCL IR 5 MG TABLET PO PRN ×2 (05:52→16:11)
[2017-05-03 08:41] LABS: BLOOD UREA NITROGEN 30 mg/dL (7-20); CALCIUM 8.3 mg/dL (8.4-10.2); GLUCOSE 94 mg/dL (75-110); POTASSIUM 3.4 mmol/L (3.6-5.0)
[2017-05-03 08:47] LABS: CARBON DIOXIDE 25 mmol/L (22-30); CHLORIDE 107 mmol/L (98-107); SODIUM 135.1 mmol/L (137-145)
[2017-05-03 08:48] LABS: ANION GAP 3 (5-19)
[2017-05-03] MEDS: SUCRALFATE 1 GM TABLET PO SCH ×4 (09:07→22:05)
[2017-05-03] MEDS: PAROXETINE HCL 20 MG TABLET PO SCH (09:07)
[2017-05-03] MEDS: FOLIC ACID 1 MG TABLET PO SCH (09:07)
[2017-05-03] MEDS: FAMOTIDINE 20 MG TABLET PO SCH ×2 (09:08→22:05)
[2017-05-03] MEDS ORDERED: AZTREONAM 1 GM in DEXTROSE 5%-WATER 50 ML IV ONE (10:00)
[2017-05-03] MEDS: MAGNESIUM OXIDE 400 MG TABLET PO SCH ×2 (11:59→17:24)
[2017-05-03] MEDS: SPIRONOLACTONE 25 MG TABLET PO SCH (12:00)
[2017-05-03] MEDS: METOPROLOL SUCCINATE 25 MG TAB.SR.24H PO SCH ×2 (12:01→23:34)
[2017-05-03] MEDS: LISINOPRIL 10 MG TABLET PO SCH (12:01)
[2017-05-03] MEDS ORDERED: POTASSIUM CHLORIDE 10 MEQ TABLET.SA PO ONE (12:30)
--- NOTE | 2017-05-03 13:03 | PDOC PROGRESS REPORT ---
Subjective Progress Note for:: 05/03/17 Subjective:: UGS PELLETIER is a 36 year old female with history of juvenile rheumatoid arthritis (at the age of 19, currently off biologic medication per patient, follows with Dr. Rivera) gastric ulcer, chronic metabolic acidosis, anasarca, malnutrition, recurrent spontaneous bacterial peritonitis/ questionable chronic autoimmune hepatitis and lower extremity venous stasis was admitted with above- mentioned complaints. It was very difficult to obtain an accurate history from the patient and her mother at bedside. The patient was last hospitalized here from 03/30/2017 till 04/03/2017 with septic shock/SBP/hepatic encephalopathy and acute renal failure. She was transferred since there was concern for possible TTP. The patient presented with evidence of septic shock. This was felt to be secondary to pneumonia and spontaneous bacterial peritonitis as well as lower extremity cellulitis with abscess. Initially, the patient was in the intensive care unit on Levophed. Her sepsis has now resolved. While the patient's cultures for SBP have been negative her white blood cell count on the paracentesis was elevated at 700. On 04/22/2017 the patient had a large volume paracentesis. This appeared to have alleviated the obstructive uropathy therefore alleviating the right hydronephrosis. The patient is now finishing a 14 day course of aztreonam. Reason For Visit: ACUTE ON CHRONIC RENAL FAILURE Physical Exam Vital Signs: Temp Pulse Resp BP Pulse Ox 98.6 F 87 18 92/50 L 95 05/03/17 07:22 05/03/17 07:22 05/03/17 07:22 05/03/17 07:22 05/03/17 07:22 Intake & Output 05/02/17 05/03/17 05/04/17 05:59 06:59 06:59 Intake Total Output Total Balance Weight Additional comments: The patient appears older than her stated age. She appears to be in poor, general health. However, she does not appear to be in any distress and she is nontoxic in appearance. Her facial appearance is unremarkable. Her lungs are clear to auscultation bilaterally. Her cardiac exam is regular without murmurs , gallops or rubs. The abdomen is soft and flat. She does not have a fluid wave present. The patient has no guarding or rebound noted. The left lower extremity surgical site looks clean and dry. It is packed with wet-to-dry dressing. The right lower extremity demonstrates trace edema. Otherwise, the skin is warm, dry and intact without lesions or rashes. Results Laboratory Results: 05/02/17 04:00 05/03/17 07:55 05/03/17 07:55 Sodium 135.1 L Potassium 3.4 L Chloride 107 Carbon Dioxide 25 Anion Gap 3 L BUN 30 H Creatinine 0.81 Est GFR ( Amer) > 60 Est GFR (Non-Af Amer) > 60 Glucose 94 Calcium 8.3 L Impressions: Abdomen/Pelvis CT 04/20/17 00:00 IMPRESSION: 1. Right lower lobar pneumonia. 2. Large partially loculated/encapsulated ascites; differential diagnosis includes early abscess. 3. Moderate right hydronephrosis/hydroureter could be secondary to extrinsic compression from partially loculated ascites. 4. Cholelithiasis with moderate nonspecific pericholecystic fluid. 5. Mild transverse colitis pattern. Chest X-Ray 04/20/17 17:41 IMPRESSION: Marked improvement in the previous noted abnormal air space density in the lungs with differential including pulmonary edema and pneumonia. Mild residual persists. Extremity Ultrasound 04/22/17 15:25 IMPRESSION: Complex fluid collection in the subcutaneous fat of the medial left calf worrisome for abscess. Extent of the fluid collection was marked on the patient's skin. Paracentesis Ultrasound 04/22/17 15:34 IMPRESSION: Successful ultrasound-guided paracentesis Abdomen Ultrasound 04/23/17 00:00 IMPRESSION: No evidence for portal vein thrombosis. The previously described hydronephrosis involving the right kidney is not identified on the basis of the ultrasound evaluation. Small amount residual ascitic fluid is identified status post recent paracentesis. Gallstones are identified as well as a component biliary sludge. Findings suspicious for cholecystitis are identified. Clinical correlation is recommended. Other findings as noted above. Assessment & Plan - Diagnosis (1) Abscess of left lower leg Is this a current diagnosis for this admission?: Yes (2) Acute renal failure superimposed on stage 3 chronic kidney disease Qualifiers: Acute renal failure type: unspecified Qualified Code(s): N17.9 - Acute kidney failure, unspecified; N18.3 - Chronic kidney disease, stage 3 (moderate) ; N18.3 - Chronic kidney disease, stage 3 (moderate) Is this a current diagnosis for this admission?: Yes (3) Anasarca Is this a current diagnosis for this admission?: Yes (4) Chronic liver disease Is this a current diagnosis for this admission?: Yes (5) Hydronephrosis, right Is this a current diagnosis for this admission?: Yes (6) Hyponatremia Is this a current diagnosis for this admission?: Yes (7) Pneumonia Qualifiers: Pneumonia type: due to unspecified organism Laterality: right Lung location: lower lobe of lung Qualified Code(s): J18.1 - Lobar pneumonia, unspecified organism Is this a current diagnosis for this admission?: Yes (8) Autoimmune hepatitis Is this a current diagnosis for this admission?: Yes (9) SBP (spontaneous bacterial peritonitis) Is this a current diagnosis for this admission?: Yes (10) Septic shock Is this a current diagnosis for this admission?: Yes (11) Tachycardia Is this a current diagnosis for this admission?: Yes - Time Time Spent with patient: 25-34 minutes - Inpatient Certification Medical Necessity: Need for IV Antibiotics - Plan Summary Plan Summary: 1. Tachycardia: Improved after hydration. 2. Abscess of lower leg: Status post incision with drainage on 04/24/2017. Antibiotics will need to be continued for 3 more days for total of 14 days. The patient will need to follow-up at the wound clinic after discharge. It was an inadvertent discontinuation of antibiotics on 10/2017. 3. SBP: SBP cultures are negative. Follow-up with GI. Greater than 7000 WBCs were noted in peritoneal fluid. Consider prophylaxis. 4. Acute renal failure superimposed on stage III kidney disease with right- sided hydronephrosis; monitor labs and electrolytes. Avoid nephrotoxins. Right hydronephrosis resolved. 5. Anasarca, clinically improving. 6. Pneumonia: Continue IV antibiotics another 2 days for total of 14 days. 7. Chronic liver disease: Likely associated with autoimmune hepatitis. No portal or splenic vein thrombosis noted. 8. Right hydronephrosis: Resolved. This was secondary to obstructive uropathy and ascites. Resolution occurred after paracentesis which was performed on 04/22. 9. Septic shock: This was secondary to pneumonia, SBP, lower extremity cellulitis with abscess. Patient was in the ICU on pressors. Clinically, this is resolved. 10. Autoimmune hepatitis: Continue supportive care patient has requested that prednisone be discontinued. Patient has informed me that this diagnosis is in question. 11. Hyponatremia: Continue to follow labs and electrolytes. 12. Hypomagnesemia and hypokalemia: Being replaced today. The patient is extremely weak. She agrees that it would likely be in her best interest to go to a rehab facility prior to being discharged to home. Discharge planning consultation has been placed.
[2017-05-03] MEDS: AZTREONAM 1 GM in NORMAL SALINE 100 ML IV SCH (17:25)
[2017-05-03] MEDS ORDERED: METOPROLOL SUCCINATE 25 MG TAB.SR.24H PO SCH (18:00)
[2017-05-03] MEDS: FENTANYL CITRATE INJ/PF 100 MCG/2 ML AMPUL IV PRN (23:26)
[2017-05-04] MEDS: AZTREONAM 1 GM in NORMAL SALINE 100 ML IV SCH ×3 (01:27→17:12)
[2017-05-04 05:05] LABS: ABSOLUTE EOSINOPHILS # (AUTO) 0.1 10^3/uL (0.0-0.6); ABSOLUTE LYMPHOCYTES (AUTO) 0.5 10^3/uL (0.5-4.7); ABSOLUTE MONOCYTES (AUTO) 1.3 10^3/uL (0.1-1.4); ABSOLUTE NEUT (AUTO) 5.7 10^3/uL (1.7-8.2); BASOPHILS % (AUTO) 0.3 % (0-2); EOSINOPHILS % (AUTO) 1.1 % (0-6); HEMATOCRIT 23.6 % (36.0-47.0); LYMPHOCYTES % (AUTO) 6.2 % (13-45); MEAN CORPUSCULAR HEMOGLOBIN 31.3 pg (27.0-33.4); MEAN CORPUSCULAR HGB CONC 31.9 g/dL (32.0-36.0); MEAN CORPUSCULAR VOLUME 98 fl (80-97); MONOCYTES % (AUTO) 17.3 % (3-13); RED BLOOD COUNT 2.41 10^6/uL (3.72-5.28); RED CELL DISTRIBUTION WIDTH 22.1 % (11.5-14.0); SEGMENTED NEUTROPHILS % (AUTO) 75.1 % (42-78); TOTAL CELLS COUNTED % (AUTO) 100 %; WHITE BLOOD COUNT 7.5 10^3/uL (4.0-10.5)
[2017-05-04 05:26] LABS: BLOOD UREA NITROGEN 32 mg/dL (7-20); CALCIUM 8.4 mg/dL (8.4-10.2); GLUCOSE 93 mg/dL (75-110); HEMOGLOBIN 7.5 g/dL (12.0-15.5); PHOSPHORUS 3.2 mg/dL (2.5-4.5); POTASSIUM 3.9 mmol/L (3.6-5.0)
[2017-05-04] MEDS: GABAPENTIN 300 MG CAPSULE PO SCH ×3 (05:34→21:46)
[2017-05-04 05:50] LABS: CARBON DIOXIDE 24 mmol/L (22-30); CHLORIDE 106 mmol/L (98-107)
[2017-05-04 05:51] LABS: ANION GAP 5 (5-19); SODIUM 135.4 mmol/L (137-145)
[2017-05-04 05:55] LABS: PLATELET COUNT 49 10^3/uL (150-450)
--- NOTE | 2017-05-04 08:10 | PDOC CONSULTATION ---
Consultation Consult Date: 05/04/17 Attending physician:: DELGADO CHAPARRO Consult reason:: Thrombocytopenia, anemia History of Present Illness Admission Date/PCP: 04/20/17 19:30 RUSSELL DORAN MD Patient complains of: Thrombus cytopenia, anemia History of Present Illness: 36-year-old female with multiple medical issues including juvenile rheumatoid arthritis, autoimmune hepatitis with cirrhosis, I saw her initially about 1 month ago when she presented with severe sepsis, shock, at that time she had extreme thrombocytopenia, also anemia and received several units of platelets and blood, her platelet count went as low as 10,000, at that time we were concerned of TTP and she got transferred to [facility], there she was ruled out for TTP and then transferred back. It was felt that her anemia and thrombocytopenia were chronic, the thrombocytopenia was felt likely to be related to cirrhosis, hepatitis as well as the rheumatoid arthritis. The anemia has seems to be anemia of chronic disease, 3 weeks ago she had ferritin drawn which was greater than 100, however saturation was very low. This seems consistent with anemia of chronic disease. Her hemoglobin is dropped down to 7.5, she is planned for blood, platelets are 49 today. Past Medical History Cardiac Medical History: Denies: Coronary Artery Disease Pulmonary Medical History: Reports: Pneumonia - intubated Denies: Tuberculosis Neurological Medical History: Denies: Seizures Renal/ Medical History: Reports: Chronic Kidney Disease GI Medical History: Reports: Cirrhosis, Hepatitis - Autoimmune ? Musculoskeltal Medical History: Reports: Arthritis - Juvenile rheumatoid arthritis Psychiatric Medical History: Denies: Depression Past Surgical History Past Surgical History: Reports: Section - 2, Orthopedic Surgery - joint replacements (bilateral shoulders, and knees), Tonsillectomy Denies: Hysterectomy Social History Smoking Status: Unknown if Ever Smoked Cigarettes Packs Per Day: 0 Frequency of Alcohol Use: None Hx Recreational Drug Use: No Drugs: None Hx Prescription Drug Abuse: No - Advance Directive Resuscitation Status: Full Code Family History Family History: Hypertension Parental Family History Reviewed: Yes Children Family History Reviewed: Yes Sibling(s) Family History Reviewed.: Yes Medication/Allergy Home Medications: Folic Acid [Folvite 1 mg Tablet] 1 mg PO DAILY 04/20/17 Hydrocodone/Acetaminophen [Hydrocodone-Acetamin 5-325 mg] 1 tab PO Q6HP PRN Lisinopril [Prinivil 10 mg Tablet] 10 mg PO DAILY 04/20/17 Paroxetine HCl [Paxil 20 mg Tablet] 20 mg PO DAILY 04/20/17 Spironolactone [Aldactone 100 mg Tablet] 100 mg PO DAILY 04/20/17 Allergies/Adverse Reactions: amoxicillin trihydrate [From Augmentin] Allergy (Verified 04/20/17 15:05) ITCHING cephalexin monohydrate [From Keflex] Allergy (Verified 04/20/17 15:05) ibuprofen [From Motrin] Allergy (Verified 04/20/17 15:05) Potassium Clavulanate * [From Augmentin] Allergy (Verified 04/20/17 15:05) Review of Systems Constitutional: PRESENT: anorexia, fatigue, weakness, weight loss Cardiovascular: ABSENT: chest pain, dyspnea on exertion, edema, orthropnea, palpitations Gastrointestinal: ABSENT: abdominal pain, constipation, diarrhea, hematemesis, hematochezia, nausea, vomiting Integumentary: ABSENT: rash, wounds Neurological: ABSENT: abnormal gait, abnormal speech, confusion, dizziness, focal weakness, syncope Physical Exam Vital Signs: Temp Pulse Resp BP Pulse Ox 97.9 F 86 16 91/48 L 96 05/04/17 07:40 05/04/17 07:40 05/04/17 07:40 05/04/17 07:40 05/04/17 07:40 Intake & Output 05/03/17 05/04/17 05/05/17 06:59 06:59 06:59 Intake Total 904 Output Total 1225 Balance -321 Weight 91.4 kg General appearance: PRESENT: thin, other - Chronically ill-appearing Eye exam: PRESENT: conjunctiva pink, EOMI, PERRLA. ABSENT: scleral icterus Mouth exam: PRESENT: dry mucosa Neck exam: ABSENT: carotid bruit, JVD, lymphadenopathy, thyromegaly Respiratory exam: PRESENT: clear to auscultation jose j. ABSENT: rales, rhonchi, wheezes Cardiovascular exam: PRESENT: RRR. ABSENT: diastolic murmur, rubs, systolic murmur GI/Abdominal exam: PRESENT: normal bowel sounds, soft Rectal exam: PRESENT: deferred Neurological exam: PRESENT: alert, awake, oriented to person, oriented to place , oriented to time, oriented to situation Results Laboratory Results: 05/04/17 04:45 05/04/17 04:45 05/03/17 05/04/17 05/04/17 07:55 04:45 04:45 WBC 7.5 RBC 2.41 L Hgb 7.5 L Hct 23.6 L MCV 98 H MCH 31.3 MCHC 31.9 L RDW 22.1 H Plt Count 49 L Seg Neutrophils % 75.1 Lymphocytes % 6.2 L Monocytes % 17.3 H Eosinophils % 1.1 Basophils % 0.3 Absolute Neutrophils 5.7 Absolute Lymphocytes 0.5 Absolute Monocytes 1.3 Absolute Eosinophils 0.1 Absolute Basophils 0.0 Sodium 135.1 L 135.4 L Potassium 3.4 L 3.9 Chloride 107 106 Carbon Dioxide 25 24 Anion Gap 3 L 5 BUN 30 H 32 H Creatinine 0.81 0.68 Est GFR ( Amer) > 60 > 60 Est GFR (Non-Af Amer) > 60 > 60 Glucose 94 93 Calcium 8.3 L 8.4 Phosphorus 3.2 Magnesium 1.9 Impressions: Abdomen/Pelvis CT 04/20/17 00:00 IMPRESSION: 1. Right lower lobar pneumonia. 2. Large partially loculated/encapsulated ascites; differential diagnosis includes early abscess. 3. Moderate right hydronephrosis/hydroureter could be secondary to extrinsic compression from partially loculated ascites. 4. Cholelithiasis with moderate nonspecific pericholecystic fluid. 5. Mild transverse colitis pattern. Chest X-Ray 04/20/17 17:41 IMPRESSION: Marked improvement in the previous noted abnormal air space density in the lungs with differential including pulmonary edema and pneumonia. Mild residual persists. Extremity Ultrasound 04/22/17 15:25 IMPRESSION: Complex fluid collection in the subcutaneous fat of the medial left calf worrisome for abscess. Extent of the fluid collection was marked on the patient's skin. Paracentesis Ultrasound 04/22/17 15:34 IMPRESSION: Successful ultrasound-guided paracentesis Abdomen Ultrasound 04/23/17 00:00 IMPRESSION: No evidence for portal vein thrombosis. The previously described hydronephrosis involving the right kidney is not identified on the basis of the ultrasound evaluation. Small amount residual ascitic fluid is identified status post recent paracentesis. Gallstones are identified as well as a component biliary sludge. Findings suspicious for cholecystitis are identified. Clinical correlation is recommended. Other findings as noted above. Assessment & Plan - Diagnosis (1) Thrombocytopenia Is this a current diagnosis for this admission?: Yes Plan: Thrombocytopenia secondary to multiple medical reasons, cirrhosis, autoimmune hepatitis as well as juvenile arthritis all cause myelosuppression. It may still go down on this admission, continue to monitor. No need for transfusion as of yet. Do not believe any intervention will really help her. (2) Anemia Qualifiers: Anemia type: other cause Other causes of anemia: chronic disease, other Qualified Code(s): D63.8 - Anemia in other chronic diseases classified elsewhere Is this a current diagnosis for this admission?: Yes Plan: Anemia of chronic disease secondary to RA, cirrhosis and autoimmune hepatitis. She does have some mild iron deficiency in terms of low iron saturation, she is planned for 2 units of packed red blood cells and this should appropriately replete her iron as well. Would not give her any additional IV iron at this point. She probably would benefit from Procrit as an outpatient, but her sloop captain in [facility], Dr. Rivera can do this for her. - Time Time Spent: 50 to 70 Minutes - Inpatient Certification Based on my medical assessment, after consideration of the patient's comorbidities, presenting symptoms, or acuity I expect that the services needed warrant INPATIENT care.: Yes I certify that my determination is in accordance with my understanding of Medicare's requirements for reasonable and necessary INPATIENT services [42 CFR 412.3e].: Yes Medical Necessity: Need For Continuous Telemetry Monitoring, Need for IV Antibiotics, Risk of Complication if Not Cared For in Hospital
[2017-05-04] MEDS: SUCRALFATE 1 GM TABLET PO SCH ×4 (09:17→21:46)
[2017-05-04] MEDS: MAGNESIUM OXIDE 400 MG TABLET PO SCH ×3 (09:17→17:12)
[2017-05-04] MEDS ORDERED: FUROSEMIDE 20 MG TABLET PO SCH (10:00)
[2017-05-04] MEDS ORDERED: NYSTATIN TOPICAL POWDER 15 GM TP ONE (11:00)
[2017-05-04] MEDS: FAMOTIDINE 20 MG TABLET PO SCH ×2 (11:35→21:46)
[2017-05-04] MEDS: FOLIC ACID 1 MG TABLET PO SCH (11:36)
[2017-05-04] MEDS: LISINOPRIL 10 MG TABLET PO SCH (11:36)
[2017-05-04] MEDS: PAROXETINE HCL 20 MG TABLET PO SCH (11:36)
[2017-05-04] MEDS: METOPROLOL SUCCINATE 25 MG TAB.SR.24H PO SCH ×2 (11:37→21:50)
[2017-05-04] MEDS: OXYCODONE HCL IR 5 MG TABLET PO PRN (12:13)
--- NOTE | 2017-05-04 13:14 | PDOC PROGRESS REPORT ---
Subjective Progress Note for:: 05/04/17 Subjective:: GUS PELLETIER is a 36 year old female with history of juvenile rheumatoid arthritis (at the age of 19, currently off biologic medication per patient, follows with Dr. Rivera) gastric ulcer, chronic metabolic acidosis, anasarca, malnutrition, recurrent spontaneous bacterial peritonitis/ questionable chronic autoimmune hepatitis and lower extremity venous stasis was admitted with above- mentioned complaints. It was very difficult to obtain an accurate history from the patient and her mother at bedside. The patient was last hospitalized here from 03/30/2017 till 04/03/2017 with septic shock/SBP/hepatic encephalopathy and acute renal failure. She was transferred since there was concern for possible TTP. The patient presented with evidence of septic shock. This was felt to be secondary to pneumonia and spontaneous bacterial peritonitis as well as lower extremity cellulitis with abscess. Initially, the patient was in the intensive care unit on Levophed. Her sepsis has now resolved. While the patient's cultures for SBP have been negative her white blood cell count on the paracentesis was elevated at 700. On 04/22/2017 the patient had a large volume paracentesis. This appeared to have alleviated the obstructive uropathy therefore alleviating the right hydronephrosis. The patient is now finishing a 14 day course of aztreonam. The patient's platelet count has been dropping over the last 48 hours. Hematology oncology was read consulted. As TTP has been ruled out the patient will now be treated supportively. Reason For Visit: ACUTE ON CHRONIC RENAL FAILURE Physical Exam Vital Signs: Temp Pulse Resp BP Pulse Ox 98.7 F 80 16 97/51 L 100 05/04/17 12:07 05/04/17 12:07 05/04/17 12:07 05/04/17 12:07 05/04/17 12:07 Intake & Output 05/03/17 05/04/17 05/05/17 06:59 06:59 06:59 Intake Total 904 500 Output Total 1225 100 Balance -321 400 Weight 91.4 kg Additional comments: Patient appears to be older than his stated age of 36. She appears to be in chronically poor health. Her cognition and mentation are appropriate. Today, she states that she feels better than yesterday and in fact she looks better than yesterday. Her lungs are clear to auscultation bilaterally. Her cardiac exam is regular without murmurs, gallops or rubs. The abdomen is soft and flat. Bowel sounds are present in both lower quadrants. She does not have guarding or rebound noted and there are no hernias or masses present. Patient' s lower extremities demonstrate trace edema. The patient has mild erythema of both lower extremities. I did not reevaluate the wound on the left leg today. Results Laboratory Results: 05/04/17 04:45 05/04/17 04:45 05/04/17 05/04/17 05/04/17 04:45 04:45 06:59 WBC 7.5 RBC 2.41 L Hgb 7.5 L Hct 23.6 L MCV 98 H MCH 31.3 MCHC 31.9 L RDW 22.1 H Plt Count 49 L Seg Neutrophils % 75.1 Lymphocytes % 6.2 L Monocytes % 17.3 H Eosinophils % 1.1 Basophils % 0.3 Absolute Neutrophils 5.7 Absolute Lymphocytes 0.5 Absolute Monocytes 1.3 Absolute Eosinophils 0.1 Absolute Basophils 0.0 Sodium 135.4 L Potassium 3.9 Chloride 106 Carbon Dioxide 24 Anion Gap 5 BUN 32 H Creatinine 0.68 Est GFR ( Amer) > 60 Est GFR (Non-Af Amer) > 60 Glucose 93 Calcium 8.4 Phosphorus 3.2 Magnesium 1.9 Blood Type A NEGATIVE Antibody Screen NEGATIVE Impressions: Abdomen/Pelvis CT 04/20/17 00:00 IMPRESSION: 1. Right lower lobar pneumonia. 2. Large partially loculated/encapsulated ascites; differential diagnosis includes early abscess. 3. Moderate right hydronephrosis/hydroureter could be secondary to extrinsic compression from partially loculated ascites. 4. Cholelithiasis with moderate nonspecific pericholecystic fluid. 5. Mild transverse colitis pattern. Chest X-Ray 04/20/17 17:41 IMPRESSION: Marked improvement in the previous noted abnormal air space density in the lungs with differential including pulmonary edema and pneumonia. Mild residual persists. Extremity Ultrasound 04/22/17 15:25 IMPRESSION: Complex fluid collection in the subcutaneous fat of the medial left calf worrisome for abscess. Extent of the fluid collection was marked on the patient's skin. Paracentesis Ultrasound 04/22/17 15:34 IMPRESSION: Successful ultrasound-guided paracentesis Abdomen Ultrasound 04/23/17 00:00 IMPRESSION: No evidence for portal vein thrombosis. The previously described hydronephrosis involving the right kidney is not identified on the basis of the ultrasound evaluation. Small amount residual ascitic fluid is identified status post recent paracentesis. Gallstones are identified as well as a component biliary sludge. Findings suspicious for cholecystitis are identified. Clinical correlation is recommended. Other findings as noted above. Assessment & Plan - Diagnosis (1) Abscess of left lower leg Is this a current diagnosis for this admission?: Yes (2) Acute renal failure superimposed on stage 3 chronic kidney disease Qualifiers: Acute renal failure type: unspecified Qualified Code(s): N17.9 - Acute kidney failure, unspecified; N18.3 - Chronic kidney disease, stage 3 (moderate) ; N18.3 - Chronic kidney disease, stage 3 (moderate) Is this a current diagnosis for this admission?: Yes (3) Anasarca Is this a current diagnosis for this admission?: Yes (4) Chronic liver disease Is this a current diagnosis for this admission?: Yes (5) Hydronephrosis, right Is this a current diagnosis for this admission?: Yes (6) Hyponatremia Is this a current diagnosis for this admission?: Yes (7) Pneumonia Qualifiers: Pneumonia type: due to unspecified organism Laterality: right Lung location: lower lobe of lung Qualified Code(s): J18.1 - Lobar pneumonia, unspecified organism Is this a current diagnosis for this admission?: Yes (8) Autoimmune hepatitis Is this a current diagnosis for this admission?: Yes (9) SBP (spontaneous bacterial peritonitis) Is this a current diagnosis for this admission?: Yes (10) Septic shock Is this a current diagnosis for this admission?: Yes (11) Tachycardia Is this a current diagnosis for this admission?: Yes (12) Hypotension Is this a current diagnosis for this admission?: Yes (13) Pancytopenia Is this a current diagnosis for this admission?: Yes - Plan Summary Plan Summary: 1. Tachycardia: stable; improved after hydration; continue metoprolol. 2. Abscess of lower leg: Status post incision with drainage on 04/24/2017. Antibiotics will need to be continued for 2 more days for total of 14 days. The patient will need to follow-up at the wound clinic after discharge. There was an inadvertent discontinuation of antibiotics on 10/2017. 3. SBP: SBP cultures are negative. Follow-up with GI. Greater than 7000 WBCs were noted in peritoneal fluid. Consider prophylaxis. 4. Acute renal failure superimposed on stage III kidney disease with right- sided hydronephrosis; monitor labs and electrolytes. Avoid nephrotoxins. Right hydronephrosis resolved. 5. Anasarca, clinically improving. 6. Pneumonia: Continue IV antibiotics another 2 days for total of 14 days. 7. Chronic liver disease: Likely associated with autoimmune hepatitis. No portal or splenic vein thrombosis noted. 8. Right hydronephrosis: Resolved. This was secondary to obstructive uropathy and ascites. Resolution occurred after paracentesis which was performed on 04/22. 9. Septic shock: This was secondary to pneumonia, SBP, lower extremity cellulitis with abscess. Patient was in the ICU on pressors. Clinically, this is resolved. 10. Autoimmune hepatitis: Continue supportive care patient has requested that prednisone be discontinued. Patient has informed me that this diagnosis is in question. 11. Hyponatremia: Continue to follow labs and electrolytes. 12. Hypomagnesemia and hypokalemia: Repleted. 13. Underlying hypotension: This is likely from the patient's liver disease. She likely has a low oncotic pressure as well. Today, I discontinued the patient's Lasix and Aldactone. These will likely need to be reintroduced prior to discharge. 14. Pancytopenia: All of patient's counts were dropping when compared to yesterday. Hematology oncology was consulted. TTP has recently been ruled out. Thrombus cytopenia will be treated supportively. Patient will receive 2 units packed red blood cells today. We will continue to monitor counts. See hematology oncology discussion of etiology of myelosuppression. Patient is extremely weak. Physical therapy consult has been placed. Discharge planning consult has been placed for skilled facility placement at discharge.
[2017-05-04 14:46] LABS: HEMOGLOBIN 8.5 g/dL (12.0-15.5); MEAN CORPUSCULAR HEMOGLOBIN 31.3 pg (27.0-33.4); MEAN CORPUSCULAR HGB CONC 32.8 g/dL (32.0-36.0); MEAN CORPUSCULAR VOLUME 95 fl (80-97); RED BLOOD COUNT 2.72 10^6/uL (3.72-5.28); RED CELL DISTRIBUTION WIDTH 22.4 % (11.5-14.0); WHITE BLOOD COUNT 6.8 10^3/uL (4.0-10.5)
[2017-05-04 15:19] LABS: PLATELET COUNT 47 10^3/uL (150-450)
[2017-05-04] MEDS: NYSTATIN TOPICAL POWDER 15 GM TP SCH (17:18)
[2017-05-04] MEDS ORDERED: NYSTATIN TOPICAL POWDER 15 GM TP SCH (18:00)
[2017-05-04] MEDS: FENTANYL CITRATE INJ/PF 100 MCG/2 ML AMPUL IV PRN (21:48)
[2017-05-05] MEDS: AZTREONAM 1 GM in NORMAL SALINE 100 ML IV SCH ×2 (02:51→09:12)
[2017-05-05] MEDS: GABAPENTIN 300 MG CAPSULE PO SCH ×3 (05:07→21:37)
[2017-05-05 05:44] LABS: ABSOLUTE EOSINOPHILS # (AUTO) 0.1 10^3/uL (0.0-0.6); ABSOLUTE LYMPHOCYTES (AUTO) 0.5 10^3/uL (0.5-4.7); ABSOLUTE MONOCYTES (AUTO) 1.2 10^3/uL (0.1-1.4); ABSOLUTE NEUT (AUTO) 4.8 10^3/uL (1.7-8.2); BASOPHILS % (AUTO) 0.2 % (0-2); EOSINOPHILS % (AUTO) 1.4 % (0-6); HEMOGLOBIN 8.5 g/dL (12.0-15.5); MEAN CORPUSCULAR HEMOGLOBIN 31.2 pg (27.0-33.4); MEAN CORPUSCULAR HGB CONC 32.7 g/dL (32.0-36.0); MEAN CORPUSCULAR VOLUME 95 fl (80-97); MONOCYTES % (AUTO) 18.2 % (3-13); RED BLOOD COUNT 2.73 10^6/uL (3.72-5.28); RED CELL DISTRIBUTION WIDTH 22.4 % (11.5-14.0); SEGMENTED NEUTROPHILS % (AUTO) 73.2 % (42-78); TOTAL CELLS COUNTED % (AUTO) 100 %; WHITE BLOOD COUNT 6.5 10^3/uL (4.0-10.5)
[2017-05-05 05:55] LABS: ANION GAP 5 (5-19); BLOOD UREA NITROGEN 34 mg/dL (7-20); CALCIUM 8.2 mg/dL (8.4-10.2); CARBON DIOXIDE 23 mmol/L (22-30); CHLORIDE 107 mmol/L (98-107); GLUCOSE 121 mg/dL (75-110); POTASSIUM 3.9 mmol/L (3.6-5.0); SODIUM 134.8 mmol/L (137-145)
[2017-05-05 06:26] LABS: PLATELET COUNT 47 10^3/uL (150-450)
[2017-05-05] MEDS: SUCRALFATE 1 GM TABLET PO SCH ×4 (08:47→21:37)
[2017-05-05] MEDS: MAGNESIUM OXIDE 400 MG TABLET PO SCH ×3 (08:47→16:34)
[2017-05-05] MEDS: FOLIC ACID 1 MG TABLET PO SCH (09:12)
[2017-05-05] MEDS: FAMOTIDINE 20 MG TABLET PO SCH ×2 (09:12→21:37)
[2017-05-05] MEDS: PAROXETINE HCL 20 MG TABLET PO SCH (09:12)
[2017-05-05] MEDS: METOPROLOL SUCCINATE 25 MG TAB.SR.24H PO SCH ×2 (09:13→21:40)
[2017-05-05] MEDS: NYSTATIN TOPICAL POWDER 15 GM TP SCH ×2 (09:13→17:43)
[2017-05-05] MEDS: OXYCODONE HCL IR 5 MG TABLET PO PRN (12:08)
[2017-05-05] MEDS: LISINOPRIL 10 MG TABLET PO SCH (12:49)
[2017-05-05] MEDS ORDERED: HYDROMORPHONE HCL INJ/PF 2 MG/ML AMPULE IM PRN (15:11)
--- NOTE | 2017-05-05 15:25 | PDOC PROGRESS REPORT ---
Subjective Progress Note for:: 05/05/17 Subjective:: Patient refers that feels better. Still unable to because of fall her blood fluid buildup and is short of breath. Review of systems All organ systems evaluated and negative except as in subjective All significant laboratories and diagnostics have been reviewed Reason For Visit: ACUTE ON CHRONIC RENAL FAILURE Physical Exam Vital Signs: Temp Pulse Resp BP Pulse Ox 98.7 F 94 16 93/58 L 94 05/05/17 03:18 05/05/17 03:18 05/05/17 03:18 05/05/17 03:18 05/05/17 03:18 Intake & Output 05/04/17 05/05/17 05/06/17 06:59 06:59 06:59 Intake Total 904 1996 Output Total 1225 775 Balance -321 1221 Weight 91.4 kg 87.8 kg Results Laboratory Results: 05/05/17 05:00 05/05/17 05:00 05/04/17 05/04/17 05/05/17 06:59 14:28 05:00 WBC 6.8 6.5 RBC 2.72 L 2.73 L Hgb 8.5 L 8.5 L Hct 26.0 L 26.0 L MCV 95 95 MCH 31.3 31.2 MCHC 32.8 32.7 RDW 22.4 H 22.4 H Plt Count 47 L 47 L Seg Neutrophils % 73.2 Lymphocytes % 7.0 L Monocytes % 18.2 H Eosinophils % 1.4 Basophils % 0.2 Absolute Neutrophils 4.8 Absolute Lymphocytes 0.5 Absolute Monocytes 1.2 Absolute Eosinophils 0.1 Absolute Basophils 0.0 Sodium Potassium Chloride Carbon Dioxide Anion Gap BUN Creatinine Est GFR ( Amer) Est GFR (Non-Af Amer) Glucose Calcium Magnesium Blood Type A NEGATIVE Antibody Screen NEGATIVE 05/05/17 05:00 WBC RBC Hgb Hct MCV MCH MCHC RDW Plt Count Seg Neutrophils % Lymphocytes % Monocytes % Eosinophils % Basophils % Absolute Neutrophils Absolute Lymphocytes Absolute Monocytes Absolute Eosinophils Absolute Basophils Sodium 134.8 L Potassium 3.9 Chloride 107 Carbon Dioxide 23 Anion Gap 5 BUN 34 H Creatinine 0.79 Est GFR ( Amer) > 60 Est GFR (Non-Af Amer) > 60 Glucose 121 H Calcium 8.2 L Magnesium 2.0 Blood Type Antibody Screen Impressions: Abdomen/Pelvis CT 04/20/17 00:00 IMPRESSION: 1. Right lower lobar pneumonia. 2. Large partially loculated/encapsulated ascites; differential diagnosis includes early abscess. 3. Moderate right hydronephrosis/hydroureter could be secondary to extrinsic compression from partially loculated ascites. 4. Cholelithiasis with moderate nonspecific pericholecystic fluid. 5. Mild transverse colitis pattern. Chest X-Ray 04/20/17 17:41 IMPRESSION: Marked improvement in the previous noted abnormal air space density in the lungs with differential including pulmonary edema and pneumonia. Mild residual persists. Extremity Ultrasound 04/22/17 15:25 IMPRESSION: Complex fluid collection in the subcutaneous fat of the medial left calf worrisome for abscess. Extent of the fluid collection was marked on the patient's skin. Paracentesis Ultrasound 04/22/17 15:34 IMPRESSION: Successful ultrasound-guided paracentesis Abdomen Ultrasound 04/23/17 00:00 IMPRESSION: No evidence for portal vein thrombosis. The previously described hydronephrosis involving the right kidney is not identified on the basis of the ultrasound evaluation. Small amount residual ascitic fluid is identified status post recent paracentesis. Gallstones are identified as well as a component biliary sludge. Findings suspicious for cholecystitis are identified. Clinical correlation is recommended. Other findings as noted above. Assessment & Plan - Diagnosis (1) Abscess of left lower leg Is this a current diagnosis for this admission?: Yes Plan: Appears to be healing well. Advised quileute to pack wound with alginate product and change it every 48 hours. Patient to be premedicated before packing (2) Anasarca Is this a current diagnosis for this admission?: Yes Plan: Multifactorial. Will place patient on Lasix orally daily (3) Anemia Qualifiers: Anemia type: other cause Other causes of anemia: chronic disease, other Qualified Code(s): D63.8 - Anemia in other chronic diseases classified elsewhere Is this a current diagnosis for this admission?: Yes Plan: Has required 2 units of packed red blood cells. Stable (4) Ascites Qualifiers: Ascites type: other type Qualified Code(s): R18.8 - Other ascites Is this a current diagnosis for this admission?: Yes Plan: Had required paracentesis 2. Will place patient on Lasix p.o. (5) Chronic liver disease Is this a current diagnosis for this admission?: Yes Plan: Stable (6) Hypokalemia Is this a current diagnosis for this admission?: Yes Plan: Resolved (7) Hyponatremia Is this a current diagnosis for this admission?: Yes Plan: Improved (8) Hypotension Is this a current diagnosis for this admission?: Yes Plan: Will decrease lisinopril and will keep metoprolol the same (9) Juvenile rheumatoid arthritis Is this a current diagnosis for this admission?: Yes Plan: Continue current treatment (10) Bacteremia Is this a current diagnosis for this admission?: No Plan: Grew staph epidermidis in 1 bottle. Sick: Vital obtained during the same day was negative therefore is a contaminant. (11) Thrombocytopenia Is this a current diagnosis for this admission?: Yes Plan: Patient had required platelet pheresis 1. Stable - Time Time Spent with patient: 15-24 minutes Medications reviewed and adjusted accordingly: Yes Anticipated discharge: Home with Homehealth Within: Other - Unable to determine at this time when patient might be able to go home - Inpatient Certification Based on my medical assessment, after consideration of the patient's comorbidities, presenting symptoms, or acuity I expect that the services needed warrant INPATIENT care.: Yes I certify that my determination is in accordance with my understanding of Medicare's requirements for reasonable and necessary INPATIENT services [42 CFR 412.3e].: Yes Medical Necessity: Need for Pain Control
[2017-05-06] MEDS: GABAPENTIN 300 MG CAPSULE PO SCH ×3 (06:05→22:03)
[2017-05-06 07:34] LABS: HEMATOCRIT 25.3 % (36.0-47.0); HEMOGLOBIN 8.2 g/dL (12.0-15.5); MEAN CORPUSCULAR HEMOGLOBIN 30.9 pg (27.0-33.4); MEAN CORPUSCULAR HGB CONC 32.3 g/dL (32.0-36.0); MEAN CORPUSCULAR VOLUME 96 fl (80-97); RED BLOOD COUNT 2.64 10^6/uL (3.72-5.28); RED CELL DISTRIBUTION WIDTH 21.9 % (11.5-14.0); WHITE BLOOD COUNT 5.7 10^3/uL (4.0-10.5)
[2017-05-06 07:42] LABS: ALANINE AMINOTRANSFERASE 35 U/L (9-52); ALBUMIN 1.7 g/dL (3.5-5.0); ALKALINE PHOSPHATASE 298 U/L (38-126); ANION GAP 5 (5-19); ASPARTATE AMINO TRANSFERASE 25 U/L (14-36); BILIRUBIN,DIRECT 0.9 mg/dL (0.0-0.4); BILIRUBIN,TOTAL 1.2 mg/dL (0.2-1.3); BLOOD UREA NITROGEN 37 mg/dL (7-20); CALCIUM 8.2 mg/dL (8.4-10.2); GLUCOSE 89 mg/dL (75-110); TOTAL PROTEIN 3.7 g/dL (6.3-8.2)
[2017-05-06 07:47] LABS: CARBON DIOXIDE 22 mmol/L (22-30); CHLORIDE 110 mmol/L (98-107); SODIUM 137.2 mmol/L (137-145)
[2017-05-06] MEDS: SUCRALFATE 1 GM TABLET PO SCH ×4 (08:23→22:03)
[2017-05-06] MEDS: MAGNESIUM OXIDE 400 MG TABLET PO SCH ×3 (08:23→16:34)
--- NOTE | 2017-05-06 08:32 | PDOC PROGRESS REPORT ---
Subjective Progress Note for:: 05/06/17 Subjective:: No acute events overnight, counts have been stable. Reason For Visit: ACUTE ON CHRONIC RENAL FAILURE Physical Exam Vital Signs: Temp Pulse Resp BP Pulse Ox 98.9 F 102 H 16 100/51 L 98 05/06/17 05:03 05/06/17 06:57 05/06/17 05:03 05/06/17 05:03 05/06/17 05:03 Intake & Output 05/05/17 05/06/17 05/07/17 06:59 06:59 06:59 Intake Total 1995 832 Output Total 775 650 Balance 1221 182 Weight 87.8 kg 90.2 kg General appearance: PRESENT: no acute distress, well-developed, well-nourished Head exam: PRESENT: atraumatic, normocephalic Eye exam: PRESENT: conjunctiva pink, EOMI, PERRLA. ABSENT: scleral icterus Ear exam: PRESENT: normal external ear exam Mouth exam: PRESENT: moist, tongue midline Neck exam: ABSENT: carotid bruit, JVD, lymphadenopathy, thyromegaly Respiratory exam: PRESENT: clear to auscultation jose j. ABSENT: rales, rhonchi, wheezes Cardiovascular exam: PRESENT: RRR. ABSENT: diastolic murmur, rubs, systolic murmur Pulses: PRESENT: normal dorsalis pedis pul Vascular exam: PRESENT: normal capillary refill GI/Abdominal exam: PRESENT: normal bowel sounds, soft. ABSENT: distended, guarding, mass, organolmegaly, rebound, tenderness Rectal exam: PRESENT: deferred Extremities exam: PRESENT: full ROM. ABSENT: calf tenderness, clubbing, pedal edema Neurological exam: PRESENT: alert, awake, oriented to person, oriented to place , oriented to time, oriented to situation, CN II-XII grossly intact. ABSENT: motor sensory deficit Psychiatric exam: PRESENT: appropriate affect, normal mood. ABSENT: homicidal ideation, suicidal ideation Skin exam: PRESENT: dry, intact, warm. ABSENT: cyanosis, rash Results Laboratory Results: 05/06/17 07:01 05/06/17 05/06/17 07:01 07:01 Sodium Cancelled 137.2 Potassium Cancelled 4.0 Chloride Cancelled 110 H Carbon Dioxide Cancelled 22 Anion Gap Cancelled 5 BUN Cancelled 37 H Creatinine Cancelled 0.90 Est GFR ( Amer) Cancelled > 60 Est GFR (Non-Af Amer) Cancelled > 60 Glucose Cancelled 89 Calcium Cancelled 8.2 L Magnesium Cancelled 2.1 Total Bilirubin 1.2 AST 25 ALT 35 Alkaline Phosphatase 298 H Total Protein 3.7 L Albumin 1.7 L Impressions: Abdomen/Pelvis CT 04/20/17 00:00 IMPRESSION: 1. Right lower lobar pneumonia. 2. Large partially loculated/encapsulated ascites; differential diagnosis includes early abscess. 3. Moderate right hydronephrosis/hydroureter could be secondary to extrinsic compression from partially loculated ascites. 4. Cholelithiasis with moderate nonspecific pericholecystic fluid. 5. Mild transverse colitis pattern. Chest X-Ray 04/20/17 17:41 IMPRESSION: Marked improvement in the previous noted abnormal air space density in the lungs with differential including pulmonary edema and pneumonia. Mild residual persists. Extremity Ultrasound 04/22/17 15:25 IMPRESSION: Complex fluid collection in the subcutaneous fat of the medial left calf worrisome for abscess. Extent of the fluid collection was marked on the patient's skin. Paracentesis Ultrasound 04/22/17 15:34 IMPRESSION: Successful ultrasound-guided paracentesis Abdomen Ultrasound 04/23/17 00:00 IMPRESSION: No evidence for portal vein thrombosis. The previously described hydronephrosis involving the right kidney is not identified on the basis of the ultrasound evaluation. Small amount residual ascitic fluid is identified status post recent paracentesis. Gallstones are identified as well as a component biliary sludge. Findings suspicious for cholecystitis are identified. Clinical correlation is recommended. Other findings as noted above. Assessment & Plan - Diagnosis (1) Thrombocytopenia Is this a current diagnosis for this admission?: Yes Plan: Multifactorial, continue with monitoring, no other intervention plan. (2) Anemia Qualifiers: Anemia type: other cause Other causes of anemia: chronic disease, other Qualified Code(s): D63.8 - Anemia in other chronic diseases classified elsewhere Is this a current diagnosis for this admission?: Yes Plan: Hemoglobin stable hold on transfusion - Time Time Spent with patient: 15-24 minutes Disposition: We will follow peripherally
[2017-05-06 08:33] LABS: PLATELET COUNT 56 10^3/uL (150-450)
[2017-05-06 08:37] LABS: ABSOLUTE LYMPHOCYTES# (MANUAL) 0.5 10^3/uL (0.5-4.7); ABSOLUTE MONOCYTES # (MANUAL) 1.5 10^3/uL (0.1-1.4); ABSOLUTE NEUTROPHILS# (MANUAL) 3.6 10^3/uL (1.7-8.2); BASOPHILS % (MANUAL) 0 % (0-2); EOSINOPHILS % (MANUAL) 1 % (0-6); LYMPHOCYTES % (MANUAL) 8 % (13-45); METAMYELOCYTES % (MANUAL) 1 % (0); SEGMENTED NEUTROPHILS % (MAN) 63 % (42-78); TOTAL CELLS COUNTED 100
[2017-05-06 08:40] LABS: TOXIC GRANULATION 1+
[2017-05-06 08:41] LABS: ANISOCYTOSIS 2+; MONOCYTES % (MANUAL) 27 % (3-13); OVALOCYTES 1+; PLATELET COMMENT DECREASED; POIKILOCYTOSIS 1+; POLYCHROMASIA SLIGHT; ROULEAUX SLIGHT
[2017-05-06] MEDS: PAROXETINE HCL 20 MG TABLET PO SCH (09:51)
[2017-05-06] MEDS: FAMOTIDINE 20 MG TABLET PO SCH ×2 (09:51→22:02)
[2017-05-06] MEDS: FUROSEMIDE 20 MG TABLET PO SCH (09:51)
[2017-05-06] MEDS: METOPROLOL SUCCINATE 25 MG TAB.SR.24H PO SCH ×2 (09:51→22:09)
[2017-05-06] MEDS: NYSTATIN TOPICAL POWDER 15 GM TP SCH ×2 (09:52→17:10)
[2017-05-06] MEDS: FOLIC ACID 1 MG TABLET PO SCH (09:52)
[2017-05-06] MEDS: LISINOPRIL 10 MG TABLET PO SCH (12:45)
--- NOTE | 2017-05-06 18:34 | PDOC PROGRESS REPORT ---
Subjective Progress Note for:: 05/06/17 Subjective:: No complaints voiced today Review of systems All organ systems evaluated and negative except as in subjective All significant laboratories and diagnostics have been reviewed Reason For Visit: ACUTE ON CHRONIC RENAL FAILURE Physical Exam Vital Signs: Temp Pulse Resp BP Pulse Ox 98.9 F 106 H 16 100/51 L 98 05/06/17 05:03 05/06/17 05:03 05/06/17 05:03 05/06/17 05:03 05/06/17 05:03 Intake & Output 05/04/17 05/05/17 05/06/17 06:59 06:59 06:59 Intake Total 904 1996 732 Output Total 1225 775 400 Balance -321 1221 332 Weight 91.4 kg 87.8 kg General appearance: PRESENT: no acute distress, cooperative, obese Head exam: PRESENT: atraumatic, normocephalic Eye exam: PRESENT: conjunctiva pink, EOMI, PERRLA Ear exam: PRESENT: normal external ear exam Mouth exam: PRESENT: moist Neck exam: PRESENT: full ROM. ABSENT: JVD, lymphadenopathy, tenderness Respiratory exam: PRESENT: clear to auscultation jose j Cardiovascular exam: PRESENT: RRR. ABSENT: diastolic murmur, systolic murmur Vascular exam: PRESENT: normal capillary refill GI/Abdominal exam: PRESENT: normal bowel sounds, soft. ABSENT: tenderness Extremities exam: PRESENT: full ROM, +1 edema Neurological exam: PRESENT: alert, awake, oriented to person, oriented to place , oriented to time, oriented to situation, CN II-XII grossly intact Psychiatric exam: PRESENT: appropriate affect, normal mood Skin exam: PRESENT: erythema, normal color Results Laboratory Results: 05/05/17 05:00 05/05/17 05:00 05/05/17 05:00 WBC 6.5 RBC 2.73 L Hgb 8.5 L Hct 26.0 L MCV 95 MCH 31.2 MCHC 32.7 RDW 22.4 H Plt Count 47 L Seg Neutrophils % 73.2 Lymphocytes % 7.0 L Monocytes % 18.2 H Eosinophils % 1.4 Basophils % 0.2 Absolute Neutrophils 4.8 Absolute Lymphocytes 0.5 Absolute Monocytes 1.2 Absolute Eosinophils 0.1 Absolute Basophils 0.0 Impressions: Abdomen/Pelvis CT 04/20/17 00:00 IMPRESSION: 1. Right lower lobar pneumonia. 2. Large partially loculated/encapsulated ascites; differential diagnosis includes early abscess. 3. Moderate right hydronephrosis/hydroureter could be secondary to extrinsic compression from partially loculated ascites. 4. Cholelithiasis with moderate nonspecific pericholecystic fluid. 5. Mild transverse colitis pattern. Chest X-Ray 04/20/17 17:41 IMPRESSION: Marked improvement in the previous noted abnormal air space density in the lungs with differential including pulmonary edema and pneumonia. Mild residual persists. Extremity Ultrasound 04/22/17 15:25 IMPRESSION: Complex fluid collection in the subcutaneous fat of the medial left calf worrisome for abscess. Extent of the fluid collection was marked on the patient's skin. Paracentesis Ultrasound 04/22/17 15:34 IMPRESSION: Successful ultrasound-guided paracentesis Abdomen Ultrasound 04/23/17 00:00 IMPRESSION: No evidence for portal vein thrombosis. The previously described hydronephrosis involving the right kidney is not identified on the basis of the ultrasound evaluation. Small amount residual ascitic fluid is identified status post recent paracentesis. Gallstones are identified as well as a component biliary sludge. Findings suspicious for cholecystitis are identified. Clinical correlation is recommended. Other findings as noted above. Assessment & Plan - Diagnosis (1) Abscess of left lower leg Is this a current diagnosis for this admission?: Yes Plan: Appears to be healing well. Patient to be premedicated before packing Continue alginate packing (2) Anasarca Is this a current diagnosis for this admission?: Yes Plan: Multifactorial. Improving. Continue Lasix p.o. (3) Anemia Qualifiers: Anemia type: other cause Other causes of anemia: chronic disease, other Qualified Code(s): D63.8 - Anemia in other chronic diseases classified elsewhere Is this a current diagnosis for this admission?: Yes Plan: Has required 2 units of packed red blood cells. Stable (4) Ascites Qualifiers: Ascites type: other type Qualified Code(s): R18.8 - Other ascites Is this a current diagnosis for this admission?: Yes Plan: Had required paracentesis 2. Resolving and to continue Lasix p.o. (5) Chronic liver disease Is this a current diagnosis for this admission?: Yes Plan: Stable (6) Hypokalemia Is this a current diagnosis for this admission?: Yes Plan: Resolved (7) Hyponatremia Is this a current diagnosis for this admission?: Yes Plan: Improved (8) Hypotension Is this a current diagnosis for this admission?: Yes Plan: Improved (9) Juvenile rheumatoid arthritis Is this a current diagnosis for this admission?: Yes Plan: Continue current treatment (10) Bacteremia Is this a current diagnosis for this admission?: No Plan: Grew staph epidermidis in 1 bottle. Blood culture obtained during the same day was negative therefore is a contaminant. (11) Thrombocytopenia Is this a current diagnosis for this admission?: Yes Plan: Patient had required platelet pheresis 1. Stable (12) Weakness Is this a current diagnosis for this admission?: Yes Plan: Talk to physical therapy to assist in mobilizing patient. Patient was made aware need to start moving - Time Time Spent with patient: Less than 15 minutes Medications reviewed and adjusted accordingly: Yes Anticipated discharge: Home with Homehealth Within: within 48 hours - Inpatient Certification Based on my medical assessment, after consideration of the patient's comorbidities, presenting symptoms, or acuity I expect that the services needed warrant INPATIENT care.: Yes I certify that my determination is in accordance with my understanding of Medicare's requirements for reasonable and necessary INPATIENT services [42 CFR 412.3e].: Yes Medical Necessity: Need Close Monitoring Due to Risk of Patient Decompensation
[2017-05-07] MEDS ORDERED: PHYTONADIONE INJ 10 MG/1 ML AMPULE SUBCUT ONE (05:38)
[2017-05-07] MEDS ORDERED: PANTOPRAZOLE SODIUM 40 MG VIAL IV PRN (05:38)
[2017-05-07] MEDS ORDERED: PANTOPRAZOLE SODIUM 40 MG VIAL IV ONE (05:38)
[2017-05-07 05:50] LABS: ANION GAP 5 (5-19); BLOOD UREA NITROGEN 33 mg/dL (7-20); CALCIUM 8.5 mg/dL (8.4-10.2); CARBON DIOXIDE 23 mmol/L (22-30); CHLORIDE 110 mmol/L (98-107); GLUCOSE 98 mg/dL (75-110); POTASSIUM 4.2 mmol/L (3.6-5.0); SODIUM 138.4 mmol/L (137-145)
[2017-05-07] MEDS: GABAPENTIN 300 MG CAPSULE PO SCH ×3 (06:10→21:54)
[2017-05-07 06:23] LABS: HEMATOCRIT 25.6 % (36.0-47.0); HEMOGLOBIN 8.3 g/dL (12.0-15.5); MEAN CORPUSCULAR HEMOGLOBIN 31.1 pg (27.0-33.4); MEAN CORPUSCULAR HGB CONC 32.5 g/dL (32.0-36.0); MEAN CORPUSCULAR VOLUME 96 fl (80-97); RED BLOOD COUNT 2.67 10^6/uL (3.72-5.28); RED CELL DISTRIBUTION WIDTH 21.6 % (11.5-14.0); WHITE BLOOD COUNT 5.2 10^3/uL (4.0-10.5)
[2017-05-07 06:38] LABS: PLATELET COUNT 60 10^3/uL (150-450)
[2017-05-07 06:40] LABS: INTERNATIONAL RATION (INR) 1.08; PROTHROMBIN TIME 14.8 SEC (11.4-15.4)
[2017-05-07 06:41] LABS: ABSOLUTE LYMPHOCYTES# (MANUAL) 0.5 10^3/uL (0.5-4.7); ABSOLUTE MONOCYTES # (MANUAL) 0.7 10^3/uL (0.1-1.4); ABSOLUTE NEUTROPHILS# (MANUAL) 3.9 10^3/uL (1.7-8.2); BASOPHILS % (MANUAL) 0 % (0-2); EOSINOPHILS % (MANUAL) 1 % (0-6); LYMPHOCYTES % (MANUAL) 10 % (13-45); MONOCYTES % (MANUAL) 14 % (3-13); SEGMENTED NEUTROPHILS % (MAN) 75 % (42-78); TOTAL CELLS COUNTED 100
[2017-05-07 06:43] LABS: ANISOCYTOSIS 3+; OVALOCYTES 1+; PLATELET COMMENT DECREASED; POIKILOCYTOSIS SLIGHT; TEAR DROP CELLS 1+
[2017-05-07] MEDS: LISINOPRIL 10 MG TABLET PO SCH (10:54)
[2017-05-07] MEDS: PAROXETINE HCL 20 MG TABLET PO SCH (10:55)
[2017-05-07] MEDS: MAGNESIUM OXIDE 400 MG TABLET PO SCH ×3 (10:56→17:17)
[2017-05-07] MEDS: FUROSEMIDE 20 MG TABLET PO SCH (10:56)
[2017-05-07] MEDS: FOLIC ACID 1 MG TABLET PO SCH (10:56)
[2017-05-07] MEDS: METOPROLOL SUCCINATE 25 MG TAB.SR.24H PO SCH ×2 (10:56→21:54)
[2017-05-07] MEDS: SUCRALFATE 1 GM TABLET PO SCH ×3 (10:57→21:52)
[2017-05-07] MEDS: OXYCODONE HCL IR 5 MG TABLET PO PRN (11:05)
[2017-05-07 12:02] LABS: HEMOGLOBIN 9.1 g/dL (12.0-15.5); MEAN CORPUSCULAR HEMOGLOBIN 31.1 pg (27.0-33.4); MEAN CORPUSCULAR HGB CONC 32.4 g/dL (32.0-36.0); MEAN CORPUSCULAR VOLUME 96 fl (80-97); RED BLOOD COUNT 2.92 10^6/uL (3.72-5.28); RED CELL DISTRIBUTION WIDTH 21.8 % (11.5-14.0); WHITE BLOOD COUNT 6.1 10^3/uL (4.0-10.5)
[2017-05-07 12:03] LABS: PLATELET COUNT 64 10^3/uL (150-450)
[2017-05-07 12:21] LABS: ABSOLUTE LYMPHOCYTES# (MANUAL) 0.5 10^3/uL (0.5-4.7); ABSOLUTE MONOCYTES # (MANUAL) 1.6 10^3/uL (0.1-1.4); BAND NEUTROPHILS % (MANUAL) 1 % (3-5); BASOPHILS % (MANUAL) 0 % (0-2); EOSINOPHILS % (MANUAL) 0 % (0-6); LYMPHOCYTES % (MANUAL) 8 % (13-45); MONOCYTES % (MANUAL) 26 % (3-13); SEGMENTED NEUTROPHILS % (MAN) 65 % (42-78); TOTAL CELLS COUNTED 100
[2017-05-07 12:24] LABS: ANISOCYTOSIS 3+; PLATELET COMMENT DECREASED; POIKILOCYTOSIS 1+; TEAR DROP CELLS 1+; TOXIC GRANULATION SLIGHT
--- NOTE | 2017-05-07 13:28 | RADIOLOGY REPORT (SQ) ---
EXAM DESCRIPTION: CHEST SINGLE VIEW COMPLETED DATE/TIME: 05/07/2017 1:20 pm REASON FOR STUDY: check central line placement COMPARISON: None. EXAM PARAMETERS: NUMBER OF VIEWS: One view. TECHNIQUE: Single frontal radiographic view of the chest acquired. RADIATION DOSE: NA LIMITATIONS: None. FINDINGS: LUNGS AND PLEURA: No opacities, masses or pneumothorax. No pleural effusion. MEDIASTINUM AND HILAR STRUCTURES: No masses. Contour normal. HEART AND VASCULAR STRUCTURES: Stable cardiomegaly. BONES: No acute findings. HARDWARE: Central line with the tip at the level of the superior vena cava. Bilateral shoulder prost heses. OTHER: No other significant finding. IMPRESSION: CENTRAL LINE DESCRIBED IN SATISFACTORY POSITION. NO PNEUMOTHORAX. TECHNICAL DOCUMENTATION: JOB ID: [id number] 04/20/2017. 2010 [employer]- All Rights Reserved Reading location - IP/workstation name: [email or web address]
--- NOTE | 2017-05-07 14:43 | PDOC CONSULTATION ---
Consultation Consult Date: 05/07/17 Attending physician:: NGUYEN CARLSON Consult reason:: Central line insertion History of Present Illness Admission Date/PCP: 04/20/17 19:30 RUSSELL DORAN MD History of Present Illness: 36-year-old female with multiple medical issues including juvenile rheumatoid arthritis, autoimmune hepatitis with cirrhosis, I saw her initially about 1 month ago when she presented with severe sepsis, shock, at that time she had extreme thrombocytopenia, also anemia and received several units of platelets and blood, her platelet count went as low as 10,000, at that time we were concerned of TTP and she got transferred to [facility], there she was ruled out for TTP and then transferred back. It was felt that her anemia and thrombocytopenia were chronic, the thrombocytopenia was felt likely to be related to cirrhosis, hepatitis as well as the rheumatoid arthritis. The anemia has seems to be anemia of chronic disease, 3 weeks ago she had ferritin drawn which was greater than 100, however saturation was very low. This seems consistent with anemia of chronic disease. Her hemoglobin is dropped down to 7.5, she is planned for blood, platelets are 49 today. The patient has poor peripheral venous access and I have been consulted for a central line insertion. Past Medical History Cardiac Medical History: Denies: Coronary Artery Disease Pulmonary Medical History: Reports: Pneumonia - intubated Denies: Tuberculosis Neurological Medical History: Denies: Seizures Renal/ Medical History: Reports: Chronic Kidney Disease GI Medical History: Reports: Cirrhosis, Hepatitis - Autoimmune ? Musculoskeltal Medical History: Reports: Arthritis - Juvenile rheumatoid arthritis Psychiatric Medical History: Denies: Depression Past Surgical History Past Surgical History: Reports: Section - 2, Orthopedic Surgery - joint replacements (bilateral shoulders, and knees), Tonsillectomy Denies: Hysterectomy Social History Smoking Status: Unknown if Ever Smoked Cigarettes Packs Per Day: 0 Frequency of Alcohol Use: None Hx Recreational Drug Use: No Drugs: None Hx Prescription Drug Abuse: No - Advance Directive Resuscitation Status: Full Code Family History Family History: Hypertension Parental Family History Reviewed: No Children Family History Reviewed: Unknown Sibling(s) Family History Reviewed.: Unknown Medication/Allergy Home Medications: Folic Acid [Folvite 1 mg Tablet] 1 mg PO DAILY 04/20/17 Hydrocodone/Acetaminophen [Hydrocodone-Acetamin 5-325 mg] 1 tab PO Q6HP PRN Lisinopril [Prinivil 10 mg Tablet] 10 mg PO DAILY 04/20/17 Paroxetine HCl [Paxil 20 mg Tablet] 20 mg PO DAILY 04/20/17 Spironolactone [Aldactone 100 mg Tablet] 100 mg PO DAILY 04/20/17 Allergies/Adverse Reactions: amoxicillin trihydrate [From Augmentin] Allergy (Verified 04/20/17 15:05) ITCHING cephalexin monohydrate [From Keflex] Allergy (Verified 04/20/17 15:05) ibuprofen [From Motrin] Allergy (Verified 04/20/17 15:05) Potassium Clavulanate * [From Augmentin] Allergy (Verified 04/20/17 15:05) Review of Systems Constitutional: ABSENT: fever(s) Eyes: ABSENT: visual disturbances Ears: ABSENT: hearing changes Nose, Mouth, and Throat: ABSENT: mouth pain, sore throat, vertigo Cardiovascular: ABSENT: chest pain, dyspnea on exertion, edema, orthropnea, palpitations Gastrointestinal: ABSENT: abdominal pain, constipation, diarrhea, hematemesis, hematochezia, nausea, vomiting Genitourinary: ABSENT: dysuria, hematuria Musculoskeletal: PRESENT: as per HPI, deformity, joint swelling Neurological: ABSENT: abnormal gait, abnormal speech, confusion, dizziness, focal weakness, syncope Psychiatric: ABSENT: anxiety, depression, homidical ideation, suicidal ideation Endocrine: ABSENT: cold intolerance, heat intolerance, polydipsia, polyuria Hematologic/Lymphatic: PRESENT: as per HPI Physical Exam Vital Signs: Temp Pulse Resp BP Pulse Ox 98.0 F 91 20 105/58 L 97 05/07/17 08:19 05/07/17 08:19 05/07/17 08:19 05/07/17 08:19 05/07/17 08:19 Intake & Output 05/06/17 05/07/17 05/08/17 06:59 06:59 06:59 Intake Total 832 1588 Output Total 650 1350 Balance 182 238 Weight 90.2 kg 88.5 kg General appearance: PRESENT: no acute distress, well-developed, well-nourished Head exam: PRESENT: atraumatic, normocephalic Eye exam: PRESENT: conjunctiva pink, EOMI, PERRLA. ABSENT: scleral icterus Ear exam: PRESENT: normal external ear exam Mouth exam: PRESENT: moist, tongue midline Neck exam: ABSENT: carotid bruit, JVD, lymphadenopathy, thyromegaly Respiratory exam: PRESENT: clear to auscultation jose j. ABSENT: rales, rhonchi, wheezes Cardiovascular exam: PRESENT: RRR. ABSENT: diastolic murmur, rubs, systolic murmur GI/Abdominal exam: PRESENT: normal bowel sounds, soft. ABSENT: distended, guarding, mass, organolmegaly, rebound, tenderness Neurological exam: PRESENT: alert, awake, oriented to person, oriented to place , oriented to time, oriented to situation, CN II-XII grossly intact. ABSENT: motor sensory deficit Psychiatric exam: PRESENT: appropriate affect, normal mood. ABSENT: homicidal ideation, suicidal ideation Results Laboratory Results: 05/07/17 11:21 05/07/17 04:40 05/07/17 05/07/17 05/07/17 04:40 04:40 06:00 WBC 5.2 RBC 2.67 L Hgb 8.3 L Hct 25.6 L MCV 96 MCH 31.1 MCHC 32.5 RDW 21.6 H Plt Count 60 L Seg Neutrophils % Not Reportable Lymphocytes % Not Reportable Monocytes % Not Reportable Eosinophils % Not Reportable Basophils % Not Reportable Absolute Neutrophils Not Reportable Absolute Lymphocytes Not Reportable Absolute Monocytes Not Reportable Absolute Eosinophils Not Reportable Absolute Basophils Not Reportable Sodium 138.4 Potassium 4.2 Chloride 110 H Carbon Dioxide 23 Anion Gap 5 BUN 33 H Creatinine 0.67 Est GFR ( Amer) > 60 Est GFR (Non-Af Amer) > 60 Glucose 98 Calcium 8.5 Magnesium 2.1 Blood Type A NEGATIVE Antibody Screen NEGATIVE 05/07/17 11:21 WBC 6.1 RBC 2.92 L Hgb 9.1 L Hct 28.0 L MCV 96 MCH 31.1 MCHC 32.4 RDW 21.8 H Plt Count 64 L Seg Neutrophils % Not Reportable Lymphocytes % Not Reportable Monocytes % Not Reportable Eosinophils % Not Reportable Basophils % Not Reportable Absolute Neutrophils Not Reportable Absolute Lymphocytes Not Reportable Absolute Monocytes Not Reportable Absolute Eosinophils Not Reportable Absolute Basophils Not Reportable Sodium Potassium Chloride Carbon Dioxide Anion Gap BUN Creatinine Est GFR ( Amer) Est GFR (Non-Af Amer) Glucose Calcium Magnesium Blood Type Antibody Screen Impressions: Abdomen/Pelvis CT 04/20/17 00:00 IMPRESSION: 1. Right lower lobar pneumonia. 2. Large partially loculated/encapsulated ascites; differential diagnosis includes early abscess. 3. Moderate right hydronephrosis/hydroureter could be secondary to extrinsic compression from partially loculated ascites. 4. Cholelithiasis with moderate nonspecific pericholecystic fluid. 5. Mild transverse colitis pattern. Extremity Ultrasound 04/22/17 15:25 IMPRESSION: Complex fluid collection in the subcutaneous fat of the medial left calf worrisome for abscess. Extent of the fluid collection was marked on the patient's skin. Paracentesis Ultrasound 04/22/17 15:34 IMPRESSION: Successful ultrasound-guided paracentesis Abdomen Ultrasound 04/23/17 00:00 IMPRESSION: No evidence for portal vein thrombosis. The previously described hydronephrosis involving the right kidney is not identified on the basis of the ultrasound evaluation. Small amount residual ascitic fluid is identified status post recent paracentesis. Gallstones are identified as well as a component biliary sludge. Findings suspicious for cholecystitis are identified. Clinical correlation is recommended. Other findings as noted above. Chest X-Ray 05/07/17 00:00 IMPRESSION: CENTRAL LINE DESCRIBED IN SATISFACTORY POSITION. NO PNEUMOTHORAX. Assessment & Plan - Diagnosis (1) Phlebosclerosis Is this a current diagnosis for this admission?: Yes (2) Thrombocytopenia Is this a current diagnosis for this admission?: Yes - Plan Summary Plan Summary: For central line placement
--- NOTE | 2017-05-07 14:45 | PDOC PROGRESS REPORT ---
Bedside Procedure - History of Present Illness Indication for Procedure: phlebosclerosis - Central Line Left Internal jugular Consent obtained: Yes Central line pre-insertion: Sterile PPE donned, Chloraprep applied, Sterile drapes applied Central line size (Fr.): 7 Central line lumen type: Triple Anesthetic type: 1% Lidocaine mL's of anesthesia: 5 Ultrasound guided: Yes CM at insertion site: 18 Line secured with sutures: Yes Central line post-insertion: Blood return from lumens, Biopatch applied, Sutured , Sterile dressing applied, Position confirmed w/ CXR Number of attempts: 1 Complications: No
--- NOTE | 2017-05-07 15:07 | PDOC CONSULTATION ---
Consultation Consult Date: 05/07/17 Attending physician:: TAJ BALLESTEROS Consult reason:: rectal bleeding History of Present Illness Admission Date/PCP: 04/20/17 19:30 RUSSELL DORAN MD History of Present Illness: patient seen in the past but has been lost to follow up recently admitted had an episode of rectal bleeding last night visualized clots patient does not appear to be in any distress patient states no pain no further bleeding asked to see if patient does need colonoscopy previous colonoscopy report noted Past Medical History Cardiac Medical History: Denies: Coronary Artery Disease Pulmonary Medical History: Reports: Pneumonia - intubated Denies: Tuberculosis Neurological Medical History: Denies: Seizures Renal/ Medical History: Reports: Chronic Kidney Disease GI Medical History: Reports: Cirrhosis, Hepatitis - Autoimmune ? Musculoskeltal Medical History: Reports: Arthritis - Juvenile rheumatoid arthritis Psychiatric Medical History: Denies: Depression Past Surgical History Past Surgical History: Reports: Section - 2, Orthopedic Surgery - joint replacements (bilateral shoulders, and knees), Tonsillectomy Denies: Hysterectomy Social History Smoking Status: Unknown if Ever Smoked Cigarettes Packs Per Day: 0 Frequency of Alcohol Use: None Hx Recreational Drug Use: No Drugs: None Hx Prescription Drug Abuse: No - Advance Directive Resuscitation Status: Full Code Family History Family History: Hypertension Parental Family History Reviewed: Yes Children Family History Reviewed: Unknown Sibling(s) Family History Reviewed.: Unknown Medication/Allergy Home Medications: Folic Acid [Folvite 1 mg Tablet] 1 mg PO DAILY 04/20/17 Hydrocodone/Acetaminophen [Hydrocodone-Acetamin 5-325 mg] 1 tab PO Q6HP PRN Lisinopril [Prinivil 10 mg Tablet] 10 mg PO DAILY 04/20/17 Paroxetine HCl [Paxil 20 mg Tablet] 20 mg PO DAILY 04/20/17 Spironolactone [Aldactone 100 mg Tablet] 100 mg PO DAILY 04/20/17 Allergies/Adverse Reactions: amoxicillin trihydrate [From Augmentin] Allergy (Verified 04/20/17 15:05) ITCHING cephalexin monohydrate [From Keflex] Allergy (Verified 04/20/17 15:05) ibuprofen [From Motrin] Allergy (Verified 04/20/17 15:05) Potassium Clavulanate * [From Augmentin] Allergy (Verified 04/20/17 15:05) Review of Systems Constitutional: ABSENT: fever(s), headache(s), night sweats, weakness Eyes: ABSENT: visual disturbances Ears: ABSENT: hearing changes Cardiovascular: ABSENT: edema, orthropnea Respiratory: ABSENT: dyspnea, hemoptysis Gastrointestinal: ABSENT: diarrhea, dysphagia, nausea, vomiting Genitourinary: ABSENT: dysuria, hematuria Musculoskeletal: ABSENT: deformity Neurological: ABSENT: syncope, tingling, tremor(s), vertigo Endocrine: ABSENT: polydipsia, polyphagia, polyuria Hematologic/Lymphatic: ABSENT: easy bruising Physical Exam Vital Signs: Temp Pulse Resp BP Pulse Ox 98.0 F 91 20 105/58 L 97 05/07/17 08:19 05/07/17 08:19 05/07/17 08:19 05/07/17 08:19 05/07/17 08:19 Intake & Output 05/06/17 05/07/17 05/08/17 06:59 06:59 06:59 Intake Total 832 1588 Output Total 650 1350 Balance 182 238 Weight 90.2 kg 88.5 kg General appearance: PRESENT: no acute distress, well-developed, well-nourished Head exam: PRESENT: atraumatic, normocephalic Eye exam: PRESENT: EOMI, PERRLA. ABSENT: nystagmus, periorbital swelling, scleral icterus Mouth exam: PRESENT: moist. ABSENT: neck supple Throat exam: ABSENT: tonsillar exudate Neck exam: ABSENT: meningismus, tenderness, thyromegaly Respiratory exam: PRESENT: symmetrical, unlabored. ABSENT: tachypnea, wheezes Cardiovascular exam: PRESENT: RRR, +S1, +S2 GI/Abdominal exam: PRESENT: soft. ABSENT: rebound, rigid, tenderness Extremities exam: ABSENT: joint swelling Musculoskeletal exam: PRESENT: full ROM Neurological exam: PRESENT: altered, oriented to time, oriented to situation, CN II-XII grossly intact Psychiatric exam: PRESENT: flat affect Focused psych exam: ABSENT: restlessness Skin exam: PRESENT: normal color. ABSENT: mottled, pallor, urticaria, vesicles Results Laboratory Results: 05/07/17 11:21 05/07/17 04:40 05/07/17 05/07/17 05/07/17 04:40 04:40 06:00 WBC 5.2 RBC 2.67 L Hgb 8.3 L Hct 25.6 L MCV 96 MCH 31.1 MCHC 32.5 RDW 21.6 H Plt Count 60 L Seg Neutrophils % Not Reportable Lymphocytes % Not Reportable Monocytes % Not Reportable Eosinophils % Not Reportable Basophils % Not Reportable Absolute Neutrophils Not Reportable Absolute Lymphocytes Not Reportable Absolute Monocytes Not Reportable Absolute Eosinophils Not Reportable Absolute Basophils Not Reportable Sodium 138.4 Potassium 4.2 Chloride 110 H Carbon Dioxide 23 Anion Gap 5 BUN 33 H Creatinine 0.67 Est GFR ( Amer) > 60 Est GFR (Non-Af Amer) > 60 Glucose 98 Calcium 8.5 Magnesium 2.1 Blood Type A NEGATIVE Antibody Screen NEGATIVE 05/07/17 11:21 WBC 6.1 RBC 2.92 L Hgb 9.1 L Hct 28.0 L MCV 96 MCH 31.1 MCHC 32.4 RDW 21.8 H Plt Count 64 L Seg Neutrophils % Not Reportable Lymphocytes % Not Reportable Monocytes % Not Reportable Eosinophils % Not Reportable Basophils % Not Reportable Absolute Neutrophils Not Reportable Absolute Lymphocytes Not Reportable Absolute Monocytes Not Reportable Absolute Eosinophils Not Reportable Absolute Basophils Not Reportable Sodium Potassium Chloride Carbon Dioxide Anion Gap BUN Creatinine Est GFR ( Amer) Est GFR (Non-Af Amer) Glucose Calcium Magnesium Blood Type Antibody Screen Impressions: Abdomen/Pelvis CT 04/20/17 00:00 IMPRESSION: 1. Right lower lobar pneumonia. 2. Large partially loculated/encapsulated ascites; differential diagnosis includes early abscess. 3. Moderate right hydronephrosis/hydroureter could be secondary to extrinsic compression from partially loculated ascites. 4. Cholelithiasis with moderate nonspecific pericholecystic fluid. 5. Mild transverse colitis pattern. Extremity Ultrasound 04/22/17 15:25 IMPRESSION: Complex fluid collection in the subcutaneous fat of the medial left calf worrisome for abscess. Extent of the fluid collection was marked on the patient's skin. Paracentesis Ultrasound 04/22/17 15:34 IMPRESSION: Successful ultrasound-guided paracentesis Abdomen Ultrasound 04/23/17 00:00 IMPRESSION: No evidence for portal vein thrombosis. The previously described hydronephrosis involving the right kidney is not identified on the basis of the ultrasound evaluation. Small amount residual ascitic fluid is identified status post recent paracentesis. Gallstones are identified as well as a component biliary sludge. Findings suspicious for cholecystitis are identified. Clinical correlation is recommended. Other findings as noted above. Chest X-Ray 05/07/17 00:00 IMPRESSION: CENTRAL LINE DESCRIBED IN SATISFACTORY POSITION. NO PNEUMOTHORAX. Assessment & Plan - Diagnosis (1) Rectal bleeding Plan: will need colonoscopy done Risks, benefits and alternatives are discussed with the patient in detail further recommendations to follow will keep her on clears patient is willing to proceed RN made aware - Time Time Spent: 50 to 70 Minutes
[2017-05-07] MEDS: NYSTATIN TOPICAL POWDER 15 GM TP SCH ×2 (15:27→17:18)
[2017-05-07] MEDS: PANTOPRAZOLE SODIUM 40 MG VIAL IV SCH (17:18)
[2017-05-07 18:00] LABS: HEMATOCRIT 24.9 % (36.0-47.0); MEAN CORPUSCULAR HEMOGLOBIN 30.8 pg (27.0-33.4); MEAN CORPUSCULAR HGB CONC 31.9 g/dL (32.0-36.0); MEAN CORPUSCULAR VOLUME 97 fl (80-97); RED BLOOD COUNT 2.58 10^6/uL (3.72-5.28); RED CELL DISTRIBUTION WIDTH 21.2 % (11.5-14.0); WHITE BLOOD COUNT 6.4 10^3/uL (4.0-10.5)
--- NOTE | 2017-05-07 18:18 | PDOC PROGRESS REPORT ---
Subjective Progress Note for:: 05/07/17 Subjective:: Patient relates that feels weak. Admits that had a bloody bowel movement this morning. Denies having similar episode in the past. Review of systems All organ systems evaluated and negative except as in subjective All significant laboratories and diagnostics have been reviewed Reason For Visit: ACUTE ON CHRONIC RENAL FAILURE Physical Exam Vital Signs: Temp Pulse Resp BP Pulse Ox 98.0 F 93 12 91/49 L 98 05/07/17 04:34 05/07/17 04:34 05/07/17 04:34 05/07/17 04:34 05/07/17 04:34 Intake & Output 05/05/17 05/06/17 05/07/17 06:59 06:59 06:59 Intake Total 1480 425 5330 Output Total 998 896 8857 Balance 1221 182 233 Weight 87.8 kg 90.2 kg 88.5 kg General appearance: PRESENT: no acute distress, cooperative Head exam: PRESENT: atraumatic, normocephalic Eye exam: PRESENT: conjunctiva pink, EOMI, PERRLA Ear exam: PRESENT: normal external ear exam Mouth exam: PRESENT: moist Neck exam: PRESENT: full ROM. ABSENT: JVD, lymphadenopathy, tenderness Respiratory exam: PRESENT: clear to auscultation jose j Cardiovascular exam: PRESENT: RRR. ABSENT: diastolic murmur, systolic murmur Vascular exam: PRESENT: normal capillary refill GI/Abdominal exam: PRESENT: soft. ABSENT: normal bowel sounds, tenderness Extremities exam: PRESENT: full ROM, pedal edema Musculoskeletal exam: PRESENT: ambulatory Neurological exam: PRESENT: alert, awake, oriented to person, oriented to place , oriented to time, oriented to situation, CN II-XII grossly intact Psychiatric exam: PRESENT: depressed Skin exam: PRESENT: pallor Results Laboratory Results: 05/07/17 04:40 05/06/17 05/06/17 05/06/17 07:01 07:01 07:01 WBC 5.7 RBC 2.64 L Hgb 8.2 L Hct 25.3 L MCV 96 MCH 30.9 MCHC 32.3 RDW 21.9 H Plt Count 56 L Seg Neutrophils % Not Reportable Lymphocytes % Not Reportable Monocytes % Not Reportable Eosinophils % Not Reportable Basophils % Not Reportable Absolute Neutrophils Not Reportable Absolute Lymphocytes Not Reportable Absolute Monocytes Not Reportable Absolute Eosinophils Not Reportable Absolute Basophils Not Reportable Sodium Cancelled 137.2 Potassium Cancelled 4.0 Chloride Cancelled 110 H Carbon Dioxide Cancelled 22 Anion Gap Cancelled 5 BUN Cancelled 37 H Creatinine Cancelled 0.90 Est GFR ( Amer) Cancelled > 60 Est GFR (Non-Af Amer) Cancelled > 60 Glucose Cancelled 89 Calcium Cancelled 8.2 L Magnesium Cancelled 2.1 Total Bilirubin 1.2 AST 25 ALT 35 Alkaline Phosphatase 298 H Total Protein 3.7 L Albumin 1.7 L 05/07/17 04:40 WBC RBC Hgb Hct MCV MCH MCHC RDW Plt Count Seg Neutrophils % Lymphocytes % Monocytes % Eosinophils % Basophils % Absolute Neutrophils Absolute Lymphocytes Absolute Monocytes Absolute Eosinophils Absolute Basophils Sodium 138.4 Potassium 4.2 Chloride 110 H Carbon Dioxide 23 Anion Gap 5 BUN 33 H Creatinine 0.67 Est GFR ( Amer) > 60 Est GFR (Non-Af Amer) > 60 Glucose 98 Calcium 8.5 Magnesium 2.1 Total Bilirubin AST ALT Alkaline Phosphatase Total Protein Albumin Impressions: Abdomen/Pelvis CT 04/20/17 00:00 IMPRESSION: 1. Right lower lobar pneumonia. 2. Large partially loculated/encapsulated ascites; differential diagnosis includes early abscess. 3. Moderate right hydronephrosis/hydroureter could be secondary to extrinsic compression from partially loculated ascites. 4. Cholelithiasis with moderate nonspecific pericholecystic fluid. 5. Mild transverse colitis pattern. Chest X-Ray 04/20/17 17:41 IMPRESSION: Marked improvement in the previous noted abnormal air space density in the lungs with differential including pulmonary edema and pneumonia. Mild residual persists. Extremity Ultrasound 04/22/17 15:25 IMPRESSION: Complex fluid collection in the subcutaneous fat of the medial left calf worrisome for abscess. Extent of the fluid collection was marked on the patient's skin. Paracentesis Ultrasound 04/22/17 15:34 IMPRESSION: Successful ultrasound-guided paracentesis Abdomen Ultrasound 04/23/17 00:00 IMPRESSION: No evidence for portal vein thrombosis. The previously described hydronephrosis involving the right kidney is not identified on the basis of the ultrasound evaluation. Small amount residual ascitic fluid is identified status post recent paracentesis. Gallstones are identified as well as a component biliary sludge. Findings suspicious for cholecystitis are identified. Clinical correlation is recommended. Other findings as noted above. Assessment & Plan - Diagnosis (1) Abscess of left lower leg Is this a current diagnosis for this admission?: Yes Plan: Appears to be healing well. Patient to be premedicated before packing. Continue alginate packing (2) Anasarca Is this a current diagnosis for this admission?: Yes Plan: Multifactorial. Improving. Continue Lasix p.o. (3) Anemia Qualifiers: Anemia type: other cause Other causes of anemia: chronic disease, other Qualified Code(s): D63.8 - Anemia in other chronic diseases classified elsewhere Is this a current diagnosis for this admission?: Yes Plan: Has required 2 units of packed red blood cells. Stable. To order serial hemoglobins (4) Ascites Qualifiers: Ascites type: other type Qualified Code(s): R18.8 - Other ascites Is this a current diagnosis for this admission?: Yes Plan: Had required paracentesis 2. Resolving and to continue Lasix p.o. (5) Chronic liver disease Is this a current diagnosis for this admission?: Yes Plan: Stable (6) Hypokalemia Is this a current diagnosis for this admission?: Yes Plan: Resolved (7) Hyponatremia Is this a current diagnosis for this admission?: Yes Plan: Improved (8) Hypotension Qualifiers: Hypotension type: unspecified hypotension type Qualified Code(s): I95.9 - Hypotension, unspecified Is this a current diagnosis for this admission?: Yes Plan: Improved (9) Juvenile rheumatoid arthritis Is this a current diagnosis for this admission?: Yes Plan: Stable (10) Bacteremia Is this a current diagnosis for this admission?: No Plan: Grew staph epidermidis in 1 bottle. Blood culture obtained during the same day was negative therefore is a contaminant. (11) Thrombocytopenia Is this a current diagnosis for this admission?: Yes Plan: Patient had required platelet pheresis 1. Stable (12) Weakness Is this a current diagnosis for this admission?: Yes Plan: Talk to physical therapy to assist in mobilizing patient. Patient had been made aware need to start moving (13) Rectal bleeding Is this a current diagnosis for this admission?: Yes Plan: Serial hemoglobins, to place patient on protonix IV, awaiting GI consult - Time Time Spent with patient: 15-24 minutes Medications reviewed and adjusted accordingly: Yes Anticipated discharge: Home with Homehealth - Inpatient Certification Based on my medical assessment, after consideration of the patient's comorbidities, presenting symptoms, or acuity I expect that the services needed warrant INPATIENT care.: Yes I certify that my determination is in accordance with my understanding of Medicare's requirements for reasonable and necessary INPATIENT services [42 CFR 412.3e].: Yes Medical Necessity: Need Close Monitoring Due to Risk of Patient Decompensation, Need For IV Fluids
[2017-05-07 18:33] LABS: PLATELET COUNT 64 10^3/uL (150-450)
[2017-05-07] MEDS ORDERED: PEG 3350/NA SULF,BICARB,CL/KCL 4000 ML PO ONE (20:00)
[2017-05-08 01:12] LABS: HEMATOCRIT 24.7 % (36.0-47.0); MEAN CORPUSCULAR HEMOGLOBIN 30.9 pg (27.0-33.4); MEAN CORPUSCULAR HGB CONC 32.1 g/dL (32.0-36.0); MEAN CORPUSCULAR VOLUME 96 fl (80-97); RED BLOOD COUNT 2.56 10^6/uL (3.72-5.28); RED CELL DISTRIBUTION WIDTH 21.3 % (11.5-14.0); WHITE BLOOD COUNT 7.3 10^3/uL (4.0-10.5)
[2017-05-08 01:13] LABS: PLATELET COUNT 66 10^3/uL (150-450)
[2017-05-08 01:15] LABS: HEMOGLOBIN 7.9 g/dL (12.0-15.5)
[2017-05-08] MEDS: GABAPENTIN 300 MG CAPSULE PO SCH ×3 (05:18→22:08)
[2017-05-08] MEDS: PANTOPRAZOLE SODIUM 40 MG VIAL IV SCH (06:15)
[2017-05-08 07:25] LABS: HEMATOCRIT 23.5 % (36.0-47.0); MEAN CORPUSCULAR HEMOGLOBIN 31.4 pg (27.0-33.4); MEAN CORPUSCULAR HGB CONC 32.3 g/dL (32.0-36.0); MEAN CORPUSCULAR VOLUME 97 fl (80-97); RED BLOOD COUNT 2.42 10^6/uL (3.72-5.28); RED CELL DISTRIBUTION WIDTH 21.4 % (11.5-14.0); WHITE BLOOD COUNT 6.4 10^3/uL (4.0-10.5)
[2017-05-08 07:54] LABS: HEMOGLOBIN 7.6 g/dL (12.0-15.5); PLATELET COUNT 55 10^3/uL (150-450)
[2017-05-08 08:22] LABS: BLOOD UREA NITROGEN 29 mg/dL (7-20); CALCIUM 8.3 mg/dL (8.4-10.2); CARBON DIOXIDE 25 mmol/L (22-30); CHLORIDE 110 mmol/L (98-107); GLUCOSE 78 mg/dL (75-110); POTASSIUM 4.2 mmol/L (3.6-5.0)
[2017-05-08 08:34] LABS: ANION GAP 4 (5-19)
[2017-05-08] MEDS: FENTANYL CITRATE INJ/PF 100 MCG/2 ML AMPUL IM PRN ×3 (09:50→16:38)
[2017-05-08] MEDS: PAROXETINE HCL 20 MG TABLET PO SCH (09:55)
[2017-05-08] MEDS: MAGNESIUM OXIDE 400 MG TABLET PO SCH ×3 (09:56→16:39)
[2017-05-08] MEDS: FOLIC ACID 1 MG TABLET PO SCH (09:56)
[2017-05-08] MEDS: FUROSEMIDE 20 MG TABLET PO SCH (09:56)
[2017-05-08] MEDS: LISINOPRIL 10 MG TABLET PO SCH (09:57)
[2017-05-08] MEDS: METOPROLOL SUCCINATE 25 MG TAB.SR.24H PO SCH ×2 (09:57→22:09)
[2017-05-08] MEDS: SUCRALFATE 1 GM TABLET PO SCH ×4 (09:58→22:08)
[2017-05-08] MEDS: NYSTATIN TOPICAL POWDER 15 GM TP SCH ×2 (10:03→20:30)
--- NOTE | 2017-05-08 12:23 | PDOC PROGRESS REPORT ---
Subjective Progress Note for:: 05/08/17 Subjective:: patient was not able to take much prep overnight bowels are not clear had BM and RN did visualize some bleeding hemorrhoids patient not able to get procedure done with inadequate prep , she would be at high risk for perforation therefore will defer on procedure she had been scoped about 2-3 years ago, at that time was normal continue to follow transfuse as necessary Reason For Visit: ACUTE ON CHRONIC RENAL FAILURE Physical Exam Vital Signs: Temp Pulse Resp BP Pulse Ox 98.7 F 90 18 98/64 L 97 05/08/17 08:07 05/08/17 08:07 05/08/17 08:07 05/08/17 08:07 05/08/17 08:07 Intake & Output 05/07/17 05/08/17 05/09/17 06:59 06:59 06:59 Intake Total 1588 1804 Output Total 1350 900 Balance 238 904 Weight 88.5 kg 87.7 kg General appearance: PRESENT: no acute distress, well-developed, well-nourished Head exam: PRESENT: atraumatic, normocephalic Eye exam: PRESENT: EOMI, PERRLA. ABSENT: nystagmus, periorbital swelling, scleral icterus Mouth exam: PRESENT: moist, neck supple Throat exam: ABSENT: tonsillar exudate, tonsillogmegaly Neck exam: ABSENT: meningismus, tenderness, thyromegaly Respiratory exam: PRESENT: symmetrical, unlabored. ABSENT: tachypnea Cardiovascular exam: PRESENT: RRR, +S1 GI/Abdominal exam: PRESENT: soft. ABSENT: rebound, rigid, tenderness Extremities exam: ABSENT: joint swelling Musculoskeletal exam: PRESENT: full ROM Neurological exam: PRESENT: oriented to time, oriented to situation, CN II-XII grossly intact Focused psych exam: ABSENT: restlessness Skin exam: PRESENT: normal color. ABSENT: mottled, pallor, urticaria, vesicles Results Laboratory Results: 05/08/17 06:10 05/08/17 07:15 05/07/17 05/07/17 05/08/17 11:21 17:20 00:10 WBC 6.1 6.4 Cancelled RBC 2.92 L 2.58 L Cancelled Hgb 9.1 L 8.0 L Cancelled Hct 28.0 L 24.9 L Cancelled MCV 96 97 Cancelled MCH 31.1 30.8 Cancelled MCHC 32.4 31.9 L Cancelled RDW 21.8 H 21.2 H Cancelled Plt Count 64 L 64 L Cancelled Sodium Potassium Chloride Carbon Dioxide Anion Gap BUN Creatinine Est GFR ( Amer) Est GFR (Non-Af Amer) Glucose Calcium Magnesium 05/08/17 05/08/17 05/08/17 00:45 06:10 07:15 WBC 7.3 6.4 RBC 2.56 L 2.42 L Hgb 7.9 L 7.6 L Hct 24.7 L 23.5 L MCV 96 97 MCH 30.9 31.4 MCHC 32.1 32.3 RDW 21.3 H 21.4 H Plt Count 66 L 55 L Sodium 139.0 Potassium 4.2 Chloride 110 H Carbon Dioxide 25 Anion Gap 4 L BUN 29 H Creatinine 0.69 Est GFR ( Amer) > 60 Est GFR (Non-Af Amer) > 60 Glucose 78 Calcium 8.3 L Magnesium 2.0 Impressions: Abdomen/Pelvis CT 04/20/17 00:00 IMPRESSION: 1. Right lower lobar pneumonia. 2. Large partially loculated/encapsulated ascites; differential diagnosis includes early abscess. 3. Moderate right hydronephrosis/hydroureter could be secondary to extrinsic compression from partially loculated ascites. 4. Cholelithiasis with moderate nonspecific pericholecystic fluid. 5. Mild transverse colitis pattern. Extremity Ultrasound 04/22/17 15:25 IMPRESSION: Complex fluid collection in the subcutaneous fat of the medial left calf worrisome for abscess. Extent of the fluid collection was marked on the patient's skin. Paracentesis Ultrasound 04/22/17 15:34 IMPRESSION: Successful ultrasound-guided paracentesis Abdomen Ultrasound 04/23/17 00:00 IMPRESSION: No evidence for portal vein thrombosis. The previously described hydronephrosis involving the right kidney is not identified on the basis of the ultrasound evaluation. Small amount residual ascitic fluid is identified status post recent paracentesis. Gallstones are identified as well as a component biliary sludge. Findings suspicious for cholecystitis are identified. Clinical correlation is recommended. Other findings as noted above. Chest X-Ray 05/07/17 00:00 IMPRESSION: CENTRAL LINE DESCRIBED IN SATISFACTORY POSITION. NO PNEUMOTHORAX. Assessment & Plan - Diagnosis (1) Rectal bleeding Plan: Likely due to hemorrhoids patient not able to get thru the prep would not risk perforation follow clinically transfuse as necessary if significant bleeding over this weekend , will need transfer since there will NOT be GI coverage this weekend - Time Time Spent with patient: 15-24 minutes
[2017-05-08] MEDS: OXYCODONE HCL IR 5 MG TABLET PO PRN (12:49)
[2017-05-08] MEDS ORDERED: NORMAL SALINE 250 ML IV PRN (18:20)
--- NOTE | 2017-05-08 18:35 | PDOC PROGRESS REPORT ---
Subjective Progress Note for:: 05/08/17 Subjective:: Patient refers that she does not want to have the colonoscopy done. Complains of feeling weak Review of systems All organ systems evaluated and negative except as in subjective All significant laboratories and diagnostics have been reviewed Reason For Visit: ACUTE ON CHRONIC RENAL FAILURE Physical Exam Vital Signs: Temp Pulse Resp BP Pulse Ox 98.6 F 93 18 98/63 L 98 05/08/17 12:46 05/08/17 12:46 05/08/17 12:46 05/08/17 12:46 05/08/17 12:46 Intake & Output 05/07/17 05/08/17 05/09/17 06:59 06:59 06:59 Intake Total 1588 1804 Output Total 1350 900 300 Balance 238 904 -300 Weight 88.5 kg 87.7 kg General appearance: PRESENT: cooperative, other - Chronically ill looking Head exam: PRESENT: atraumatic, normocephalic Eye exam: PRESENT: conjunctiva pale, EOMI, PERRLA Ear exam: PRESENT: normal external ear exam Neck exam: PRESENT: full ROM. ABSENT: JVD, lymphadenopathy, tenderness Respiratory exam: PRESENT: clear to auscultation jose j Cardiovascular exam: PRESENT: RRR. ABSENT: diastolic murmur, systolic murmur Vascular exam: PRESENT: pallor GI/Abdominal exam: PRESENT: normal bowel sounds, soft. ABSENT: tenderness Extremities exam: PRESENT: full ROM, +2 edema, other - Left lower extremity wound with clean dressings noted Musculoskeletal exam: ABSENT: ambulatory Neurological exam: PRESENT: alert, awake, oriented to person, oriented to place , oriented to time, oriented to situation, CN II-XII grossly intact Psychiatric exam: PRESENT: depressed Skin exam: PRESENT: pallor Results Laboratory Results: 05/08/17 06:10 05/08/17 07:15 05/07/17 05/08/17 05/08/17 17:20 00:10 00:45 WBC 6.4 Cancelled 7.3 RBC 2.58 L Cancelled 2.56 L Hgb 8.0 L Cancelled 7.9 L Hct 24.9 L Cancelled 24.7 L MCV 97 Cancelled 96 MCH 30.8 Cancelled 30.9 MCHC 31.9 L Cancelled 32.1 RDW 21.2 H Cancelled 21.3 H Plt Count 64 L Cancelled 66 L Sodium Potassium Chloride Carbon Dioxide Anion Gap BUN Creatinine Est GFR ( Amer) Est GFR (Non-Af Amer) Glucose Calcium Magnesium 05/08/17 05/08/17 06:10 07:15 WBC 6.4 RBC 2.42 L Hgb 7.6 L Hct 23.5 L MCV 97 MCH 31.4 MCHC 32.3 RDW 21.4 H Plt Count 55 L Sodium 139.0 Potassium 4.2 Chloride 110 H Carbon Dioxide 25 Anion Gap 4 L BUN 29 H Creatinine 0.69 Est GFR ( Amer) > 60 Est GFR (Non-Af Amer) > 60 Glucose 78 Calcium 8.3 L Magnesium 2.0 Impressions: Abdomen/Pelvis CT 04/20/17 00:00 IMPRESSION: 1. Right lower lobar pneumonia. 2. Large partially loculated/encapsulated ascites; differential diagnosis includes early abscess. 3. Moderate right hydronephrosis/hydroureter could be secondary to extrinsic compression from partially loculated ascites. 4. Cholelithiasis with moderate nonspecific pericholecystic fluid. 5. Mild transverse colitis pattern. Extremity Ultrasound 04/22/17 15:25 IMPRESSION: Complex fluid collection in the subcutaneous fat of the medial left calf worrisome for abscess. Extent of the fluid collection was marked on the patient's skin. Paracentesis Ultrasound 04/22/17 15:34 IMPRESSION: Successful ultrasound-guided paracentesis Abdomen Ultrasound 04/23/17 00:00 IMPRESSION: No evidence for portal vein thrombosis. The previously described hydronephrosis involving the right kidney is not identified on the basis of the ultrasound evaluation. Small amount residual ascitic fluid is identified status post recent paracentesis. Gallstones are identified as well as a component biliary sludge. Findings suspicious for cholecystitis are identified. Clinical correlation is recommended. Other findings as noted above. Chest X-Ray 05/07/17 00:00 IMPRESSION: CENTRAL LINE DESCRIBED IN SATISFACTORY POSITION. NO PNEUMOTHORAX. Assessment & Plan - Diagnosis (1) Abscess of left lower leg Is this a current diagnosis for this admission?: Yes Plan: Appears to be healing well. Patient to be premedicated before packing. Continue alginate packing (2) Anasarca Is this a current diagnosis for this admission?: Yes Plan: Multifactorial. Improving. Continue Lasix p.o. (3) Anemia Qualifiers: Anemia type: other cause Other causes of anemia: chronic disease, other Qualified Code(s): D63.8 - Anemia in other chronic diseases classified elsewhere Is this a current diagnosis for this admission?: Yes Plan: Has required 2 units of packed red blood cells. Stable. To order to be transfused 2 units a pRBC's today (4) Ascites Qualifiers: Ascites type: other type Qualified Code(s): R18.8 - Other ascites Is this a current diagnosis for this admission?: Yes Plan: Had required paracentesis 2. Resolving and to continue Lasix p.o. (5) Chronic liver disease Is this a current diagnosis for this admission?: Yes Plan: Stable (6) Hypokalemia Is this a current diagnosis for this admission?: Yes Plan: Resolved (7) Hyponatremia Is this a current diagnosis for this admission?: Yes Plan: Improved (8) Hypotension Qualifiers: Hypotension type: unspecified hypotension type Qualified Code(s): I95.9 - Hypotension, unspecified Is this a current diagnosis for this admission?: Yes Plan: Stable (9) Juvenile rheumatoid arthritis Is this a current diagnosis for this admission?: Yes Plan: Stable. For prison placement (10) Bacteremia Is this a current diagnosis for this admission?: No Plan: Grew staph epidermidis in 1 bottle. Blood culture obtained during the same day was negative therefore is a contaminant. (11) Thrombocytopenia Is this a current diagnosis for this admission?: Yes Plan: Patient had required platelet pheresis 1. Stable (12) Weakness Is this a current diagnosis for this admission?: Yes Plan: Talk to physical therapy to assist in mobilizing patient. Patient had been made aware need to start moving (13) Rectal bleeding Is this a current diagnosis for this admission?: Yes Plan: Patient refuses colonoscopy. Discontinue Protonix IV and place her on oral PPI. - Time Time Spent with patient: Less than 15 minutes Medications reviewed and adjusted accordingly: Yes Anticipated discharge: SNF Within: within 48 hours - Inpatient Certification Based on my medical assessment, after consideration of the patient's comorbidities, presenting symptoms, or acuity I expect that the services needed warrant INPATIENT care.: Yes I certify that my determination is in accordance with my understanding of Medicare's requirements for reasonable and necessary INPATIENT services [42 CFR 412.3e].: Yes Medical Necessity: Need Close Monitoring Due to Risk of Patient Decompensation
[2017-05-08] MEDS: NORMAL SALINE 250 ML IV PRN (23:02)
[2017-05-09] MEDS: NORMAL SALINE 250 ML IV PRN (03:29)
[2017-05-09] MEDS: GABAPENTIN 300 MG CAPSULE PO SCH ×3 (05:25→21:14)
[2017-05-09 07:03] LABS: HEMATOCRIT 29.1 % (36.0-47.0); HEMOGLOBIN 9.6 g/dL (12.0-15.5); MEAN CORPUSCULAR HEMOGLOBIN 31.5 pg (27.0-33.4); MEAN CORPUSCULAR HGB CONC 32.9 g/dL (32.0-36.0); MEAN CORPUSCULAR VOLUME 96 fl (80-97); RED BLOOD COUNT 3.04 10^6/uL (3.72-5.28); RED CELL DISTRIBUTION WIDTH 19.3 % (11.5-14.0); WHITE BLOOD COUNT 8.8 10^3/uL (4.0-10.5)
[2017-05-09 07:30] LABS: PLATELET COUNT 72 10^3/uL (150-450)
[2017-05-09 07:41] LABS: ALANINE AMINOTRANSFERASE 34 U/L (9-52); ALBUMIN 1.9 g/dL (3.5-5.0); ALKALINE PHOSPHATASE 270 U/L (38-126); ANION GAP 6 (5-19); ASPARTATE AMINO TRANSFERASE 28 U/L (14-36); BILIRUBIN,TOTAL 2.9 mg/dL (0.2-1.3); BLOOD UREA NITROGEN 27 mg/dL (7-20); CALCIUM 8.5 mg/dL (8.4-10.2); CARBON DIOXIDE 21 mmol/L (22-30); CHLORIDE 114 mmol/L (98-107); GLUCOSE 77 mg/dL (75-110); POTASSIUM 4.1 mmol/L (3.6-5.0); SODIUM 141.1 mmol/L (137-145); TOTAL PROTEIN 3.8 g/dL (6.3-8.2)
[2017-05-09] MEDS: LISINOPRIL 10 MG TABLET PO SCH (10:58)
[2017-05-09] MEDS: FUROSEMIDE 20 MG TABLET PO SCH (10:58)
[2017-05-09] MEDS: FOLIC ACID 1 MG TABLET PO SCH (10:58)
[2017-05-09] MEDS: LANSOPRAZOLE 30 MG TAB.RAP.DR PO SCH (10:59)
[2017-05-09] MEDS: SUCRALFATE 1 GM TABLET PO SCH ×3 (10:59→21:14)
[2017-05-09] MEDS: PAROXETINE HCL 20 MG TABLET PO SCH (10:59)
[2017-05-09] MEDS: MAGNESIUM OXIDE 400 MG TABLET PO SCH ×2 (11:01→17:44)
[2017-05-09] MEDS: NYSTATIN TOPICAL POWDER 15 GM TP SCH ×2 (11:05→17:44)
[2017-05-09] MEDS: METOPROLOL SUCCINATE 25 MG TAB.SR.24H PO SCH ×2 (11:13→21:13)
[2017-05-09] MEDS: FENTANYL CITRATE INJ/PF 100 MCG/2 ML AMPUL IM PRN ×2 (11:13→20:22)
--- NOTE | 2017-05-09 17:00 | PDOC PROGRESS REPORT ---
Subjective Progress Note for:: 05/09/17 Subjective:: No complaints. Patient made aware about future transferred to [place]. Interestingly patient was not aware about the transfer. Nurse reports that patient still passing bright red blood. Patient refuses colonoscopy Review of systems All organ systems evaluated and negative except as in subjective All significant laboratories and diagnostics have been reviewed Reason For Visit: ACUTE ON CHRONIC RENAL FAILURE Physical Exam Vital Signs: Temp Pulse Resp BP Pulse Ox 98.9 F 95 15 106/67 96 05/09/17 03:20 05/09/17 03:20 05/09/17 03:20 05/09/17 03:20 05/09/17 03:20 Intake & Output 05/07/17 05/08/17 05/09/17 06:59 06:59 06:59 Intake Total 1588 1804 2150 Output Total 1350 900 950 Balance 116 476 7301 Weight 88.5 kg 87.7 kg General appearance: PRESENT: no acute distress, cooperative, obese Head exam: PRESENT: atraumatic, normocephalic Eye exam: PRESENT: conjunctiva pale, EOMI, PERRLA Ear exam: PRESENT: normal external ear exam Neck exam: PRESENT: full ROM. ABSENT: JVD, lymphadenopathy, tenderness Respiratory exam: PRESENT: clear to auscultation jose j Cardiovascular exam: PRESENT: RRR. ABSENT: diastolic murmur, systolic murmur GI/Abdominal exam: PRESENT: ascites, normal bowel sounds, soft. ABSENT: tenderness Extremities exam: PRESENT: +1 edema Musculoskeletal exam: PRESENT: deformity. ABSENT: ambulatory Neurological exam: PRESENT: alert, awake, oriented to person, oriented to place , oriented to time, oriented to situation Psychiatric exam: PRESENT: depressed Skin exam: PRESENT: normal color, other - Wound to left lower extremity Results Laboratory Results: 05/07/17 05/08/17 05/08/17 06:00 06:10 07:15 WBC 6.4 RBC 2.42 L Hgb 7.6 L Hct 23.5 L MCV 97 MCH 31.4 MCHC 32.3 RDW 21.4 H Plt Count 55 L Sodium 139.0 Potassium 4.2 Chloride 110 H Carbon Dioxide 25 Anion Gap 4 L BUN 29 H Creatinine 0.69 Est GFR ( Amer) > 60 Est GFR (Non-Af Amer) > 60 Glucose 78 Calcium 8.3 L Magnesium 2.0 Blood Type A NEGATIVE Antibody Screen NEGATIVE Impressions: Abdomen/Pelvis CT 04/20/17 00:00 IMPRESSION: 1. Right lower lobar pneumonia. 2. Large partially loculated/encapsulated ascites; differential diagnosis includes early abscess. 3. Moderate right hydronephrosis/hydroureter could be secondary to extrinsic compression from partially loculated ascites. 4. Cholelithiasis with moderate nonspecific pericholecystic fluid. 5. Mild transverse colitis pattern. Extremity Ultrasound 04/22/17 15:25 IMPRESSION: Complex fluid collection in the subcutaneous fat of the medial left calf worrisome for abscess. Extent of the fluid collection was marked on the patient's skin. Paracentesis Ultrasound 04/22/17 15:34 IMPRESSION: Successful ultrasound-guided paracentesis Abdomen Ultrasound 04/23/17 00:00 IMPRESSION: No evidence for portal vein thrombosis. The previously described hydronephrosis involving the right kidney is not identified on the basis of the ultrasound evaluation. Small amount residual ascitic fluid is identified status post recent paracentesis. Gallstones are identified as well as a component biliary sludge. Findings suspicious for cholecystitis are identified. Clinical correlation is recommended. Other findings as noted above. Chest X-Ray 05/07/17 00:00 IMPRESSION: CENTRAL LINE DESCRIBED IN SATISFACTORY POSITION. NO PNEUMOTHORAX. Assessment & Plan - Diagnosis (1) Abscess of left lower leg Is this a current diagnosis for this admission?: Yes Plan: Appears to be healing well. Patient to be premedicated before packing. Continue alginate packing (2) Anasarca Is this a current diagnosis for this admission?: Yes Plan: Multifactorial. Improving. Continue Lasix p.o. (3) Anemia Qualifiers: Anemia type: other cause Other causes of anemia: chronic disease, other Qualified Code(s): D63.8 - Anemia in other chronic diseases classified elsewhere Is this a current diagnosis for this admission?: Yes Plan: Has required 4 units of packed red blood cells. Improved (4) Ascites Qualifiers: Ascites type: other type Qualified Code(s): R18.8 - Other ascites Is this a current diagnosis for this admission?: Yes Plan: Had required paracentesis 2. Resolving and to continue Lasix p.o. (5) Chronic liver disease Is this a current diagnosis for this admission?: Yes Plan: Stable (6) Hypokalemia Is this a current diagnosis for this admission?: Yes Plan: Resolved (7) Hyponatremia Is this a current diagnosis for this admission?: Yes Plan: Improved (8) Hypotension Qualifiers: Hypotension type: unspecified hypotension type Qualified Code(s): I95.9 - Hypotension, unspecified Is this a current diagnosis for this admission?: Yes Plan: Stable (9) Juvenile rheumatoid arthritis Is this a current diagnosis for this admission?: Yes Plan: Stable. For group home placement (10) Bacteremia Is this a current diagnosis for this admission?: No Plan: Grew staph epidermidis in 1 bottle. Blood culture obtained during the same day was negative therefore is a contaminant. (11) Thrombocytopenia Is this a current diagnosis for this admission?: Yes Plan: Patient had required platelet pheresis 1. Stable (12) Weakness Is this a current diagnosis for this admission?: Yes Plan: Patient not too motivated to move (13) Rectal bleeding Is this a current diagnosis for this admission?: Yes Plan: Patient refuses colonoscopy. Continue oral PPI - Time Time Spent with patient: Less than 15 minutes Medications reviewed and adjusted accordingly: Yes Anticipated discharge: SNF Within: within 48 hours - Inpatient Certification Based on my medical assessment, after consideration of the patient's comorbidities, presenting symptoms, or acuity I expect that the services needed warrant INPATIENT care.: Yes I certify that my determination is in accordance with my understanding of Medicare's requirements for reasonable and necessary INPATIENT services [42 CFR 412.3e].: Yes Medical Necessity: Need Close Monitoring Due to Risk of Patient Decompensation
[2017-05-09 17:13] LABS: HEMATOCRIT 29.7 % (36.0-47.0); HEMOGLOBIN 9.6 g/dL (12.0-15.5); MEAN CORPUSCULAR HEMOGLOBIN 31.3 pg (27.0-33.4); MEAN CORPUSCULAR HGB CONC 32.3 g/dL (32.0-36.0); MEAN CORPUSCULAR VOLUME 97 fl (80-97); RED BLOOD COUNT 3.06 10^6/uL (3.72-5.28); RED CELL DISTRIBUTION WIDTH 19.5 % (11.5-14.0); WHITE BLOOD COUNT 6.2 10^3/uL (4.0-10.5)
[2017-05-09 17:37] LABS: PLATELET COUNT 68 10^3/uL (150-450)
[2017-05-09 23:21] LABS: HEMATOCRIT 27.4 % (36.0-47.0); MEAN CORPUSCULAR HEMOGLOBIN 31.5 pg (27.0-33.4); MEAN CORPUSCULAR VOLUME 95 fl (80-97); RED BLOOD COUNT 2.87 10^6/uL (3.72-5.28)
[2017-05-09 23:37] LABS: PLATELET COUNT 70 10^3/uL (150-450)
[2017-05-10] MEDS: GABAPENTIN 300 MG CAPSULE PO SCH ×2 (06:01→14:22)
[2017-05-10 06:07] LABS: ABSOLUTE EOSINOPHILS # (AUTO) 0.1 10^3/uL (0.0-0.6); ABSOLUTE LYMPHOCYTES (AUTO) 0.4 10^3/uL (0.5-4.7); ABSOLUTE MONOCYTES (AUTO) 1.1 10^3/uL (0.1-1.4); ABSOLUTE NEUT (AUTO) 3.9 10^3/uL (1.7-8.2); BASOPHILS % (AUTO) 0.6 % (0-2); EOSINOPHILS % (AUTO) 2.3 % (0-6); HEMATOCRIT 27.6 % (36.0-47.0); HEMOGLOBIN 9.1 g/dL (12.0-15.5); LYMPHOCYTES % (AUTO) 7.9 % (13-45); MEAN CORPUSCULAR HEMOGLOBIN 31.4 pg (27.0-33.4); MEAN CORPUSCULAR VOLUME 95 fl (80-97); MONOCYTES % (AUTO) 19.8 % (3-13); RED BLOOD COUNT 2.89 10^6/uL (3.72-5.28); RED CELL DISTRIBUTION WIDTH 19.6 % (11.5-14.0); SEGMENTED NEUTROPHILS % (AUTO) 69.4 % (42-78); TOTAL CELLS COUNTED % (AUTO) 100 %; WHITE BLOOD COUNT 5.6 10^3/uL (4.0-10.5)
[2017-05-10 06:24] LABS: PLATELET COUNT 71 10^3/uL (150-450)
[2017-05-10 06:38] LABS: ANION GAP 8 (5-19); BLOOD UREA NITROGEN 24 mg/dL (7-20); CALCIUM 8.6 mg/dL (8.4-10.2); CARBON DIOXIDE 22 mmol/L (22-30); CHLORIDE 112 mmol/L (98-107); GLUCOSE 77 mg/dL (75-110); POTASSIUM 3.7 mmol/L (3.6-5.0); SODIUM 141.6 mmol/L (137-145)
[2017-05-10] MEDS: FUROSEMIDE 20 MG TABLET PO SCH (09:04)
[2017-05-10] MEDS: MAGNESIUM OXIDE 400 MG TABLET PO SCH ×3 (09:04→17:00)
[2017-05-10] MEDS: METOPROLOL SUCCINATE 25 MG TAB.SR.24H PO SCH ×2 (09:05→22:15)
[2017-05-10] MEDS: LANSOPRAZOLE 30 MG TAB.RAP.DR PO SCH (09:05)
[2017-05-10] MEDS: PAROXETINE HCL 20 MG TABLET PO SCH (09:05)
[2017-05-10] MEDS: LISINOPRIL 10 MG TABLET PO SCH (09:05)
[2017-05-10] MEDS: SUCRALFATE 1 GM TABLET PO SCH ×4 (09:05→22:15)
[2017-05-10] MEDS: FOLIC ACID 1 MG TABLET PO SCH (09:05)
[2017-05-10] MEDS: NYSTATIN TOPICAL POWDER 15 GM TP SCH ×2 (09:55→17:00)
[2017-05-10] MEDS ORDERED: OXYCODONE HCL IR 5 MG TABLET PO PRN (15:10)
--- NOTE | 2017-05-10 15:18 | PDOC PROGRESS REPORT ---
Subjective Progress Note for:: 05/10/17 Subjective:: No complaints. Patient was provided a copy of her chart when she was in agreement for transfer to [place] Review of systems All organ systems evaluated and negative except as in subjective All significant laboratories and diagnostics have been reviewed Reason For Visit: ACUTE ON CHRONIC RENAL FAILURE Physical Exam Vital Signs: Temp Pulse Resp BP Pulse Ox 98.8 F 97 17 105/64 96 05/10/17 03:03 05/10/17 03:03 05/10/17 03:03 05/10/17 03:03 05/10/17 03:03 Intake & Output 05/09/17 05/10/17 05/11/17 06:59 06:59 06:59 Intake Total 2150 378 Output Total 1250 1200 Balance 900 -822 Weight 85.4 kg 83.9 kg General appearance: PRESENT: no acute distress, cooperative, obese Head exam: PRESENT: atraumatic, normocephalic Eye exam: PRESENT: conjunctiva pink, EOMI, PERRLA Ear exam: PRESENT: normal external ear exam Mouth exam: PRESENT: moist Neck exam: PRESENT: full ROM. ABSENT: JVD, tenderness Respiratory exam: PRESENT: clear to auscultation jose j. ABSENT: tachypnea, unlabored Cardiovascular exam: PRESENT: RRR. ABSENT: diastolic murmur, systolic murmur Vascular exam: PRESENT: normal capillary refill GI/Abdominal exam: PRESENT: normal bowel sounds, soft. ABSENT: tenderness Extremities exam: PRESENT: full ROM, tenderness, +1 edema Musculoskeletal exam: PRESENT: deformity. ABSENT: ambulatory Neurological exam: PRESENT: alert, awake, oriented to person, oriented to place , oriented to time, oriented to situation Psychiatric exam: PRESENT: appropriate affect, normal mood Skin exam: PRESENT: normal color. ABSENT: pallor Results Laboratory Results: 05/10/17 04:30 05/10/17 04:30 05/09/17 05/09/17 05/09/17 05:30 05:30 16:40 WBC 8.8 6.2 RBC 3.04 L 3.06 L Hgb 9.6 L 9.6 L Hct 29.1 L 29.7 L MCV 96 97 MCH 31.5 31.3 MCHC 32.9 32.3 RDW 19.3 H 19.5 H Plt Count 72 L 68 L Seg Neutrophils % Lymphocytes % Monocytes % Eosinophils % Basophils % Absolute Neutrophils Absolute Lymphocytes Absolute Monocytes Absolute Eosinophils Absolute Basophils Sodium 141.1 Potassium 4.1 Chloride 114 H Carbon Dioxide 21 L Anion Gap 6 BUN 27 H Creatinine 0.74 Est GFR ( Amer) > 60 Est GFR (Non-Af Amer) > 60 Glucose 77 Calcium 8.5 Magnesium 2.0 Total Bilirubin 2.9 H AST 28 ALT 34 Alkaline Phosphatase 270 H Total Protein 3.8 L Albumin 1.9 L 05/09/17 05/10/17 05/10/17 23:10 04:30 04:30 WBC 6.0 5.6 RBC 2.87 L 2.89 L Hgb 9.0 L 9.1 L Hct 27.4 L 27.6 L MCV 95 95 MCH 31.5 31.4 MCHC 33.0 33.0 RDW 19.0 H 19.6 H Plt Count 70 L 71 L Seg Neutrophils % 69.4 Lymphocytes % 7.9 L Monocytes % 19.8 H Eosinophils % 2.3 Basophils % 0.6 Absolute Neutrophils 3.9 Absolute Lymphocytes 0.4 L Absolute Monocytes 1.1 Absolute Eosinophils 0.1 Absolute Basophils 0.0 Sodium 141.6 Potassium 3.7 Chloride 112 H Carbon Dioxide 22 Anion Gap 8 BUN 24 H Creatinine 0.61 Est GFR ( Amer) > 60 Est GFR (Non-Af Amer) > 60 Glucose 77 Calcium 8.6 Magnesium Total Bilirubin AST ALT Alkaline Phosphatase Total Protein Albumin Impressions: Abdomen/Pelvis CT 04/20/17 00:00 IMPRESSION: 1. Right lower lobar pneumonia. 2. Large partially loculated/encapsulated ascites; differential diagnosis includes early abscess. 3. Moderate right hydronephrosis/hydroureter could be secondary to extrinsic compression from partially loculated ascites. 4. Cholelithiasis with moderate nonspecific pericholecystic fluid. 5. Mild transverse colitis pattern. Extremity Ultrasound 04/22/17 15:25 IMPRESSION: Complex fluid collection in the subcutaneous fat of the medial left calf worrisome for abscess. Extent of the fluid collection was marked on the patient's skin. Paracentesis Ultrasound 04/22/17 15:34 IMPRESSION: Successful ultrasound-guided paracentesis Abdomen Ultrasound 04/23/17 00:00 IMPRESSION: No evidence for portal vein thrombosis. The previously described hydronephrosis involving the right kidney is not identified on the basis of the ultrasound evaluation. Small amount residual ascitic fluid is identified status post recent paracentesis. Gallstones are identified as well as a component biliary sludge. Findings suspicious for cholecystitis are identified. Clinical correlation is recommended. Other findings as noted above. Chest X-Ray 05/07/17 00:00 IMPRESSION: CENTRAL LINE DESCRIBED IN SATISFACTORY POSITION. NO PNEUMOTHORAX. Assessment & Plan - Diagnosis (1) Abscess of left lower leg Is this a current diagnosis for this admission?: Yes Plan: Appears to be healing well. Patient to be premedicated before packing. Continue alginate packing (2) Anasarca Is this a current diagnosis for this admission?: Yes Plan: Multifactorial. Improving. Continue Lasix p.o. (3) Anemia Qualifiers: Anemia type: other cause Other causes of anemia: chronic disease, other Qualified Code(s): D63.8 - Anemia in other chronic diseases classified elsewhere Is this a current diagnosis for this admission?: Yes Plan: Has required 4 units of packed red blood cells. Stable (4) Ascites Qualifiers: Ascites type: other type Qualified Code(s): R18.8 - Other ascites Is this a current diagnosis for this admission?: Yes Plan: Had required paracentesis 2. Resolving and to continue Lasix p.o. (5) Chronic liver disease Is this a current diagnosis for this admission?: Yes Plan: Stable (6) Hypokalemia Is this a current diagnosis for this admission?: Yes Plan: Resolved (7) Hyponatremia Is this a current diagnosis for this admission?: Yes Plan: Resolved (8) Hypotension Qualifiers: Hypotension type: unspecified hypotension type Qualified Code(s): I95.9 - Hypotension, unspecified Is this a current diagnosis for this admission?: Yes Plan: Stable (9) Juvenile rheumatoid arthritis Is this a current diagnosis for this admission?: Yes Plan: Stable. For halfway placement (10) Bacteremia Is this a current diagnosis for this admission?: No Plan: Grew staph epidermidis in 1 bottle. Blood culture obtained during the same day was negative therefore is a contaminant. (11) Thrombocytopenia Is this a current diagnosis for this admission?: Yes Plan: Patient had required platelet pheresis 1. Stable (12) Weakness Is this a current diagnosis for this admission?: Yes Plan: Patient not too motivated to move (13) Rectal bleeding Is this a current diagnosis for this admission?: Yes Plan: Patient refuses colonoscopy. Continue oral PPI - Time Time Spent with patient: Less than 15 minutes Medications reviewed and adjusted accordingly: Yes Anticipated discharge: SNF Within: within 24 hours - Inpatient Certification Based on my medical assessment, after consideration of the patient's comorbidities, presenting symptoms, or acuity I expect that the services needed warrant INPATIENT care.: Yes I certify that my determination is in accordance with my understanding of Medicare's requirements for reasonable and necessary INPATIENT services [42 CFR 412.3e].: Yes Medical Necessity: Need Close Monitoring Due to Risk of Patient Decompensation
[2017-05-10] MEDS: GABAPENTIN 400 MG CAPSULE PO SCH (22:15)
[2017-05-11] MEDS: GABAPENTIN 400 MG CAPSULE PO SCH ×2 (05:47→13:17)
[2017-05-11] MEDS: LANSOPRAZOLE 30 MG TAB.RAP.DR PO SCH (08:09)
[2017-05-11] MEDS: SUCRALFATE 1 GM TABLET PO SCH ×3 (08:09→16:59)
[2017-05-11] MEDS: MAGNESIUM OXIDE 400 MG TABLET PO SCH ×3 (08:09→16:59)
[2017-05-11] MEDS: LISINOPRIL 10 MG TABLET PO SCH (09:48)
[2017-05-11] MEDS: FUROSEMIDE 20 MG TABLET PO SCH (09:49)
[2017-05-11] MEDS: FOLIC ACID 1 MG TABLET PO SCH (09:49)
[2017-05-11] MEDS: PAROXETINE HCL 20 MG TABLET PO SCH (09:51)
[2017-05-11] MEDS: METOPROLOL SUCCINATE 25 MG TAB.SR.24H PO SCH (10:05)
[2017-05-11] MEDS: NYSTATIN TOPICAL POWDER 15 GM TP SCH (10:05)
--- NOTE | 2017-05-11 13:14 | PDOC TRANSFER SUMMARY ---
General - Admit/Disc Date/PCP Admission Date/Primary Care Provider: 04/20/17 19:30 RUSSELL DORAN MD Discharge Date: 05/11/17 - Discharge Diagnosis (1) Acute renal failure superimposed on stage 3 chronic kidney disease Is this a current diagnosis for this admission?: Yes (2) Abscess of left lower leg Is this a current diagnosis for this admission?: Yes (3) Anasarca Is this a current diagnosis for this admission?: Yes (4) Anemia Is this a current diagnosis for this admission?: Yes (5) Ascites Is this a current diagnosis for this admission?: Yes (6) Chronic liver disease Is this a current diagnosis for this admission?: Yes (7) Hypokalemia Is this a current diagnosis for this admission?: Yes (8) Hyponatremia Is this a current diagnosis for this admission?: Yes (9) Hypotension Is this a current diagnosis for this admission?: Yes (10) Juvenile rheumatoid arthritis Is this a current diagnosis for this admission?: Yes (11) Thrombocytopenia Is this a current diagnosis for this admission?: Yes (12) Weakness Is this a current diagnosis for this admission?: Yes (13) Rectal bleeding Is this a current diagnosis for this admission?: Yes (14) Septic shock Is this a current diagnosis for this admission?: Yes (15) Pneumonia Is this a current diagnosis for this admission?: Yes - Additional Information Resuscitation Status: Full Code Discharge Diet: As Tolerated Discharge Activity: Activity As Tolerated Prescriptions: Hydrocodone/Acetaminophen [Hydrocodone-Acetamin 5-325 mg] 1 tab PO Q6HP PRN #5 tablet PRN Reason: For Pain Pantoprazole Sodium [Protonix] 40 mg PO DAILY #5 tablet. Home Medications: Folic Acid [Folvite 1 mg Tablet] 1 mg PO DAILY 04/20/17 Lisinopril [Prinivil 10 mg Tablet] 10 mg PO DAILY 04/20/17 Paroxetine HCl [Paxil 20 mg Tablet] 20 mg PO DAILY 04/20/17 Spironolactone [Aldactone 100 mg Tablet] 100 mg PO DAILY 04/20/17 Furosemide [Lasix 20 mg Tablet] 20 mg PO DAILY tablet 05/11/17 Gabapentin [Neurontin 400 mg Capsule] 400 mg PO Q8 capsule 05/11/17 Hydrocodone/Acetaminophen [Hydrocodone-Acetamin 5-325 mg] 1 tab PO Q6HP PRN #5 tablet 05/11/17 Magnesium Oxide [Mag-Ox 400 mg Tablet] 400 mg PO MEALS tablet 05/11/17 Metoprolol Succinate [Toprol Xl 25 mg Tab.sr] 25 mg PO Q12 tab.sr.24h 05/11/17 Pantoprazole Sodium [Protonix] 40 mg PO DAILY #5 tablet. 05/11/17 History of Present Illness Admission Date/PCP: 04/20/17 19:30 RUSSELL DORAN MD History of Present Illness: SERGO PELLETIER is a 36 year old female with history of juvenile rheumatoid arthritis (at the age of 19, currently off biologic medication per patient, follows with Dr. 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 She denied any fever, chills, nausea, vomiting but complained of diffuse abdominal pain, no diarrhea or constipation. She had not been able to void and have the urge for the last 24 hours. She felt generally weak. The patient denied any chest pain or worsening shortness of breath. She has chronic bilateral lower leg edema and venous stasis (left more than right) but she noticed increased erythema and pain in her left leg since on the day of admission. She had a diagnostic paracentesis with a 10-15 cc of fluid drawn by the ED physician. Hospital Course Hospital Course: The patient presented with evidence of septic shock. This was felt to be secondary to pneumonia and spontaneous bacterial peritonitis as well as lower extremity cellulitis with abscess. Initially, the patient was in the intensive care unit on [facility]. Her sepsis resolved. While the patient's cultures for SBP had been negative, her white blood cell count on the paracentesis was elevated at 700. On 04/22/2017 the patient had a large volume paracentesis. This alleviated the obstructive uropathy therefore alleviating the right hydronephrosis. Patient underwent incision and drainage of abscess of left lower extremity. Wound cultures had been negative. Blood culture grew gram- positive cocci in 1 bottle which was deemed to be due to contamination. During this hospitalization patient required transfusion of 4 units of packed packed RBCs and 1 plateletpheresis. Patient will require wound care to wound of left lower extremity. Recommend follow-up with wound care center if wound care is not offer an incoming facility. During the latter part of this hospitalization patient experienced rectal bleeding. GI service was consulted and recommended colonoscopy. Unfortunately prep was incomplete and patient was not able to undergo colonoscopy. Attempts were made but patient refused. We have trended hemoglobin and she required to be transfused 1 units of packed red blood cells otherwise has remained stable. Disposition was discussed by this provider as well as other and she was amenable to go to [facility] facility. Recommend physical therapy and patient requires a lot of encouragement.Patient has remained stable during this hospitalization. Major area of concern is that she is debilitated and needs to be mobilized. Recommending incoming facility to limit the use of opioids. Since patient had achieved maximum benefit of hospitalization stay prompted to discharge Physical Exam Vital Signs: Temp Pulse Resp BP Pulse Ox 98.9 F 92 14 98/62 L 92 05/11/17 07:41 05/11/17 07:41 05/11/17 07:41 05/11/17 07:41 05/11/17 07:41 Intake & Output 05/10/17 05/11/17 05/12/17 06:59 06:59 06:59 Intake Total 378 1139 Output Total 1200 1000 Balance -822 139 Weight 83.9 kg 85.6 kg General appearance: PRESENT: cooperative, obese Head exam: PRESENT: atraumatic, normocephalic Eye exam: PRESENT: conjunctiva pink, EOMI, PERRLA Ear exam: PRESENT: normal external ear exam Mouth exam: PRESENT: moist Neck exam: PRESENT: full ROM. ABSENT: JVD, lymphadenopathy, tenderness Respiratory exam: PRESENT: clear to auscultation jose j Cardiovascular exam: PRESENT: RRR. ABSENT: diastolic murmur, systolic murmur Vascular exam: PRESENT: normal capillary refill GI/Abdominal exam: PRESENT: normal bowel sounds, soft. ABSENT: tenderness Extremities exam: PRESENT: full ROM, other - Left lower extremity wound covered with clean dressings Musculoskeletal exam: PRESENT: ambulatory, deformity Neurological exam: PRESENT: alert, awake, oriented to person, oriented to place , oriented to time, oriented to situation, CN II-XII grossly intact Psychiatric exam: PRESENT: depressed Skin exam: PRESENT: pallor Results Laboratory Results: 05/10/17 04:30 05/10/17 04:30 Impressions: Abdomen/Pelvis CT 04/20/17 00:00 IMPRESSION: 1. Right lower lobar pneumonia. 2. Large partially loculated/encapsulated ascites; differential diagnosis includes early abscess. 3. Moderate right hydronephrosis/hydroureter could be secondary to extrinsic compression from partially loculated ascites. 4. Cholelithiasis with moderate nonspecific pericholecystic fluid. 5. Mild transverse colitis pattern. Extremity Ultrasound 04/22/17 15:25 IMPRESSION: Complex fluid collection in the subcutaneous fat of the medial left calf worrisome for abscess. Extent of the fluid collection was marked on the patient's skin. Paracentesis Ultrasound 04/22/17 15:34 IMPRESSION: Successful ultrasound-guided paracentesis Abdomen Ultrasound 04/23/17 00:00 IMPRESSION: No evidence for portal vein thrombosis. The previously described hydronephrosis involving the right kidney is not identified on the basis of the ultrasound evaluation. Small amount residual ascitic fluid is identified status post recent paracentesis. Gallstones are identified as well as a component biliary sludge. Findings suspicious for cholecystitis are identified. Clinical correlation is recommended. Other findings as noted above. Chest X-Ray 05/07/17 00:00 IMPRESSION: CENTRAL LINE DESCRIBED IN SATISFACTORY POSITION. NO PNEUMOTHORAX. Transfer Plan - Disposition Transfer Plan: To [facility] facility - Time Spent with Patient Time spent with patient: Greater than 30 Minutes Qualifiers - * PATEINT BEING DISCHARGED WITH ANY OF THE FOLLOWING DIAGNOSIS?: No
[2017-05-11 16:12] VITALS: BP 105/71
== END 2017-05-11 19:35 | DRG 853 ==
LOC: ER 15:04 → EH 19:30 → ICU 04-21 10:03 → 3W 04-26 16:15
PROVIDERS: ADMIT Internal Medicine Geriatric Medicine; ATTEND Internal Medicine Geriatric Medicine
PROC: 06H033Z Insertion of Infusion Device into Inferior Vena Cava, Percutaneous Approach (ICD-10-PCS; 2017-04-21)
PROC: 0W9G3ZZ Drainage of Peritoneal Cavity, Percutaneous Approach (ICD-10-PCS; 2017-04-22)
PROC: 0J9P0ZZ Drainage of Left Lower Leg Subcutaneous Tissue and Fascia, Open Approach (ICD-10-PCS; principal; 2017-04-24 17:00)
PROC: 02HV33Z Insertion of Infusion Device into Superior Vena Cava, Percutaneous Approach (ICD-10-PCS; 2017-05-07)
PROC: 30233N1 Transfusion of Nonautologous Red Blood Cells into Peripheral Vein, Percutaneous Approach (ICD-10-PCS; 2017-05-08)
PROC: 30233N1 Transfusion of Nonautologous Red Blood Cells into Peripheral Vein, Percutaneous Approach (ICD-10-PCS; 2017-05-09)
DX: A41.9 Sepsis, unspecified organism (principal); R65.21 Severe sepsis with septic shock; N17.9 Acute kidney failure, unspecified; J18.9 Pneumonia, unspecified organism; D69.6 Thrombocytopenia, unspecified; K65.2 Spontaneous bacterial peritonitis; E87.1 Hypo-osmolality and hyponatremia; L02.416 Cutaneous abscess of left lower limb; R18.8 Other ascites; K62.5 Hemorrhage of anus and rectum; N13.30 Unspecified hydronephrosis; D64.9 Anemia, unspecified; E87.6 Hypokalemia; K76.9 Liver disease, unspecified; M08.00 Unspecified juvenile rheumatoid arthritis of unspecified site; Z79.899 Other long term (current) drug therapy; Z88.1 Allergy status to other antibiotic agents
CPT/HCPCS: 01470; 36415; 36430; 49083; 71045; 74176; 76700; 76882; 80048; 80053; 80076; 80202; 81001; 82533; 82565; 82570; 82607; 82728; 82746; 82803; 83540; 83550; 83605; 83735; 84100; 84156; 84300; 84443; 84466; 85025; 85027; 85045; 85610; 86850; 86900; 86901; 86920; 87040; 87070; 87075; 87077; 87086; 87186; 87205; 89050; 93976; 96360; 99285; A6266; C1751; C1752; C1769; G8978-GP; G8979-GP; G8987-GO; G8988-GO; J0744; J1170; J1940; J2250; J2405; J2704; J2930; J3010; J3370; J3430; J3475; J3480; J3490; J7030; J7050; J7060; J7512; P9016; P9035; P9047; S0164